=== PATIENT | female | born 1940 | race Caucasian/White ===

== ENCOUNTER 2020-03-03 08:25 | Outpatient (CLI) | payer MEDICARE, MEDICAID, SELFPAY ==
--- NOTE | ~2020-03-03 | XR_ITS ---
XR lumbar spine 2-3V DATE: 03/03/2020 08:59 INDICATION: Low back pain for 20 years TECHNIQUE: AP, lateral, coned lateral lumbosacral views COMPARISON: None FINDINGS: Mild dextro scoliosis of the lumbar spine. Moderate osteopenia. No fracture or bone destruction of the lumbar spine is evident. The included lower thoracic and lumba r pedicles are intact. 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 There is moderate degenerative disc disease at L1-2 and L3-4, relatively sparing L2-3. There is approximately 8.5 mm grade 1 anterolisthesis at L4-5, apparently due to degenerative change at the apophyseal joints. There is moderately severe degenerative disc disease at L4-5 and L5-S1. The sacroiliac joints are intact. IMPRESSION: Grade 1 anterolisthesis at L4-5 Multilevel degenerative disc disease, most prominent at L4-5 and L5-S1 Moderate osteopenia Mild dextroscoliosis of the lumbar spine Reviewed, dictated and finalized at location B.
[2020-03-03 08:38] LABS: Basophils Absolute Auto 0.03 K/mm3 (0.00-0.10); Basophils Percent Auto 0.3 % (0.0-1.0); Eosinophils Absolute Auto 0.25 K/mm3 (0.02-0.50); Eosinophils Percent Auto 2.9 % (1.0-6.0); Hemoglobin 11.2 g/dL (11.7-13.8); Immature Granulocyte Absolute 0.07 K/mm3 (0.00-0.00); Immature Granulocyte Percent A 0.8 % (0.0-0.0); Lymphocytes Percent Auto 28.7 % (18.0-42.0); Mean Corpuscular HGB Conc 30.3 g/dL (32.0-36.0); Mean Corpuscular Hemoglobin 29.1 pg (27.0-31.0); Mean Corpuscular Volume 96.1 fL (78.0-102.0); Mean Platelet Volume 9.4 fl (9.2-11.8); Monocytes Absolute Auto 0.64 K/mm3 (0.10-0.90); Monocytes Percent Auto 7.3 % (2.0-11.0); Neutrophils Absolute Auto 5.2 K/mm3 (1.7-7.2); Platelet Count Result 204 K/mm3 (150-420); Red Blood Count 3.85 M/mm3 (4.20-5.40); Red Cell Distribution Width 13.9 % (11.6-14.4); White Blood Count 8.7 K/mm3 (4.8-10.8)
[2020-03-03 10:06] LABS: Alanine Aminotransferase 19 U/L (14-59); Alkaline Phosphatase 82 U/L (46-116); Anion Gap 9 mmol/L (8-16); Aspartate Amino Transferase 15 U/L (15-37); Bilirubin,Total 0.5 mg/dL (0.00-1.00); Blood Urea Nitrogen 55 mg/dL (7-18); Calcium 9.8 mg/dL (8.5-10.1); Carbon Dioxide 32 mmol/L (21-32); Chloride 102 mmol/L (98-108); Estimated Glomerular Filt Rate 13; Glucose 146 mg/dL (70-99); Osmolality Calculated 314 mOsm/kg (285-295); Potassium 4.8 mmol/L (3.5-5.1); Sodium 143 mmol/L (136-145); Thyroid Stimulating Hormone 1.64 uIU/mL (0.36-3.74); Total Protein 7.3 g/dL (6.4-8.2)
== END 2020-03-03 08:26 | disposition home or self-care (01) ==
PROVIDERS: PCP Family Medicine; Visit Provider Family Medicine
DX: N18.9 Chronic kidney disease, unspecified (principal); E03.8 Other specified hypothyroidism; E78.2 Mixed hyperlipidemia; M54.5 Low back pain
CPT/HCPCS: 36415; 72100; 80053; 84443; 85025

== ENCOUNTER 2020-03-17 07:21 | Outpatient (CLI) | payer MEDICARE, MEDICAID, SELFPAY | END 2020-03-17 07:22 | disposition home or self-care (01) | LOC: CHSIMG 07:24 | PROVIDERS: PCP Family Medicine; Visit Provider Family Medicine | DX: Z53.8 Procedure and treatment not carried out for other reasons (principal) | CPT/HCPCS: 99199 ==

== ENCOUNTER 2020-05-17 08:19 | Emergency (ER) | payer MEDICARE, MEDICAID, SELFPAY ==
[2020-05-17 08:27] VITALS: BP 117/74; PULSE 85; RESP 18; TEMP 38.3; O2SAT 94
--- NOTE | 2020-05-17 08:42 | ED.EAR ---
HPI - Ear Problem General Chief complaint: Ear Stated complaint: AMBULANCE Time Seen by Provider: 05/17/20 08:42 Source: patient, EMS and RN notes reviewed Mode of arrival: ambulatory Limitations: no limitations History of Present Illness Complaint: ear pain Location: left ear Duration: constant Severity: severe Relieving factors: nothing Exacerbating factors: palpation Context: Reports recent illness Discharge from ear: Reports no Associated symptoms ear: fever Treatment prior to arrival: none Related Data Home Medications Medication Instructions Recorded Confirmed Allergy Relief (fluticasone) 50 mcg NOT APPLICABLE DAILY 05/17/20 05/17/20 Restasis 0.05 % RIGHTEYE Q12-24H 05/17/20 05/17/20 allopurinol 100 mg PO BID 05/17/20 05/17/20 calcitriol 0.5 mcg PO 5XW 05/17/20 05/17/20 duloxetine 60 mg PO DAILY 05/17/20 05/17/20 fluticasone propion-salmeterol 1 inh INHALATION ONCE 05/17/20 05/17/20 [Advair Diskus] furosemide 40 mg PO DAILY 05/17/20 05/17/20 levothyroxine 75 mcg ONCE 05/17/20 05/17/20 magnesium oxide 400 mg PO DAILY 05/17/20 05/17/20 metoprolol tartrate 25 mg PO BID 05/17/20 05/17/20 mirtazapine 15 mg PO ONCE 05/17/20 05/17/20 omeprazole 20 mg PO DAILY 05/17/20 05/17/20 simvastatin 40 mg PO ONCE 05/17/20 05/17/20 tolterodine 4 mg PO DAILY 05/17/20 05/17/20 ziprasidone HCl 20 mg PO BID 05/17/20 05/17/20 Allergies Allergy/AdvReac Type Severity Reaction Status Date / Time aspirin Allergy Other Verified 05/17/20 08:54 codeine Allergy Other Verified 05/17/20 08:54 tetracycline Allergy Other Verified 05/17/20 08:54 Review of Systems Review of Systems: All systems reviewed & are unremarkable except as noted in HPI and below PMFSH Past Medical History Medical History (Updated 05/17/20 @ 08:58 by Wali Owusu MD) Bipolar 1 disorder, mixed Chronic renal failure Social History Social History (Updated 05/17/20 @ 08:58 by Wali Owusu MD) Smoking status: Never smoker Alcohol intake: never Substance use: never Exam Const: General: healthy appearing, no acute distress and alert Nutritional Appearance: well nourished and obese Orientation/consciousness: patient oriented x3 HENMT: Ears: TM's normal bilaterally and Abnormal EAC present erythema, edema and EAC tenderness; no foreign body General nose exam: Normal external nose present Mouth: Yes lip normal Eyes: Conjunctivae: conjunctivae normal Pupils: Equal, round and reactive pupils present EOM: EOMs intact bilaterally Neck: Neck: normal visual inspection Resp: Effort & Inspection: normal respiratory effort Auscultation: clear to auscultation bilaterally Cardio: Rate: regular rate Rhythm: regular rhythm GI: GI Palp: Yes Soft to palpation and No Tenderness to palpation present (GI) Auscultation: normal bowel sounds Back/Spine/Pelvis: Cervical Spine: cervical ROM normal Thoracic/Lumbar Spine: thoraco-lumbar ROM normal Skin: General skin exam: normal color Rashes: no rashes Neuro: General: patient oriented x3, moves all extremities and no focal motor deficits Course Vital Signs Vital signs: Vital Signs Temperature 38.3 C H 05/17/20 08:27 Pulse Rate 85 05/17/20 08:27 Respiratory Rate 18 05/17/20 08:27 Blood Pressure 117/74 05/17/20 08:27 Pulse Oximetry 94 05/17/20 08:27 Temperature 38.3 C H 05/17/20 08:27 Pulse Rate 87 05/17/20 10:22 Respiratory Rate 18 05/17/20 10:22 Blood Pressure 116/55 L 05/17/20 10:22 Pulse Oximetry 94 05/17/20 10:22 Medical Decision Making Vital Signs Vital Signs: Vital Signs Temperature 38.3 C H 05/17/20 08:27 Pulse Rate 85 05/17/20 08:27 Respiratory Rate 18 05/17/20 08:27 Blood Pressure 117/74 05/17/20 08:27 Pulse Oximetry 94 05/17/20 08:27 Temperature 38.3 C H 05/17/20 08:27 Pulse Rate 87 05/17/20 10:22 Respiratory Rate 18 05/17/20 10:22 Blood Pressure 116/55 L 05/17/20 10:22 Pulse Oximetry 94 05/17/20 10:22
--- NOTE | 2020-05-17 09:10 | PC.NURSE ---
Attempting to arrange to transportation, [facility]on[facility] refuses transport, pt does not qualify for [facility], pt has no family in the area available for transportation, attempting to contact [facility] ambulance at this time.
[2020-05-17 09:30] VITALS: BP 117/54; PULSE 88; RESP 18; O2SAT 93
[2020-05-17 10:22] VITALS: BP 116/55; PULSE 87; RESP 18; O2SAT 94
== END 2020-05-17 10:22 | disposition home or self-care (01) ==
PROVIDERS: Emergency Provider Emergency Medicine; PCP Family Medicine
DX: H60.312 Diffuse otitis externa, left ear (principal)
CPT/HCPCS: 99283

== ENCOUNTER 2020-05-20 13:24 | Inpatient (IN) | payer MEDICARE, MEDICAID, SELFPAY ==
--- NOTE | ~2020-05-20 | XR_ITS ---
EXAMINATION: XR chest 1V portable DATE: 05/20/2020 14:08 INDICATION: Shortness of breath. TECHNIQUE: A single frontal view of the chest was obtained. COMPARISON: None. FINDINGS: There are airspace opacities in the mid and lower lung zones bilaterally with a peripheral predominance. No pleural effusion or pneumothorax. The heart size is normal. There are surgical clips in the neck. IMPRESSION: 1. Airspace opacities in the mid and lower lung zones, consistent with pneumonia. Reviewed, dictated and finalized at location A. ECTION AND TESTING SUPERVISOR IMPRESSION: 1. Airspace opacities in the mid and lower lung zones, consistent with pneumoni a.
--- NOTE | ~2020-05-20 | NM_ITS ---
EXAMINATION: NM pulmonary perfusion DATE: 05/21/2020 09:17 INDICATION: Shortness of breath. TECHNIQUE: 5.1 mCi Tc-99m MAA was administered intravenously for perfusion images. Scintigraphic dc ges of the chest were obtained. COMPARISON: chest single view 05/20/20 FINDINGS: Perfusion images show small defects in the lower lobes and left upper lobe. ] IMPRESSION: 1. Pulmonary embolism absent (very low probability). Reviewed, dictated and finalized at location A. STRATOR SET
[2020-05-20 13:43] VITALS: BP 100/45; PULSE 100; RESP 20; TEMP 39.4; O2SAT 98
[2020-05-20] MEDS: ACETAMINOPHEN 500 MG TABLET 1000 MG PO (14:15)
[2020-05-20] MEDS: SODIUM CHLORIDE 0.9% IV 1,000 ML 999 ML IV CONT (14:20)
[2020-05-20 14:33] LABS: Eosinophils Absolute Auto 0.01 K/mm3 (0.02-0.50); Eosinophils Percent Auto 0.2 % (1.0-6.0); Hematocrit 31.8 % (35.0-42.0); Hemoglobin 9.7 g/dL (11.7-13.8); Immature Granulocyte Absolute 0.02 K/mm3 (0.00-0.00); Immature Granulocyte Percent A 0.4 % (0.0-0.0); Lymphocytes Absolute Auto 1.21 K/mm3 (1.10-4.50); Lymphocytes Percent Auto 24.3 % (18.0-42.0); Mean Corpuscular HGB Conc 30.5 g/dL (32.0-36.0); Mean Corpuscular Hemoglobin 27.8 pg (27.0-31.0); Mean Corpuscular Volume 91.1 fL (78.0-102.0); Mean Platelet Volume 10.4 fl (9.2-11.8); Monocytes Absolute Auto 0.45 K/mm3 (0.10-0.90); Neutrophils Absolute Auto 3.3 K/mm3 (1.7-7.2); Neutrophils Percent Auto 66.1 % (50.0-70.0); Platelet Count Result 184 K/mm3 (150-420); Red Blood Count 3.49 M/mm3 (4.20-5.40); Red Cell Distribution Width 13.7 % (11.6-14.4)
[2020-05-20] MEDS: ALPRAZolam (*CRX) 0.5 MG TABLET PO (14:40)
[2020-05-20 14:50] LABS: Base Excess ABG -3.4 mmol/L (0-2); HCO3 ABG 16.7 mmol/L (23-29); Oxygen Content ABG 13.1 %vol (16.0-22.0); Oxygen Saturation ABG 95.5 % (95-97); Oxyhemoglobin 94.8 % (94-100); PO2 ABG 71.1 mmHg (75-85); Total Hemoglobin 9.8 g/dL; pH ABG 7.59 (7.35-7.45)
[2020-05-20 14:51] LABS: Device ROOM AIR; Site Drawn LEFT BRACHIAL
[2020-05-20 14:52] LABS: Lactic Acid Reflex 1.5 mmol/L (0.4-2.0)
[2020-05-20 14:52] LABS: PCO2 ABG 17.7 mmHg (35-45)
[2020-05-20 14:53] LABS: Alanine Aminotransferase 35 U/L (14-59); Alkaline Phosphatase 59 U/L (46-116); Anion Gap 11 mmol/L (8-16); Aspartate Amino Transferase 49 U/L (15-37); Bilirubin,Total 0.4 mg/dL (0.00-1.00); Blood Urea Nitrogen 75 mg/dL (7-18); Calcium 8.9 mg/dL (8.5-10.1); Carbon Dioxide 26 mmol/L (21-32); Chloride 100 mmol/L (98-108); Estimated Glomerular Filt Rate 9; Glucose 104 mg/dL (70-99); Osmolality Calculated 306 mOsm/kg (285-295); Potassium 4.3 mmol/L (3.5-5.1); Sodium 137 mmol/L (136-145); Total Protein 7.3 g/dL (6.4-8.2)
[2020-05-20 14:56] LABS: BNP 50 pg/mL (0-100); D Dimer 0.86 mg/L (0.19-0.50); Troponin I 22.6 ng/L (0.00-60.4)
--- NOTE | 2020-05-20 14:59 | ED.FEVER ---
HPI - Fever General Chief Complaint: Fever Stated Complaint: ambulance Source: patient and EMS Mode of arrival: EMS History of Present Illness HPI Narrative: This is a 79-year-old patient from [facility] that presents with increasing shortness of breath and feel fever up to 103, the patient was sent over by EMS patient recently diagnosed with COVID 19 on the 14 of May, currently her vital signs and O2 sats are 98% on room air, with a blood pressure 100 over 45. Patient with a mild cough mild shortness of breath O2 sats 98% with fever up to 103 with no chest pain no abdominal pain patient with a history of anxiety and depression and history of hypothyroid and hypercholesterolemia. The patient was diagnosed with some COVID-19 on May 14 while at the [facility]. Patient is poor historian but appears uncomfortable anxious. MD elicited complaint: fever Onset (ago): day(s) Relieving factors: acetaminophen Associated symptoms: shortness of breath Related Data Home Medications Medication Instructions Recorded Confirmed Allergy Relief (fluticasone) 50 mcg NOT APPLICABLE DAILY 05/17/20 05/17/20 Restasis 0.05 % RIGHTEYE Q12-24H 05/17/20 05/17/20 allopurinol 100 mg PO BID 05/17/20 05/17/20 calcitriol 0.5 mcg PO 5XW 05/17/20 05/17/20 duloxetine 60 mg PO DAILY 05/17/20 05/17/20 fluticasone propion-salmeterol 1 inh INHALATION ONCE 05/17/20 05/17/20 [Advair Diskus] furosemide 40 mg PO DAILY 05/17/20 05/17/20 levothyroxine 75 mcg ONCE 05/17/20 05/17/20 magnesium oxide 400 mg PO DAILY 05/17/20 05/17/20 metoprolol tartrate 25 mg PO BID 05/17/20 05/17/20 mirtazapine 15 mg PO ONCE 05/17/20 05/17/20 omeprazole 20 mg PO DAILY 05/17/20 05/17/20 simvastatin 40 mg PO ONCE 05/17/20 05/17/20 tolterodine 4 mg PO DAILY 05/17/20 05/17/20 ziprasidone HCl 20 mg PO BID 05/17/20 05/17/20 Allergies Allergy/AdvReac Type Severity Reaction Status Date / Time aspirin Allergy Other Verified 05/20/20 13:58 codeine Allergy Other Verified 05/20/20 13:58 tetracycline Allergy Other Verified 05/20/20 13:58 Review of Systems Review of Systems: All systems reviewed & are unremarkable except as noted in HPI and below PMFSH Past Medical History Medical History Bipolar 1 disorder, mixed Chronic renal failure Social History Social History Smoking status: Never smoker Alcohol intake: never Substance use: never Gender identity (if verbalized by the patient): Female Exam Const: General: no acute distress Orientation/consciousness: patient oriented x3 HENMT: Head: normal to inspection Eyes: Conjunctivae: conjunctivae normal Pupils: Equal, round and reactive pupils present EOM: EOMs intact bilaterally Chest: Chest palpation & inspection: normal inspection of the chest Resp: Effort & Inspection: normal respiratory effort Auscultation: diminished lung sounds Cardio: Rate: regular rate Rhythm: regular rhythm GI: GI Palp: Yes Soft to palpation Auscultation: normal bowel sounds : General: Yes no CVA tenderness Back/Spine/Pelvis: Back: no CVA tenderness Skin: General skin exam: normal color Rashes: no rashes Neuro: General: patient oriented x3, moves all extremities, no meningeal signs and no focal motor deficits Extrem: General: normal to inspection and no pedal edema Psych: Affect: Anxious affect present Course BEAMER OPERATOR/PA Physician Supervision Reassessment of patient after becoming severely anxious and hyperventilating with some blood drawn received dose of Xanax and currently I the fluids and appears more calm. Patient will be admitted as an inpatient. Vital Signs Vital signs: Vital Signs Temperature 39.4 C H 05/20/20 13:43 Pulse Rate 100 05/20/20 13:43 Respiratory Rate 20 05/20/20 13:43 Blood Pressure 100/45 L 05/20/20 13:43 Pulse Oximetry 98 05/20/20 13:43 [place]
[2020-05-20 16:00] VITALS: BP 106/56; PULSE 88; RESP 20; TEMP 38; O2SAT 92
[2020-05-20 16:15] VITALS: PULSE 80; RESP 88; O2SAT 94
[2020-05-20 16:57] VITALS: BMI 32.7
[2020-05-20] MEDS: ziprasidone HCL 20 MG CAPSULE PO (17:08)
[2020-05-20] MEDS: ENOXAPARIN 40 MG/0.4 ML SYRINGE 70 MG SUB-Q (17:08)
[2020-05-20] MEDS: SODIUM CHLORIDE 0.9% IV 1,000 ML 100 ML IV CONT (17:09)
[2020-05-20 20:40] VITALS: O2SAT 90
[2020-05-20 20:45] VITALS: BP 118/52; PULSE 93; RESP 18; TEMP 36.2; O2SAT 90
[2020-05-20] MEDS: SIMVASTATIN 10 MG TABLET 40 MG PO (21:07)
[2020-05-20] MEDS: MIRTAZAPINE 15 MG TABLET PO (21:07)
[2020-05-21] VITALS: BP 118/60; PULSE 78; RESP 18; TEMP 36.5; O2SAT 93
--- NOTE | 2020-05-21 02:47 | PC.NURSE ---
pt sleeping, no evidence of distress noted, iv fluids infusing per order
[2020-05-21] MEDS: SODIUM CHLORIDE 0.9% IV 1,000 ML 100 ML IV CONT ×3 (03:18→21:52)
[2020-05-21 04:00] VITALS: PULSE 87; RESP 20; TEMP 36.4
[2020-05-21] MEDS: LEVOTHYROXINE SODIUM 75 MCG TABLET PO (05:43)
[2020-05-21 05:57] LABS: Eosinophils Absolute Auto 0.02 K/mm3 (0.02-0.50); Eosinophils Percent Auto 0.4 % (1.0-6.0); Hematocrit 28.4 % (35.0-42.0); Hemoglobin 8.7 g/dL (11.7-13.8); Immature Granulocyte Absolute 0.03 K/mm3 (0.00-0.00); Immature Granulocyte Percent A 0.7 % (0.0-0.0); Lymphocytes Absolute Auto 1.02 K/mm3 (1.10-4.50); Lymphocytes Percent Auto 22.9 % (18.0-42.0); Mean Corpuscular HGB Conc 30.6 g/dL (32.0-36.0); Mean Corpuscular Volume 91.3 fL (78.0-102.0); Mean Platelet Volume 10.2 fl (9.2-11.8); Monocytes Absolute Auto 0.34 K/mm3 (0.10-0.90); Monocytes Percent Auto 7.6 % (2.0-11.0); Neutrophils Absolute Auto 3.1 K/mm3 (1.7-7.2); Neutrophils Percent Auto 68.4 % (50.0-70.0); Platelet Count Result 148 K/mm3 (150-420); Red Blood Count 3.11 M/mm3 (4.20-5.40); Red Cell Distribution Width 14.1 % (11.6-14.4); White Blood Count 4.5 K/mm3 (4.8-10.8)
[2020-05-21 06:23] LABS: Alanine Aminotransferase 28 U/L (14-59); Albumin Level 2.6 g/dL (3.4-5.0); Alkaline Phosphatase 50 U/L (46-116); Anion Gap 8 mmol/L (8-16); Aspartate Amino Transferase 44 U/L (15-37); Bilirubin,Total 0.3 mg/dL (0.00-1.00); Blood Urea Nitrogen 68 mg/dL (7-18); Carbon Dioxide 26 mmol/L (21-32); Chloride 104 mmol/L (98-108); Estimated CRCL calculation 10 ml/min; Estimated Glomerular Filt Rate 10; Glucose 111 mg/dL (70-99); Osmolality Calculated 306 mOsm/kg (285-295); Potassium 4.2 mmol/L (3.5-5.1); Sodium 138 mmol/L (136-145); Total Protein 5.7 g/dL (6.4-8.2)
--- NOTE | 2020-05-21 06:30 | PC.NURSE ---
creatinine of 4.[address] Campbell, fluids infusing, no new orders received
[2020-05-21 07:41] VITALS: BP 136/78; PULSE 78; RESP 18; TEMP 39.1; O2SAT 93
[2020-05-21 07:46] VITALS: TEMP 39.1
[2020-05-21] MEDS: ACETAMINOPHEN 325 MG TABLET 650 MG PO ×2 (07:46→14:11)
[2020-05-21] MEDS: DULoxetine HCL 30 MG CAPSULE.DR 60 MG PO (10:07)
[2020-05-21] MEDS: DEXAMETHASONE SOD PHOS INJ 4 MG/ML VIAL 6 MG IV PUSH (10:07)
[2020-05-21] MEDS: PANTOPRAZOLE 40 MG TABLET PO (10:07)
[2020-05-21] MEDS: ziprasidone HCL 20 MG CAPSULE PO ×2 (10:08→17:11)
--- NOTE | 2020-05-21 11:22 | PM.IMHP ---
H&P: HPI History of Present Illness Date/Time: 05/21/20 11:22 Chief Complaint: sob, fever Narrative: norbert leiva is a 79 year old female that presented to our ED today with complaints of shortness of breath and a temperature of 103. Patient has a past medical history of bipolar and chronic renal failure. She was diagnosed with Covid on May 14. At this time patient notes that her condition has much improved since admission she continues to have a slight cough she is no longer short of breath and she is on room air satting in the 90s. The patient denies SOB, CP, palpitation, extremity numbness, lightheadedness, dizziness, constipation, diarrhea, chills, or fever. Although she denies a fever she does have a temperature of 102.4. Patient D-dimer was slightly elevated on admission due to her renal function she is unable to have a CTA but did have a VQ scan which was negative. Review of Systems Review of Systems: All systems reviewed & are unremarkable except as noted in HPI and below (10 point system review) [facility] Past Medical History Medical History Bipolar 1 disorder, mixed Chronic renal failure Social History Social History Smoking status: Smoker, status unknown Alcohol intake: unknown Substance use: never Gender identity (if verbalized by the patient): Female Sexual Orientation (if Verbalized by the Patient): Straight or Heterosexual Spiritual care concerns: No Meds Home Medications and Allergies Home Medications Medication Instructions Recorded Confirmed Type mfvnycyd-fipvka-DQ-thonzonium 4 drp LEFTEAR TID #10 ml 05/17/20 05/21/20 Rx [Cortisporin-TC] allopurinol 100 mg PO BID 05/20/20 05/20/20 History calcitriol 0.5 mcg PO 5XW 05/20/20 05/20/20 History cyclosporine [Restasis] 1 drp OPHTHALMIC (EYE) Q12H 05/20/20 05/20/20 History duloxetine 60 mg PO DAILY 05/20/20 05/20/20 History fluticasone propion-salmeterol 1 inh INHALATION Q12H 05/20/20 05/20/20 History [Advair Diskus] fluticasone propionate 1 spray INTRANASAL DAILY 05/20/20 05/20/20 History furosemide 40 mg PO DAILY 05/20/20 05/20/20 History levothyroxine 75 mcg PO DAILY 05/20/20 05/20/20 History magnesium oxide 400 mg PO DAILY 05/20/20 05/20/20 History metoprolol tartrate 25 mg PO BID 05/20/20 05/20/20 History mirtazapine 15 mg PO HS 05/20/20 05/20/20 History omeprazole 20 mg PO DAILY 05/20/20 05/20/20 History simvastatin 40 mg PO HS 05/20/20 05/20/20 History tolterodine 4 mg PO DAILY 05/20/20 05/20/20 History ziprasidone HCl 20 mg PO BID 05/20/20 05/20/20 History Allergies Allergy/AdvReac Type Severity Reaction Status Date / Time aspirin Allergy Other Verified 05/20/20 13:58 codeine Allergy Other Verified 05/20/20 13:58 tetracycline Allergy Other Verified 05/20/20 13:58 Vital Signs Vital Signs - 24 hr 05/20/20 13:43 05/20/20 16:00 05/20/20 16:15 Temperature 103.0 F H 100.4 F H Pulse Rate 100 88 80 Respiratory Rate 20 20 88 H Blood Pressure 100/45 L 106/56 L Pulse Oximetry 98 92 94 05/20/20 20:40 05/20/20 20:45 05/21/20 00:00 Temperature 97.2 F L 97.7 F Pulse Rate 93 78 Respiratory Rate 18 18 Blood Pressure 118/52 L 118/60 Pulse Oximetry 90 90 93 05/21/20 04:00 05/21/20 07:41 05/21/20 07:46 Temperature 97.6 F 102.4 F H 102.4 F H Pulse Rate 87 78 Respiratory Rate 20 18 Blood Pressure 136/78 Pulse Oximetry 93 Exam Narrative: Exam Narrative: GENERAL: This is a well-nourished, well-developed patient, in no apparent distress. HEAD: normocephalic, atraumatic. EYES: PERRL. Sclera clear/white. Vision is grossly intact. EARS: External ears normal, auditory canals clear and without drainage, TMs normal without perforation. Hearing grossly intact. NOSE: External nose normal with no obvious nasal discharge, nares without redness, no rhinorrhea. THROAT: Mucous membranes moist, posterior p
[2020-05-21 13:18] LABS: Hematocrit 27.5 % (35.0-42.0); Hemoglobin 8.5 g/dL (11.7-13.8)
[2020-05-21 14:11] VITALS: TEMP 37.6
[2020-05-21 16:00] VITALS: BP 116/73; PULSE 92; RESP 18; TEMP 36.3; O2SAT 95
[2020-05-21 16:15] LABS: Occult Blood Negative (Negative)
[2020-05-21] MEDS: SIMVASTATIN 10 MG TABLET 40 MG PO (21:37)
[2020-05-21] MEDS: DOCUSATE SODIUM 100 MG CAPSULE PO (21:37)
[2020-05-21] MEDS: MIRTAZAPINE 15 MG TABLET PO (21:38)
[2020-05-22] VITALS: BP 139/70; PULSE 80; RESP 18; TEMP 36.2; O2SAT 93
--- NOTE | 2020-05-22 01:00 | PC.NURSE ---
Pt. up to BR c assist x1, pt. gait slow and slightly unsteady. Pt. assisted c nurse and noted small incontinent loose stool. Pt. changed depend and assisted back to bed.
[2020-05-22] MEDS: SODIUM CHLORIDE 0.9% IV 1,000 ML 100 ML IV CONT (01:52)
[2020-05-22] MEDS: LEVOTHYROXINE SODIUM 75 MCG TABLET PO (06:16)
[2020-05-22 08:00] VITALS: BP 149/83; PULSE 118; RESP 22; TEMP 36.3; O2SAT 93
[2020-05-22 08:42] LABS: Hematocrit 29.7 % (35.0-42.0); Hemoglobin 9.1 g/dL (11.7-13.8); Mean Corpuscular HGB Conc 30.6 g/dL (32.0-36.0); Mean Corpuscular Hemoglobin 28.2 pg (27.0-31.0); Mean Platelet Volume 10.5 fl (9.2-11.8); Platelet Count Result 160 K/mm3 (150-420); Red Blood Count 3.23 M/mm3 (4.20-5.40); Red Cell Distribution Width 13.6 % (11.6-14.4); White Blood Count 5.3 K/mm3 (4.8-10.8)
[2020-05-22 09:03] LABS: Alanine Aminotransferase 31 U/L (14-59); Albumin Level 2.5 g/dL (3.4-5.0); Alkaline Phosphatase 50 U/L (46-116); Anion Gap 8 mmol/L (8-16); Aspartate Amino Transferase 40 U/L (15-37); Bilirubin,Total 0.2 mg/dL (0.00-1.00); Blood Urea Nitrogen 51 mg/dL (7-18); Calcium 8.6 mg/dL (8.5-10.1); Carbon Dioxide 24 mmol/L (21-32); Chloride 106 mmol/L (98-108); Estimated CRCL calculation 12 ml/min; Estimated Glomerular Filt Rate 14; Glucose 138 mg/dL (70-99); Osmolality Calculated 301 mOsm/kg (285-295); Sodium 138 mmol/L (136-145); Total Protein 6.5 g/dL (6.4-8.2)
[2020-05-22] MEDS: DULoxetine HCL 30 MG CAPSULE.DR 60 MG PO (09:25)
[2020-05-22] MEDS: ziprasidone HCL 20 MG CAPSULE PO (09:25)
[2020-05-22] MEDS: DEXAMETHASONE SOD PHOS INJ 4 MG/ML VIAL 6 MG IV PUSH (09:25)
[2020-05-22] MEDS: DOCUSATE SODIUM 100 MG CAPSULE PO (09:25)
[2020-05-22] MEDS: PANTOPRAZOLE 40 MG TABLET PO (09:26)
--- NOTE | 2020-05-22 09:42 | P.DS_ITS ---
DS: Admitting Diagnosis Admitting Diagnosis Admitting Diagnosis: covid <Dena GrecoCHU - Last Filed: 05/22/20 10:35> DS: Discharge Diagnosis Discharge Diagnosis (1) COVID-19: Code(s): U07.1 - COVID-19 <Dena GrecoCHU - Last Filed: 05/22/20 10:35> Status: Acute <Dena GrecoCHU - Last Filed: 05/22/20 10:35> Assessment and Plan: * Patient diagnosed 05/14/2020 of quarantine 05/25/2020 * Continue dexamethasone not a candidate for remdesivir due to renal function * Blood cultures preliminary no growth * Chest x-ray indicates pneumonia which is residual from the COVID-19 <Dena Spangler CHU Greco - Last Filed: 05/22/20 10:35> (2) Acute renal disease: Code(s): N28.9 - Disorder of kidney and ureter, unspecified <CHU Jerome - Last Filed: 05/22/20 10:35> Status: Acute <Dena DentonEVA SteeleC - Last Filed: 05/22/20 10:35> Assessment and Plan: * Possibly worsening due to Covid * Creatinine currently 3.34 improved * Baseline appears to be 3.00 back in 03/03/2020 <CHU Jerome - Last Filed: 05/22/20 10:35> (3) Bipolar 1 disorder, mixed: Code(s): F31.60 - Bipolar disorder, current episode mixed, unspecified <Dena CorrieCHU Steele - Last Filed: 05/22/20 10:35> Status: Acute <EVA JeromeC - Last Filed: 05/22/20 10:35> Assessment and Plan: * Continue home medication <CHU Jerome - Last Filed: 05/22/20 10:35> (4) Chronic renal failure: Code(s): N18.9 - Chronic kidney disease, unspecified <CHU Jerome - Last Filed: 05/22/20 10:35> Status: Acute <CHU Jerome - Last Filed: 05/22/20 10:35> Assessment and Plan: * Referred to acute renal failure <CHU Jerome - Last Filed: 05/22/20 10:35> (5) Elevated d-dimer: Code(s): R79.89 - Other specified abnormal findings of blood chemistry <CHU Jerome - Last Filed: 05/22/20 10:35> Status: Acute <CHU Jerome - Last Filed: 05/22/20 10:35> Assessment and Plan: * Unable to complete CTA VQ scan completed * VQ scan negative <CHU Jerome - Last Filed: 05/22/20 10:35> DS: Summary Hospital Course Hospital Course: This is a 79-year-old woman that presented to our ED on 1218 with complaints of shortness of breath and tested positive for Covid. Patient was treated with dexamethasone she is not a candidate for remdesivir due to her renal function her D-dimer was elevated VQ scan scan completed negative for PE. Patient did not require any oxygen supplement while here she was discharged today home with dexamethasone and she is in stable condition. The patient denies SOB, CP, palpitation, extremity numbness, lightheadedness, dizziness, constipation, diarrhea, chills, or fever. This document was completed by using [employer] speech recognition software, therefore imaging technologist variances may occur. Despite proofreading, typographical errors may also occur. <CHU Jerome - Last Filed: 05/22/20 10:35> Time Spent with Patient Time attestation: Total time spent providing and/or coordinating discharge services:60 <CHU Jerome - Last Filed: 05/22/20 10:35> Exam Narrative: Exam Narrative: GENERAL: This is a well-nourished, well-developed patient, in no apparent distress. HEAD: normocephalic, atraumatic. EYES: PERRL. Sclera clear/white. Vision is grossly intact. EARS: External ears normal, auditory canals clear and without drainag
--- NOTE | 2020-05-22 09:42 | PM.DS ---
DS: Admitting Diagnosis Admitting Diagnosis Admitting Diagnosis: covid <Dena Spangler EVA GrecoC - Last Filed: 05/22/20 10:35> DS: Discharge Diagnosis Discharge Diagnosis (1) COVID-19: Code(s): U07.1 - COVID-19 <Dena GrecoEVAC - Last Filed: 05/22/20 10:35> Status: Acute <Dena Spangler EVA GrecoC - Last Filed: 05/22/20 10:35> Assessment and Plan: Patient diagnosed 05/14/2020 of quarantine 05/25/2020 Continue dexamethasone not a candidate for remdesivir due to renal function Blood cultures preliminary no growth Chest x-ray indicates pneumonia which is residual from the COVID-19 <Nickolassaniya Crys EVA GrecoC - Last Filed: 05/22/20 10:35> (2) Acute renal disease: Code(s): N28.9 - Disorder of kidney and ureter, unspecified <BRANDEE Jerome-C - Last Filed: 05/22/20 10:35> Status: Acute <Dena DentonBRANDEE Steele-C - Last Filed: 05/22/20 10:35> Assessment and Plan: Possibly worsening due to Covid Creatinine currently 3.34 improved Baseline appears to be 3.00 back in 03/03/2020 <BRANDEE Jerome-C - Last Filed: 05/22/20 10:35> (3) Bipolar 1 disorder, mixed: Code(s): F31.60 - Bipolar disorder, current episode mixed, unspecified <EVA JeromeC - Last Filed: 05/22/20 10:35> Status: Acute <BRANDEE Jerome-C - Last Filed: 05/22/20 10:35> Assessment and Plan: Continue home medication <EVA JreomeC - Last Filed: 05/22/20 10:35> (4) Chronic renal failure: Code(s): N18.9 - Chronic kidney disease, unspecified <BRANDEE Jerome-C - Last Filed: 05/22/20 10:35> Status: Acute <BRANDEE Jerome-C - Last Filed: 05/22/20 10:35> Assessment and Plan: Referred to acute renal failure <DANIELA JeromePBeckyAlexys - Last Filed: 05/22/20 10:35> (5) Elevated d-dimer: Code(s): R79.89 - Other specified abnormal findings of blood chemistry <CHU Jerome - Last Filed: 05/22/20 10:35> Status: Acute <CHU Jerome - Last Filed: 05/22/20 10:35> Assessment and Plan: Unable to complete CTA VQ scan completed VQ scan negative <CHU Jerome - Last Filed: 05/22/20 10:35> DS: Summary Hospital Course Hospital Course: This is a 79-year-old woman that presented to our ED on 1217 with complaints of shortness of breath and tested positive for Covid. Patient was treated with dexamethasone she is not a candidate for remdesivir due to her renal function her D-dimer was elevated VQ scan scan completed negative for PE. Patient did not require any oxygen supplement while here she was discharged today home with dexamethasone and she is in stable condition. The patient denies SOB, CP, palpitation, extremity numbness, lightheadedness, dizziness, constipation, diarrhea, chills, or fever. This document was completed by using [employer] Direct speech recognition software, therefore computer sciences professor variances may occur. Despite proofreading, typographical errors may also occur. <Dena GrecoBRANDEEBeckyAlexys - Last Filed: 05/22/20 10:35> Time Spent with Patient Time attestation: Total time spent providing and/or coordinating discharge services:60 <CHU Jerome - Last Filed: 05/22/20 10:35> Exam Narrative: Exam Narrative: GENERAL: This is a well-nourished, well-developed patient, in no apparent distress. HEAD: normocephalic, atraumatic. EYES: PERRL. Sclera clear/white. Vision is grossly intact. EARS: External ears normal, auditory canals clear and without drainage, TMs normal without perforation. Hearing grossly intact. NOSE: External nose normal with no obvious nasal discharge, nares without redness, no rhinorrhea. THROAT: Mucous membranes moist, posterior pharynx clear. NECK: Neck supple, non-tender without lymphadenopathy, masses or thyromegaly. CARDIOVASCULAR: Regular rate and rhythm without
--- NOTE | 2020-05-22 12:25 | PC.NURSE ---
ROSSY paged to transfer patient back to [facility] care. Spoke to detention care worker, states that all detention care patients much be transferred by [facility]. Prescriptions faxed to [facility].
--- NOTE | 2020-06-08 14:57 | PC.NURSE ---
Unable to contact for discharge call back.
== END 2020-05-22 12:45 | disposition home or self-care (01) | DRG 177 ==
LOC: CHSED 15:06 → CHS2ND 16:11
PROVIDERS: Nurse Practitioner; Admitting Provider Emergency Medicine; Emergency Provider Emergency Medicine; PCP Family Medicine; Visit Provider Emergency Medicine
DX: U07.1 COVID-19 (principal); J12.89 Other viral pneumonia; N18.9 Chronic kidney disease, unspecified; E03.9 Hypothyroidism, unspecified; E78.00 Pure hypercholesterolemia, unspecified; F31.9 Bipolar disorder, unspecified; F41.9 Anxiety disorder, unspecified
CPT/HCPCS: 36415; 36600; 71045; 78580; 80053; 82272; 82805; 83605; 83880; 84484; 85014; 85018; 85025; 85027; 85380; 86850; 86900; 86901; 87040; 96360; 99285; A9270; A9540; J1100; J1650; J7030

== ENCOUNTER 2020-11-29 08:15 | Outpatient (CLI) | payer MEDICARE, SELFPAY ==
[2020-11-29 09:14] LABS: Anion Gap 11 mmol/L (8-16); Blood Urea Nitrogen 72 mg/dL (7-18); Calcium 9.5 mg/dL (8.5-10.1); Carbon Dioxide 29 mmol/L (21-32); Chloride 103 mmol/L (98-108); Estimated Glomerular Filt Rate 12; Glucose 162 mg/dL (70-99); Osmolality Calculated 321 mOsm/kg (285-295); Potassium 4.7 mmol/L (3.5-5.1); Sodium 143 mmol/L (136-145)
[2020-12-01 13:54] LABS: Parathyroid Intact 62 pg/mL (14-64)
[2020-12-01 15:33] LABS: Vitamin D 25 Hydroxy 29 ng/mL (30-100)
== END 2020-11-29 08:16 | disposition home or self-care (01) ==
LOC: CHSLAB 08:17
PROVIDERS: PCP Family Medicine; Visit Provider Family Medicine
DX: E55.9 Vitamin D deficiency, unspecified (principal)
CPT/HCPCS: 36415; 80048; 82306; 83970

== ENCOUNTER 2021-01-05 07:54 | Outpatient (CLI) | payer MEDICARE, SELFPAY ==
[2021-01-05 08:16] LABS: Basophils Absolute Auto 0.05 K/mm3 (0.00-0.10); Basophils Percent Auto 0.5 % (0.0-1.0); Eosinophils Absolute Auto 0.41 K/mm3 (0.02-0.50); Eosinophils Percent Auto 4.4 % (1.0-6.0); Hematocrit 36.1 % (35.0-42.0); Hemoglobin 10.7 g/dL (11.7-13.8); Immature Granulocyte Absolute 0.06 K/mm3 (0.00-0.00); Immature Granulocyte Percent A 0.7 % (0.0-0.0); Lymphocytes Absolute Auto 3.29 K/mm3 (1.10-4.50); Lymphocytes Percent Auto 35.6 % (18.0-42.0); Mean Corpuscular HGB Conc 29.6 g/dL (32.0-36.0); Mean Corpuscular Hemoglobin 27.4 pg (27.0-31.0); Mean Corpuscular Volume 92.3 fL (78.0-102.0); Mean Platelet Volume 9.6 fl (9.2-11.8); Monocytes Absolute Auto 0.52 K/mm3 (0.10-0.90); Monocytes Percent Auto 5.6 % (2.0-11.0); Neutrophils Absolute Auto 4.9 K/mm3 (1.7-7.2); Neutrophils Percent Auto 53.2 % (50.0-70.0); Platelet Count Result 224 K/mm3 (150-420); Red Blood Count 3.91 M/mm3 (4.20-5.40); Red Cell Distribution Width 14.6 % (11.6-14.4); White Blood Count 9.2 K/mm3 (4.8-10.8)
[2021-01-05 08:50] LABS: Creatinine Urine 49.29 mg/dL (40-278); Total Protein Urine Random 16.2 mg/dL (0.0-11.9); Ur Ttl Prot Creatinine Ratio 0.33 mg/mg (0-0.20)
[2021-01-05 08:54] LABS: Hemoglobin A1C 6.2 % (<5.7)
[2021-01-05 09:29] LABS: Alanine Aminotransferase 25 U/L (14-59); Albumin Level 3.8 g/dL (3.4-5.0); Alkaline Phosphatase 113 U/L (46-116); Anion Gap 10 mmol/L (8-16); Aspartate Amino Transferase 20 U/L (15-37); Bilirubin,Total 0.4 mg/dL (0.00-1.00); Blood Urea Nitrogen 63 mg/dL (7-18); Calcium 9.4 mg/dL (8.5-10.1); Carbon Dioxide 30 mmol/L (21-32); Chloride 106 mmol/L (98-108); Estimated Glomerular Filt Rate 12; Ferritin 48 ng/mL (8-252); Glucose 110 mg/dL (70-99); Iron 43 ug/dL (50-170); Magnesium 2.4 mg/dL (1.8-2.4); Osmolality Calculated 321 mOsm/kg (285-295); Percent Iron Saturation 12 % (12-57); Phosphorus 4.6 mg/dL (2.6-4.7); Potassium 4.2 mmol/L (3.5-5.1); Sodium 146 mmol/L (136-145); Thyroid Stimulating Hormone 1.81 uIU/mL (0.36-3.74); Uric Acid 3.6 mg/dL (2.6-6.0)
[2021-01-08 11:54] LABS: Vitamin D 25 Hydroxy 29 ng/mL (30-100)
== END 2021-01-05 07:55 | disposition home or self-care (01) ==
PROVIDERS: PCP Family Medicine
DX: E55.9 Vitamin D deficiency, unspecified (principal); E78.2 Mixed hyperlipidemia; R73.01 Impaired fasting glucose; I12.0 Hypertensive chronic kidney disease with stage 5 chronic kidney disease or end stage renal disease; N18.5 Chronic kidney disease, stage 5; D63.1 Anemia in chronic kidney disease; N25.81 Secondary hyperparathyroidism of renal origin; M10.00 Idiopathic gout, unspecified site
CPT/HCPCS: 36415; 80053; 82306; 82570; 82728; 83036; 83540; 83550; 83735; 84100; 84156; 84443; 84550; 85025

== ENCOUNTER 2021-02-13 08:08 | Observation (INO) | payer MEDICARE, MEDICAID, SELFPAY ==
[2021-02-13] VITALS (14 sets, daily range): BP systolic 79–106; BP diastolic 40–88; PULSE 70–111; RESP 16–20; TEMP 36.2–37; O2SAT 92–97; BMI 33.0
--- NOTE | ~2021-02-13 | XR_ITS ---
EXAMINATION: XR chest 1V portable EXAM DATE: 02/13/2021 09:08 INDICATION: Dizziness. TECHNIQUE: Portable AP frontal chest x-ray was obtained. Comparison is made to prior examination from 05/20/2020. FINDINGS: The lungs are clear. There are no pleural effusions. Cardiac silhouette is prominent but magnified on this AP technique. There is no pneumothorax suspected. There are bony degenerative ch anges. IMPRESSION: No acute cardiopulmonary findings. Reviewed, dictated and finalized at location A.
--- NOTE | ~2021-02-13 | CT_ITS ---
EXAMINATION: CT brain wo con EXAM DATE: 02/13/2021 08:44 INDICATION: dizziness, symptoms 3 hours. TECHNIQUE: Spiral CT of the head was performed without contrast. Axial, coronal and sagittal images were reviewed. The dose-length product (DLP) for this examination was 605.33 mGy-cm. The exposure w as tailored according to patient size, and iterative reconstruction (ASIR) was used as additional dos e reduction technique. There is no prior study for comparison. FINDINGS: There is no acute intraparenchymal hemorrhage. No evidence of intraparenchymal brain mass lesion. No evidence of acute infarction. Please note that initial head CT has limited sensitivity f or small or acute infarctions. There is mild to moderate periventricular and subcortical hypodensity, nonspecific but probably related to small vessel ischemic disease. There is mild to moderate promi nence of the sulci and ventricles related to cerebral atrophy. There is intracranial carotid arteri osclerosis. There are no extra-axial collections. There is no mass effect or midline shift. The or bits are unremarkable. Soft tissue is unremarkable. The visualized sinuses and mastoid air cells ar e well aerated. IMPRESSION: 1. No acute intracranial findings. 2. Chronic age related findings. Reviewed, dictated and finalized at location A.
--- NOTE | 2021-02-13 08:18 | ECG_ITS ---
Measurements Intervals [place] Rate: 70 P: -21 WA: 178 QRS: 4 QRSD: 89 T: 30 QT: 433 QTc: 469 Interpretive Statements SINUS RHYTHM BORDERLINE ST ABNORMALITY- ANTERIOR LEADS BASELINE ARTIFACT- I, II, III, AVL, AVF BORDERLINE ECG Electronically Signed On 02-14-2021 7:55:22 CDT by Roverto Sher D.O.
[2021-02-13] MEDS: ONDANSETRON INJ 4 MG/2 ML VIAL IV PUSH (08:45)
--- NOTE | 2021-02-13 08:46 | ED.NAVMDI ---
HPI - Nausea/Vomiting/Diarrhea General Chief complaint: Nausea/Vomiting/Diarrhea Stated complaint: Ambulance Time Seen by Provider: 02/13/21 08:16 Source: patient, EMS, RN notes reviewed and other (Assisted living staff.) Mode of arrival: EMS Limitations: no limitations History of Present Illness MD elicited complaint: nausea and other (resolved dizziness. pt was not vertiginous in the ED.) Onset (ago): hour(s) (1) Description of vomiting: resolved (no acute vomiting) Associated nausea: Yes Associated abdominal pain: No Location of pain: none Pain scale (0-10): 0 Exacerbating factors: none Relieving factors: none Associated symptoms: nausea/vomiting and weakness Related Data Home Medications Medication Instructions Recorded Confirmed Restasis 1 drp OPHTHALMIC (EYE) Q12H 05/20/20 02/13/21 allopurinol 100 mg PO BID 05/20/20 02/13/21 calcitriol 0.5 mcg PO 5XW 05/20/20 02/13/21 duloxetine 60 mg PO DAILY 05/20/20 02/13/21 furosemide 40 mg PO DAILY 05/20/20 02/13/21 levothyroxine 75 mcg PO DAILY 05/20/20 02/13/21 magnesium oxide 400 mg PO DAILY 05/20/20 02/13/21 metoprolol tartrate 25 mg PO BID 05/20/20 02/13/21 mirtazapine 15 mg PO HS 05/20/20 02/13/21 omeprazole 20 mg PO DAILY 05/20/20 02/13/21 simvastatin 40 mg PO HS 05/20/20 02/13/21 tolterodine 4 mg PO DAILY 05/20/20 02/13/21 ziprasidone HCl 20 mg PO HS 05/20/20 02/13/21 acetaminophen 650 mg PO BID 02/13/21 02/13/21 acetaminophen 650 mg PO Q4H PRN 02/13/21 02/13/21 bismuth subsalicylate 524 mg PO Q1H PRN 02/13/21 02/13/21 [Pepto-Bismol] dicyclomine 20 mg PO TID PRN 02/13/21 02/13/21 ergocalciferol (vitamin D2) 50,000 unit PO WEEKLY 02/13/21 02/13/21 [Vitamin D2] guaifenesin [Robafen] 100 mg PO Q4H PRN 02/13/21 02/13/21 melatonin 3 mg PO HS PRN 02/13/21 02/13/21 polyethylene glycol 3350 [Miralax] 1 g PO DAILY PRN 02/13/21 02/13/21 Allergies Allergy/AdvReac Type Severity Reaction Status Date / Time aspirin Allergy Other Verified 05/20/20 13:58 codeine Allergy Other Verified 05/20/20 13:58 tetracycline Allergy Other Verified 05/20/20 13:58 Review of Systems Review of Systems: All systems reviewed & are unremarkable except as noted in HPI and below Gastrointestinal: Gastrointestinal: Reports as per HPI and Reports nausea Neurologic: Reports as per HPI, Reports dizziness and Reports weakness PMFSH Past Medical History Medical History Bipolar 1 disorder, mixed Chronic renal failure Social History Social History Smoking status: Smoker, status unknown Alcohol intake: unknown Substance use: never Gender identity (if verbalized by the patient): Female Sexual Orientation (if Verbalized by the Patient): Straight or Heterosexual Spiritual care concerns: No Exam Const: General: healthy appearing, no acute distress and alert Nutritional Appearance: well nourished Orientation/consciousness: patient oriented x3 HENMT: Head: normal to inspection Ears: external ears normal and TM's normal bilaterally General nose exam: Normal external nose present and Normal nares present Face and sinus: normal facial exam Mouth: Yes dry mucous membranes Eyes: Cornea: corneas normal Pupils: Equal, round and reactive pupils present EOM: EOMs intact bilaterally Neck: Neck: normal visual inspection, no lymphadenopathy and no meningeal signs Chest: Chest palpation & inspection: normal inspection of the chest Resp: Effort & Inspection: normal respiratory effort Auscultation: clear to auscultation bilaterally Cardio: Rate: regular rate Rhythm: regular rhythm GI: GI Palp: Yes Soft to palpation Percussion: Yes normal to percussion Auscultation: normal bowel sounds : General: Yes bladder normal to palpation and Yes no CVA tenderness Back/Spine/Pelvis: Back: no CVA tenderness Skin: General skin exam: normal color Rashes: no rashes Neuro: Gener
[2021-02-13] MEDS: SODIUM CHLORIDE 0.9% IV 1,000 ML 999 ML IV CONT (08:52)
[2021-02-13 08:59] LABS: Basophils Absolute Auto 0.04 K/mm3 (0.00-0.10); Basophils Percent Auto 0.4 % (0.0-1.0); Eosinophils Absolute Auto 0.23 K/mm3 (0.02-0.50); Eosinophils Percent Auto 2.5 % (1.0-6.0); Hematocrit 32.9 % (35.0-42.0); Hemoglobin 10.1 g/dL (11.7-13.8); Immature Granulocyte Absolute 0.08 K/mm3 (0.00-0.00); Immature Granulocyte Percent A 0.9 % (0.0-0.0); Lymphocytes Absolute Auto 1.91 K/mm3 (1.10-4.50); Lymphocytes Percent Auto 20.7 % (18.0-42.0); Mean Corpuscular HGB Conc 30.7 g/dL (32.0-36.0); Mean Corpuscular Hemoglobin 27.6 pg (27.0-31.0); Mean Corpuscular Volume 89.9 fL (78.0-102.0); Mean Platelet Volume 9.6 fl (9.2-11.8); Monocytes Absolute Auto 0.51 K/mm3 (0.10-0.90); Monocytes Percent Auto 5.5 % (2.0-11.0); Neutrophils Absolute Auto 6.5 K/mm3 (1.7-7.2); Platelet Count Result 191 K/mm3 (150-420); Red Blood Count 3.66 M/mm3 (4.20-5.40); Red Cell Distribution Width 13.9 % (11.6-14.4); White Blood Count 9.2 K/mm3 (4.8-10.8)
[2021-02-13 09:18] LABS: Alanine Aminotransferase 22 U/L (14-59); Albumin Level 3.4 g/dL (3.4-5.0); Alkaline Phosphatase 80 U/L (46-116); Anion Gap 7 mmol/L (8-16); Aspartate Amino Transferase 15 U/L (15-37); Bilirubin,Total 0.3 mg/dL (0.00-1.00); Blood Urea Nitrogen 77 mg/dL (7-18); Calcium 9.6 mg/dL (8.5-10.1); Carbon Dioxide 31 mmol/L (21-32); Chloride 102 mmol/L (98-108); Estimated CRCL calculation 10 ml/min; Estimated Glomerular Filt Rate 11; Glucose 158 mg/dL (70-99); Osmolality Calculated 316 mOsm/kg (285-295); Potassium 4.3 mmol/L (3.5-5.1); Sodium 140 mmol/L (136-145); Total Protein 6.8 g/dL (6.4-8.2); Troponin I 7.9 ng/L (0.00-60.4)
[2021-02-13 09:20] LABS: Lactic Acid Reflex 1.1 mmol/L (0.4-2.0)
--- NOTE | 2021-02-13 09:56 | PC.NURSE ---
PT UP TO BEDSIDE COMMODE TO OBTAIN URINE SAMPLE, PT UNABLE TO PROVIDE
[2021-02-13] MEDS: SODIUM CHLORIDE 0.9% IV 1,000 ML 125 ML (10:58)
--- NOTE | 2021-02-13 12:28 | PM.IMHP ---
H&P: HPI History of Present Illness Date/Time: 02/13/21 12:28 this is a 80-year-old female that presented to the emergency department with complaints of patient has a past medical history of bipolar and chronic renal failure. Patient's blood pressure reading at the living facility 74/56. According to patient while she was attempting to walk from her table that she was taking 9 to the restroom she became dizzy and mated to that she had before she actually fell she also notes that she felt nausea during that time. vital signs 93/61, 72, 18, 93% on room air, WBCs 9.2, hemoglobin 10.1, hematocrit 32.9, platelets 191, sodium 140, potassium 4.3, BUN 77, creatinine 3.80, glucose 158,, lactic acid 1.1, liver function tests normal limits troponin 7.9 EKG sinus rhythm heart rate 70. Patient being admitted for dehydration. The patient denies SOB, CP, palpitation, extremity numbness, lightheadedness, dizziness, constipation, diarrhea, chills, or fever. Patient has had Covid she was also vaccinated against Covid and had some exposure Observation Time spent 60 minutes Disposition discharge tomorrow back to living facility after IV hydration <CHU Jerome - Last Filed: 02/13/21 13:13> Chief Complaint: Dizziness and nausea <CHU Jerome - Last Filed: 02/13/21 13:13> Review of Systems Review of Systems: A 14 organ system Review of Systems was performed and pertinent positives included in the HPI, otherwise remaining ROS is negative. <CHU Jerome - Last Filed: 02/13/21 13:13> [facility] Past Medical History Medical History: Medical History Bipolar 1 disorder, mixed Chronic renal failure <CHU Jerome - Last Filed: 02/13/21 13:13> Social History Social History: Social History Smoking status: Never smoker Alcohol intake: never Substance use: never Gender identity (if verbalized by the patient): Female Sexual Orientation (if Verbalized by the Patient): Straight or Heterosexual Spiritual care concerns: No <Dena Greco, SENIOR RADIATION PROTECTION TECHNICIAN-C - Last Filed: 02/13/21 13:13> Meds Home Medications and Allergies Home medications: Home Medications Medication Instructions Recorded Confirmed Type Restasis 1 drp OPHTHALMIC (EYE) Q12H 05/20/20 02/13/21 History allopurinol 100 mg PO BID 05/20/20 02/13/21 History calcitriol 0.5 mcg PO 5XW 05/20/20 02/13/21 History duloxetine 60 mg PO DAILY 05/20/20 02/13/21 History furosemide 40 mg PO DAILY 05/20/20 02/13/21 History levothyroxine 75 mcg PO DAILY 05/20/20 02/13/21 History magnesium oxide 400 mg PO DAILY 05/20/20 02/13/21 History metoprolol tartrate 25 mg PO BID 05/20/20 02/13/21 History mirtazapine 15 mg PO HS 05/20/20 02/13/21 History omeprazole 20 mg PO DAILY 05/20/20 02/13/21 History simvastatin 40 mg PO HS 05/20/20 02/13/21 History tolterodine 4 mg PO DAILY 05/20/20 02/13/21 History ziprasidone HCl 20 mg PO HS 05/20/20 02/13/21 History fluticasone propionate 1 spray INTRANASAL DAILY 30 Days 05/22/20 02/13/21 Rx #1 ml acetaminophen 650 mg PO BID 02/13/21 02/13/21 History acetaminophen 650 mg PO Q4H PRN 02/13/21 02/13/21 History bismuth subsalicylate 524 mg PO Q1H PRN 02/13/21 02/13/21 History [Pepto-Bismol] dicyclomine 20 mg PO TID PRN 02/13/21 02/13/21 History ergocalciferol (vitamin D2) 50,000 unit PO WEEKLY 02/13/21 02/13/21 History [Vitamin D2] guaifenesin [Robafen] 100 mg PO Q4H PRN 02/13/21 02/13/21 History melatonin 3 mg PO HS PRN 02/13/21 02/13/21 History polyethylene glycol 3350 [Miralax] 1 g PO DAILY PRN 02/13/21 02/13/21 History <CHU Jerome - Last Filed: 02/13/21 13:13> Allergies/Adverse reactions: Allergies Allergy/AdvReac Type Severity Reaction Status Date / Time aspirin Allergy Other Verified 05/20/20 13:58 codeine Allergy Other Verified 05/20/20 13:58 tetracycline Aller
--- NOTE | 2021-02-13 12:45 | PC.NURSE ---
Patient admitted to room 207, transferred to bed from [facility]. Oriented to room and call light. Patient declines ANGEL meiere.
[2021-02-13] MEDS: ACETAMINOPHEN 325 MG TABLET 650 MG PO ×2 (17:07→20:53)
[2021-02-13] MEDS: allopurinoL 100 MG TABLET PO (17:07)
[2021-02-13] MEDS: MECLIZINE HCL 25 MG TABLET PO ×2 (17:07→20:54)
[2021-02-13] MEDS: SIMVASTATIN 10 MG TABLET 40 MG PO (20:52)
[2021-02-13] MEDS: MIRTAZAPINE 15 MG TABLET PO (20:55)
[2021-02-13] MEDS: LACTATED RINGERS 1,000 ML 100 ML IV CONT (21:04)
[2021-02-14] VITALS: BP 79/57; PULSE 111; PULSE 74; RESP 20; TEMP 36.7; O2SAT 92
[2021-02-14 02:55] LABS: Add Urine Microscopic? YES; Appearance Urine Clear (Clear); Bilirubin Urine Negative (Negative); Blood Urine Negative (Negative); Color Urine Light Yellow (Yellow); Glucose Urine UA Negative (Negative); Ketones Urine Negative (Negative); Leukocyte Esterase Ur Negative (Negative); Nitrate Urine Positive (Negative); Protein Urine Negative (Negative); Urobilinogen Urine 0.2 mg/dL (0.2-1.0); pH Urine 5.5 (5.0-8.0)
[2021-02-14 02:56] LABS: RBC Urine None seen /hpf (0-2); Squamous Epithelial Cell Urine None seen /hpf (Few); WBC Urine None seen /hpf (0-3)
[2021-02-14 02:57] LABS: Bacteria Urine 4+ /hpf
[2021-02-14 03:09] VITALS: PULSE 76
[2021-02-14 04:00] VITALS: BP 100/40; PULSE 77; RESP 20; TEMP 36.6; O2SAT 94
[2021-02-14] MEDS: MECLIZINE HCL 25 MG TABLET PO (04:58)
[2021-02-14] MEDS: LEVOTHYROXINE SODIUM 75 MCG TABLET PO (04:59)
[2021-02-14] MEDS: LACTATED RINGERS 1,000 ML 100 ML IV CONT (04:59)
[2021-02-14 05:41] LABS: Hematocrit 27.8 % (35.0-42.0); Hemoglobin 8.3 g/dL (11.7-13.8); Mean Corpuscular HGB Conc 29.9 g/dL (32.0-36.0); Mean Corpuscular Hemoglobin 27.3 pg (27.0-31.0); Mean Corpuscular Volume 91.4 fL (78.0-102.0); Platelet Count Result 156 K/mm3 (150-420); Red Blood Count 3.04 M/mm3 (4.20-5.40); Red Cell Distribution Width 14.1 % (11.6-14.4); White Blood Count 5.2 K/mm3 (4.8-10.8)
[2021-02-14 06:00] LABS: Alanine Aminotransferase 21 U/L (14-59); Albumin Level 2.7 g/dL (3.4-5.0); Alkaline Phosphatase 66 U/L (46-116); Anion Gap 7 mmol/L (8-16); Aspartate Amino Transferase 12 U/L (15-37); Bilirubin,Total 0.2 mg/dL (0.00-1.00); Blood Urea Nitrogen 65 mg/dL (7-18); Calcium 8.8 mg/dL (8.5-10.1); Carbon Dioxide 29 mmol/L (21-32); Chloride 109 mmol/L (98-108); Estimated CRCL calculation 12 ml/min; Estimated Glomerular Filt Rate 13; Glucose 118 mg/dL (70-99); Magnesium 1.8 mg/dL (1.8-2.4); Osmolality Calculated 319 mOsm/kg (285-295); Potassium 4.7 mmol/L (3.5-5.1); Sodium 145 mmol/L (136-145); Total Protein 5.5 g/dL (6.4-8.2)
[2021-02-14 08:00] VITALS: BP 110/49; PULSE 74; RESP 20; TEMP 36.8; O2SAT 94
--- NOTE | 2021-02-14 09:10 | PM.DS ---
DS: Admitting Diagnosis Discharge Date 02/14/2021 Admitting Diagnosis Dehydration and dizziness DS: Discharge Diagnosis Discharge Diagnosis (1) Dehydration: Code(s): E86.0 - Dehydration Status: Acute Assessment and Plan: Resolved Secondary to nausea vomiting Continued lactic ringer 100 mL/h Blood pressure reading at the nursing facility 74/56 (2) Dizziness: Code(s): R42 - Dizziness and giddiness Status: Acute Assessment and Plan: Resolved Secondary to dehydration Refer to dehydration (3) Chronic renal failure: Code(s): N18.9 - Chronic kidney disease, unspecified Status: Acute Assessment and Plan: Acute on chronic Patient with fistula to the right arm Creatinine 3.80>3.36 baseline appears to be between3.20-3.60 Continue IV hydration renal dose medication Avoid nephrotoxic agent Repeat CMP in a.m. (4) Anemia: Code(s): D64.9 - Anemia, unspecified Status: Acute Assessment and Plan: Chronic Hemoglobin 10.1>8.3 baseline appears to be at 8-9 today greater than baseline. No active bleeding noted We will continue to monitor DS: Summary Hospital Course Reason for hospitalization: Dehydration Hospital Course: this is a 80-year-old female that presented to the emergency department with complaints of patient has a past medical history of bipolar and chronic renal failure. Patient's blood pressure reading at the living facility 74/56. According to patient while she was attempting to walk from her table that she was taking 9 to the restroom she became dizzy and mated to that she had before she actually fell she also notes that she felt nausea during that time. Patient received IV fluids her condition has improved. She agrees that she is ready for discharge. PT OT consulted it is safe for patient to discharge home. The patient denies SOB, CP, palpitation, extremity numbness, lightheadedness, dizziness, constipation, diarrhea, chills, or fever. Observation Time spent 60 minutes Will discharge back to nursing facility Time Spent with Patient Time attestation: Total time spent providing and/or coordinating discharge services: 60 minutes Exam Narrative: GENERAL: This is a well-nourished, well-developed patient, in no apparent distress. HEAD: normocephalic, atraumatic. EYES: PERRL. Sclera clear/white. Vision is grossly intact. EARS: External ears normal, auditory canals clear and without drainage, TMs normal without perforation. Hearing grossly intact. NOSE: External nose normal with no obvious nasal discharge, nares without redness, no rhinorrhea. THROAT: Mucous membranes moist, posterior pharynx clear. NECK: Neck supple, non-tender without lymphadenopathy, masses or thyromegaly. CARDIOVASCULAR: Regular rate and rhythm without murmurs, gallops, or rubs. RESPIRATORY: Clear to auscultation. Breath sounds equal bilaterally. No wheezes, rales, or rhonchi. GASTROINTESTINAL: Abdomen soft, non-tender, nondistended. Bowel sounds are active. No hepato-splenomegaly, or palpable masses. No guarding. SKIN: warm, intact with no suspicious lesions or rash, good texture and turgor. Right upper arm fistula NEURO: awake, alert, and oriented to person, place and time. There were no obvious focal neurologic abnormalities. Steady gait EXTREMITIES: Normal range of motion. No edema. No calf tenderness. Negative Homans sign bilaterally. BACK: Nontender without deformity or crepitance. No flank tenderness. DS: Data Data Completed and Pending Labs on day of discharge: Labs from last 24 hours 02/14/21 02/14/21 02/13/21 05:13 05:13 11:46 WBC 5.2 RBC 3.04 L Hgb 8.3 L Hct 27.8 L MCV 91.4 MCH 27.3 MCHC 29.9 L RDW 14.1 Plt Count 156 MPV 10.0 Sodium 145 Potassium 4.7 Chloride 109 H Carbon Dioxide 29 Anion Gap 7 L BUN 65 H Creatinine 3.36 H Estim Creat Clear Calc 12 Estimated GFR 13 L Glucose
[2021-02-14 09:11] LABS: Glucose Point of Care 238 mg/dl (65-105)
[2021-02-14] MEDS: PANTOPRAZOLE SODIUM IV 40 MG VIAL IV PUSH (09:25)
[2021-02-14] MEDS: ERGOCALCIFEROL 50,000 UNIT CAPSULE 50000 UNITS PO (09:26)
[2021-02-14] MEDS: DULoxetine HCL 30 MG CAPSULE.DR 60 MG PO (09:26)
[2021-02-14 09:27] VITALS: PULSE 74
[2021-02-14] MEDS: MAGNESIUM OXIDE 400 MG TABLET PO (09:27)
[2021-02-14] MEDS: METOPROLOL TARTRATE 25 MG TABLET PO (09:27)
[2021-02-14] MEDS: allopurinoL 100 MG TABLET PO (09:27)
[2021-02-14] MEDS: calcitrioL 0.25 MCG CAPSULE 0.5 MCG PO (09:33)
[2021-02-14 12:00] VITALS: PULSE 87
--- NOTE | 2021-02-14 13:16 | PCPTNOTE ---
No Care Plan initiated due to patient being discharged today.
--- NOTE | 2021-02-14 13:36 | PC.NURSE ---
Patient discharged home to assisted living facility and transported by facility. IV site has been discontinued and removed prior to discharge. All personal belonging bag up and taken with patient. Staff transported patient to main entrance via WC and assisted patient into personal vehicle.
--- NOTE | 2021-02-15 11:29 | PC.NURSE ---
Fred muir states they received and understood the discharge instructions. She has no other comments.
== END 2021-02-14 13:05 ==
LOC: CHSED 08:11 → CHS2ND 12:10
PROVIDERS: Nurse Practitioner; Admitting Provider Emergency Medicine; Emergency Provider Emergency Medicine; PCP Family Medicine; Visit Provider Emergency Medicine
DX: E86.0 Dehydration (principal); N17.9 Acute kidney failure, unspecified; N18.9 Chronic kidney disease, unspecified; R42 Dizziness and giddiness; D64.9 Anemia, unspecified; F31.89 Other bipolar disorder; Z79.899 Other long term (current) drug therapy
CPT/HCPCS: 36415; 70450; 71045; 80053; 81001; 82948; 83605; 83735; 84484; 85025; 85027; 87077; 87086; 87088; 87186; 93005; 96361; 96374; 96375; 97161; 97165; 99285; A9270; C9113; G0378; J0696; J2405; J7030; J7120

== ENCOUNTER 2021-03-20 13:16 | Emergency (ER) | payer BC, SELFPAY ==
--- NOTE | ~2021-03-20 | XR_ITS ---
EXAMINATION: XR thoracic spine 3V DATE: 03/20/2021 14:58 INDICATION: Mid back pain. TECHNIQUE: 3 views of thoracic spine were obtained. COMPARISON: None. FINDINGS: There is 14 degrees levoscoliosis of thoracic spine. There is kyphosis of thoracic spine. V ertebral body heights are normal. There is moderately decreased disc height at T3-T4 and mildly decre ased disc height from T4-T5 through T7-T8. There are bridging endplate osteophytes at multiple levels in the spine, consistent with diffuse idiopathic skeletal hyperostosis (DISH). There is severe cervi keon spondylosis. There are surgical clips in the neck. IMPRESSION: 1. Moderate thoracic spondylosis. 2. DISH. 3. Thoracic levoscoliosis. 4. Severe cervical spondylosis. Reviewed, dictated and finalized at location A.
--- NOTE | ~2021-03-20 | XR_ITS ---
EXAMINATION: XR lumbar spine 2-3V DATE: 03/20/2021 14:58 INDICATION: Low back pain. TECHNIQUE: 3 views of lumbar spine were obtained. COMPARISON: Lumbar spine radiographs 03/03/2020 FINDINGS: There is 8 degrees dextrocurvature of lumbar spine. There is 6 mm anterolisthesis of L4 on L5. Vertebral body heights are normal. There is severely decreased disc height at L4-L5 and L5-S1 wit h endplate remodeling. There is severe facet joint osteoarthritis in lower lumbar spine. IMPRESSION: 1. Severe lumbar spondylosis. Reviewed, dictated and finalized at location A.
[2021-03-20 13:34] VITALS: BP 134/61; PULSE 85; RESP 16; TEMP 36.8; O2SAT 97
--- NOTE | 2021-03-20 13:48 | ED.BACK ---
HPI - Back Pain/Injury General Chief Complaint: Back Pain/Injury Stated Complaint: trouble urinating, back pain, confusion Time Seen by Provider: 03/20/21 13:48 Source: patient Mode of arrival: ambulatory Limitations: no limitations History of Present Illness HPI Narrative: 80-year-old woman with a history of chronic renal failure, hypothyroidism and hypertension comes in today complaining of bilateral back pain and low back pain has been present for the last 3 days. She states the pain is better when she lays down and it is worse when she is standing. She denies numbness, tingling, urinary symptoms (she has a history of incontinence), abdominal pain, fever, chills, nausea, vomiting, cough or cold symptoms. She denies back injury and has no history of back surgery. MD elicited complaint: back pain Onset (ago): day(s) (3) Timing: constant Severity: moderate Quality: aching Location: lumbar spine, thoracic spine, right lower back and left lower back Radiation: none Exacerbating factors: other (Standing) Relieving factors: supine and other (Rest) Context: unknown Associated symptoms: denies other symptoms Related Data Home Medications Medication Instructions Recorded Confirmed Restasis 1 drp OPHTHALMIC (EYE) Q12H 05/20/20 03/20/21 allopurinol 100 mg PO BID 05/20/20 03/20/21 calcitriol 0.5 mcg PO 5XW 05/20/20 03/20/21 duloxetine 60 mg PO DAILY 05/20/20 03/20/21 furosemide 40 mg PO DAILY 05/20/20 03/20/21 levothyroxine 75 mcg PO DAILY 05/20/20 03/20/21 magnesium oxide 400 mg PO DAILY 05/20/20 03/20/21 metoprolol tartrate 25 mg PO BID 05/20/20 03/20/21 mirtazapine 15 mg PO HS 05/20/20 03/20/21 omeprazole 20 mg PO DAILY 05/20/20 03/20/21 simvastatin 40 mg PO HS 05/20/20 03/20/21 tolterodine 4 mg PO DAILY 05/20/20 03/20/21 ziprasidone HCl 20 mg PO HS 05/20/20 03/20/21 acetaminophen 650 mg PO BID 02/13/21 03/20/21 acetaminophen 650 mg PO Q4H PRN 02/13/21 03/20/21 bismuth subsalicylate 524 mg PO Q1H PRN 02/13/21 03/20/21 [Pepto-Bismol] dicyclomine 20 mg PO TID PRN 02/13/21 03/20/21 ergocalciferol (vitamin D2) 50,000 unit PO WEEKLY 02/13/21 03/20/21 guaifenesin [Robafen] 100 mg PO Q4H PRN 02/13/21 03/20/21 melatonin 3 mg PO HS PRN 02/13/21 03/20/21 polyethylene glycol 3350 [Miralax] 1 g PO DAILY PRN 02/13/21 03/20/21 Allergies Allergy/AdvReac Type Severity Reaction Status Date / Time aspirin Allergy Other Verified 05/20/20 13:58 codeine Allergy Other Verified 05/20/20 13:58 tetracycline Allergy Other Verified 05/20/20 13:58 Review of Systems Review of Systems: All systems reviewed & are unremarkable except as noted in HPI and below Constitutional: Constitutional: Denies chills and Denies fever(s) Eyes: Eyes: Denies change in vision and Denies photophobia ENT: Denies nasal congestion and Denies sore throat Cardiovascular: Cardiovascular: Denies chest pain and Denies radiating jaw, neck or arm pain Respiratory: Respiratory: Denies cough and Denies dyspnea Gastrointestinal: Gastrointestinal: Denies abdominal pain, Denies diarrhea, Denies nausea and Denies vomiting Genitourinary: Genitourinary: Denies hematuria, Denies nocturia, Denies dysuria and Reports urinary incontinence Musculoskeletal: Musculoskeletal: Reports back pain, Denies arthralgias and Denies joint swelling Integumentary/Breasts: Skin/Breast: Denies pruritus, Denies erythema and Denies rash Neurologic: Denies dizziness, Denies headache(s), Denies numbness and Denies weakness Hematologic/Lymphatic: Hematologic/Lymphatic: Denies easy bleeding and Denies easy bruising PMFSH Past Medical History Medical History (Updated 03/20/21 @ 17:01 by Rivas Martinez MD) Bipolar 1 disorder, mixed Chronic renal failure Dyslipidemia Hypertension Surgical History Surgical History (Updated 03/20/21 @ 14:05 by Rivas Martinez MD) History of appendectomy History of cholecystectomy History of hysterectomy Social History Social History (Reviewed 03/04
[2021-03-20 14:29] LABS: Basophils Absolute Auto 0.02 K/mm3 (0.00-0.10); Basophils Percent Auto 0.2 % (0.0-1.0); Eosinophils Absolute Auto 0.22 K/mm3 (0.02-0.50); Eosinophils Percent Auto 2.7 % (1.0-6.0); Hematocrit 32.7 % (35.0-42.0); Hemoglobin 10.1 g/dL (11.7-13.8); Immature Granulocyte Absolute 0.04 K/mm3 (0.00-0.00); Immature Granulocyte Percent A 0.5 % (0.0-0.0); Lymphocytes Absolute Auto 1.71 K/mm3 (1.10-4.50); Mean Corpuscular HGB Conc 30.9 g/dL (32.0-36.0); Mean Corpuscular Hemoglobin 27.6 pg (27.0-31.0); Mean Corpuscular Volume 89.3 fL (78.0-102.0); Mean Platelet Volume 9.9 fl (9.2-11.8); Monocytes Absolute Auto 0.58 K/mm3 (0.10-0.90); Monocytes Percent Auto 7.1 % (2.0-11.0); Neutrophils Absolute Auto 5.6 K/mm3 (1.7-7.2); Neutrophils Percent Auto 68.5 % (50.0-70.0); Platelet Count Result 203 K/mm3 (150-420); Red Blood Count 3.66 M/mm3 (4.20-5.40); Red Cell Distribution Width 13.9 % (11.6-14.4); White Blood Count 8.2 K/mm3 (4.8-10.8)
[2021-03-20 14:59] LABS: Lactic Acid Reflex 1.4 mmol/L (0.4-2.0)
[2021-03-20 15:06] LABS: Alanine Aminotransferase 19 U/L (14-59); Albumin Level 3.4 g/dL (3.4-5.0); Alkaline Phosphatase 66 U/L (46-116); Anion Gap 10 mmol/L (8-16); Aspartate Amino Transferase 14 U/L (15-37); Bilirubin,Total 0.3 mg/dL (0.00-1.00); Blood Urea Nitrogen 66 mg/dL (7-18); Calcium 9.7 mg/dL (8.5-10.1); Carbon Dioxide 28 mmol/L (21-32); Chloride 104 mmol/L (98-108); Estimated CRCL calculation 10 ml/min; Estimated Glomerular Filt Rate 12; Glucose 141 mg/dL (70-99); Osmolality Calculated 315 mOsm/kg (285-295); Potassium 4.3 mmol/L (3.5-5.1); Sodium 142 mmol/L (136-145); Total Protein 7.1 g/dL (6.4-8.2)
[2021-03-20 16:48] LABS: Add Urine Microscopic? NO; Appearance Urine Clear (Clear); Bilirubin Urine Negative (Negative); Blood Urine Negative (Negative); Color Urine Light Yellow (Yellow); Glucose Urine UA Negative (Negative); Ketones Urine Negative (Negative); Leukocyte Esterase Ur Negative (Negative); Nitrate Urine Negative (Negative); Protein Urine Negative (Negative); Urobilinogen Urine 0.2 mg/dL (0.2-1.0); pH Urine 5.5 (5.0-8.0)
[2021-03-20 17:09] VITALS: BP 105/57; PULSE 85; RESP 15; O2SAT 96
== END 2021-03-20 17:11 | disposition home or self-care (01) ==
PROVIDERS: Emergency Provider Emergency Medicine; PCP Family Medicine
DX: M54.50 Low back pain, unspecified (principal); E78.5 Hyperlipidemia, unspecified; N18.9 Chronic kidney disease, unspecified; I12.9 Hypertensive chronic kidney disease with stage 1 through stage 4 chronic kidney disease, or unspecified chronic kidney disease
CPT/HCPCS: 36415; 72072; 72100; 80053; 81003; 83605; 85025; 87040; 99282; 99283

== ENCOUNTER 2021-04-13 07:44 | Outpatient (CLI) | payer MEDICARE, SELFPAY ==
[2021-04-13 08:03] LABS: Basophils Absolute Auto 0.02 K/mm3 (0.00-0.10); Basophils Percent Auto 0.2 % (0.0-1.0); Eosinophils Percent Auto 4.4 % (1.0-6.0); Hematocrit 33.6 % (35.0-42.0); Hemoglobin 9.8 g/dL (11.7-13.8); Immature Granulocyte Absolute 0.03 K/mm3 (0.00-0.00); Immature Granulocyte Percent A 0.3 % (0.0-0.0); Lymphocytes Absolute Auto 3.34 K/mm3 (1.10-4.50); Lymphocytes Percent Auto 36.9 % (18.0-42.0); Mean Corpuscular HGB Conc 29.2 g/dL (32.0-36.0); Mean Corpuscular Hemoglobin 26.9 pg (27.0-31.0); Mean Corpuscular Volume 92.3 fL (78.0-102.0); Mean Platelet Volume 9.5 fl (9.2-11.8); Monocytes Absolute Auto 0.67 K/mm3 (0.10-0.90); Monocytes Percent Auto 7.4 % (2.0-11.0); Neutrophils Absolute Auto 4.6 K/mm3 (1.7-7.2); Neutrophils Percent Auto 50.8 % (50.0-70.0); Platelet Count Result 198 K/mm3 (150-420); Red Blood Count 3.64 M/mm3 (4.20-5.40); Red Cell Distribution Width 14.2 % (11.6-14.4)
== END 2021-04-13 07:45 | disposition home or self-care (01) ==
LOC: CHSLAB 07:49
DX: N18.5 Chronic kidney disease, stage 5 (principal); D63.1 Anemia in chronic kidney disease; M10.00 Idiopathic gout, unspecified site; E03.9 Hypothyroidism, unspecified; R80.9 Proteinuria, unspecified
CPT/HCPCS: 36415; 85025

== ENCOUNTER 2021-04-18 10:06 | Outpatient (CLI) | payer MEDICARE, SELFPAY ==
[2021-04-18 11:24] LABS: Albumin Level 3.6 g/dL (3.4-5.0); Anion Gap 9 mmol/L (8-16); Blood Urea Nitrogen 64 mg/dL (7-18); Calcium 9.1 mg/dL (8.5-10.1); Carbon Dioxide 30 mmol/L (21-32); Chloride 101 mmol/L (98-108); Estimated Glomerular Filt Rate 13; Ferritin 35 ng/mL (8-252); Glucose 100 mg/dL (70-99); Iron 42 ug/dL (50-170); Osmolality Calculated 308 mOsm/kg (285-295); Percent Iron Saturation 11 % (12-57); Phosphorus 5.5 mg/dL (2.6-4.7); Potassium 4.8 mmol/L (3.5-5.1); Sodium 140 mmol/L (136-145); Uric Acid 3.1 mg/dL (2.6-6.0)
[2021-04-21 01:03] LABS: Vitamin D 25 Hydroxy 37 ng/mL (30-100)
[2021-04-21 12:54] LABS: Parathyroid Intact 99 pg/mL (14-64)
== END 2021-04-18 10:07 | disposition home or self-care (01) ==
LOC: CHSLAB 10:11
PROVIDERS: PCP Internal Medicine
DX: M10.00 Idiopathic gout, unspecified site (principal); I12.0 Hypertensive chronic kidney disease with stage 5 chronic kidney disease or end stage renal disease; N18.5 Chronic kidney disease, stage 5; E03.9 Hypothyroidism, unspecified; R80.9 Proteinuria, unspecified; N17.9 Acute kidney failure, unspecified; D63.1 Anemia in chronic kidney disease
CPT/HCPCS: 36415; 80069; 82306; 82728; 83540; 83550; 83970; 84550

== ENCOUNTER 2021-06-16 10:58 | Outpatient (CLI) | payer OTHER, SELFPAY ==
--- NOTE | ~2021-06-16 | XR_ITS ---
EXAMINATION: XR lumbar spine 2-3V DATE: 06/16/2021 11:23 INDICATION: Low back pain. TECHNIQUE: 3 views of lumbar spine were obtained. COMPARISON: Lumbar spine radiograph 03/20/2021 FINDINGS: There is 11 degrees dextroscoliosis of lumbar spine. There is 9 mm anterolisthesis of L4 on L5. Vertebral body heights are normal. There is severely decreased disc height at L4-L5 and L5-S1. T here is severe facet joint osteoarthritis in the lower lumbar spine. IMPRESSION: 1. Severe lumbar spondylosis. 2. Lumbar dextroscoliosis. Reviewed, dictated and finalized at location B. [employer] SPECIALIST
== END 2021-06-16 10:59 | disposition home or self-care (01) ==
LOC: CHSIMG 11:02
PROVIDERS: PCP Family Medicine; Visit Provider Family Medicine
DX: M54.50 Low back pain, unspecified (principal)
CPT/HCPCS: 72100

== ENCOUNTER 2021-06-27 10:28 | Emergency (ER) | payer OTHER, SELFPAY ==
--- NOTE | ~2021-06-27 | US_ITS ---
EXAMINATION: US venous doppler LE EXAM DATE: 06/27/2021 12:24 INDICATION: leg pain for two weeks . TECHNIQUE: Multiple grayscale, color flow and Doppler images of the lower extremity deep venous syste ms bilaterally were obtained and reviewed. There is no prior study for comparison. FINDINGS: Right side: The right common femoral, femoral and profunda veins demonstrate normal color flow, respi ratory variation, augmentation and compressibility. Compressibility, color flow confirmed within the right popliteal, posterior tibial, peroneal, and greater saphenous veins. There is complex avascula r cystic region likely containing proteinaceous fluid in the popliteal fossa, probably a small Flores' s cyst measuring 3.6 x 0.9 x 1.8 cm. Left side: The left common femoral, femoral and profunda veins demonstrate normal color flow, respira tory variation, augmentation and compressibility. Compressibility, color flow confirmed within the l eft popliteal, posterior tibial, peroneal, and greater saphenous veins. IMPRESSION: 1. No lower extremity deep venous thrombosis bilaterally. 2. Probable small right Flores's cyst. Reviewed, dictated and finalized at location A. [employer]
[2021-06-27 11:00] VITALS: BP 110/64; PULSE 91; RESP 16; TEMP 36.3; O2SAT 96
--- NOTE | 2021-06-27 11:36 | ED.EXTPRO ---
HPI - Extremity Problem General Chief complaint: Extremity Injury, Lower Stated complaint: R Leg Pain Time Seen by Provider: 06/27/21 11:36 Source: patient Mode of arrival: ambulatory Limitations: no limitations History of Present Illness HPI Narrative: 9-year-old woman brought to the emergency department from [place] complaining of pain to her right leg for last 2 weeks. She states the pain is from her right hip to her ankle. Pain is worse with movement and ambulation. She has had no falls or injuries. Patient states that about 4 months ago she was being worked up for some problem in her pelvis (including an MRI) because she was having incontinence, back pain and left leg pain. The incontinence continues but her left leg pain has improved. Patient states that she has no personal or family history of blood clots in legs or lungs. MD Complaint: extremity pain Onset (ago): week(s) (2) Pain Consistency: constant Location: right and lower extremity Quality: aching and sharp Radiation: none Relieving factors: rest Exacerbating factors: walking Associated symptoms: denies other symptoms Related Data Home Medications Medication Instructions Recorded Confirmed Restasis 1 drp OPHTHALMIC (EYE) Q12H 05/20/20 06/27/21 allopurinol 100 mg PO BID 05/20/20 06/27/21 calcitriol 0.5 mcg PO 5XW 05/20/20 06/27/21 duloxetine 60 mg PO DAILY 05/20/20 06/27/21 furosemide 40 mg PO DAILY 05/20/20 06/27/21 levothyroxine 75 mcg PO DAILY 05/20/20 06/27/21 magnesium oxide 400 mg PO DAILY 05/20/20 06/27/21 metoprolol tartrate 25 mg PO BID 05/20/20 06/27/21 mirtazapine 15 mg PO HS 05/20/20 06/27/21 omeprazole 20 mg PO DAILY 05/20/20 06/27/21 simvastatin 40 mg PO HS 05/20/20 06/27/21 tolterodine 4 mg PO DAILY 05/20/20 06/27/21 ziprasidone HCl 20 mg PO HS 05/20/20 06/27/21 acetaminophen 650 mg PO Q4H PRN 02/13/21 06/27/21 bismuth subsalicylate 524 mg PO Q1H PRN 02/13/21 06/27/21 [Pepto-Bismol] dicyclomine 20 mg PO TID PRN 02/13/21 06/27/21 ergocalciferol (vitamin D2) 50,000 unit PO WEEKLY 02/13/21 06/27/21 polyethylene glycol 3350 [Miralax] 1 g PO DAILY PRN 02/13/21 06/27/21 Allergies Allergy/AdvReac Type Severity Reaction Status Date / Time aspirin Allergy Other Verified 06/27/21 11:12 codeine Allergy Other Verified 06/27/21 11:12 tetracycline Allergy Other Verified 06/27/21 11:12 Review of Systems Review of Systems: All systems reviewed & are unremarkable except as noted in HPI and below Constitutional: Constitutional: Denies chills, Denies fever(s) and Denies weakness Eyes: Eyes: Denies change in vision and Denies photophobia ENT: Denies nasal congestion and Denies sore throat Cardiovascular: Cardiovascular: Denies chest pain and Denies radiating jaw, neck or arm pain Respiratory: Respiratory: Denies cough, Denies dyspnea and Denies wheezing Gastrointestinal: Gastrointestinal: Denies abdominal pain, Denies diarrhea, Denies nausea and Denies vomiting Genitourinary: Genitourinary: Denies hematuria, Denies nocturia and Denies dysuria Musculoskeletal: Musculoskeletal: Reports back pain, Denies arthralgias and Denies joint swelling Integumentary/Breasts: Skin/Breast: Denies pruritus, Denies erythema and Denies rash Neurologic: Denies vertigo, Denies dizziness and Denies syncope Hematologic/Lymphatic: Hematologic/Lymphatic: Denies easy bleeding and Denies easy bruising Allergic/Immunologic: Allergic/Immunologic: Denies lip swelling and Denies throat swelling PMFSH Past Medical History Medical History Bipolar 1 disorder, mixed Chronic renal failure Dyslipidemia Hypertension Surgical History Surgical History History of appendectomy History of cholecystectomy History of hysterectomy Social History Social History Smoking status: Never smoker Alcohol intake: n
[2021-06-27 12:10] LABS: Basophils Absolute Auto 0.02 K/mm3 (0.00-0.10); Basophils Percent Auto 0.2 % (0.0-1.0); Eosinophils Absolute Auto 0.32 K/mm3 (0.02-0.50); Eosinophils Percent Auto 3.4 % (1.0-6.0); Hematocrit 32.1 % (35.0-42.0); Hemoglobin 9.5 g/dL (11.7-13.8); Immature Granulocyte Absolute 0.07 K/mm3 (0.00-0.00); Immature Granulocyte Percent A 0.8 % (0.0-0.0); Lymphocytes Absolute Auto 2.43 K/mm3 (1.10-4.50); Lymphocytes Percent Auto 26.2 % (18.0-42.0); Mean Corpuscular HGB Conc 29.6 g/dL (32.0-36.0); Mean Corpuscular Volume 87.9 fL (78.0-102.0); Mean Platelet Volume 9.8 fl (9.2-11.8); Monocytes Absolute Auto 0.78 K/mm3 (0.10-0.90); Monocytes Percent Auto 8.4 % (2.0-11.0); Neutrophils Absolute Auto 5.7 K/mm3 (1.7-7.2); Platelet Count Result 216 K/mm3 (150-420); Red Blood Count 3.65 M/mm3 (4.20-5.40); Red Cell Distribution Width 14.2 % (11.6-14.4); White Blood Count 9.3 K/mm3 (4.8-10.8)
[2021-06-27 12:11] LABS: Add Urine Microscopic? YES; Appearance Urine Sl Cloudy (Clear); Bilirubin Urine Negative (Negative); Blood Urine Negative (Negative); Color Urine Light Yellow (Yellow); Glucose Urine UA Negative (Negative); Ketones Urine Negative (Negative); Leukocyte Esterase Ur Negative (Negative); Nitrate Urine Positive (Negative); Protein Urine Negative (Negative); Urobilinogen Urine 0.2 mg/dL (0.2-1.0); pH Urine 5.5 (5.0-8.0)
[2021-06-27 12:21] LABS: Bacteria Urine 2+ /hpf; RBC Urine 0-2 /hpf (0-2); Squamous Epithelial Cell Urine Few /hpf (Few)
[2021-06-27 12:28] VITALS: BP 115/62; PULSE 71; RESP 16; TEMP 36.6; O2SAT 97
[2021-06-27 12:29] LABS: INR 0.9
[2021-06-27 12:38] LABS: Alanine Aminotransferase 21 U/L (14-59); Albumin Level 3.1 g/dL (3.4-5.0); Alkaline Phosphatase 72 U/L (46-116); Anion Gap 7 mmol/L (8-16); Aspartate Amino Transferase 13 U/L (15-37); Bilirubin,Total 0.2 mg/dL (0.00-1.00); Blood Urea Nitrogen 69 mg/dL (7-18); Calcium 8.7 mg/dL (8.5-10.1); Carbon Dioxide 30 mmol/L (21-32); Chloride 102 mmol/L (98-108); Estimated CRCL calculation 11 ml/min; Estimated Glomerular Filt Rate 13; Ferritin 29 ng/mL (8-252); Glucose 126 mg/dL (70-99); Iron 20 ug/dL (50-170); Magnesium 2.3 mg/dL (1.8-2.4); Osmolality Calculated 310 mOsm/kg (285-295); Potassium 3.9 mmol/L (3.5-5.1); Sodium 139 mmol/L (136-145); Total Protein 6.6 g/dL (6.4-8.2); Uric Acid 3.2 mg/dL (2.6-6.0)
[2021-06-27 13:55] VITALS: BP 123/94; PULSE 88; RESP 20; TEMP 36.7; O2SAT 97
--- NOTE | 2021-06-27 14:07 | PC.NURSE ---
1400 DISCHARGE INSTRUCTIONS GIVEN TO ELIESER BELL ABOUT NEW MEDS
[2021-06-29 15:42] LABS: Vitamin D 25 Hydroxy 39 ng/mL (30-100)
[2021-06-29 21:31] LABS: Transferrin 283 mg/dL (188-341)
[2021-06-30 13:31] LABS: Parathyroid Intact 101 pg/mL (14-64)
== END 2021-06-27 13:58 | disposition home or self-care (01) ==
PROVIDERS: Emergency Provider Emergency Medicine; PCP Family Medicine
DX: N39.0 Urinary tract infection, site not specified (principal); M54.16 Radiculopathy, lumbar region; N18.4 Chronic kidney disease, stage 4 (severe)
CPT/HCPCS: 36415; 80053; 81001; 82306; 82728; 83540; 83735; 83970; 84466; 84550; 85025; 85610; 85730; 93970; 99283; 99284

== ENCOUNTER 2021-07-30 07:06 | Outpatient (CLI) | payer OTHER, SELFPAY ==
[2021-07-30 08:45] LABS: Hemoglobin A1C 7.1 % (<5.7)
[2021-07-30 08:58] LABS: Anion Gap 10 mmol/L (8-16); Blood Urea Nitrogen 60 mg/dL (7-18); Calcium 9.8 mg/dL (8.5-10.1); Carbon Dioxide 30 mmol/L (21-32); Chloride 104 mmol/L (98-108); Cholesterol 157 mg/dL (0-200); Estimated Glomerular Filt Rate 12; Glucose 125 mg/dL (70-99); HDL Direct 44 mg/dL (40-60); LDL Cholesterol Calculated 85 mg/dL (<130); Osmolality Calculated 315 mOsm/kg (285-295); Potassium 4.7 mmol/L (3.5-5.1); Sodium 144 mmol/L (136-145); Thyroid Stimulating Hormone 4.85 uIU/mL (0.36-3.74); Triglycerides 140 mg/dL (0-150)
[2021-08-03 06:15] LABS: Insulin Level Total 17.2 uIU/mL (<=19.6)
[2021-08-03 16:34] LABS: Glutamic acid decarboxylase AA <5 IU/mL (<5)
[2021-08-15 23:38] LABS: Islet Cell Antibody Screen NEGATIVE (NEGATIVE)
== END 2021-07-30 07:07 | disposition home or self-care (01) ==
PROVIDERS: PCP Family Medicine; Visit Provider Family Medicine
DX: E78.2 Mixed hyperlipidemia (principal); R73.01 Impaired fasting glucose; E03.9 Hypothyroidism, unspecified
CPT/HCPCS: 36415; 80048; 80061; 83036; 83525; 84443; 86341

== ENCOUNTER 2021-08-16 07:57 | Outpatient (CLI) | payer OTHER, SELFPAY ==
--- NOTE | ~2021-08-16 | MR_ITS ---
EXAMINATION: MRA brain wo con DATE: 08/16/2021 09:44 INDICATION: Aneurysm of carotid artery TECHNIQUE: Magnetic resonance angiography (MRA) of the brain was performed without intravenous contrast by the 3 D [id number] technique. Additional axial T1-weighted FSE and diffusion weighted images of the bra in were obtained. COMPARISON: None. FINDINGS: There are no areas of restricted diffusion to suggest acute infarction. No intracranial hemorrhage or abnormal intracranial mass lesion. The ventricles are symmetric and normal in size. There are no ab normal extra-axial fluid collections. Changes of bilateral intraocular lens replacement. Visualized orbits and soft tissues are unremarkable. There is normal flow related signal seen within the verteb ral, basilar and internal carotid arteries. There is no proximal stenosis. There are no aneurysms i dentified. Both A1 and P1 segments are patent. Flow in the cerebral arteries is symmetric. IMPRESSION: 1. Normal MR angiogram of the brain with no aneurysm or significant stenosis. 2. No acute infarct. Reviewed, dictated and finalized at location A.
== END 2021-08-16 07:58 | disposition home or self-care (01) ==
LOC: CHSIMG 08:00
PROVIDERS: PCP Family Medicine; Visit Provider Family Medicine
DX: I72.0 Aneurysm of carotid artery (principal)
CPT/HCPCS: 70544

== ENCOUNTER 2021-09-01 07:10 | Outpatient (CLI) | payer OTHER, SELFPAY ==
[2021-09-01 07:55] LABS: Albumin Level 3.8 g/dL (3.4-5.0); Anion Gap 10 mmol/L (8-16); Blood Urea Nitrogen 65 mg/dL (7-18); Calcium 9.6 mg/dL (8.5-10.1); Carbon Dioxide 29 mmol/L (21-32); Chloride 104 mmol/L (98-108); Estimated Glomerular Filt Rate 11; Glucose 136 mg/dL (70-99); Osmolality Calculated 316 mOsm/kg (285-295); Phosphorus 5.2 mg/dL (2.6-4.7); Potassium 4.7 mmol/L (3.5-5.1); Sodium 143 mmol/L (136-145)
== END 2021-09-01 07:11 | disposition home or self-care (01) ==
LOC: CHSLAB 07:12
PROVIDERS: PCP Family Medicine; Visit Provider Internal Medicine Nephrology
DX: N18.5 Chronic kidney disease, stage 5 (principal)
CPT/HCPCS: 36415; 80069

== ENCOUNTER 2021-10-04 12:51 | Emergency (ER) | payer OTHER, SELFPAY ==
--- NOTE | ~2021-10-04 | XR_ITS ---
EXAMINATION: XR chest 1V portable DATE: 10/04/2021 13:31 INDICATION: Chest pain. Chest tightness. TECHNIQUE: A single frontal view of the chest was obtained. COMPARISON: Chest single view 02/13/2021 FINDINGS: The lung volumes are small with mild relative elevation of left hemidiaphragm. No pneumonia , pleural effusion, or pneumothorax. The heart size is normal. There are surgical clips in the neck. There is an old healed right rib fracture. IMPRESSION: 1. Small lung volumes. Reviewed, dictated and finalized at location B. IMPRESSION: 1. Small lung volumes.
[2021-10-04 12:55] VITALS: BP 125/55; PULSE 83; RESP 20; TEMP 36.3; O2SAT 96
--- NOTE | 2021-10-04 13:14 | ECG_ITS ---
Measurements Intervals [place] Rate: 82 P: -13 NM: 165 QRS: 17 QRSD: 88 T: 47 QT: 383 QTc: 447 Interpretive Statements SINUS RHYTHM BORDERLINE ST-T WAVE ABNORMALITY- ANTERIOR LEADS BASELINE ARTIFACT- I, II, III, AVR, AVL, AVF BORDERLINE ECG Electronically Signed On 10-04-2021 13:27:49 CDT by Roverto Sher D.O.
[2021-10-04 13:27] LABS: Basophils Absolute Auto 0.02 K/mm3 (0.00-0.10); Basophils Percent Auto 0.3 % (0.0-1.0); Eosinophils Absolute Auto 0.29 K/mm3 (0.02-0.50); Eosinophils Percent Auto 3.9 % (1.0-6.0); Hematocrit 30.1 % (35.0-42.0); Hemoglobin 8.7 g/dL (11.7-13.8); Immature Granulocyte Absolute 0.03 K/mm3 (0.00-0.00); Immature Granulocyte Percent A 0.4 % (0.0-0.0); Lymphocytes Percent Auto 39.2 % (18.0-42.0); Mean Corpuscular HGB Conc 28.9 g/dL (32.0-36.0); Mean Corpuscular Hemoglobin 25.1 pg (27.0-31.0); Mean Corpuscular Volume 86.7 fL (78.0-102.0); Mean Platelet Volume 9.4 fl (9.2-11.8); Monocytes Absolute Auto 0.59 K/mm3 (0.10-0.90); Neutrophils Absolute Auto 3.6 K/mm3 (1.7-7.2); Neutrophils Percent Auto 48.2 % (50.0-70.0); Platelet Count Result 206 K/mm3 (150-420); Red Blood Count 3.47 M/mm3 (4.20-5.40); Red Cell Distribution Width 14.5 % (11.6-14.4); White Blood Count 7.4 K/mm3 (4.8-10.8)
--- NOTE | 2021-10-04 13:46 | ED.CHESTPAIN ---
HPI - Chest Pain General Chief Complaint: Chest Pain Stated Complaint: Ambulance Time Seen by Provider: 10/04/21 12:53 Source: patient, EMS, RN notes reviewed and old records reviewed Mode of arrival: EMS Limitations: no limitations History of Present Illness MD complaint: chest pain, chest heaviness and chest discomfort Pertinent past history: other (GERD) Onset (ago): hour(s) (2.5) Timing of current episode: now resolved Prior episodes: Yes Onset: after eating Pain location: substernal, left chest, right chest and epigastric Severity: mild Pain scale (0-10): 4 Quality: heaviness and burning Relieving factors: nothing Exacerbating factors: eating Treatment prior to arrival: aspirin Related Data Home Medications Medication Instructions Recorded Confirmed Restasis 1 drp OPHTHALMIC (EYE) Q12H 05/20/20 06/27/21 allopurinol 100 mg PO BID 05/20/20 06/27/21 calcitriol 0.5 mcg PO 5XW 05/20/20 06/27/21 duloxetine 60 mg PO DAILY 05/20/20 06/27/21 furosemide 40 mg PO DAILY 05/20/20 06/27/21 levothyroxine 75 mcg PO DAILY 05/20/20 06/27/21 magnesium oxide 400 mg PO DAILY 05/20/20 06/27/21 metoprolol tartrate 25 mg PO BID 05/20/20 06/27/21 mirtazapine 15 mg PO HS 05/20/20 06/27/21 omeprazole 20 mg PO DAILY 05/20/20 06/27/21 simvastatin 40 mg PO HS 05/20/20 06/27/21 tolterodine 4 mg PO DAILY 05/20/20 06/27/21 ziprasidone HCl 20 mg PO HS 05/20/20 06/27/21 acetaminophen 650 mg PO Q4H PRN 02/13/21 06/27/21 bismuth subsalicylate 524 mg PO Q1H PRN 02/13/21 06/27/21 [Pepto-Bismol] dicyclomine 20 mg PO TID PRN 02/13/21 06/27/21 ergocalciferol (vitamin D2) 50,000 unit PO WEEKLY 02/13/21 06/27/21 polyethylene glycol 3350 [Miralax] 1 g PO DAILY PRN 02/13/21 06/27/21 Allergies Allergy/AdvReac Type Severity Reaction Status Date / Time aspirin Allergy Other Verified 06/27/21 11:12 codeine Allergy Other Verified 06/27/21 11:12 tetracycline Allergy Other Verified 06/27/21 11:12 Review of Systems Review of Systems: All systems reviewed & are unremarkable except as noted in HPI and below PMFSH Past Medical History Medical History Bipolar 1 disorder, mixed Chronic renal failure Dyslipidemia Hypertension Surgical History Surgical History History of appendectomy History of cholecystectomy History of hysterectomy Social History Social History Smoking status: Never smoker Alcohol intake: never Substance use: never Gender identity (if verbalized by the patient): Female Sexual Orientation (if Verbalized by the Patient): Straight or Heterosexual Spiritual care concerns: No Exam Const: General: no acute distress and alert Nutritional Appearance: well nourished Orientation/consciousness: patient oriented x3 Limitations: no limitations HENMT: Head: normal to inspection Ears: external ears normal, TM's normal bilaterally and EAC's normal General nose exam: Normal external nose present and Normal nares present Face and sinus: normal facial exam and sinuses nontender Mouth: Yes moist mucous membranes Throat: posterior oropharynx normal Eyes: Conjunctivae: conjunctivae normal Pupils: Equal, round and reactive pupils present EOM: EOMs intact bilaterally Neck: Neck: normal visual inspection and no lymphadenopathy Chest: Chest palpation & inspection: normal inspection of the chest Resp: Effort & Inspection: normal respiratory effort Auscultation: clear to auscultation bilaterally Cardio: Rate: regular rate Rhythm: regular rhythm GI: GI Palp: Yes Soft to palpation and No Tenderness to palpation present (GI) Auscultation: normal bowel sounds : General: Yes bladder normal to palpation and Yes no CVA tenderness Back/Spine/Pelvis: Back: no CVA tenderness Skin: General skin exam: normal color Rashes: no rashes Neuro: General: patient oriented x
[2021-10-04 13:51] LABS: Alanine Aminotransferase 16 U/L (14-59); Albumin Level 3.3 g/dL (3.4-5.0); Alkaline Phosphatase 86 U/L (46-116); Anion Gap 8 mmol/L (8-16); Aspartate Amino Transferase 13 U/L (15-37); Bilirubin,Total 0.2 mg/dL (0.00-1.00); Blood Urea Nitrogen 60 mg/dL (7-18); Carbon Dioxide 29 mmol/L (21-32); Chloride 102 mmol/L (98-108); Estimated CRCL calculation 11 ml/min; Estimated Glomerular Filt Rate 12; Glucose 145 mg/dL (70-99); Osmolality Calculated 307 mOsm/kg (285-295); Potassium 4.2 mmol/L (3.5-5.1); Sodium 139 mmol/L (136-145); Total Protein 6.8 g/dL (6.4-8.2)
[2021-10-04] MEDS: ACETAMINOPHEN 325 MG TABLET 650 MG PO (13:51)
[2021-10-04] MEDS: MAG HYDROX/ALUMINUM HYD/SIMETH 30 ML, PHENobarb/HYOSCY/ATROPINE/SCOP 32.4 MG, LIDOCAINE... PO (13:52)
[2021-10-04 13:53] LABS: NT Pro B Type Natriuretic Pept 867 pg/mL (0-450)
[2021-10-04 13:53] LABS: Troponin I 10.4 ng/L (0.00-60.4)
[2021-10-04 14:45] VITALS: BP 108/60; PULSE 80; RESP 14; TEMP 36.5; O2SAT 98
== END 2021-10-04 14:47 | disposition home or self-care (01) ==
PROVIDERS: Emergency Provider Emergency Medicine; PCP Family Medicine
DX: R07.89 Other chest pain (principal); K21.9 Gastro-esophageal reflux disease without esophagitis; E78.5 Hyperlipidemia, unspecified; I10 Essential (primary) hypertension
CPT/HCPCS: 36415; 71045; 80053; 83880; 84484; 85025; 93005; 99284; A9270

== ENCOUNTER 2021-10-06 07:19 | Outpatient (CLI) | payer OTHER, SELFPAY ==
[2021-10-06 07:35] LABS: Basophils Absolute Auto 0.04 K/mm3 (0.00-0.10); Basophils Percent Auto 0.4 % (0.0-1.0); Eosinophils Absolute Auto 0.33 K/mm3 (0.02-0.50); Eosinophils Percent Auto 3.1 % (1.0-6.0); Hematocrit 33.3 % (35.0-42.0); Hemoglobin 9.7 g/dL (11.7-13.8); Immature Granulocyte Absolute 0.06 K/mm3 (0.00-0.00); Immature Granulocyte Percent A 0.6 % (0.0-0.0); Lymphocytes Absolute Auto 4.37 K/mm3 (1.10-4.50); Lymphocytes Percent Auto 40.4 % (18.0-42.0); Mean Corpuscular HGB Conc 29.1 g/dL (32.0-36.0); Mean Corpuscular Hemoglobin 25.3 pg (27.0-31.0); Mean Corpuscular Volume 86.7 fL (78.0-102.0); Mean Platelet Volume 9.5 fl (9.2-11.8); Monocytes Absolute Auto 0.79 K/mm3 (0.10-0.90); Monocytes Percent Auto 7.3 % (2.0-11.0); Neutrophils Absolute Auto 5.2 K/mm3 (1.7-7.2); Neutrophils Percent Auto 48.2 % (50.0-70.0); Platelet Count Result 238 K/mm3 (150-420); Red Blood Count 3.84 M/mm3 (4.20-5.40); Red Cell Distribution Width 14.6 % (11.6-14.4); White Blood Count 10.8 K/mm3 (4.8-10.8)
[2021-10-06 07:48] LABS: Albumin Level 3.8 g/dL (3.4-5.0); Anion Gap 10 mmol/L (8-16); Blood Urea Nitrogen 62 mg/dL (7-18); Calcium 9.8 mg/dL (8.5-10.1); Carbon Dioxide 29 mmol/L (21-32); Chloride 104 mmol/L (98-108); Estimated Glomerular Filt Rate 11; Glucose 100 mg/dL (70-99); Osmolality Calculated 313 mOsm/kg (285-295); Phosphorus 5.1 mg/dL (2.6-4.7); Potassium 4.5 mmol/L (3.5-5.1); Sodium 143 mmol/L (136-145); Uric Acid 3.5 mg/dL (2.6-6.0)
[2021-10-12 07:47] LABS: Vitamin D 1,25 (OH)2 Total 65 pg/mL (18-72); Vitamin D2 1,25 (OH)2 <8 pg/mL; Vitamin D3 1,25 (OH)2 65 pg/mL
== END 2021-10-06 07:20 | disposition home or self-care (01) ==
PROVIDERS: PCP Family Medicine
DX: I12.0 Hypertensive chronic kidney disease with stage 5 chronic kidney disease or end stage renal disease (principal); N18.5 Chronic kidney disease, stage 5; D63.1 Anemia in chronic kidney disease; M10.9 Gout, unspecified; N25.81 Secondary hyperparathyroidism of renal origin; R80.9 Proteinuria, unspecified; E03.9 Hypothyroidism, unspecified; E55.9 Vitamin D deficiency, unspecified
CPT/HCPCS: 36415; 80069; 82652; 84550; 85025

== ENCOUNTER 2021-11-24 10:01 | Outpatient (CLI) | payer OTHER, SELFPAY ==
[2021-11-24 10:29] LABS: Basophils Absolute Auto 0.04 K/mm3 (0.00-0.10); Basophils Percent Auto 0.4 % (0.0-1.0); Eosinophils Absolute Auto 0.41 K/mm3 (0.02-0.50); Eosinophils Percent Auto 4.3 % (1.0-6.0); Hematocrit 31.6 % (35.0-42.0); Hemoglobin 9.3 g/dL (11.7-13.8); Immature Granulocyte Absolute 0.04 K/mm3 (0.00-0.00); Immature Granulocyte Percent A 0.4 % (0.0-0.0); Lymphocytes Absolute Auto 2.99 K/mm3 (1.10-4.50); Lymphocytes Percent Auto 31.4 % (18.0-42.0); Mean Corpuscular HGB Conc 29.4 g/dL (32.0-36.0); Mean Corpuscular Hemoglobin 24.9 pg (27.0-31.0); Mean Corpuscular Volume 84.5 fL (78.0-102.0); Mean Platelet Volume 9.6 fl (9.2-11.8); Monocytes Absolute Auto 0.96 K/mm3 (0.10-0.90); Monocytes Percent Auto 10.1 % (2.0-11.0); Neutrophils Absolute Auto 5.1 K/mm3 (1.7-7.2); Neutrophils Percent Auto 53.4 % (50.0-70.0); Platelet Count Result 203 K/mm3 (150-420); Red Blood Count 3.74 M/mm3 (4.20-5.40); Red Cell Distribution Width 14.8 % (11.6-14.4); White Blood Count 9.5 K/mm3 (4.8-10.8)
[2021-11-24 11:27] LABS: Albumin Level 3.6 g/dL (3.4-5.0); Anion Gap 8 mmol/L (8-16); Blood Urea Nitrogen 64 mg/dL (7-18); Calcium 9.2 mg/dL (8.5-10.1); Carbon Dioxide 32 mmol/L (21-32); Chloride 102 mmol/L (98-108); Estimated Glomerular Filt Rate 12; Ferritin 12 ng/mL (8-252); Glucose 121 mg/dL (70-99); Iron 28 ug/dL (50-170); Osmolality Calculated 313 mOsm/kg (285-295); Percent Iron Saturation 7 % (12-57); Phosphorus 6.2 mg/dL (2.6-4.7); Potassium 4.5 mmol/L (3.5-5.1); Sodium 142 mmol/L (136-145)
[2021-11-27 12:11] LABS: Hepatitis B Surface Antibody Nonreactive (Nonreactive); Parathyroid Intact 50 pg/mL (14-64)
[2021-11-28 11:50] LABS: Hepatitis A Antibody IgM Nonreactive; Hepatitis B Core Antibody Nonreactive (Nonreactive); Hepatitis B Surface Antigen Nonreactive (Nonreactive); Hepatitis C Signal to Cutoff 0.04 ratio (<1.00); Hepatitis C Virus Antibody Nonreactive (Nonreactive)
== END 2021-11-24 10:02 | disposition home or self-care (01) ==
LOC: CHSLAB 10:16
DX: N18.5 Chronic kidney disease, stage 5 (principal); D63.1 Anemia in chronic kidney disease; N18.9 Chronic kidney disease, unspecified; Z49.01 Encounter for fitting and adjustment of extracorporeal dialysis catheter; N25.0 Renal osteodystrophy; I12.0 Hypertensive chronic kidney disease with stage 5 chronic kidney disease or end stage renal disease; R80.9 Proteinuria, unspecified; M10.00 Idiopathic gout, unspecified site; Z01.89 Encounter for other specified special examinations
CPT/HCPCS: 36415; 80069; 80074; 82728; 83540; 83550; 83970; 85025; 86706

== ENCOUNTER 2021-11-25 09:34 | Outpatient (CLI) | payer OTHER, SELFPAY ==
--- NOTE | ~2021-11-25 | XR_ITS ---
EXAMINATION: XR chest 2V DATE: 11/25/2021 10:01 INDICATION: Chronic kidney disease, hypertension TECHNIQUE: PA and lateral views of the chest are obtained. COMPARISON: 10/04/2021 FINDINGS: The lungs are free of acute opacities. There is mild scarring at the left costophrenic angl e. There is no pleural effusion or pneumothorax. The cardiomediastinal silhouette is normal. There ar e bridging osteophytes at multiple levels in the spine, consistent with diffuse idiopathic skeletal h yperostosis (DISH). Surgical clips in the neck near the trachea likely reflects thyroidectomy. IMPRESSION: 1. No acute cardiopulmonary abnormality. Reviewed, dictated and finalized at location F.
== END 2021-11-25 09:35 | disposition home or self-care (01) ==
LOC: CHSIMG 09:38
PROVIDERS: PCP Family Medicine
DX: N18.5 Chronic kidney disease, stage 5 (principal); D63.1 Anemia in chronic kidney disease; N25.81 Secondary hyperparathyroidism of renal origin; Z49.01 Encounter for fitting and adjustment of extracorporeal dialysis catheter; N17.9 Acute kidney failure, unspecified; N25.0 Renal osteodystrophy
CPT/HCPCS: 71046

== ENCOUNTER 2021-12-26 07:04 | Outpatient (CLI) | payer OTHER, SELFPAY ==
[2021-12-26 07:30] LABS: Basophils Absolute Auto 0.05 K/mm3 (0.00-0.10); Basophils Percent Auto 0.6 % (0.0-1.0); Eosinophils Absolute Auto 0.22 K/mm3 (0.02-0.50); Eosinophils Percent Auto 2.5 % (1.0-6.0); Hematocrit 35.4 % (35.0-42.0); Hemoglobin 10.2 g/dL (11.7-13.8); Immature Granulocyte Absolute 0.06 K/mm3 (0.00-0.00); Immature Granulocyte Percent A 0.7 % (0.0-0.0); Lymphocytes Absolute Auto 2.88 K/mm3 (1.10-4.50); Lymphocytes Percent Auto 33.2 % (18.0-42.0); Mean Corpuscular HGB Conc 28.8 g/dL (32.0-36.0); Mean Corpuscular Hemoglobin 26.3 pg (27.0-31.0); Mean Corpuscular Volume 91.2 fL (78.0-102.0); Monocytes Percent Auto 6.9 % (2.0-11.0); Neutrophils Absolute Auto 4.9 K/mm3 (1.7-7.2); Neutrophils Percent Auto 56.1 % (50.0-70.0); Platelet Count Result 181 K/mm3 (150-420); Red Blood Count 3.88 M/mm3 (4.20-5.40); Red Cell Distribution Width 20.5 % (11.6-14.4); White Blood Count 8.7 K/mm3 (4.8-10.8)
[2021-12-26 08:10] LABS: Albumin Level 3.8 g/dL (3.4-5.0); Anion Gap 7 mmol/L (8-16); Blood Urea Nitrogen 35 mg/dL (7-18); Calcium 9.2 mg/dL (8.5-10.1); Carbon Dioxide 30 mmol/L (21-32); Chloride 106 mmol/L (98-108); Estimated Glomerular Filt Rate 13; Ferritin 295 ng/mL (8-252); Glucose 129 mg/dL (70-99); Iron 47 ug/dL (50-170); Osmolality Calculated 306 mOsm/kg (285-295); Percent Iron Saturation 15 % (12-57); Phosphorus 4.2 mg/dL (2.6-4.7); Potassium 4.9 mmol/L (3.5-5.1); Sodium 143 mmol/L (136-145)
[2021-12-29 10:29] LABS: Parathyroid Intact 95 pg/mL (14-64)
[2021-12-29 18:51] LABS: Hepatitis A Antibody IgM Nonreactive; Hepatitis B Core Antibody Nonreactive (Nonreactive); Hepatitis B Surface Antibody Nonreactive (Nonreactive); Hepatitis B Surface Antigen Nonreactive (Nonreactive); Hepatitis C Signal to Cutoff 0.03 ratio (<1.00); Hepatitis C Virus Antibody Nonreactive (Nonreactive)
== END 2021-12-26 07:05 | disposition home or self-care (01) ==
LOC: CHSLAB 07:13
DX: M10.9 Gout, unspecified (principal); I12.0 Hypertensive chronic kidney disease with stage 5 chronic kidney disease or end stage renal disease; N18.5 Chronic kidney disease, stage 5; Z49.01 Encounter for fitting and adjustment of extracorporeal dialysis catheter; N17.9 Acute kidney failure, unspecified; N25.0 Renal osteodystrophy; R80.9 Proteinuria, unspecified; E03.9 Hypothyroidism, unspecified; D63.1 Anemia in chronic kidney disease; N25.81 Secondary hyperparathyroidism of renal origin; N18.9 Chronic kidney disease, unspecified; M10.00 Idiopathic gout, unspecified site; Z01.89 Encounter for other specified special examinations
CPT/HCPCS: 36415; 80069; 80074; 82728; 83540; 83550; 83970; 85025; 86706

== ENCOUNTER 2022-01-13 18:59 | Emergency (ER) | payer OTHER, SELFPAY ==
[2022-01-13] VITALS (17 sets, daily range): BP systolic 84–124; BP diastolic 53–81; PULSE 79–83; RESP 18; TEMP 36.1–36.6; O2SAT 91–98
--- NOTE | ~2022-01-13 | XR_ITS ---
EXAMINATION: XR chest 2V 01/13/2022 20:20 INDICATION: Cough and weakness PROCEDURE: 2 view chest COMPARISON: Comparison to multiple prior studies sequentially, with oldest reviewed study dated 05/04. FINDINGS: The lungs are clear. The cardiomediastinal silhouette is within normal limits. There are no pleural effusions. There is no pneumothorax suspected. IMPRESSION: 1: NO ACUTE CARDIOPULMONARY DISEASE. Reviewed, dictated and finalized at location A.
--- NOTE | 2022-01-13 19:07 | ED.URI ---
HPI - URI/Sore Throat General Chief Complaint: Upper Respiratory Infection Stated Complaint: amb Time Seen by Provider: 01/13/22 19:07 Source: patient, EMS and RN notes reviewed Mode of arrival: EMS Limitations: no limitations History of Present Illness HPI Narrative: Patient states she just feels weak and has a cough that she has had for the last 11 days. She tested negative with [id number] test at her facility. She denies any mucus production from the cough. He does say that she has had headache some sore throat mild nausea. She denies any chest pain. At the facility said that her O2 sats were in the 80s, when the patient was put into the ambulance she was in the low 90s without any additional oxygen. On arrival she is 94% on room air. MD elicited complaint: cough Onset (ago): day(s) (11) Consistency: intermittent Severity: moderate Description of mucous: clear Able to tolerate fluids by mouth: Yes Exacerbating factors: nothing Relieving factors: nothing Associated symptoms: headache, sore throat, shortness of breath and nausea Related Data Home Medications Medication Instructions Recorded Confirmed allopurinol 100 mg tablet 100 mg PO BID 05/20/20 01/13/22 calcitriol 0.5 mcg capsule 0.5 mcg PO 5XW 05/20/20 01/13/22 cyclosporine 0.05 % eye drops in a 1 drp ophthalmic (eye) Q12H 05/20/20 01/13/22 dropperette (Restasis) duloxetine 60 mg capsule,delayed 60 mg PO DAILY 05/20/20 01/13/22 release sprinkle levothyroxine 75 mcg tablet 88 mcg PO DAILY 05/20/20 01/13/22 magnesium oxide 400 mg PO DAILY 05/20/20 01/13/22 metoprolol tartrate 25 mg tablet 25 mg PO BID 05/20/20 01/13/22 mirtazapine 15 mg tablet 15 mg PO HS 05/20/20 01/13/22 omeprazole 20 mg capsule,delayed 20 mg PO DAILY 05/20/20 01/13/22 release simvastatin 40 mg tablet 40 mg PO HS 05/20/20 01/13/22 tolterodine 4 mg capsule,extended 4 mg PO DAILY 05/20/20 01/13/22 release 24 hr ziprasidone HCl 20 mg capsule 20 mg PO HS 05/20/20 01/13/22 bismuth subsalicylate 262 mg/15 mL 524 mg PO Q1H PRN Diarrhea 02/13/21 01/13/22 oral suspension (Pepto-Bismol) dicyclomine 20 mg tablet 20 mg PO TID PRN Abdominal 02/13/21 01/13/22 Discomfort ergocalciferol (vitamin D2) 25,000 50,000 unit PO WEEKLY 02/13/21 01/13/22 unit capsule polyethylene glycol 3350 17 1 g PO DAILY PRN Constipation 02/13/21 01/13/22 gram/dose oral powder (Miralax) guaifenesin 100 mg/5 mL oral 100 mg PO Q3-4H PRN Cough 01/13/22 01/13/22 liquid (Robafen) Allergies Allergy/AdvReac Type Severity Reaction Status Date / Time aspirin Allergy Other Verified 01/13/22 19:09 codeine Allergy Other Verified 01/13/22 19:09 tetracycline Allergy Other Verified 01/13/22 19:09 Review of Systems Review of Systems: All systems reviewed & are unremarkable except as noted in HPI and below Constitutional: Constitutional: Denies chills and Denies fever(s) Cardiovascular: Cardiovascular: Denies chest pain Respiratory: Respiratory: Reports as per HPI Gastrointestinal: Gastrointestinal: Denies diarrhea and Denies vomiting Musculoskeletal: Musculoskeletal: Denies myalgias Neurologic: Reports weakness PMFSH Past Medical History Medical History Bipolar 1 disorder, mixed Chronic renal failure Dyslipidemia GERD (gastroesophageal reflux disease) Hypertension Hypothyroidism Surgical History Surgical History History of appendectomy History of cholecystectomy History of hysterectomy Social History Social History Smoking status: Never smoker Alcohol intake: never Substance use: never Gender identity (if verbalized by the patient): Female Sexual Orientation (if Verbalized by the Patient): Straight or Heterosexual Spiritual care concerns: No Exam Const: General: healthy appearing, no acute distress and alert Nutrit
[2022-01-13 19:27] LABS: Basophils Absolute Auto 0.06 K/mm3 (0.00-0.10); Basophils Percent Auto 0.8 % (0.0-1.0); Eosinophils Absolute Auto 0.37 K/mm3 (0.02-0.50); Eosinophils Percent Auto 4.8 % (1.0-6.0); Hematocrit 35.4 % (35.0-42.0); Hemoglobin 10.6 g/dL (11.7-13.8); Immature Granulocyte Absolute 0.09 K/mm3 (0.00-0.00); Immature Granulocyte Percent A 1.2 % (0.0-0.0); Lymphocytes Absolute Auto 2.81 K/mm3 (1.10-4.50); Lymphocytes Percent Auto 36.6 % (18.0-42.0); Mean Corpuscular HGB Conc 29.9 g/dL (32.0-36.0); Mean Corpuscular Hemoglobin 27.2 pg (27.0-31.0); Monocytes Absolute Auto 0.62 K/mm3 (0.10-0.90); Monocytes Percent Auto 8.1 % (2.0-11.0); Neutrophils Absolute Auto 3.7 K/mm3 (1.7-7.2); Neutrophils Percent Auto 48.5 % (50.0-70.0); Platelet Count Result 226 K/mm3 (150-420); Red Blood Count 3.89 M/mm3 (4.20-5.40); Red Cell Distribution Width 18.3 % (11.6-14.4); White Blood Count 7.7 K/mm3 (4.8-10.8)
[2022-01-13 19:40] LABS: Alanine Aminotransferase 28 U/L (14-59); Albumin Level 3.1 g/dL (3.4-5.0); Alkaline Phosphatase 116 U/L (46-116); Anion Gap 7 mmol/L (8-16); Aspartate Amino Transferase 22 U/L (15-37); Bilirubin,Total 0.4 mg/dL (0.00-1.00); Blood Urea Nitrogen 32 mg/dL (7-18); CRP 9.1 mg/dL (0.0-0.9); Calcium 9.1 mg/dL (8.5-10.1); Carbon Dioxide 31 mmol/L (21-32); Chloride 97 mmol/L (98-108); Estimated CRCL calculation 14 ml/min; Estimated Glomerular Filt Rate 14; Glucose 158 mg/dL (70-99); Magnesium 2.2 mg/dL (1.8-2.4); Osmolality Calculated 289 mOsm/kg (285-295); Potassium 4.2 mmol/L (3.5-5.1); Sodium 135 mmol/L (136-145); Total Protein 7.1 g/dL (6.4-8.2)
[2022-01-13 20:01] LABS: SARS-CoV-2 RNA PCR Negative (Negative)
--- NOTE | 2022-01-13 20:08 | PC.NURSE ---
PT IS LYING ON STRETCHER WATCHING TV WITHOUT DISTRESS NOTED. PT DENIES ANY NEEDS OR COMPLAINTS. PT IS AWAITING RESULTS AT THIS TIME. WILL CONTINUE TO MONITOR.
--- NOTE | 2022-01-13 20:16 | PC.NURSE ---
PT TO XRAY AT THIS TIME.
--- NOTE | 2022-01-13 20:52 | PC.NURSE ---
ERP AT BEDSIDE. NAD NOTED. PT IS WATCHING TV.
--- NOTE | 2022-01-13 20:54 | PC.NURSE ---
[facility]. TRANSPORT EN ROUTE TO [facility] PT. TRANSFER CHART PROVIDED.
== END 2022-01-13 21:05 | disposition home or self-care (01) ==
PROVIDERS: Emergency Provider Emergency Medicine
DX: J40 Bronchitis, not specified as acute or chronic (principal); Z20.822 Contact with and (suspected) exposure to COVID-19
CPT/HCPCS: 36415; 71046; 80053; 83735; 85025; 86140; 99283; C9803; U0003; U0005

== ENCOUNTER 2022-07-13 07:06 | Outpatient (CLI) | payer OTHER, SELFPAY ==
[2022-07-13 07:24] LABS: Basophils Absolute Auto 0.05 K/mm3 (0.00-0.10); Basophils Percent Auto 0.6 % (0.0-1.0); Eosinophils Absolute Auto 0.36 K/mm3 (0.02-0.50); Eosinophils Percent Auto 4.1 % (1.0-6.0); Hematocrit 36.8 % (35.0-42.0); Immature Granulocyte Absolute 0.04 K/mm3 (0.00-0.00); Immature Granulocyte Percent A 0.5 % (0.0-0.0); Lymphocytes Absolute Auto 2.64 K/mm3 (1.10-4.50); Mean Corpuscular HGB Conc 29.9 g/dL (32.0-36.0); Mean Corpuscular Hemoglobin 28.2 pg (27.0-31.0); Mean Corpuscular Volume 94.4 fL (78.0-102.0); Monocytes Absolute Auto 0.62 K/mm3 (0.10-0.90); Monocytes Percent Auto 7.1 % (2.0-11.0); Neutrophils Absolute Auto 5.1 K/mm3 (1.7-7.2); Neutrophils Percent Auto 57.7 % (50.0-70.0); Platelet Count Result 172 K/mm3 (150-420); Red Cell Distribution Width 13.7 % (11.6-14.4); White Blood Count 8.8 K/mm3 (4.8-10.8)
[2022-07-13 08:38] LABS: Alanine Aminotransferase 19 U/L (14-59); Albumin Level 3.7 g/dL (3.4-5.0); Alkaline Phosphatase 155 U/L (46-116); Anion Gap 5 mmol/L (8-16); Aspartate Amino Transferase 16 U/L (15-37); Bilirubin,Total 0.4 mg/dL (0.00-1.00); Blood Urea Nitrogen 28 mg/dL (7-18); Calcium 8.9 mg/dL (8.5-10.1); Carbon Dioxide 34 mmol/L (21-32); Chloride 105 mmol/L (98-108); Cholesterol 126 mg/dL (0-200); Estimated Glomerular Filt Rate 16; Glucose 120 mg/dL (70-99); HDL Direct 45 mg/dL (40-60); LDL Cholesterol Calculated 54 mg/dL (<130); Magnesium 2.2 mg/dL (1.8-2.4); Osmolality Calculated 304 mOsm/kg (285-295); Potassium 5.2 mmol/L (3.5-5.1); Sodium 144 mmol/L (136-145); Thyroid Stimulating Hormone 5.67 uIU/mL (0.36-3.74); Total Protein 6.8 g/dL (6.4-8.2); Triglycerides 134 mg/dL (0-150)
== END 2022-07-13 07:07 | disposition home or self-care (01) ==
LOC: CHSLAB 07:08
PROVIDERS: PCP Family Medicine; Visit Provider Family Medicine
DX: E03.8 Other specified hypothyroidism (principal); E78.2 Mixed hyperlipidemia; J44.9 Chronic obstructive pulmonary disease, unspecified
CPT/HCPCS: 36415; 80053; 80061; 82043; 83735; 84443; 84550; 85025

== ENCOUNTER 2022-07-17 08:13 | Outpatient (NON) | payer OTHER, SELFPAY ==
[2022-07-17 09:02] LABS: Add Urine Microscopic? YES; Appearance Urine Slightly Cloudy (Clear); Bilirubin Urine Negative (Negative); Blood Urine Trace-Intact (Negative); Color Urine Light Yellow (Yellow); Creatinine Urine 55.55 mg/dL (40-278); Glucose Urine UA Negative (Negative); Ketones Urine Negative (Negative); Leukocyte Esterase Ur 2+ (Negative); MALB Creatinine Ratio 79.2 mg/g (0-30); Nitrate Urine Positive (Negative); Protein Urine Trace (Negative); Urobilinogen Urine 0.2 mg/dL (0.2-1.0); pH Urine 7.5 (5.0-8.0)
[2022-07-17 09:13] LABS: RBC Urine None seen /hpf (0-2); Squamous Epithelial Cell Urine Few /hpf (Few); WBC Urine 16-20 /hpf (0-3)
[2022-07-17 09:14] LABS: Bacteria Urine 3+ /hpf
== END 2022-07-17 08:14 | disposition home or self-care (01) ==
LOC: CHSLAB 08:15
PROVIDERS: Visit Provider Family Medicine
DX: E03.8 Other specified hypothyroidism (principal); E78.2 Mixed hyperlipidemia; J44.9 Chronic obstructive pulmonary disease, unspecified
CPT/HCPCS: 81001; 82043

== ENCOUNTER 2022-10-12 06:20 | Emergency (ER) | payer OTHER, SELFPAY ==
--- NOTE | ~2022-10-12 | CT_ITS ---
Noncontrast CT scan of the cervical spine Technique: Multiple contiguous axial [address] images of the cervical spine were obtained and rec onstructed in 2D sagittal and coronal planes on the acquisition scanner. Dose reduction technique was used on this scan by utilizing automated exposure control, adjustment of the mA and/or kV according to patient size. Clinical History: Pain Findings: No acute fracture identified. 4-5 mm anterolisthesis of C3 over C4 noted. There is fusion o f the C2-C3 disc space. There is severe degenerative disc narrowing at C3-C4, C4-C5, C5-C6, and C6-C7 with associated uncovertebral degenerative change at the levels. There is fusion of the bilateral fa cet joints at C4-C5. There is bilateral neural foraminal narrowing at C3-C4. There is left neural for aminal narrowing at C4-C5. There is right neural foraminal narrowing at C5-C6. There is bilateral marciano ral foraminal narrowing at C6-C7. There is disc osteophyte complex and probable moderate canal stenos is at C6-C7. There is probable mild canal stenosis at C5-C6. There is probable moderate canal stenosi s at C3-C4. No prevertebral soft tissue swelling. Impression: No acute fracture. 4-5 mm anterolisthesis of C3 over C4. Advanced degenerative spondylosis, as detailed above. Reviewed, dictated and finalized at [facility]. Impression: No acute fracture. 4-5 mm anterolisthesis of C3 over C4. Advanced degenerative spondylosis, as detailed above.
--- NOTE | ~2022-10-12 | CT_ITS ---
CT head without contrast Indication: Head injury COMPARISON: 02/13/2021 Technique: Serial scans were obtained through the brain without the administration of contrast. Dose reduction technique was used on this scan by utilizing automated exposure control and iterative recon struction technique. The dose-length product (DLP) was 605.33 mGy-cm. Findings: There is no evidence of intracranial hemorrhage, mass lesion, or acute infarct. The ventri cles and subarachnoid spaces are dilated, consistent with mild atrophy. Low attenuation regions are seen within the periventricular white matter bilaterally, likely representing changes from chronic mi crovascular ischemic disease. There is no evidence of edema, mass effect or midline shift. The visu alized paranasal sinuses and mastoid air cells are clear. Impression: No intracranial hemorrhage, mass, or acute infarct. Atrophy and chronic white matter changes, as above. Reviewed, dictated and finalized at [facility]. Impression: No intracranial hemorrhage, mass, or acute infarct. Atrophy and chronic white matter changes, as above.
--- NOTE | ~2022-10-12 | XR_ITS ---
Portable chest x-ray Comparison: 01/13/2022 Clinical History: Status post fall Findings: Lungs are clear, without focal consolidation or pleural effusion. Cardiomediastinal silho uette is stable. Bones and soft tissues are unremarkable. Impression: Clear lungs. Reviewed, dictated and finalized at location . Impression: Clear lungs.
--- NOTE | ~2022-10-12 | XR_ITS ---
AP view of the pelvis Clinical history: Pain Findings: No acute fracture or dislocation is seen. Osseous alignment is anatomic. There is mild dege nerative change of both hip joints. Soft tissues are unremarkable. Impression: No fracture or dislocation seen. Mild degenerative change of both hip joints. Reviewed, dictated and finalized at location . Impression: No fracture or dislocation seen. Mild degenerative change of both hip joints.
[2022-10-12 06:26] VITALS: BP 136/88; PULSE 88; RESP 20; TEMP 37.2; O2SAT 95
--- NOTE | 2022-10-12 06:33 | ED.FALL ---
HPI - Fall General Chief Complaint: Wound/Laceration <Yovanny Stark MD - Last Filed: 10/12/22 06:58> Stated Complaint: laceration on top of head <Yovanny Stark MD - Last Filed: 10/12/22 06:58> Source: patient <Yovanny Stark MD - Last Filed: 10/12/22 06:58> Mode of arrival: ambulatory <Yovanny Stark MD - Last Filed: 10/12/22 06:58> Limitations: no limitations <Yovanny Stark MD - Last Filed: 10/12/22 06:58> History of Present Illness HPI Narrative: 82-year-old female with bipolar disorder, PTSD, personality disorder, end-stage renal disease on hemodialysis, gout , hypothyroidism, dyslipidemia fell backwards at 5:00 a.m and sustained -- left temporal occipital laceration measuring 2 cm with surrounding scalp hematoma measuring 6 cm -- right forearm skin tear measuring 7 cm no loss of consciousness no other injuries noted. <Yovanny Stark MD - Last Filed: 10/12/22 06:58> MD complaint: fall <Yovanny Stark MD - Last Filed: 10/12/22 06:58> Onset (ago): hour(s) ( 1-1/2 hours ago.) <Yovanny Stark MD - Last Filed: 10/12/22 06:58> Fall from: standing <Yovanny Stark MD - Last Filed: 10/12/22 06:58> Fall witnessed: no <Yovanny Stark MD - Last Filed: 10/12/22 06:58> Place fall occurred: [facility] <Yovanny Stark MD - Last Filed: 10/12/22 06:58> Loss of consciousness: none <Yovanny Stark MD - Last Filed: 10/12/22 06:58> Prolonged down time: no <Yovanny Stark MD - Last Filed: 10/12/22 06:58> Symptoms prior to fall: none <Yovanny Stark MD - Last Filed: 10/12/22 06:58> Context: tripped/slipped <Yovanny Stark MD - Last Filed: 10/12/22 06:58> Location of injury: head <Yovanny Stark MD - Last Filed: 10/12/22 06:58> Location of injury - extremities: Right: forearm <Yovanny Stark MD - Last Filed: 10/12/22 06:58> Related Data Home Medications: Home Medications Medication Instructions Recorded Confirmed allopurinol 100 mg tablet 100 mg PO BID 05/20/20 10/12/22 calcitriol 0.5 mcg capsule 0.5 mcg PO 5XW 05/20/20 10/12/22 cyclosporine 0.05 % eye drops in a 1 drp ophthalmic (eye) Q12H 05/20/20 10/12/22 dropperette (Restasis) duloxetine 60 mg capsule,delayed 60 mg PO DAILY 05/20/20 10/12/22 release sprinkle levothyroxine 75 mcg tablet 88 mcg PO DAILY 05/20/20 10/12/22 magnesium oxide 400 mg PO DAILY 05/20/20 10/12/22 metoprolol tartrate 25 mg tablet 25 mg PO BID 05/20/20 10/12/22 mirtazapine 15 mg tablet 15 mg PO HS 05/20/20 10/12/22 omeprazole 20 mg capsule,delayed 20 mg PO DAILY 05/20/20 10/12/22 release simvastatin 40 mg tablet 40 mg PO HS 05/20/20 10/12/22 tolterodine 4 mg capsule,extended 4 mg PO DAILY 05/20/20 10/12/22 release 24 hr ziprasidone HCl 20 mg capsule 20 mg PO HS 05/20/20 10/12/22 bismuth subsalicylate 262 mg/15 mL 524 mg PO Q1H PRN Diarrhea 02/13/21 10/12/22 oral suspension (Pepto-Bismol) dicyclomine 20 mg tablet 20 mg PO TID PRN Abdominal 02/13/21 10/12/22 Discomfort ergocalciferol (vitamin D2) 25,000 50,000 unit PO WEEKLY 02/13/21 10/12/22 unit capsule polyethylene glycol 3350 17 1 g PO DAILY PRN Constipation 02/13/21 10/12/22 gram/dose oral powder (Miralax) guaifenesin 100 mg/5 mL oral 100 mg PO Q3-4H PRN Cough 01/13/22 10/12/22 liquid (Robafen) <Yovanny Stark MD - Last Filed: 10/12/22 06:58> Allergies/Adverse Reactions: Allergies Allergy/AdvReac Type Severity Reaction Status Date / Time aspirin Allergy Other Verified 01/13/22 19:09 codeine Allergy Other Verified 01/13/22 19:09 tetracycline Allergy Other Verified 01/13/22 19:09 <Yovanny Stark MD - Last Filed: 10/12/22 06:58> Review of Systems Review of Systems: All systems reviewed & are unremarkable except as noted in HPI and below <Yovanny Stark MD - Last Filed: 10/12/22 06:58> Constitutional: Constitutional:
[2022-10-12] MEDS: ACETAMINOPHEN 325 MG TABLET 650 MG PO (07:51)
[2022-10-12 08:02] VITALS: BP 141/73; PULSE 65; RESP 14; TEMP 36.6; O2SAT 97
== END 2022-10-12 08:05 | disposition home or self-care (01) ==
PROVIDERS: Emergency Provider Internal Medicine Critical Care Medicine; PCP Family Medicine
DX: S01.01XA Laceration without foreign body of scalp, initial encounter (principal); I12.0 Hypertensive chronic kidney disease with stage 5 chronic kidney disease or end stage renal disease; N18.6 End stage renal disease; E03.9 Hypothyroidism, unspecified; E78.5 Hyperlipidemia, unspecified; W19.XXXA Unspecified fall, initial encounter; Y92.129 Unspecified place in nursing home as the place of occurrence of the external cause
CPT/HCPCS: 12001; 70450; 71045; 72125; 72170; 99284; A9270

== ENCOUNTER 2022-10-27 08:07 | Emergency (ER) | payer OTHER, SELFPAY ==
--- NOTE | ~2022-10-27 | XR_ITS ---
AP and oblique views of the right ribs, and PA chest radiograph Clinical History: Pain Findings: There are minimally displaced fractures at the lateral right fifth and sixth ribs. Lungs ar e clear, without focal consolidation or pleural effusion. Cardiomediastinal somewhat less prominent. Soft tissues are unremarkable. Impression: Minimally displaced fractures at the lateral right fifth and sixth ribs. Clear lungs. Reviewed, dictated and finalized at [facility]. Impression: Minimally displaced fractures at the lateral right fifth and sixth ribs. Clear lungs.
[2022-10-27 08:08] VITALS: BP 154/56; PULSE 77; RESP 18; TEMP 36.9; O2SAT 97
--- NOTE | 2022-10-27 08:30 | ED.GENADULT ---
HPI - General Adult General Chief complaint: Fall Stated complaint: fall injury; right side and right breast pain Time Seen by Provider: 10/27/22 08:29 History of Present Illness HPI narrative: The patient is an 82-year-old woman from [facility] with comorbidities of bipolar affective disorder, dizziness, GERD, hyperlipidemia, hypertension, end-stage renal disease, on dialysis, who had dialysis session yesterday, 10/26/2022. Prior appendectomy cholecystectomy hysterectomy as well as bilateral total knee arthroplasty. No hip surgery in the past. She has fallen a few weeks ago and sustained a bruise with given eschar on the right forearm which has healed. Yesterday morning, she fell, contacting a table with her right breast and right lateral chest and rib cage, with resultant pain in that area. She has taken Tylenol, most recent dose was today at 7:30 am. No pain medications today. No nausea vomiting. No headache. Did not strike her head. No neck pain or back pain that is new. Does have chronic lower back pain. No pain in the upper lower extremities. Does have a mild bruise at the right upper extremity fistula site that she uses for dialysis. No active bleeding from any site. No abrasions, only bruising. No lacerations. No abdominal pain or chest pain otherwise. No dyspnea. No other complaints. No loss of consciousness. No antiplatelet agents. No anticoagulant agents. Related Data Home Medications Medication Instructions Recorded Confirmed allopurinol 100 mg tablet 100 mg PO BID 05/20/20 10/27/22 cyclosporine 0.05 % eye drops in a 1 drp ophthalmic (eye) Q12H 05/20/20 10/27/22 dropperette (Restasis) duloxetine 60 mg capsule,delayed 60 mg PO DAILY 05/20/20 10/27/22 release sprinkle magnesium oxide 400 mg PO DAILY 05/20/20 10/27/22 metoprolol tartrate 25 mg tablet 25 mg PO BID 05/20/20 10/27/22 mirtazapine 15 mg tablet 15 mg PO HS 05/20/20 10/27/22 simvastatin 40 mg tablet 40 mg PO HS 05/20/20 10/27/22 tolterodine 4 mg capsule,extended 4 mg PO DAILY 05/20/20 10/27/22 release 24 hr ziprasidone HCl 20 mg capsule 20 mg PO HS 05/20/20 10/27/22 dicyclomine 20 mg tablet 20 mg PO TID PRN Abdominal 02/13/21 10/27/22 Discomfort ergocalciferol (vitamin D2) 25,000 50,000 unit PO WEEKLY 02/13/21 10/12/22 unit capsule polyethylene glycol 3350 17 1 g PO DAILY PRN Constipation 02/13/21 10/27/22 gram/dose oral powder (Miralax) guaifenesin 100 mg/5 mL oral 100 mg PO Q3-4H PRN Cough 01/13/22 10/27/22 liquid (Robafen) docusate sodium 100 mg capsule 100 mg PO BID 10/27/22 10/27/22 levothyroxine 100 mcg tablet 100 mcg PO DAILY 10/27/22 10/27/22 melatonin 3 mg tablet 3 mg PO HS 10/27/22 10/27/22 sevelamer carbonate 800 mg tablet 800 mg PO TID 10/27/22 10/27/22 Allergies Allergy/AdvReac Type Severity Reaction Status Date / Time aspirin Allergy Other Verified 01/13/22 19:09 codeine Allergy Other Verified 01/13/22 19:09 tetracycline Allergy Other Verified 01/13/22 19:09 Review of Systems Review of Systems: All systems reviewed & are unremarkable except as noted in HPI and below Constitutional: Constitutional: Denies chills, Denies excessive sweating, Denies fatigue, Denies fever(s), Denies headache(s) and Denies weakness Eyes: Eyes: Denies change in vision and Denies photophobia ENT: Denies dysphagia, Denies dizziness, Denies headache(s), Denies lip swelling, Denies nasal congestion, Denies sore throat and Denies tongue swelling Cardiovascular: Cardiovascular: Reports chest pain (at the right lateral breast area with bruising. No substernal chest pain), Denies syncope, Denies rapid heart rate and Denies dyspnea Respiratory: Respiratory: Denies cough, Denies dyspnea and Denies wheezing Gastrointestinal: Gastrointestinal: Denies abdominal pain, Denies constipation, Denies dysphagia, Denies diarrhea, Denies nausea and Denies vomiting Genitourinary: Genitourinary: Denies hematuria, Denies urinary frequency, Denies d
[2022-10-27] MEDS: traMADol HCL (*CRX) 50 MG TABLET PO (09:17)
[2022-10-27 09:20] VITALS: BP 119/58; PULSE 74; RESP 20; TEMP 36.8; O2SAT 18
== END 2022-10-27 09:25 | disposition home or self-care (01) ==
PROVIDERS: Emergency Provider Emergency Medicine; PCP Family Medicine
DX: S22.41XA Multiple fractures of ribs, right side, initial encounter for closed fracture (principal); S20.219A Contusion of unspecified front wall of thorax, initial encounter; W01.190A Fall on same level from slipping, tripping and stumbling with subsequent striking against furniture, initial encounter; Z91.81 History of falling; I12.0 Hypertensive chronic kidney disease with stage 5 chronic kidney disease or end stage renal disease; N18.6 End stage renal disease; Z99.2 Dependence on renal dialysis; E78.5 Hyperlipidemia, unspecified; K21.9 Gastro-esophageal reflux disease without esophagitis; F31.60 Bipolar disorder, current episode mixed, unspecified
CPT/HCPCS: 71101; 99283; A9270

== ENCOUNTER 2022-11-15 16:39 | Outpatient (CLI) | payer OTHER, SELFPAY ==
[2022-11-16 13:26] LABS: Anion Gap 5 mmol/L (8-16); Blood Urea Nitrogen 16 mg/dL (7-18); Carbon Dioxide 35 mmol/L (21-32); Chloride 97 mmol/L (98-108); Estimated Glomerular Filt Rate 19; Hemoglobin A1C 5.9 % (<5.7); Potassium 4.1 mmol/L (3.5-5.1); Sodium 137 mmol/L (136-145)
[2022-11-16 13:27] LABS: Alanine Aminotransferase 17 U/L (14-59); Albumin Level 3.8 g/dL (3.4-5.0); Alkaline Phosphatase 193 U/L (46-116); Aspartate Amino Transferase 13 U/L (15-37); Bilirubin,Total 0.5 mg/dL (0.00-1.00); Calcium 9.1 mg/dL (8.5-10.1); Glucose 117 mg/dL (70-99); Magnesium 2.1 mg/dL (1.8-2.4); Osmolality Calculated 286 mOsm/kg (285-295); Thyroid Stimulating Hormone 4.17 uIU/mL (0.36-3.74); Total Protein 6.8 g/dL (6.4-8.2)
[2022-11-16 14:05] LABS: Basophils Absolute Auto 0.03 K/mm3 (0.00-0.10); Basophils Percent Auto 0.4 % (0.0-1.0); Eosinophils Absolute Auto 0.23 K/mm3 (0.02-0.50); Eosinophils Percent Auto 2.9 % (1.0-6.0); Hematocrit 35.1 % (35.0-42.0); Hemoglobin 10.8 g/dL (11.7-13.8); Immature Granulocyte Absolute 0.05 K/mm3 (0.00-0.00); Immature Granulocyte Percent A 0.6 % (0.0-0.0); Lymphocytes Absolute Auto 2.62 K/mm3 (1.10-4.50); Lymphocytes Percent Auto 32.7 % (18.0-42.0); Mean Corpuscular HGB Conc 30.8 g/dL (32.0-36.0); Mean Corpuscular Hemoglobin 29.9 pg (27.0-31.0); Mean Corpuscular Volume 97.2 fL (78.0-102.0); Mean Platelet Volume 8.9 fl (9.2-11.8); Monocytes Absolute Auto 0.54 K/mm3 (0.10-0.90); Monocytes Percent Auto 6.7 % (2.0-11.0); Neutrophils Absolute Auto 4.5 K/mm3 (1.7-7.2); Neutrophils Percent Auto 56.7 % (50.0-70.0); Platelet Count Result 173 K/mm3 (150-420); Red Blood Count 3.61 M/mm3 (4.20-5.40); Red Cell Distribution Width 13.2 % (11.6-14.4)
== END 2022-11-15 16:40 | disposition home or self-care (01) ==
LOC: CHSLAB 16:41
PROVIDERS: PCP Family Medicine; Visit Provider Family Medicine
DX: E03.8 Other specified hypothyroidism (principal); R73.01 Impaired fasting glucose; E83.42 Hypomagnesemia
CPT/HCPCS: 36415; 80053; 83036; 83735; 84443; 85025

== ENCOUNTER 2023-01-15 07:38 | Outpatient (CLI) | payer OTHER, SELFPAY ==
[2023-01-15 09:00] LABS: Thyroid Stimulating Hormone 7.56 uIU/mL (0.36-3.74)
== END 2023-01-15 07:39 | disposition home or self-care (01) ==
LOC: CHSLAB 07:39
PROVIDERS: PCP Family Medicine; Visit Provider Family Medicine
DX: E03.8 Other specified hypothyroidism (principal)
CPT/HCPCS: 36415; 84443

== ENCOUNTER 2023-01-30 13:04 | Emergency (ER) | payer OTHER, SELFPAY ==
--- NOTE | ~2023-01-30 | CT_ITS ---
EXAMINATION: CT lumbar spine wo con DATE: 01/30/2023 13:37 INDICATION: Low back pain post fall TECHNIQUE: Computed tomography (CT) of the lumbar spine was performed without intravenous contrast. A utomated exposure control and iterative reconstruction technique were employed. The dose-length produ ct was 1192.13 mGy-cm. COMPARISON: Lumbar spine radiographs dated 06/16/2021 FINDINGS: 7 degree lumbar dextrocurvature. 1-2 mm retrolisthesis T12 on L1 and L1 on L2. 5 mm anterolisthesis L 4 on L5. Vertebral body heights are normal. No fracture. Severe disc height loss with vacuum phenomen a at T12-L1 and L5-S1. Moderate to severe disc height loss with additional vacuum phenomena at L4-L5. Moderate disc height loss at T10-T11 and T11-T12. Mild disc height loss at L1-L2 through L3-L4. Mode rate bilateral sacroiliac osteoarthritis. Moderate bilateral renal atrophy. Small amount of periphera l calcification at a otherwise simple appearing 4.0 cm left renal cyst. Additional subcentimeter left renal cyst. Paravertebral soft tissues are otherwise unremarkable. The following disc levels are spe cifically discussed: T11-T12: Disc is mildly bulging. There is severe right and moderate left facet joint osteoarthritis. There is mild right neural foraminal stenosis. There is mild central canal stenosis. T12-L1: Disc is bulging. There is mild bilateral facet joint osteoarthritis. There is moderate bilate ral neural foraminal stenosis. There is mild central canal stenosis. L1-L2: Disc is bulging. There is moderate bilateral facet joint osteoarthritis. There is moderate bandar ateral neural foraminal stenosis. There is mild central canal stenosis. L2-L3: Disc is bulging. There is moderate left and mild to moderate right facet joint osteoarthritis. There is mild bilateral neural foraminal stenosis. There is mild central canal stenosis. L3-L4: Disc is bulging. There is hypertrophy of the ligamentum flavum. There is severe bilateral face t joint osteoarthritis. There is mild to moderate bilateral neural foraminal stenosis. There is moder ate to severe central canal stenosis. L4-L5: Disc is bulging. There is hypertrophy of the ligamentum flavum. There is severe bilateral face t joint osteoarthritis. There is moderate bilateral neural foraminal stenosis. There is severe centra l canal stenosis. L5-S1: Disc is bulging. There is moderate left and severe right facet joint osteoarthritis. There is moderate bilateral neural foraminal stenosis. There is severe central canal stenosis. IMPRESSION: 1. Severe lumbar spondylosis. No acute osseous abnormality. Reviewed, dictated and finalized at location A.
[2023-01-30 13:04] VITALS: BP 151/78; PULSE 88; RESP 16; TEMP 36.6; O2SAT 98
--- NOTE | 2023-01-30 13:09 | ED.FALL ---
HPI - Fall General Chief Complaint: Back Pain/Injury Stated Complaint: fall Time Seen by Provider: 01/30/23 13:07 Source: patient and RN notes reviewed Mode of arrival: ambulatory Limitations: no limitations History of Present Illness MD complaint: fall Onset (ago): day(s) (1) Fall from: standing Fall witnessed: no Place fall occurred: home Loss of consciousness: none Prolonged down time: no Symptoms prior to fall: none Context: tripped/slipped Location of injury: back Severity: moderate Quality: dull and aching Associated symptoms (after fall): denies Related Data Home Medications Medication Instructions Recorded Confirmed allopurinol 100 mg tablet 100 mg PO BID 05/20/20 01/30/23 cyclosporine 0.05 % eye drops in a 1 drp ophthalmic (eye) Q12H 05/20/20 01/30/23 dropperette (Restasis) magnesium oxide 400 mg PO DAILY 05/20/20 01/30/23 metoprolol tartrate 25 mg tablet 25 mg PO BID 05/20/20 01/30/23 mirtazapine 15 mg tablet 15 mg PO HS 05/20/20 01/30/23 simvastatin 40 mg tablet 40 mg PO HS 05/20/20 01/30/23 tolterodine 4 mg capsule,extended 4 mg PO DAILY 05/20/20 01/30/23 release 24 hr ziprasidone HCl 20 mg capsule 20 mg PO HS 05/20/20 01/30/23 dicyclomine 20 mg tablet 20 mg PO TID PRN Abdominal 02/13/21 01/30/23 Discomfort ergocalciferol (vitamin D2) 25,000 50,000 unit PO WEEKLY 02/13/21 01/30/23 unit capsule polyethylene glycol 3350 17 1 g PO DAILY PRN Constipation 02/13/21 01/30/23 gram/dose oral powder (Miralax) guaifenesin 100 mg/5 mL oral 100 mg PO Q3-4H PRN Cough 01/13/22 01/30/23 liquid (Robafen) docusate sodium 100 mg capsule 100 mg PO BID 10/27/22 01/30/23 levothyroxine 100 mcg tablet 125 mcg PO DAILY 10/27/22 01/30/23 melatonin 3 mg tablet 3 mg PO HS 10/27/22 01/30/23 sevelamer carbonate 800 mg tablet 800 mg PO TID 10/27/22 01/30/23 Allergies Allergy/AdvReac Type Severity Reaction Status Date / Time aspirin Allergy Other Verified 01/30/23 13:15 codeine Allergy Other Verified 01/30/23 13:15 tetracycline Allergy Other Verified 01/30/23 13:15 Review of Systems Review of Systems: All systems reviewed & are unremarkable except as noted in HPI and below Gastrointestinal: Gastrointestinal: Reports hematochezia ( History of hemorrhoid) PMFSH Past Medical History Medical History Bipolar 1 disorder, mixed Chronic renal failure Dyslipidemia GERD (gastroesophageal reflux disease) Hypertension Hypothyroidism Surgical History Surgical History History of appendectomy History of cholecystectomy History of hysterectomy Social History Social History Smoking status: Never smoker Alcohol intake: never Substance use: never Gender identity (if verbalized by the patient): Female Sexual Orientation (if Verbalized by the Patient): Straight or Heterosexual Spiritual care concerns: No Exam Const: General: healthy appearing, no acute distress and alert Nutritional Appearance: well nourished and obese Orientation/consciousness: patient oriented x3 Limitations: no limitations HENMT: Head: normal to inspection Ears: external ears normal Face/Nose/Sinus: Normal external nose present Face and sinus: normal facial exam Mouth: Yes moist mucous membranes Eyes: Conjunctivae: conjunctivae normal Pupils: Equal, round and reactive pupils present EOM: EOMs intact bilaterally Neck: Neck: normal visual inspection Resp: Effort & Inspection: normal respiratory effort Auscultation: clear to auscultation bilaterally Cardio: Rate: regular rate Rhythm: regular rhythm GI: GI Palp: Yes Soft to palpation and No Tenderness to palpation present (GI) Auscultation: normal bowel sounds Other: patient declined rectal exam Back/Spine/Pelvis: Cervical Spine: cervical ROM normal Thoracic/Lumbar Spine: pain with thoraco-lumbar ROM, parasp
--- NOTE | 2023-01-30 13:36 | PC.NURSE ---
PT DECLINES RECTAL EXAM FOR BLOOD IN STOOL, REPORTS SHE FEELS IF IT IS HER HEMORRHOIDS AND WOULD JUST LIKE A RX FOR THEM. ERP IS AWARE.
[2023-01-30 14:25] VITALS: BP 148/78; PULSE 80; RESP 18; O2SAT 98
== END 2023-01-30 14:25 | disposition home or self-care (01) ==
PROVIDERS: Emergency Provider Emergency Medicine; PCP Family Medicine
DX: S30.0XXA Contusion of lower back and pelvis, initial encounter (principal); K64.9 Unspecified hemorrhoids; E78.5 Hyperlipidemia, unspecified; I12.9 Hypertensive chronic kidney disease with stage 1 through stage 4 chronic kidney disease, or unspecified chronic kidney disease; N18.9 Chronic kidney disease, unspecified; Z79.899 Other long term (current) drug therapy; W01.0XXA Fall on same level from slipping, tripping and stumbling without subsequent striking against object, initial encounter
CPT/HCPCS: 72131; 99284

== ENCOUNTER 2024-01-29 09:15 | Emergency (ER) | payer OTHER, SELFPAY ==
[2024-01-29] VITALS (7 sets, daily range): BP systolic 113–137; BP diastolic 53–65; PULSE 61–72; RESP 16–17; TEMP 36.7; O2SAT 93–94
--- NOTE | ~2024-01-29 | XR_ITS ---
XR hip LT 2V w AP pelvis 01/29/2024 10:11 Indication: Hip pain. No known injury. Procedure: 2 views of the left hip including AP pelvis Comparison: 10/12/2022 Findings: There is bilateral osteoarthritis of the hips, right greater than left. There is partially visualized lower lumbar spondylosis. Pelvic rings are intact. No fracture or traumatic malalignment. No significant soft tissue abnormality. Impression: 1: Bilateral osteoarthritis of the hips, right greater than left. Reviewed, dictated and finalized at location B. Impression: 1: Bilateral osteoarthritis of the hips, right greater than left.
--- NOTE | 2024-01-29 09:39 | ED.EXTPRO ---
HPI - Extremity Problem General Chief complaint: Extremity Problem,Nontraumatic Stated complaint: hip pain Time Seen by Provider: 01/29/24 09:31 Source: patient Mode of arrival: ambulatory Limitations: no limitations History of Present Illness HPI Narrative: patient is an 83-year-old female with left hip pain for the past 3-4 days. She is a dialysis patient. She has dialysis today. Her speech is baseline at this time. No new neurological changes otherwise. no recent fall or injury. MD Complaint: extremity pain ( Left hip) Onset (ago): day(s) (3-4) Pain Consistency: constant Location: left Severity scale (1-10): 5 Quality: sharp Radiation: none Relieving factors: immobilization Exacerbating factors: range of motion, weight bearing, walking and palpation Associated symptoms: denies other symptoms Related Data Home Medications Medication Instructions Recorded Confirmed allopurinol 100 mg tablet 100 mg PO BID 05/20/20 01/29/24 cyclosporine 0.05 % eye drops in a 1 drp ophthalmic (eye) Q12H 05/20/20 01/29/24 dropperette (Restasis) magnesium oxide 400 mg PO DAILY 05/20/20 01/29/24 metoprolol tartrate 25 mg tablet 25 mg PO BID 05/20/20 01/29/24 mirtazapine 15 mg tablet 15 mg PO HS 05/20/20 01/29/24 simvastatin 40 mg tablet 40 mg PO HS 05/20/20 01/29/24 tolterodine 4 mg capsule,extended 4 mg PO DAILY 05/20/20 01/29/24 release 24 hr ziprasidone HCl 20 mg capsule 20 mg PO HS 05/20/20 01/29/24 dicyclomine 20 mg tablet 20 mg PO TID PRN Abdominal 02/13/21 01/29/24 Discomfort ergocalciferol (vitamin D2) 25,000 50,000 unit PO WEEKLY 02/13/21 01/29/24 unit capsule polyethylene glycol 3350 17 1 g PO DAILY PRN Constipation 02/13/21 01/29/24 gram/dose oral powder (Miralax) guaifenesin 100 mg/5 mL oral 100 mg PO Q3-4H PRN Cough 01/13/22 01/29/24 liquid (Robafen) docusate sodium 100 mg capsule 100 mg PO BID 10/27/22 01/29/24 levothyroxine 100 mcg tablet 125 mcg PO DAILY 10/27/22 01/29/24 melatonin 3 mg tablet 3 mg PO HS 10/27/22 01/29/24 sevelamer carbonate 800 mg tablet 800 mg PO TID 10/27/22 01/29/24 Allergies Allergy/AdvReac Type Severity Reaction Status Date / Time aspirin Allergy Other Verified 01/29/24 09:34 codeine Allergy Other Verified 01/29/24 09:34 tetracycline Allergy Other Verified 01/29/24 09:34 Review of Systems Review of Systems: All systems reviewed & are unremarkable except as noted in HPI and below Constitutional: Constitutional: Reports no additional constitutional complaints Eyes: Eyes: Reports no additional eye complaints ENT: Reports system reviewed and no additional complaints, except as documented Cardiovascular: Cardiovascular: Reports no additional cardiovascular complaints Respiratory: Respiratory: Reports no additional respiratory complaints Gastrointestinal: Gastrointestinal: Reports no additional gastrointestinal complaints Genitourinary: Genitourinary: Reports no additional female genitourinary complaints Musculoskeletal: Musculoskeletal: Reports no additional musculoskeletal complaints Integumentary/Breasts: Skin/Breast: Reports system reviewed and no additional complaints, except as docu Neurologic: Reports system reviewed and no additional complaints, except as documented Psychiatric: Psychiatric: Reports no additional psychiatric complaints Endocrine: Endocrine: Reports no additional endocrine complaints Hematologic/Lymphatic: Hematologic/Lymphatic: Reports no additional hematologic/lymphatic complaints Allergic/Immunologic: Allergic/Immunologic: Reports no additional allergic/immunologic complaints PMFSH Past Medical History Medical History Bipolar 1 disorder, mixed Chronic renal failure Dyslipidemia GERD (gastroesophageal reflux disease) Hypertension Hypothyroidism Surgical History Surgical History History of appendectomy History of cholecystecto
== END 2024-01-29 11:41 | disposition home or self-care (01) ==
PROVIDERS: Emergency Provider Emergency Medicine; PCP Family Medicine
DX: M70.72 Other bursitis of hip, left hip (principal); I12.9 Hypertensive chronic kidney disease with stage 1 through stage 4 chronic kidney disease, or unspecified chronic kidney disease; N18.9 Chronic kidney disease, unspecified; E03.9 Hypothyroidism, unspecified; Z79.899 Other long term (current) drug therapy
CPT/HCPCS: 73502; 99283

== ENCOUNTER 2024-06-16 09:06 | Outpatient (CLI) | payer OTHER, SELFPAY ==
--- NOTE | ~2024-06-16 | US_ITS ---
EXAMINATION: US soft tissue head and neck DATE: 06/16/2024 10:03 INDICATION: Right parotid mass. TECHNIQUE: Multiple grayscale and Doppler ultrasound images of the abdomen were obtained. COMPARISON: Cervical spine CT 05/15/2024, 10/12/22 FINDINGS: There is an 8 mm predominantly cystic mass in right parotid gland. IMPRESSION: 1. 8 mm predominantly cystic mass in right parotid gland, stable from 10/12/22, likely benign. Reviewed, dictated and finalized at location A. LOGUE CLERK
--- NOTE | ~2024-06-16 | US_ITS ---
Renal-Bladder ultrasound Clinical History: Renal cyst Technique: Real-time sonographic imaging of the kidneys and urinary bladder was performed. Findings: The right kidney measures 7.6 cm in length and the left kidney measures 7.6 cm. There is no hydronephrosis or renal calculus identified. Both kidneys are hyperechoic with cortical thinning. 8 mm right renal cyst probably present. 4.3 cm left renal cyst present. The urinary bladder is moderately distended at the time of this exam. No intraluminal echoes are iden tified. No abnormal wall thickening is seen. Impression: Small echogenic kidneys are compatible chronic medical renal disease. Renal cysts, as above. Reviewed, dictated and finalized at location M. OPEDICS NURSE Impression: Small echogenic kidneys are compatible chronic medical renal disease. Renal cysts, as above.
== END 2024-06-16 09:07 | disposition home or self-care (01) ==
LOC: CHSIMG 09:11
PROVIDERS: PCP Family Medicine; Visit Provider Family Medicine
DX: K11.8 Other diseases of salivary glands (principal); N28.1 Cyst of kidney, acquired
CPT/HCPCS: 76536; 76775

== ENCOUNTER 2024-07-11 10:55 | Outpatient (CLI) | payer OTHER, SELFPAY ==
--- NOTE | ~2024-07-11 | XR_ITS ---
HISTORY: PAIN IN RIGHT SHOULDER pt states multi falls COMPARISON: None TECHNIQUE: 4 views of the right shoulder were performed FINDINGS: No acute fracture. The glenohumeral joint space is markedly narrowed. Significant widening of the acromioclavicular joint space for which acromioclavicular joint disruptio n is suspected. The visualized portion of the adjacent right lung is clear. The humeral head is well seated within the glenoid fossa. IMPRESSION: Significant degenerative disease, without acute fracture or anterior dislocation. Reviewed, dictated and finalized at location A. PHONE ADVICE NURSE IMPRESSION: Significant degenerative disease, without acute fracture or anterior dislocatio n.
--- NOTE | ~2024-07-11 | XR_ITS ---
HISTORY: PAIN IN LEFT SHOULDER pt states multi falls COMPARISON: None TECHNIQUE: 3 views of the left shoulder were performed FINDINGS: No acute fracture. The glenohumeral joint space is significantly narrowed. The humeral head demonstrates irregular contour with osteophyte formation. The acromioclavicular joint is significantly widened measuring 11 mm with upsloping of the distal cla vicle. The visualized portion of the adjacent left lung is clear. The humeral head is well seated within the glenoid fossa. IMPRESSION: Severe degenerative disease, without acute fracture or anterior dislocation. Reviewed, dictated and finalized at location A. R MECHANICAL ENGINEER
--- NOTE | ~2024-07-11 | XR_ITS ---
EXAMINATION: XR elbow LT min 3V DATE: 07/11/2024 11:27 INDICATION: Left elbow pain. TECHNIQUE: 4 views of left elbow were obtained. COMPARISON: None. FINDINGS: There is an old fracture of neck of proximal radius with nonunion. There is plate and screw fixation of proximal ulna. No acute fracture. There is mild elbow joint osteophytes. No elbow joint effusion. IMPRESSION: 1. 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 Reviewed, dictated and finalized at location A. CONTENT EDITOR
[2024-07-11 11:10] LABS: Basophils Absolute Auto 0.04 K/mm3 (0.00-0.10); Basophils Percent Auto 0.5 % (0.0-1.0); Eosinophils Percent Auto 3.4 % (1.0-6.0); Hematocrit 35.6 % (35.0-42.0); Hemoglobin 11.1 g/dL (11.7-13.8); Immature Granulocyte Absolute 0.03 K/mm3 (0.00-0.00); Immature Granulocyte Percent A 0.3 % (0.0-0.0); Lymphocytes Absolute Auto 3.44 K/mm3 (1.10-4.50); Lymphocytes Percent Auto 38.9 % (18.0-42.0); Mean Corpuscular HGB Conc 31.2 g/dL (32-36); Mean Corpuscular Hemoglobin 30.7 pg (27.0-31.0); Mean Corpuscular Volume 98.3 fL (78.0-102.0); Mean Platelet Volume 9.2 fl (9.2-11.8); Monocytes Absolute Auto 0.63 K/mm3 (0.10-0.90); Monocytes Percent Auto 7.1 % (2.0-11.0); Neutrophils Percent Auto 49.8 % (50.0-70.0); Platelet Count Result 160 K/mm3 (150-420); Red Blood Count 3.62 M/mm3 (4.20-5.40); Red Cell Distribution Width 12.5 % (11.6-14.4); White Blood Count 8.8 K/mm3 (4.8-10.8)
--- OUTSIDE RECORDS SUMMARY | 2024-07-11 11:36 | XMS_ITS | Clinical Summary ---
Author Organization [facility] Address [address] [place] [address] Care Team Providers Care Cash Poster Name Role Phone No, Physician Primary Care Provider [phone] Allergies No known active allergies Immunizations Name Administration Dates Next Due Tdap 12/04/2023 Surgical History Surgery Date Site/Laterality Comments CHOLECYSTECTOMY Medical History Medical History Date Comments CKD (chronic kidney disease) requiring chronic d ialysis (HCC) Social History Tobacco Use Types Packs/Day Years Used Date Smoking Tobacco: Never Tobacco Cessation:Counseling Given: Not Answered Alcohol Use Standard Drinks/Week Comments Not Currently 0 (1 standard drink = 0.6 oz pur e alcohol) Personal Safety Answer Date Recorded Have you ever been in or are you currently in a harmful physical or emotional relationship or is someone making you feel afraid or unsafe? 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 Gender Identity Not on file Sexual Orientation Not on file Obstetrics History Last Filed Vital Signs Vital Sign Reading Time Taken Comments Blood Pressure 155/66 12/04/2023 4:45 PM CDT Pulse 82 12/04/2023 4:45 PM CDT Temperature 37.1 C (98.7 F) 12/04/2023 12:45 PM CDT Respiratory Rate 18 12/04/2023 12:45 PM CDT Oxygen Saturation 98% 12/04/2023 4:45 PM CDT Inhaled Oxygen Concentration - - Weight 81.6 kg (180 lb) 12/04/2023 12:45 PM CDT Height 154.9 cm (5' 1 ) 12/04/2023 12:45 PM CDT Body Mass Index 34.01 12/04/2023 12:45 PM CDT Plan of Treatment Health Maintenance Due Date Last Done Comments Depression Screening 1941 Fall Risk Assessment 1940 Osteoporosis Screening-Bone Density Scan 1940 Well Visit 65+ 2006 Covid-19 Vaccine (4 - 2023-2 5 season) 2024 06/02/2021, 08/12/2020, 07/23/2020 Influenza Vaccine (#1) 2024 , 02/10/2019, 02/27/2018, Additional history exists DTaP/Tdap/Td Vaccine (2 - Td or Tdap) 12/03/2033 12/04/2023 Pneumococcal vaccine 65+ Completed 020, 06/04/2015, 05/11/2015 Zoster Vaccine Completed 06/08/2021, 12/17/[address] [place] [address] [place] [address] [facility] Care Teams Cash Poster Relationship Specialty Start Date End Date No, Physician PCP - General 12/04/23
--- OUTSIDE RECORDS SUMMARY | 2024-07-11 11:36 | XMS_ITS | Referral Summary ---
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
--- OUTSIDE RECORDS SUMMARY | 2024-07-11 11:36 | XMS_ITS | Encounter Summary ---
Author Organization [facility] [employer] [facility] Address [facility] [place] [address] [address] Phone Care Team Providers Care Deicer Repairer Name Role Phone Viet Zayas MD Primary Care Provider [phone] Encounter Details Date Type Department Care Team (Late st Contact Info) Description 03/18/2024 Treatment [place] [email or web address] [place] [address] [place] [address] [address] [address] Ahsan Maria MD [address] [place] [id number] Social History Tobacco Use Types Packs/Day Years Used Date Smoking Tobacco: Never Smokeless Tobacco: Never Alcohol Use Standard Drinks/Week Comments Yes 0 (1 standard drink = 0.6 oz pur e alcohol) Comments Unknown Sex and Gender Information Value Date Recorded Sex Assigned at Not on file Legal Sex Female 9:40 PM EDT Gender Identity Not on file Sexual Orientation Not on file documented as of this encounter Miscellaneous Notes * Dialysis Note - Ahsan Maria MD - 03/18/2024 12:00 AM CDT Patient: Elsie Osorio : 1940 Note Type: Dialysis Rounds-Comp Service Date: 03/18/2024 Appropriate patient consent obtained. This patient was personally seen for a complete visit as part of routine monthly dialysis care for end stage renal disease. Attending Supervisor Electronics Processing: AHSAN MARIA Dialysis Location: [facility] Schedule: Shift: 2 OVERVIEW Patient is stable. 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 Current [facility] Outpatient Medications acetaminophen 325 mg tablet Take 2 tablet by mouth twice a day as needed. Advair Diskus 250-50 mcg/dose blister with device Inhale 1 puff once a day. allopurinol 100 mg tablet Take 1 tablet by mouth twice a day. cyclosporine 0.05% drops Instill 1 drop into affected eye every twelve hours. Cymbalta 60 mg capsule,delayed release(DR/EC) Take 1 capsule by mouth at bedtime. Detrol LA 4 mg capsule,extended release 24hr Take 1 capsule by mouth once a day. dicyclomine 20 mg tablet Take 1 tablet by mouth three times a day as needed. [as needed for abdominal cramping] Geodon 20 mg capsule Take 1 capsule by mouth every evening. levothyroxine 88 mcg tablet Take 1 tablet by mouth every morning. [30-60 min before breakfast on empty stomach] magnesium oxide 400 mg magnesium tablet 1 tablet by mouth once a day. melatonin 3 mg tablet Take 1 tablet by mouth every evening as directed. [As needed for sleep] metoprolol tartrate 25 mg tablet Take 1 tablet by mouth twice a day as directed. polyethylene glycol 3350 17 gram/dose powder Take 17 gram by mouth once a day as needed. [for constipation] Remeron 15 mg tablet Take 1 tablet by mouth at bedtime. Robafen DM Cough-Chest Congest 10-100 mg/5 mL syrup Take 5 ml by mouth every four hours as needed. sevelamer carbonate 800 mg tablet Take 2 tablet by mouth three times a day with meals. simvastatin 40 mg tablet Take 1 tablet by mouth every evening. Current [facility] Allergies Allergen: ASPIRIN Reaction: Unknown Allergen: CODEINE Reaction: Unknown Allergen: PENICILLINS Reaction: Breathing Problems Allergen: tetracycline Reaction: Breathing Problems Allergen: Tetracyclines Reaction: Breathing Problems Allergen: TRAMADOL Reaction: Breathing Problems DIALYSIS PRESCRIPTION Treatment Data Treatment Date: 03/18/2024 started at: 12:35 PM Dialysate / Machine Temp (prescribed): 37.0*C Dialysate / Machine Temp (actual): 37.0*C BFR (prescribed): 400 BFR (average delivered): 400 DFR (prescribed): Manual 500 DFR (average delivered): 500 Prescribed Time: 03:00 Actual Time: 02:41 EDW (kg): 81.0 Dialyzer: 180NRe Optiflux Dialysate: 2.0 K, 2.5 Ca, 1.0 Mg, 100 Dextrose (G2251) Sodium: 138 Bicarb: 38 Pre Dialysis Vitals Pre BP Sit: 139/70 Pre Wt (kg): 81.9 EDW Deviation (kg): 0.9 Temp: 97.9*F Post Dialysis Vitals Post BP Sit: 157/38 Post Wt (kg): 80.8 TREATMENT MEDICATIONS ORDERS Heparin Sodium (Porcine) 1,000 Units/mL Systemic 500 units IVP Every Treatment 12/22/2023 - 12/20/2024 Heparin Sodium (Porcine) 1,000 Units/mL Systemic 1000 units IVP Every Treatment 12/22/2023 - 12/20/2024 Iron Sucrose (Venofer) 100 mg IVP Every Treatment 03/08/2024 - 03/29/2024 Vitamin D (Calcitriol) Oral 0.75 mcg ORAL 3X Week 07/26/2023 - 07/24/2024 BP AND FLUID ASSESSMENT Acceptable blood pressure. Fluid status acceptable. Post BP Sit 157/38 - 03/18/2024 126/45 - 03/15/2024 144/62 - 03/13/2024 Post Wt (kg) 80.8 - 03/18/2024 81.1 - 03/15/2024 81.2 - 03/13/2024 EDW (kg) 81.0 - 03/18/2024 81.0 - 03/15/2024 81.0 - 03/13/2024 Deviation (kg) -0.2 - 03/18/2024 0.1 - 03/15/2024 0.2 - 03/13/2024 ADEQUACY ASSESSMENT Target met. Prescription compliance acceptable. Continue with greater than 3x more frequent dialysis prescription. Missed Treatments 0 - Last 30 days 1 - Last 60 days Most recently missed on 01/29/2024 spKt/V (Daugirdas II) 1.67 (02/12/24) 1.87 (01/15/24) 1.79 (12/11/23) eKdrt/V 1.35 (02/12/24) 1.53 (01/15/24) 1.47 (12/11/23) % Urea Reduction 75 (03/18/24) 78 (02/12/24) 81 (01/15/24) BUN 48 (03/18/24) 41 (02/12/24) 43 (01/15/24) BUN Post Dialysis 12 (03/18/24) 9 (02/12/24) 8 (01/15/24) Creatinine 3.27 (03/18/24) 3.31 (02/12/24) 3.30 (01/15/24) Bicarbonate (CO2) 26 (03/18/24) 26 (02/12/24) 25 (01/15/24) Sodium 138 (03/18/24) 141 (02/12/24) 135 (01/15/24) ACCESS ASSESSMENT Vascular access examined. AVF/AVG positive thrill/bruit. Current access is permanent and functioning well. AVFistula Standard Right Upper Arm Active (In Use) - 12/01/2021 Placed - Unknown Access Flow > 2000 (02/21/24) > 2000 (01/26/24) > 2000 (12/20/23) ANEMIA ASSESSMENT Anemia targets met. Hemoglobin at target. PARRISH adjusted per protocol. Iron adjusted per protocol. Hemoglobin 10.7 (03/18/24) 10.6 (03/11/24) 10.3 (03/04/24) Iron Saturation (TSat) 27 (03/18/24) 28 (02/12/24) 25 (01/15/24) Ferritin 719 (01/15/24) 517 (10/16/23) 289 (07/17/23) Iron 87 (03/18/24) 90 (02/12/24) 86 (01/15/24) TIBC 326 (03/18/24) 324 (02/12/24) 346 (01/15/24) MCV 96 (03/18/24) 99 (02/12/24) 98 (01/15/24) Folate 12.6 (01/15/24) 10.7 (04/17/23) Platelets 184 (03/18/24) 171 (02/12/24) 216 (01/15/24) BMM ASSESSMENT PTH within target. Phosphorus controlled. Counseled regarding dietary compliance. Calcium controlled. Bone and mineral metabolism parameters reviewed. Calcium 9.1 03/18/24 9.4 02/12/24 9.4 01/15/24 Corrected Calcium 9.1 03/18/24 9.4 02/12/24 9.2 01/15/24 Phosphorus 5.2 03/18/24 4.7 02/12/24 4.9 01/15/24 Calcium Phosphorus Product 47 03/18/24 44 02/12/24 46 01/15/24 PTH 220 01/15/24 232 10/16/23 449 07/17/23 Vitamin D, 25-OH, Total 21.7 01/15/24 27.4 04/17/23 Magnesium 2.2 01/15/24 2.2 10/16/23 2.0 07/17/23 Alkaline Phosphatase 84 01/15/24 83 10/16/23 126 07/17/23 Aluminum 6 01/15/24 <5 10/16/23 <5 04/17/23 NUTRITION ASSESSMENT Albumin at goal. Potassium uncontrolled. Albumin 4.0 03/18/24 4.0 02/12/24 4.3 01/15/24 Potassium 4.8 03/18/24 4.8 02/12/24 5.1 01/15/24 eNPCR 0.61 02/12/24 0.65 01/15/24 0.72 12/11/23 TRANSPLANT STATUS COMMENT COMMENTS: Not a candidate PHYSICAL EXAM Exam performed. Vital Signs Reviewed. Lungs - Clear. CV - Blood pressure noted. CV - RRR. No edema. EXT - No ulcers. ADDITIONAL LABS WBC 6.13 (03/18/24) 7.04 (02/12/24) 6.65 (01/15/24) Cholesterol 137 (01/15/24) 115 (10/16/23) 113 (04/17/23) HDL 43 (01/15/24) 42 (10/16/23) 35 (04/17/23) LDL Calculated 56 (01/15/24) 49 (10/16/23) 37 (04/17/23) Triglycerides 189 (01/15/24) 122 (10/16/23) 207 (04/17/23) Hepatitis B Surface Ab 18 (04/17/23) Signed by: Ahsan Maria on 03/19/2024 at 07:08:32 PM Transcribed by: Ahsan Maria on 03/19/2024 at 07:08:32 PM documented in this encounter Plan of Treatment Not on file documented as of this encounter Visit Diagnoses Not on filedocumented in this encounter Care Teams Deicer Repairer Relationship Specialty Start Date End Date Viet Zayas MD [address] [place] [address] PCP - General Family Medicine 12/27/20 documented as of this encounter
--- OUTSIDE RECORDS SUMMARY | 2024-07-11 11:36 | XMS_ITS | Encounter Summary ---
Author Organization [facility] [employer] [facility] [employer] [facility] Address [facility] [place] [address] [address] Phone Care Team Providers Care Integration Software Developer Name Role Phone Viet Zayas MD Primary Care Provider [phone] Encounter Details Date Type Department Care Team (Late st Contact Info) Description 02/19/2024 Treatment [place] [employer] [place] [address] [place] [address] [address] [address] Ahsan Maria MD [address] [place] [id number] Social History Tobacco Use Types Packs/Day Years [...] Dialysis Note - Ahsan Maria MD - 02/19/2024 12:00 AM CDT Patient: Elsie Osorio : 1940 Note Type: Dialysis Rounds-Comp Service Date: 02/19/2024 Appropriate patient consent obtained. This patient was personally seen for a complete visit as part of routine monthly dialysis care for end stage renal disease. Attending Feather Curling Machine Operator: AHSAN MARIA Dialysis Location: [facility] Schedule: Shift: 2 OVERVIEW Patient is stable. 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 Current [facility] Outpatient Medications acetaminophen 325 mg tablet Take [...] 1 tablet by mouth every evening. Current [facility] Allergies Allergen: ASPIRIN Reaction: Unknown Allergen: CODEINE Reaction: Unknown Allergen: PENICILLINS Reaction: Breathing Problems Allergen: tetracycline Reaction: Breathing Problems Allergen: Tetracyclines Reaction: Breathing Problems Allergen: TRAMADOL Reaction: Breathing Problems DIALYSIS PRESCRIPTION Treatment Data Treatment Date: 02/19/2024 started at: 12:00 PM Dialysate / Machine Temp (prescribed): 37.0*C Dialysate / Machine Temp (actual): 37.1*C BFR (prescribed): 400 BFR (average delivered): 390 DFR (prescribed): Manual 500 DFR (average delivered): 800 Prescribed Time: 03:00 Actual Time: 03:11 EDW (kg): 80.3 Dialyzer: 180NRe Optiflux Dialysate: 2.0 K, 2.5 Ca, 1.0 Mg, 100 Dextrose (G2251) Sodium: 138 Bicarb: 38 Pre Dialysis Vitals Pre BP Sit: 158/75 Pre Wt (kg): 83.1 EDW Deviation (kg): 2.8 Temp: 98.1*F Post Dialysis Vitals Post BP Sit: 107/63 Post Wt (kg): 81.5 TREATMENT MEDICATIONS ORDERS Heparin Sodium (Porcine) 1,000 Units/mL Systemic 500 units IVP Every Treatment 12/22/2023 - 12/20/2024 Heparin Sodium (Porcine) 1,000 Units/mL Systemic 1000 units IVP Every Treatment 12/22/2023 - 12/20/2024 Vitamin D (Calcitriol) Oral 0.75 mcg ORAL 3X Week 07/26/2023 - 07/24/2024 BP AND FLUID ASSESSMENT Acceptable blood pressure. Fluid status acceptable. Post BP Sit 107/63 - 02/19/2024 137/60 - 02/16/2024 134/60 - 02/14/2024 Post Wt (kg) 81.5 - 02/19/2024 81.3 - 02/16/2024 80.6 - 02/14/2024 EDW (kg) 80.3 - 02/19/2024 80.3 - 02/16/2024 80.3 - 02/14/2024 Deviation (kg) 1.2 - 02/19/2024 1.0 - 02/16/2024 0.3 - 02/14/2024 ADEQUACY ASSESSMENT Target met. Prescription compliance acceptable. Continue with greater than 3x more frequent dialysis prescription. Missed Treatments 1 - Last 30 days 1 - Last 60 days Most recently missed on 01/29/2024 spKt/V (Daugirdas II) 1.67 (02/12/24) 1.87 (01/15/24) 1.79 (12/11/23) eKdrt/V 1.35 (02/12/24) 1.53 (01/15/24) 1.47 (12/11/23) % Urea Reduction 78 (02/12/24) 81 (01/15/24) 80 (12/11/23) BUN 41 (02/12/24) 43 (01/15/24) 50 (12/11/23) BUN Post Dialysis 9 (02/12/24) 8 (01/15/24) 10 (12/11/23) Creatinine 3.31 (02/12/24) 3.30 (01/15/24) 3.17 (12/11/23) Bicarbonate (CO2) 26 (02/12/24) 25 (01/15/24) 25 (12/11/23) Sodium 141 (02/12/24) 135 (01/15/24) 143 (12/11/23) ACCESS ASSESSMENT Vascular access examined. AVF/AVG positive thrill/bruit. Current access is permanent and functioning well. AVFistula Standard Right Upper Arm Active (In Use) - 12/01/2021 Placed - Unknown Access Flow > 2000 (01/26/24) > 2000 (12/20/23) > 2000 (11/29/23) ANEMIA ASSESSMENT Anemia targets met. Hemoglobin at target. Continue current PARRISH dose. Iron adjusted per protocol. Hemoglobin 11.6 (02/12/24) 11.6 (02/05/24) 10.6 (01/29/24) Iron Saturation (TSat) 28 (02/12/24) 25 (01/15/24) 25 (12/11/23) Ferritin 719 (01/15/24) 517 (10/16/23) 289 (07/17/23) Iron 90 (02/12/24) 86 (01/15/24) 82 (12/11/23) TIBC 324 (02/12/24) 346 (01/15/24) 323 (12/11/23) MCV 99 (02/12/24) 98 (01/15/24) 96 (12/11/23) Folate 12.6 (01/15/24) 10.7 (04/17/23) Platelets 171 (02/12/24) 216 (01/15/24) 187 (12/11/23) BMM ASSESSMENT PTH within target. Phosphorus controlled. Calcium controlled. Calcium 9.4 02/12/24 9.4 01/15/24 9.2 12/11/23 Corrected Calcium 9.4 02/12/24 9.2 01/15/24 9.4 12/11/23 Phosphorus 4.7 02/12/24 4.9 01/15/24 4.9 12/11/23 Calcium Phosphorus Product 44 02/12/24 46 01/15/24 45 12/11/23 PTH 220 01/15/24 232 10/16/23 449 07/17/23 Vitamin D, 25-OH, Total 21.7 01/15/24 27.4 04/17/23 Magnesium 2.2 01/15/24 2.2 10/16/23 2.0 07/17/23 Alkaline Phosphatase 84 01/15/24 83 10/16/23 126 07/17/23 Aluminum 6 01/15/24 <5 10/16/23 <5 04/17/23 NUTRITION ASSESSMENT Albumin at goal. Albumin 4.0 02/12/24 4.3 01/15/24 4.2 12/27/23 Potassium 4.8 02/12/24 5.1 01/15/24 5.0 12/11/23 eNPCR 0.61 02/12/24 0.65 01/15/24 0.72 12/11/23 PHYSICAL EXAM Exam performed. Vital Signs Reviewed. Lungs - Clear. CV - Blood pressure noted. CV - RRR. No edema. EXT - No ulcers. ADDITIONAL LABS WBC 7.04 (02/12/24) 6.65 (01/15/24) 5.94 (12/11/23) Cholesterol 137 (01/15/24) 115 (10/16/23) 113 (04/17/23) HDL 43 (01/15/24) 42 (10/16/23) 35 (04/17/23) LDL Calculated 56 (01/15/24) 49 (10/16/23) 37 (04/17/23) Triglycerides 189 (01/15/24) 122 (10/16/23) 207 (04/17/23) Hepatitis B Surface Ab 18 (04/17/23) Signed by: Ahsan Maria on 02/19/2024 at 04:26:28 PM Transcribed by: Ahsan Maria on 02/19/2024 at 04:26:28 PM documented in this encounter Plan of Treatment Not on file documented as of this encounter Visit Diagnoses Not on filedocumented in this encounter Care Teams Integration Software Developer Relationship Specialty Start Date End Date Viet Zayas MD [address] [place] [address] PCP - General Family Medicine 12/27/20 documented as of this encounter
--- OUTSIDE RECORDS SUMMARY | 2024-07-11 11:37 | XMS_ITS | Data Portability ---
Author Organization [facility], [address] [place] [address] Neurology ([place]) Address [address] [place] [address] Assessment Encounter Date Assessment Date Assessment LastModified by Organization Details LastModified Time 09/28/2023 09/28/2023 HISTORY OF PRESENT ILLNESS: The patient presents for evaluation of right middle trigger finger that has been going on for two weeks and has become painful for her. She says it triggers constantly where she has to manually straighten her finger. She does have arthritis of her hands as well and recognizes the triggering is a separate issue. She has never had this before. She denies numbness and tingling currently of her right upper extremity. She denies any injury. She is a dialysis patient but it not diabetic. PHYSICAL EXAMINATION: CONST: No acute distress. HENT: Oral mucosa pink and moist. RESP: Breathing appears normal. No use of accessory muscles. PSYCH: Stable mood and affect. NEURO: No speech difficulty. RIGHT UPPER EXTREMITY: 2+ palpable radial pulse. Sensation intact to upper extremity dermatomes. Motor intact to radial, medial, ulnar distributions. The patient is able to elicit a trigger in the right middle finger. 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 Less than 2 second capillary refill. ASSESSMENT: Right middle trigger finger. PLAN: The patient has no restrictions with the right middle finger. I would like her to followup in six weeks for clinical recheck. I explained to the patient that this has about a 50% cure rate. If it is still bothering her and is not relieved, we could consider surgical intervention if this does not work. The patient verbalized an understanding. All questions were answered. to regi Not available 09/28/2023 13:54:45 11/09/2023 11/09/2023 HISTORY OF PRESENT ILLNESS: The patient presents for followup of right middle trigger finger injection 09/28/2023. Patient says her right middle trigger finger has resolved. She is present in office today with a friend. She is residing at a long-term care facility. She has had no triggering and is very pleased with the results of her injection. PHYSICAL EXAMINATION: CONST: No acute distress. HENT: Oral mucosa pink and moist. RESP: Breathing appears normal. No use of accessory muscles. PSYCH: Stable mood and affect. NEURO: No speech difficulty. MSK/RIGHT UPPER EXTREMITY: 2+ palpable radial pulse. Sensation intact to upper extremity dermatomes. Motor intact to radial, medial, ulnar distributions. No triggering of the right middle finger with making a fist. ASSESSMENT: Right middle trigger finger. PLAN: The patient has no restrictions and can follow up in clinic on an as-needed basis. If the trigger finger returns, we can do 2 injections but then would probably recommend a trigger finger release. She will call if she needs to followup. An order sheet was sent back to the facility with her. The patient verbalized an understanding. All questions were answered. cbg [email or web address] Not available 11/09/2023 15:25:19 Plan of Treatment Reminders Order Date Submit Date Provider Last Modified By Organization Details Last Modified Time Details Appointments None record ed. Lab None record ed. Referral None record ed. Procedures None record ed. Surgeries None record ed. Imaging None record ed. Medication Orders None record ed. Patient TargetsNo targets recorded. Patient InstructionsNo instructions recorded. Reason for Referral None Reported. Problems Name Problem SNOMED Code Status Onset Date Resolution Date Notes Provider Name and Address Organization Details Recorded Time Hyperlipide asael 61354298 Active 2023 [facility] 4 12:42:08 Chronic renal failure 08546145 Active 2023 [facility] 4 12:42:53 Osteoarthri tis 427568757 Active 2023 naheed [facility] 4 12:43:09 Hypothyroid ism 87046785 Active 2023 naheed [facility] 4 12:43:37 Depressive disorder 10835073 Active 2023 [facility] 4 12:48:01 Chronic obstructive pulmonary disease 18444706 Active 2023 [facility] 4 12:48:33 Head scan abnormal 695872550 Active 2023 [facility] 4 12:48:59 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 Procedures Surgical History Date Name Laterality Status Provider Name and Address Organization Details Recorded Time 09/28/19 24 SC Blank Procedure Template completed Brooke Rao [facility] 09/28/2023 13:53:47 cholecystectomy completed [facility] 09/14/2023 12:44:06 total replacement of left knee joint completed [facility] 09/14/2023 12:44:41 total replacement of right knee joint completed [facility] 09/14/2023 12:44:56 open reduction of fracture with internal fixation completed [facility] 09/14/2023 12:45:43 Imaging Results None recorded. Procedure Notes None recorded. Medical Equipment None Reported. Allergies Allergen ID Allergen Name Allergen Category Reaction Reaction Severity Criticality Documentation Date Start Date Code Code System Note Provider Name and Address Organization Details Recorded Time 6140168 aspirin medicatio n Not available Not available Not available 07/04/20232021 1191 RxNorm Not Available Not Available Not Available 7833135 codeine medicatio n Not available Not available Not available 07/04/20232021 2670 RxNorm Not Available Not Available Not Available 2221943 Biaxin medicatio n Not available Not available Not available 07/04/20232021 76941 9 RxNorm Comme nt: Other Anno tatio ns: ROWEL L, ALTON ER 2021 2:58P M CORN; ; Not Available Not Available Not Available 9252924 Product containin g tetracycl ine and antibioti c (product) medicatio n Not available Not available Not available 07/04/20232021 94252 1004 SNOMED Not Available Not Available Not Available 0890480 POLLEN EXTRACTS medicatio n Not available Not available Not available 03/12/20242021 22391 6 RxNorm Comme nt: Polle n ; Not Available Not Available Not Available Medications Name Sig Start Date Stop Date Status Note LastModified by Organization Details LastModified Time Miralax 17 gram oral powder packet Take by oral route as needed. active Not Available Not Available N ot Available acetaminophe n 325 mg tablet Take 2 tablets every 6 hours by oral route as needed. active Not Available Not Available N ot Available tolterodine ER 4 mg capsule,exte nded release 24 hr Take 1 capsule every day by oral route. active Not Available Not Available No t Available melatonin 3 mg tablet active Not Available Not Available No t Available ciprofloxaci n 250 mg tablet active Not Available Not Available Not Available allopurinol 100 mg tablet Take 1 tablet twice a day by oral route. active Not Available Not Available No t Available tramadol 50 mg tablet Take 1 tablet every 6 hours by oral route as needed. active Not Available Not Available N ot Available simvastatin 40 mg tablet Take 1 tablet every day by oral route. active Not Available Not Available No t Available hydrocortiso ne acetate 25 mg rectal suppository Insert 1 suppository twice a day by rectal route for 14 days. active Not Available Not Available No t Available levothyroxin e 100 mcg tablet active Not Available Not Available Not Available ziprasidone 20 mg capsule Take 1 capsule twice a day by oral route. active Not Available Not Available No t Available magnesium oxide 400 mg (241.3 mg magnesium) tablet active Not Available Not Available Not Available Triple Antibiotic 3.5 mg-400 unit-5,000 unit/gram topical ointment active Not Available Not Available Not Available levothyroxin e 125 mcg tablet Take 1 tablet every day by oral route. active Not Available Not Available No t Available Advair Diskus 250 mcg-50 mcg/dose powder for inhalation Inhale 1 puff twice a day by inhalation route. active Not Available Not Available No t Available docusate sodium 100 mg capsule active Not Available Not Available N ot Available mirtazapine 15 mg tablet Take 1 tablet every day by oral route at bedtime. active Not Available Not Available No t Available polyethylene glycol 3350 17 gram/dose oral powder active Not Available Not Available Not Available levothyroxin e 112 mcg tablet active Not Available Not Available Not Available Pepto-Bismol 262 mg/15 mL oral suspension Take 30 mL every day by oral route as needed. active Not Available Not Available No t Available Restasis 0.05 % eye drops in a dropperette INSTILL 1 DROP INTO AFFECTED EYE(S) BY OPHTHALMIC ROUTE EVERY 12 HOURS active Not Available Not Available No t Available metoprolol tartrate 25 mg tablet Take 1 tablet twice a day by oral route. active Not Available Not Available No t Available duloxetine 60 mg capsule,arianne yed release Take 1 capsule every day by oral route. active Not Available Not Available No t Available Chest Congestion Relief 100 mg/5 mL oral liquid active Not Available Not Available Not Available sevelamer carbonate 800 mg tablet Take 1 tablet 3 times a day by oral route. active Not Available Not Available No t Available melatonin 5 mg tablet active Not Available Not Available No t Available magnesium 400 mg (as magnesium oxide) tablet Take 1 tablet every day by oral route. active Not Available Not Available No t Available melatonin 3 mg capsule Take 1 capsule by oral route. active Not Available Not Available Not Available Vitals Date Recorded Body height Body mass index (BMI) Body weight Heart rate Oxygen saturation Oxygen saturation in Arterial blood by Pulse oximetry Systolic blood pressure Diastolic blood pressure Provider Name and Address Organization Details Last Updated DateTime 4 157.48 cm 32.9 kg/m2 48545.6 3 g 89 /min 94 % 94 % 139 mm[Hg] 91 mm[Hg] Chely Mcfarlane [facility] 4 11:07:39 Date Recorded Body height Body mass index (BMI) Body weight Heart rate Respiratory rate Oxygen saturation Oxygen saturation in Arterial blood by Pulse oximetry Systolic blood pressure Diastolic blood pressure Provider Name and Address Organization Details Last Updated DateTime 4 157.48 cm 32.9 kg/m2 75321.6 3 g 70 /min 20 /min 95 % 95 % 113 mm[Hg] 70 mm[Hg] Mily Barone [facility] 4 10:55:30 Social History Question Answer Notes LastModified by Organization D etails LastModified Time Are You Currently Employed? No [email or web address] Information not available 09/14/2023 Sex: Unknown Functional Status None recorded. Mental Status None recorded. Family History Nothing Reported. Medical History No medical history recorded. Gynecological HistoryNo gynecological history recorded. Obstetrics History GPAL:G 0 P 0 0 0 0 Past Encounters Encounter ID Performer Location Encounter Start Date Encounter Closed Date Diagnosis/Indication Diagnosis SNOMED-CT Code Diagnosis ICD10 Code Diagnosis Note [id number] LIVAN Melvin [facility] ([place]) [address] [place] [address] 09/28/2023 11:01:01 10/02/2023 12:56:31 Acquired trigger finger of right middle finger 3415606120 49490 M65.875 [id number] [facility] [address] [place] [address] 11/09/2023 10:48:09 11/12/2023 12:05:25 Acquired trigger finger of right middle finger 1893007443 27211 M65.331 Health Concerns Section Related Observation LastModified by Organization Detai ls LastModified Time None Recorded Concern Status LastModified by Organization Details LastModified Time None Recorded Advance Directives Directive None Recorded Payers Encounter Date Sequence Insurance Name Policy Number Policy Cardenas Covered Member ID Cardenas Member ID Guarantor Name 09/28/2023 1 [facility] ON OR AFTER 06/04/2020 - DUAL ELIGIBLE (MEDICARE REPLACEMENT/ ADVANTAGE - HMO) [id number] Elsie Wages [id number] Elsie Wages 11/09/2023 1 [facility] ON OR AFTER 06/04/2020 - DUAL ELIGIBLE (MEDICARE REPLACEMENT/ ADVANTAGE - HMO) [id number] Elsie Wages [id number] Elsie Wages OBGyn Episode No OBEpisode recorded.
--- OUTSIDE RECORDS SUMMARY | 2024-07-11 11:37 | XMS_ITS | Encounter Summary ---
Author Organization [facility] Address [address] [place] [address] Phone Care Team Providers Care Paint Prep Technician Name Role Phone Viet Zayas MD Primary Care Provider [phone] Encounter Details Date Type Department Care Team (Late st Contact Info) Description 11/18/2018 Orders Only [facility] 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), initial encounter (HCC) Social History Tobacco Use Types Packs/Day Years Used Date Smoking Tobacco: Never Smokeless Tobacco: Never Comments Unknown Sex and Gender Information Value Date Recorded Sex Assigned at Not on file Legal Sex Female 9:40 PM EDT Gender Identity Not on file Sexual Orientation Not on file documented as of this encounter Plan of Treatment Not on file documented as of this encounter Visit Diagnoses Diagnosis Stage 5 chronic kidney disease (HCC) 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
--- OUTSIDE RECORDS SUMMARY | 2024-07-11 11:37 | XMS_ITS | Encounter Summary ---
Author Organization [facility] Address [address] [place] [address] Phone Care Team Providers Care Medical Billing Instructor Name Role Phone Viet Zayas MD Primary Care Provider Encounter Details Date Type Department Care Team (Late st Contact Info) Description 12/24/2018 Orders Only [facility] [place] [address] [place] [address] Jeannette Graham, RN [address] [place] [address] Pre op labs; Chronic kidney disease stage 4 (HCC) Social History Tobacco Use Types Packs/Day [...] as of this encounter Visit Diagnoses Diagnosis Pre op labs Chronic kidney disease stage 4 (HCC) documented in this encounter Care Teams Medical Billing Instructor Relationship Specialty Start Date End Date Viet Zayas MD [address] [place] [address] PCP - General Family Medicine 12/27/20 documented as of this encounter
--- OUTSIDE RECORDS SUMMARY | 2024-07-11 11:37 | XMS_ITS | Encounter Summary ---
Author Organization [facility] Address [address] [place] [address] Phone Care Team Providers Care Fur Pointer Name Role Phone Viet Zayas MD Primary Care Provider [phone] Encounter Details Date Type Department Care Team (Late st Contact Info) Description 11/04/2018 Orders Only [facility] [place] [address] [place] [address] Kiana Masterson, RN [address] [place] [address] Stage 5 chronic kidney disease (HCC) Social History Tobacco Use Types Packs/Day [...] Diagnosis Stage 5 chronic kidney disease (HCC) documented in this encounter Care Teams Fur Pointer Relationship Specialty Start Date End Date Viet Zayas MD [address] [place] [address] PCP - General Family Medicine 12/27/20 documented as of this encounter
--- OUTSIDE RECORDS SUMMARY | 2024-07-11 11:37 | XMS_ITS | Clinical Summary ---
Author Organization [facility] Address [address] [address] Phone Care Team Providers Care Millwright Supervisor Name Role Phone Viet Zayas MD Primary Care Provider [phone] Allergies Active Allergy Reactions Criticality Noted Date Comments Aspirin Other (see comments) 11/17/2013 Upsets her chest and gives her heartburn Codeine Other (see comments) 11/17/2013 Gives her heartburn [place] Pollen 07/29/2009 Penicillin V 07/29/2009 Penicillins Other (see comments) 11/17/2013 Pt states she doesn't remember but thinks it has something to do with her chest. Tetracycline Other (see comments) 07/29/2009 Chest tightness Tramadol Other (see comments) 11/17/2013 Chest tightness Chest tightness Medications fluticasone-anupam meterol (ADVAIR DISKUS) 250-50 MCG/DOSE diskus inhaler Inhale 1 puff 1 (one) time each day 0 Active allopurinol (ZYLOPRIM) 100 MG tablet 1 tablet by mouth twice a day 5 Active tolterodine LA (DETROL LA) 4 MG 24 hr capsule Take 1 capsule by mouth once a day 0 Active DULoxetine (CYMBALTA) [address] capsule 60 mg 1 (one) time each day 7 Active levothyroxine (SYNTHROID, LEVOTHROID) 75 MCG tablet Take 1 tablet by mouth once a day 0 Active metoprolol tartrate (LOPRESSOR) 25 MG tablet Take 1 tablet by mouth twice a day 7 Active CycloSPORINE (RESTASIS OP) 1 drop into both eyes twice daily as needed 7 Active simvastatin (ZOCOR) 40 MG tablet Take 1 tablet by mouth once a day 0 Active mirtazapine (REMERON) 15 MG tablet Take 1 tablet by mouth 1 (one) time each day. 8 Active furosemide (LASIX) 40 MG tablet Take 1 tablet (40 mg total) by mouth 1 (one) time each day. 30 tablet 11 8 Active ziprasidone (GEODON) 20 MG capsule Take 20 mg by mouth 1 (one) time each day Active omeprazole (PriLOSEC) [address] capsule Take 20 mg by mouth if needed Do not crush or chew. Active calcitriol (ROCALTROL) 0.5 MCG capsule TAKE 1 CAPSULE (0.5 MCG TOTAL) BY MOUTH 5 (FIVE) TIMES A WEEK 22 capsule 11 0 Active ergocalciferol 1.25 MG (71845 UT) capsule Take 50,000 Units by mouth 1 (one) time per week ON SATURDAYS Active melatonin 3 MG tablet Take by mouth every night Active MAGNESIUM OXIDE 400 PO Take 400 mg by mouth 1 (one) time each day Active acetaminophen (TYLENOL) 325 MG tablet Take by mouth every 4 (four) hours if needed for mild pain Active dicyclomine (BENTYL) 20 MG tablet Take 20 mg by mouth every 6 (six) hours if needed Active polyethylene glycol (GLYCOLAX) 17 g packet Take 17 g by mouth if needed Active Robafen Mucus/Chest Congestion 200 MG/10ML liquid 1 Active traMADol (ULTRAM) 50 MG tablet 2 Active Active Problems Problem Noted Date Diagnosed Date End stage renal disease 03/21/2022 Dependence on renal dialysis 03/21/2022 Dialysis access maintenance 06/02/2019 Cardiac murmur 04/14/2019 Acute nontraumatic kidney injury 07/02/2017 Anemia of chronic renal failure 06/28/2017 Benign essential hypertension 06/28/2017 Gout 06/28/2017 Hematuria 06/28/2017 Hyperparathyroidism due to renal insufficiency 0 06/28/2017 Hypothyroidism 06/28/2017 Renal osteodystrophy 06/28/2017 Proteinuria 06/28/2017 Resolved Problems Problem Noted Date Diagnosed Date Resolved Date Stage 5 chronic kidney disease 06/02/2019 03/21/2022 Chronic kidney disease stage 4 06/28/2017 03/21/2022 Encounters Date Type Department Care Team Description 07/03/2024 Treatment [facility], [address] [place] [phone] Ahsan Maria MD 07/01/2024 Orders Only [facility] [address] [place] [phone] Ahsan Maria MD 06/24/2024 Orders Only [facility], [address] [address] Ahsan Maria MD 06/19/2024 Orders Only [facility] [address] [place] [address] Ahsan Maria MD 06/17/2024 Orders Only [facility] [address] [place] [address] Ahsan Maria MD 06/10/2024 Orders Only [facility] [address] [place] [phone] Ahsan Maria MD 06/02/2024 Orders Only [facility], [address] [address] Ahsan Maria MD 06/01/2024 Documentation Only [facility], [address] [phone] Ahsan Maria MD 05/26/2024 Orders Only [facility] [address] [place] [address] Ahsan Maria MD 05/20/2024 Orders Only [facility] [address] [place] [address] Ahsan Maria MD 05/20/2024 Treatment [facility], [place] [address] [place] [address] Ahsna Maria MD 05/13/2024 Orders Only [facility], [address] [address] Ahsan Maria MD 05/06/2024 Orders Only [facility], [address] [address] Ahsan Maria MD 04/28/2024 Orders Only [facility], [address] [address] Ahsan Maria MD 04/22/2024 Orders Only [facility], [address] [address] Ahsan Maria MD 04/22/2024 Treatment [facility], [address] [phone] Ahsan Maria MD 04/15/2024 Orders Only [facility], [address] [address] Ahsan Maria MD from Last 3 Months Immunizations Name Administration Dates Next Due Influenza TIV (IM) 02/27/2018 Influenza, Trivalent, Adjuvanted 02/10/2019 Family History Medical History Relation Comments Cancer Father Kidney disease Father Stroke Father Cancer Mother Hypertension Mother Stroke Mother Relation Status Comments Father Mother Social History Tobacco Use Types Packs/Day Years [...] Sign Reading Time Taken Comments Blood Pressure 132/76 11/08/2021 3:34 PM CDT Pulse 86 11/08/2021 3:34 PM CDT Temperature 36.1 C (97 F) 11/08/2021 3:34 PM CDT Respiratory Rate 19 11/08/2021 3:34 PM CDT Oxygen Saturation 98% 11/08/2021 3:34 PM CDT Inhaled Oxygen Concentration - - Weight 86.2 kg (190 lb) 11/08/2021 3:34 PM CDT Height 154.9 cm (5' 1 ) 11/08/2021 3:34 PM CDT Body Mass Index 35.9 11/08/2021 3:34 PM CDT Plan of Treatment Health Maintenance Due Date Last Done Comments Pneumococcal Vaccine: 65+ Ye ars (1 of 2 - PCV) 1946 Hepatitis B Vaccine (1 of 5 - Risk Dialysis 4-dose series) 1960 Influenza Vaccine (#1) 2024 02/10/2019, 2017 Procedures Procedure Name Priority Date/Time Associated Diagnosis Comments HEMATOLOGY Routine 07/01/2024 HEMATOLOGY Routine 06/24/2024 [facility] RESULTS Routine 06/19/2024 HD KINETICS Routine 06/19/2024 POST CHEMISTRY Routine 06/19/2024 CHEMISTRY Routine 06/19/2024 HEMATOLOGY Routine 06/17/2024 CHEMISTRY Routine 06/17/2024 POST CHEMISTRY Routine 06/17/2024 IMMUNO CHEMISTRY Routine 06/17/2024 HEMATOLOGY Routine 06/10/2024 HEMATOLOGY Routine 06/02/2024 HEMATOLOGY Routine 05/26/2024 HEMATOLOGY Routine 05/20/2024 [facility] RESULTS Routine 05/13/2024 HEMATOLOGY Routine 05/13/2024 HD KINETICS Routine 05/13/2024 POST CHEMISTRY Routine 05/13/2024 CHEMISTRY Routine 05/13/2024 HEMATOLOGY Routine 05/06/2024 HEMATOLOGY Routine 04/28/2024 HEMATOLOGY Routine 04/22/2024 [facility] RESULTS Routine 04/15/2024 HD KINETICS Routine 04/15/2024 POST CHEMISTRY Routine 04/15/2024 TRACE ELEMENTS Routine 04/15/2024 IMMUNO CHEMISTRY Routine 04/15/2024 SPECIAL CHEMISTRY Routine 04/15/2024 CHEMISTRY Routine 04/15/2024 HEMATOLOGY Routine 04/15/2024 CHEMISTRY Routine 04/15/2024 from Last 3 Months Results * (ABNORMAL) HEMATOLOGY (07/01/2024) Only the most recent of12 resultswithin the time period is included. Hemoglobin 11.1(L) 12.0 - 16.0 g/dL [facility] Hemoglobin x 3 33.3(L) 36.0 - 48.0 % [facility] 07/01/2024 07/02/2024 9:4 6 AM POOL INSTALLER Narrative [facility] - 07/02/2024 Unless otherwise specified, test(s) performed at: [facility], [address] [place] [address] FIRE EXTINGUISHER CHARGER: Juan Jose Rogers M.D. For any questions, please call customer service at FREQUENCY:OTHER Resulting Agency Comment Specimen source: Blood Ahsan Maria MD LAB BLOOD ORDERABLES Ronda l Result Performing Organization Address [facility] Co de Phone Number [facility] See order comments or contact performing lab Unknown, [place] * HD KINETICS (06/19/2024) Only the most recent of3 resultswithin the time period is included. % Urea Reduction 80 65 - 80 % [facility] 06/19/2024 06/20/2024 9:1 2 AM POOL INSTALLER Narrative Resulting Agency Comment Specimen source: Plasma Ahsan Maria MD LAB BLOOD ORDERABLES Ronda l Result Performing Organization Address [facility] [[email or web address]] de Phone Number [employer] See order comments or contact performing lab Unknown, [place] * POST CHEMISTRY (06/19/2024) Only the most recent of4 resultswithin the time period is included. BUN Post Dialysis 7 6 - 19 mg/dL [facility] 06/19/2024 06/20/2024 9:1 2 AM POOL INSTALLER Narrative [facility] - 06/20/2024 Unless otherwise specified, test(s) performed at: [facility], [address] [place] [address] FIRE EXTINGUISHER CHARGER: Juan Jose Rogers M.D. For any questions, please call customer service at FREQUENCY:OTHER Resulting Agency Comment Specimen source: Plasma Ahsan Maria MD LAB BLOOD ORDERABLES Ronda l Result Performing Organization Address [facility] Co de Phone Number [facility] See order comments or contact performing lab Unknown, [place] * (ABNORMAL) [facility] (06/19/2024) Only the most recent of5 resultswithin the time period is included. Pathologist [facility] BUN 35(H) 6 - 19 mg/dL [facility] 06/19/2024 06/20/2024 9:3 8 AM POOL INSTALLER Narrative [facility] - 06/20/2024 Unless otherwise specified, test(s) performed at: [facility], [address] [place] [address] FIRE EXTINGUISHER CHARGER: Juan Jose Rogers M.D. For any questions, please call customer service at FREQUENCY:OTHER Resulting Agency Comment Specimen source: Serum Ahsna Maria MD LAB BLOOD ORDERABLES Ronda l Result [facility] [employer] See order comments or contact performing lab Unknown, [place] * [facility] Results (06/19/2024) Only the most recent of3 resultswithin the time period is included. Pathologist [facility] spKt/V Gotch 1.76 [facility] eKt/V Gotch 1.45 [facility] eKt/V ([place]) 1.47 [facility] PCR 32.74 [facility] eNPCR 0.65 [facility] WSTDKT/V 2.6 [facility] spKt/V (Daugirdas II) 1.76 [facility] nPCR_HD 0.74 [facility] eKdrt/V 1.45 [facility] 06/19/2024 06/19/2024 [facility] Ordering Provider LAB BLOOD ORDERABLES Final Result [facility] Contact Performing lab Unknown, [place] * IMMUNO CHEMISTRY (06/17/2024) Only the most recent of2 resultswithin the time period is included. Pathologist [facility] Hep B Surface Ag Negative Negative [facility] 06/17/2024 06/18/2024 9:1 3 AM POOL INSTALLER Narrative [facility] - 06/18/2024 Unless otherwise specified, test(s) performed at: [facility], [address] [place], [place] [id number] FIRE EXTINGUISHER CHARGER: Juan Jose Rogers M.D. For any questions, please call customer service at FREQUENCY:MONTHLY Resulting Agency Comment Specimen source: Serum Ahsan Maria MD LAB BLOOD ORDERABLES Ronda l Result Performing Organization Address [facility] Co de Phone Number [facility] See order comments or contact performing lab Unknown, [place] * (ABNORMAL) SPECIAL CHEMISTRY (04/15/2024) Folate 8.6 ng/mL [facility] Comment: Reference Range: Deficient: <3.4 ng/mL Indeterminate: 3.4-5.4 ng/mL Normal: >5.4 ng/mL Vitamin D, 25-OH, Total 23.3(L) 30.0 - 100.0 ng/mL [facility] Comment: Please Note: Effective April 02, 2023, the methodology for this test has changed to the [employer]. 04/15/2024 04/16/2024 10: 32 AM POOL INSTALLER Narrative Resulting Agency Comment Specimen source: Serum Ahsan Maria MD LAB BLOOD BANK TEST ORDER SARA Final Result Performing Organization Address [facility] [[email or web address]] de Phone Number [facility] [employer] [facility] See order comments or contact performing lab Unknown, [place] * TRACE ELEMENTS (04/15/2024) Pathologist [facility] Aluminum <5 0 - 10 mcg/L [facility] Comment: This test was developed and its performance characteristics determined by [facility]. It has not been cleared or approved by the FDA. The laboratory is regulated under CLIA as qualified to perform high complexity testing. This test is used for clinical purposes. It should not be regarded as investigational or for research. 04/15/2024 04/16/2024 9:4 2 AM POOL INSTALLER Narrative [facility] - 04/16/2024 Unless otherwise specified, test(s) performed at: [facility], [address] [place] [id number] FIRE EXTINGUISHER CHARGER: Juan Jose Rogers M.D. For any questions, please call customer service at FREQUENCY:MONTHLY Resulting Agency Comment Specimen source: Serum us Ahsan Maria MD LAB BLOOD ORDERABLES Ronda smith Result [facility] See order comments or contact performing lab Unknown, [place] from Last 3 Months Insurance [place] Member Subscriber Plan / Payer (Ef fective 2019-Present) Name:Elsie Osorio Relation to Subscriber:Self Name:Elsie Osorio Payer ID:Not on file Group ID:Not on file Type:Not on file Address: [place] [id number] [place] Sub[place] Plan / Payer (Ef fective 2019-Present) Name:Elsie Osorio Relation to Subscriber:Self Name:Elsie Osorio Payer ID:Not on file Group ID:Not on file Type:Not on file Address: [place] [id number] Care Teams Millwright Supervisor Relationship Specialty Start Date End Date Viet Zayas MD [address] [place] [address] PCP - General Family Medicine 12/27/20
--- OUTSIDE RECORDS SUMMARY | 2024-07-11 11:37 | XMS_ITS | Encounter Summary ---
Author Organization [facility] Address [address] [place] [address] Phone Care Team Providers Care Test Engineering Manager Name Role Phone Viet Zayas MD Primary Care Provider [phone] Encounter Details Date Type Department Care Team (Late st Contact Info) Description 05/20/2019 Orders Only [facility] [place] [address] [address] Gerber Chan MD [address] [place] [address] Chronic kidney disease stage 3 (HCC) Social History Tobacco Use Types Packs/Day [...] as of this encounter Visit Diagnoses Diagnosis Chronic kidney disease stage 3 (HCC) documented in this encounter Care Teams Test Engineering Manager Relationship Specialty Start Date End Date Viet Zayas MD [address] [place] [address] PCP - General Family Medicine 12/27/20 documented as of this encounter
--- OUTSIDE RECORDS SUMMARY | 2024-07-11 11:37 | XMS_ITS | Encounter Summary ---
Author Organization [facility] Address [address] [place] [address] Phone Care Team Providers Care Rubber Molder Name Role Phone Viet Zayas MD Primary Care Provider [phone] Encounter Details Date Type Department Care Team (Late st Contact Info) Description 10/06/2018 Orders Only [facility] [place] [address] [address] Gerber Chan MD [address] [place] [address] Chronic kidney disease stage 4 (HCC) Social [...] Visit Diagnoses Diagnosis Chronic kidney disease stage 4 (HCC) documented in this encounter Care Teams Rubber Molder Relationship Specialty Start Date End Date Viet Zayas MD [address] [place] [address] PCP - General Family Medicine 12/27/20 documented as of this encounter
--- OUTSIDE RECORDS SUMMARY | 2024-07-11 11:37 | XMS_ITS | Encounter Summary ---
Author Organization [facility] Address [address] [place] [address] Phone Care Team Providers Care Button Sewer Hand Name Role Phone Viet Zayas MD Primary Care Provider [phone] Encounter Details Date Type Department Care Team (Late st Contact Info) Description 02/18/2019 Orders Only [facility] [place] [address] [address] Gerber Chan MD [address] [place] [address] Chronic kidney disease stage 3 Social History Tobacco Use Types Packs/Day Years [...] (HCC) documented in this encounter Care Teams Button Sewer Hand Relationship Specialty Start Date End Date Viet Zayas MD [address] [place] [address] PCP - General Family Medicine 12/27/20 documented as of this encounter
--- OUTSIDE RECORDS SUMMARY | 2024-07-11 11:37 | XMS_ITS | Encounter Summary ---
Author Organization [facility] Address [address] [facility] [address] [address] [place] [address] Phone Care Team Providers Care Hospitality Workers Name Role Phone Viet Zayas MD Primary Care Provider Reason for Visit * Reason Comments Med Refill Encounter Details Date Type Department Care Team (Late st Contact Info) Description 01/24/2020 Refill [facility] [place] [address] [facility] [address] [place] [address] Gerber Chan MD [address] [facility] [address] [place] [address] Social History Tobacco Use Types Packs/Day Years [...] on filedocumented in this encounter Care Teams Hospitality Workers Relationship Specialty Start Date End Date Viet Zayas MD [address] [place] [address] PCP - General Family Medicine 12/27/20 documented as of this encounter
--- OUTSIDE RECORDS SUMMARY | 2024-07-11 11:37 | XMS_ITS | Encounter Summary ---
Author Organization [facility] Address [address] [place] [address] Phone Care Team Providers Care Computer Science Instructor Name Role Phone Viet Zayas MD Primary Care Provider [phone] Encounter Details Date Type Department Care Team (Late st Contact Info) Description 07/02/2017 Orders Only [facility] [place] [address] [address] Gerber Chan MD [address] [place] [address] Chronic kidney disease stage 3 [...] (HCC) documented in this encounter Care Teams Computer Science Instructor Relationship Specialty Start Date End Date Viet Zayas MD [address] [place] [address] PCP - General Family Medicine 12/27/20 documented as of this encounter
--- OUTSIDE RECORDS SUMMARY | 2024-07-11 11:37 | XMS_ITS | Encounter Summary ---
Author Organization [facility] [employer] [facility] [employer] [facility] Address [facility] [address] [address] Phone Care Team Providers Care Network Cabler Name Role Phone Viet Zayas MD Primary Care Provider [phone] Encounter Details Date Type Department Care Team (Late st Contact Info) Description 05/20/2024 Treatment [facility] [place] [address] [address] [address] Ahsan Maria MD [address] [place] [id number] Social History Tobacco Use Types Packs/Day Years [...] Dialysis Note - Ahsan Maria MD - 05/20/2024 12:00 AM CST Patient: Elsie Osorio : 1940 Note Type: Dialysis Rounds-Comp Service Date: 05/20/2024 Appropriate patient consent obtained. This patient was personally seen for a complete visit as part of routine monthly dialysis care for end stage renal disease. Attending Claim Benefit Specialist: AHSAN MARIA Dialysis Location: [facility] Schedule: Shift: 2 OVERVIEW Patient is stable. 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 Current [facility] Outpatient Medications acetaminophen 325 mg tablet [...] 1 tablet by mouth every evening. Current [facility] Allergies Allergen: ASPIRIN Reaction: Unknown Allergen: CODEINE Reaction: Unknown Allergen: PENICILLINS Reaction: Breathing Problems Allergen: tetracycline Reaction: Breathing Problems Allergen: Tetracyclines Reaction: Breathing Problems Allergen: TRAMADOL Reaction: Breathing Problems DIALYSIS PRESCRIPTION Treatment Data Treatment Date: 05/20/2024 started at: 11:54 AM Dialysate / Machine Temp (prescribed): 37.0*C Dialysate / Machine Temp (actual): 36.6*C BFR (prescribed): 400 BFR (actual): 400 DFR (prescribed): Manual 500 DFR (actual): 800 Prescribed Time: 03:00 EDW (kg): 81.0 Dialyzer: 180NRe Optiflux Dialysate: 2.0 K, 2.5 Ca, 1.0 Mg, 100 Dextrose (G2251) Sodium: 138 Bicarb: 38 Pre Dialysis Vitals Pre BP Sit: 157/72 Pre Wt (kg): 81.3 EDW Deviation (kg): 0.3 Temp: 97.3*F Current Dialysis Vitals BP Sit: 140/62 AP/HELPER ELECTRICAL: 222/194 Pulse: 72 TREATMENT MEDICATIONS ORDERS Heparin Sodium (Porcine) 1,000 Units/mL Systemic 500 units IVP Every Treatment 12/22/2023 - 12/20/2024 Heparin Sodium (Porcine) 1,000 Units/mL Systemic 1000 units IVP Every Treatment 12/22/2023 - 12/20/2024 Vitamin D (Calcitriol) Oral 0.75 mcg ORAL 3X Week 07/26/2023 - 07/24/2024 BP AND FLUID ASSESSMENT Acceptable blood pressure. Fluid status acceptable. Post BP Sit 161/63 - 05/17/2024 156/64 - 05/13/2024 157/71 - 05/10/2024 Post Wt (kg) 80.8 - 05/17/2024 80.6 - 05/13/2024 80.6 - 05/10/2024 EDW (kg) 81.0 - 05/17/2024 81.0 - 05/13/2024 81.0 - 05/10/2024 Deviation (kg) -0.2 - 05/17/2024 -0.4 - 05/13/2024 -0.4 - 05/10/2024 ADEQUACY ASSESSMENT Target met. Prescription compliance acceptable. Continue with greater than 3x more frequent dialysis prescription. Missed Treatments 1 - Last 30 days 1 - Last 60 days Most recently missed on 05/15/2024 spKt/V (Daugirdas II) 1.65 (05/13/24) 1.77 (04/15/24) 1.52 (03/18/24) eKdrt/V 1.36 (05/13/24) 1.44 (04/15/24) 1.22 (03/18/24) % Urea Reduction 77 (05/13/24) 80 (04/15/24) 75 (03/18/24) BUN 31 (05/13/24) 40 (04/15/24) 48 (03/18/24) BUN Post Dialysis 7 (05/13/24) 8 (04/15/24) 12 (03/18/24) Creatinine 2.81 (05/13/24) 3.20 (04/15/24) 3.27 (03/18/24) Bicarbonate (CO2) 28 (05/13/24) 26 (04/15/24) 26 (03/18/24) Sodium 140 (05/13/24) 135 (04/15/24) 138 (03/18/24) ACCESS ASSESSMENT Vascular access examined. Current access is permanent and functioning well. AVFistula Standard Right Upper Arm Active (In Use) - 12/01/2021 Placed - Unknown Access Flow > 2000 (04/24/24) > 1999 (03/29/24) > 1999 (02/21/24) ANEMIA ASSESSMENT Anemia targets met. Continue current PARRISH dose. Continue maintenance iron. Hemoglobin 11.2 (05/13/24) 10.8 (05/06/24) 10.6 (04/28/24) Iron Saturation (TSat) 23 (05/13/24) 33 (04/15/24) 27 (03/18/24) Ferritin 851 (04/15/24) 719 (01/15/24) 517 (10/16/23) Iron 73 (05/13/24) 114 (04/15/24) 87 (03/18/24) TIBC 313 (05/13/24) 348 (04/15/24) 326 (03/18/24) MCV 100 (05/13/24) 99 (04/15/24) 96 (03/18/24) Folate 8.6 (04/15/24) 12.6 (01/15/24) Platelets 183 (05/13/24) 191 (04/15/24) 184 (03/18/24) BMM ASSESSMENT PTH within target. Phosphorus controlled. Calcium controlled. Bone and mineral metabolism parameters reviewed. Calcium 9.2 05/13/24 9.4 04/15/24 9.1 03/18/24 Corrected Calcium 9.1 05/13/24 9.3 04/15/24 9.1 03/18/24 Phosphorus 4.6 05/13/24 4.9 04/15/24 5.2 03/18/24 Calcium Phosphorus Product 42 05/13/24 46 04/15/24 47 03/18/24 PTH 171 04/15/24 220 01/15/24 232 10/16/23 Vitamin D, 25-OH, Total 23.3 04/15/24 21.7 01/15/24 Magnesium 2.2 04/15/24 2.2 01/15/24 2.2 10/16/23 Alkaline Phosphatase 71 04/15/24 84 01/15/24 83 10/16/23 Aluminum <5 04/15/24 6 01/15/24 <5 10/16/23 NUTRITION ASSESSMENT Albumin at goal. Potassium controlled. Albumin 4.1 05/13/24 4.1 04/15/24 4.0 03/18/24 Potassium 4.7 05/13/24 5.0 04/15/24 4.8 03/18/24 eNPCR 0.50 05/13/24 0.60 04/15/24 0.66 03/18/24 TRANSPLANT STATUS COMMENT COMMENTS: Not a candidate PHYSICAL EXAM Exam performed. Vital Signs Reviewed. Lungs - Clear. CV - Blood pressure noted. CV - RRR. No edema. EXT - No ulcers. ADDITIONAL LABS WBC 6.28 (05/13/24) 7.98 (04/15/24) 6.13 (03/18/24) Cholesterol 120 (04/15/24) 137 (01/15/24) 115 (10/16/23) HDL 46 (04/15/24) 43 (01/15/24) 42 (10/16/23) LDL Calculated 35 (04/15/24) 56 (01/15/24) 49 (10/16/23) Triglycerides 194 (04/15/24) 189 (01/15/24) 122 (10/16/23) Hepatitis B Surface Ab <10 (04/15/24) Signed by: AHSAN MARIA MD on 05/20/2024 at 02:43:34 PM Transcribed by: AHSAN MARIA MD on 05/20/2024 at 02:43:34 PM documented in this encounter Plan of Treatment Not on file documented as of this encounter Visit Diagnoses Not on filedocumented in this encounter Care Teams Network Cabler Relationship Specialty Start Date End Date Viet Zayas MD [address] [place], [place] [id number] PCP - General Family Medicine 12/27/20 documented as of this encounter
--- OUTSIDE RECORDS SUMMARY | 2024-07-11 11:37 | XMS_ITS | Encounter Summary ---
Author Organization [facility] Address [address] [place] [address] Phone Care Team Providers Care Commissioned Security Officer Name Role Phone Viet Zayas MD Primary Care Provider [phone] Encounter Details Date Type Department Care Team (Late st Contact Info) Description 01/06/2019 Orders Only [facility] [address] Gerber Chan MD [address] [place] [address] Chronic kidney disease stage 4 [...] (HCC) documented in this encounter Care Teams Commissioned Security Officer Relationship Specialty Start Date End Date Viet Zayas MD [address] [place] [address] PCP - General Family Medicine 12/27/20 documented as of this encounter
--- OUTSIDE RECORDS SUMMARY | 2024-07-11 11:37 | XMS_ITS | Clinical Summary ---
Author Organization [facility] Address [address] [place] [address] Care Team Providers Care Urban Designer Name Role Phone Viet Zayas MD Primary Care Provider [phone] Allergies Active Allergy Reactions Criticality Noted Date Comments Aspirin Unknown 05/15/2024 Codeine Unknown 05/15/2024 Tetracycline Unknown 05/15/2024 Medications Docusate Sodium (DSS) 100 MG Cap Active metoprolol tartrate (LOPRESSOR) 25 MG tablet Take 1 tablet twice a day by oral route. Active sevelamer carbonate (RENVELA) 800 MG tablet Take 1 tablet 3 times a day by oral route. Active Melatonin 3 MG Cap Take 1 capsule by oral route. Active mirtazapine (REMERON) 15 MG tablet Take 1 tablet every day by oral route at bedtime. Active simvastatin (ZOCOR) 40 MG tablet Take 1 tablet every day by oral route. Active cycloSPORINE (RESTASIS) 0.05 % ophthalmic emulsion INSTILL 1 DROP INTO AFFECTED EYE(S) BY OPHTHALMIC ROUTE EVERY 12 HOURS Active levothyroxine (SYNTHROID) 125 MCG tablet Take 1 tablet every day by oral route. Active DULoxetine (CYMBALTA) 60 MG capsule Take 1 capsule (60 mg total) by mouth daily. Active fluticasone-anupam meterol (ADVAIR DISKUS) 250-50 MCG/ACT inhaler Inhale 1 puff into the lungs daily. Active tolterodine LA (DETROL LA) 4 MG 24 hr capsule Take 1 capsule every day by oral route. Active allopurinol (ZYLOPRIM) 100 MG tablet Take 1 tablet (100 mg total) by mouth 2 (two) times daily. Active acetaminophen (TYLENOL) 325 MG tablet Take 2 tablets every 6 hours by oral route as needed. Active dicyclomine (BENTYL) 20 MG tablet Take 1 tablet (20 mg total) by mouth every 6 (six) hours as needed. Active polyethylene glycol (GLYCOLAX) packet Take 240 mLs (17 g total) by mouth. Active traMADol (ULTRAM) 50 MG tablet Take 1 tablet every 6 hours by oral route as needed. Active Encounters Date Type Department Care Team Description 05/15/2024 4:15 AM SENIOR MEDICAL TECHNOLOGIST - 05/15/2024 7:35 AM SENIOR MEDICAL TECHNOLOGIST [facility] [address] [place] [address] Sabas Gonzáles MD Fall Discharge Disposition: Home or Self Care (Routine Discharge) 05/15/2024 Travel from Last 3 Months Social History Tobacco Use Types Packs/Day Years Used Date Smoking Tobacco: Never Smokeless Tobacco: Never Tobacco Cessation:Counseling Given: Not Answered Alcohol Use Standard Drinks/Week Comments Not Currently 0 (1 standard drink = 0.6 oz pur e alcohol) Comments No Sex and Gender Information Value Date Recorded Sex Assigned at Not on file Legal Sex Female 7:07 PM SENIOR MEDICAL TECHNOLOGIST Gender Identity Not on file Sexual Orientation Not on file Last Filed Vital Signs Vital Sign Reading Time Taken Comments Blood Pressure 127/80 05/15/2024 7:00 AM SENIOR MEDICAL TECHNOLOGIST Pulse 64 05/15/2024 4:22 AM SENIOR MEDICAL TECHNOLOGIST Temperature 36.7 C (98 F) 05/15/2024 4:22 AM SENIOR MEDICAL TECHNOLOGIST Respiratory Rate 16 05/15/2024 4:22 AM SENIOR MEDICAL TECHNOLOGIST Oxygen Saturation 93% 05/15/2024 7:00 AM SENIOR MEDICAL TECHNOLOGIST Inhaled Oxygen Concentration - - Weight 81.6 kg (180 lb) 05/15/2024 4:22 AM SENIOR MEDICAL TECHNOLOGIST Height 154.9 cm (5' 1 ) 05/15/2024 4:22 AM SENIOR MEDICAL TECHNOLOGIST Body Mass Index 34.01 05/15/2024 4:22 AM SENIOR MEDICAL TECHNOLOGIST Plan of Treatment Health Maintenance Due Date Last Done Comments Annual Medicare Wellness Visit 2006 Dexa Scan (General) 2006 RSV Immunization or 60+ Years (1 - 1-dose 75+ series) 2016 COVID-19 Vaccine ( season) 2024 06/02/2021, 08/12/2020, 07/23/2020 DTaP, Tdap and Td Vaccines (2 - Td or Tdap) 12/03/2033 12/04/2023 Pneumococcal Vaccine: 65+ Years Completed 03/02/2020, 06/04/2015, 05/11/2015 Zoster Vaccines Completed 06/08/2021, 12/17/2020 Influenza Adult Completed 04/03/2024, 03/05, 03/02/2020, Additional history exists Meningococcal B Vaccine Aged Out No l onger eligible based on patient's age to complete this topic Meningococcal Vaccine Aged Out No mc sandy eligible based on patient's age to complete this topic RSV Immunizations Under 20 Months Aged Out No longer eligible based on patient's age to complete this topic Procedures Procedure Name Priority Date/Time Associated Diagnosis Comments CT CHEST+ABD+PEL WO CON STAT 05/15/2024 5:11 [address]OLOGIST [address] LUMB SPINE WO CON STAT 05/15/2024 5:[address] THOR SPINE WO CON STAT 05/15/2024 5:[address] CERV SPINE WO CON STAT 05/15/2024 5:[address] HEAD WO CON STAT 05/15/2024 5:11 AM SENIOR MEDICAL TECHNOLOGIST from Last 3 Months Results * CT THOR SPINE WO CON (05/15/2024 5:11 AM SENIOR MEDICAL TECHNOLOGIST) Anatomical Region Laterality Modality Spine Computed Tomogra phy 05/15/2024 5:19 AM SENIOR MEDICAL TECHNOLOGIST Impressions 05/15/2024 5:23 AM SENIOR MEDICAL TECHNOLOGIST IMPRESSION: 1. No acute process. 2. Multilevel moderate to severe degenerative change of the thoracic spine. 3. Findings consistent with diffuse radiographic skeletal hyperostosis. Referred By: Interpreted By: Rajesh Chiang MD, 05/15/2024 5:19 AM Narrative 05/15/2024 5:23 AM SENIOR MEDICAL TECHNOLOGIST [facility] [place] [address] INDICATION: Fall. Abdominal tenderness. COMPARISON: None. TECHNIQUE: Axial images were obtained through the thoracic spine without intravenous contrast administration. Additional images were reconstructed in coronal and sagittal planes. DOSE OPTIMIZATION: This facility uses dose optimization techniques as appropriate to perform exams, including at least one of the following techniques: 1. Automated exposure control. 2. Adjustment of the mA and/or kV according to patient size (this includes techniques or standardized protocols for targeted exams where dose is matched to the indication/reason for exam, i.e. extremities or head). 3. Use of iterative reconstructive technique. FINDINGS: Vertebral Bodies: The thoracic vertebral bodies are normal in height and alignment. There is no acute fracture or subluxation. There is no bony destructive process. Intervertebral Disc Spaces: There are multilevel degenerative changes of the thoracic spine, most pronounced in the mid and lower thoracic spine. There is moderate to severe disc height loss at multiple levels. There are prominent anterior bridging osteophytes extending from the mid thoracic spine to the lower thoracic spine. This can be seen with diffuse idiopathic skeletal hyperostosis. Soft Tissues: The visualized soft tissues adjacent to the thoracic spine are unremarkable. There is no mass or drainable fluid collection. Procedure Note Rajesh Chiang MD - 05/15/[address] [place] [address] INDICATION: Fall. Abdominal tenderness. COMPARISON: None. TECHNIQUE: Axial images were obtained through the thoracic spine withoutintravenous contrast administration. Additional images were reconstructedin coronal and sagittal planes. DOSE OPTIMIZATION: This facility uses dose optimization techniques asappropriate to perform exams, including at least one of the followingtechniques: 1. Automated exposure control. 2. Adjustment of the mA and/or kV according to patient size (this includestechniques or standardized protocols for targeted exams where dose ismatched to the indication/reason for exam, i.e. extremities or head). 3. Use of iterative reconstructive technique. FINDINGS: Vertebral Bodies: The thoracic vertebral bodies are normal in height and alignment. There isno acute fracture or subluxation. There is no bony destructive process. Intervertebral Disc Spaces: There are multilevel degenerative changes of the thoracic spine, mostpronounced in the mid and lower thoracic spine. There is moderate tosevere disc height loss at multiple levels. There are prominent anteriorbridging osteophytes extending from the mid thoracic spine to the lowerthoracic spine. This can be seen with diffuse idiopathic skeletalhyperostosis. Soft Tissues: The visualized soft tissues adjacent to the thoracic spine areunremarkable. There is no mass or drainable fluid collection. IMPRESSION: 1. No acute process. 2. Multilevel moderate to severe degenerative change of the thoracicspine. 3. Findings consistent with diffuse radiographic skeletal hyperostosis. Referred By: Interpreted By: Rajesh Chiang MD, 05/15/2024 5:19 AM us Sabas Gonzáles MD CT Final Res ult * CT LUMB SPINE WO CON (05/15/2024 5:11 AM SENIOR MEDICAL TECHNOLOGIST) Anatomical Region Laterality Modality Spine Computed Tomogra phy 05/15/2024 5:12 AM SENIOR MEDICAL TECHNOLOGIST Impressions 05/15/2024 5:16 AM SENIOR MEDICAL TECHNOLOGIST IMPRESSION: 1. No lumbar spine fracture. 2. Moderate to severe lower lumbar spondylosis, as described above. Referred By: Interpreted By: Ernesto Platt MD, 05/15/2024 5:12 AM Narrative 05/15/2024 5:16 AM SENIOR MEDICAL TECHNOLOGIST [address] [place] [address] EXAMINATION: CT LUMB SPINE WO CON, 05/15/2024 5:12 AM TECHNIQUE: Computed tomographic images of the lumbar spine were obtained without intravenous contrast. Additional coronal and sagittal reformatted images were generated. A dose lowering technique was used for this procedure, which may include, but is not limited to, dose reduction technique, automated exposure control, the use of iterative reconstruction, and ALARA (As Low As Reasonably Achievable) / Image Gently techniques. HISTORY: Fall, back pain COMPARISON: Lumbar spine radiographs 01/05/2012 FINDINGS: There are 5 nonrib-bearing lumbar-type vertebral bodies. The lumbar vertebral bodies and facets are well aligned. The lumbar vertebral body heights are preserved. There is a 0.5 cm of anterolisthesis of L4 on L5. There is a 0.6 images of retrolisthesis of L4 on L5. There is intervertebral disc height loss at T12-L1, L1-2, L4-5 and L5-S1 with endplate degenerative changes at these levels. No acute fracture nor destructive process of the visualized osseous structures. Peripherally calcified left renal cyst. Mild to moderate arteriosclerotic calcification of the abdominal aorta L1-2: Disc bulge impressing the ventral thecal sac. Moderate spinal canal stenosis. Moderate facet hypertrophy. Mild to moderate right neural foraminal stenosis. Moderate left neural foraminal stenosis. L2-3: Disc bulge impressing the ventral thecal sac. Moderate spinal canal stenosis. Moderate facet hypertrophy. Mild bilateral neural foraminal stenosis. L3-4: Disc bulge impressing the ventral thecal sac. Moderate to severe spinal canal stenosis. Moderate to marked facet hypertrophy. Mild to moderate bilateral neural foraminal stenosis. L4-5: Disc bulge impressing the ventral thecal sac. Severe spinal canal stenosis. Facet joint hypertrophy. Moderate left neural foraminal stenosis. [id number] right neural foraminal stenosis. L5-S1: Disc bulge impressing the ventral thecal sac. Moderate to severe spinal canal stenosis. Moderate to marked facet hypertrophy. Moderate left greater than right neural foraminal stenosis. Procedure Note Ernesto Platt MD - 05/15/[address] [place] [address] EXAMINATION: CT LUMB SPINE WO [facility], 05/15/2024 5:12 AM TECHNIQUE: Computed tomographic images of the lumbar spine were obtainedwithout intravenous contrast. Additional coronal and sagittal reformattedimages were generated. A dose lowering technique was used for thisprocedure, which may include, but is not limited to, dose reductiontechnique, automated exposure control, the use of iterativereconstruction, and ALARA (As Low As Reasonably Achievable) / Image Gentlytechniques. HISTORY: Fall, back pain COMPARISON: Lumbar spine radiographs 01/05/2012 FINDINGS: There are 5 nonrib-bearing lumbar-type vertebral bodies. Thelumbar vertebral bodies and facets are well aligned. The lumbar vertebralbody heights are preserved. There is a 0.5 cm of anterolisthesis of L4 onL5. There is a 0.6 images of retrolisthesis of L4 on L5. There isintervertebral disc height loss at T12-L1, L1-2, L4-5 and L5-S1 withendplate degenerative changes at these levels. No acute fracture nordestructive process of the visualized osseous structures. Peripherallycalcified left renal cyst. Mild to moderate arterioscleroticcalcification of the abdominal aorta L1-2: Disc bulge impressing the ventral thecal sac. Moderate spinal canalstenosis. Moderate facet hypertrophy. Mild to moderate right neuralforaminal stenosis. Moderate left neural foraminal stenosis. L2-3: Disc bulge impressing the ventral thecal sac. Moderate spinal canalstenosis. Moderate facet hypertrophy. Mild bilateral neural foraminalstenosis. L3-4: Disc bulge impressing the ventral thecal sac. Moderate to severespinal canal stenosis. Moderate to marked facet hypertrophy. Mild tomoderate bilateral neural foraminal stenosis. L4-5: Disc bulge impressing the ventral thecal sac. Severe spinal canalstenosis. Facet joint hypertrophy. Moderate left neural foraminalstenosis. [id number] right neural foraminal stenosis. L5-S1: Disc bulge impressing the ventral thecal sac. Moderate to severespinal canal stenosis. Moderate to marked facet hypertrophy. Moderateleft greater than right neural foraminal stenosis. IMPRESSION: 1. No lumbar spine fracture. 2. Moderate to severe lower lumbar spondylosis, as described above. Referred By: Interpreted By: Ernesto Platt MD, 05/15/2024 5:12 AM Sabas Gonzáles MD CT Final Res ult * CT HEAD WO CON (05/15/2024 5:11 AM SENIOR MEDICAL TECHNOLOGIST) Anatomical Region Laterality Modality Head Computed Tomogra phy 05/15/2024 5:09 AM SENIOR MEDICAL TECHNOLOGIST Impressions 05/15/2024 5:17 AM SENIOR MEDICAL TECHNOLOGIST IMPRESSION: 1. No CT evidence of an acute intracranial abnormality. 2. Mild global cerebral volume loss and mild to moderate chronic small vessel ischemic change. Referred By: Interpreted By: Ernesto Platt MD, 05/15/2024 5:09 AM Narrative 05/15/2024 5:17 AM SENIOR MEDICAL TECHNOLOGIST [address] [place] [address] EXAMINATION: CT HEAD WO CON, 05/15/2024 5:09 AM TECHNIQUE: Computed tomographic images of the head were obtained without intravenous contrast. Additional coronal and sagittal reformatted images were generated. A dose lowering technique was used for this procedure, which may include, but is not limited to, dose reduction technique, automated exposure control, the use of iterative reconstruction, and ALARA (As Low As Reasonably Achievable) / Image Gently techniques. HISTORY: Fall face first COMPARISON: CT head 01/05/2012 FINDINGS: There is no acute intracranial hemorrhage. There is no extra-axial fluid collection. Mild global cerebral volume loss with ex vacuo dilatation of ventricles and cerebral sulci. Scattered subcortical and periventricular white matter foci demonstrating hypodensities are nonspecific but most commonly seen in setting of chronic small vessel ischemic change. Ocular lens extractions with prosthetic lens implantation. Paranasal sinuses and mastoid air cells are well-aerated. Moderate hyperostosis frontalis internus. No acute fracture nor destructive process of the visualized osseous structures. Procedure Note Ernesto Platt MD - 05/15/[address] [place] [address] EXAMINATION: CT HEAD WO CON, 05/15/2024 5:09 AM TECHNIQUE: Computed tomographic images of the head were obtained withoutintravenous contrast. Additional coronal and sagittal reformatted imageswere generated. A dose lowering technique was used for this procedure,which may include, but is not limited to, dose reduction technique,automated exposure control, the use of iterative reconstruction, and ALARA(As Low As Reasonably Achievable) / Image Gently techniques. HISTORY: Fall face first COMPARISON: CT head 01/05/2012 FINDINGS: There is no acute intracranial hemorrhage. There is noextra-axial fluid collection. Mild global cerebral volume loss with exvacuo dilatation of ventricles and cerebral sulci. Scattered subcorticaland periventricular white matter foci demonstrating hypodensities arenonspecific but most commonly seen in setting of chronic small vesselischemic change. Ocular lens extractions with prosthetic lensimplantation. Paranasal sinuses and mastoid air cells are well- aerated.Moderate hyperostosis frontalis internus. No acute fracture nordestructive process of the visualized osseous structures. IMPRESSION: 1. No CT evidence of an acute intracranial abnormality. 2. Mild global cerebral volume loss and mild to moderate chronic smallvessel ischemic change. Referred By: Interpreted By: Ernesto Platt MD, 05/15/2024 5:09 AM Sabas Gonzáles MD CT Final Res ult * CT CHEST+ABD+PEL WO CON (05/15/2024 5:11 AM SENIOR MEDICAL TECHNOLOGIST) Anatomical Region Laterality Modality Chest, Abdomen, Pelvis Computed Tomography 05/15/2024 5:12 AM SENIOR MEDICAL TECHNOLOGIST Impressions 05/15/2024 5:18 AM SENIOR MEDICAL TECHNOLOGIST IMPRESSION: CT Thorax: 1. No acute process. 2. Mild coronary arterial calcification. CT Abdomen/Pelvis: 1. No acute process. 2. Exophytic left renal cyst demonstrates thin peripheral wall calcification. The cyst appears simple but is difficult to completely evaluate on this study. Further evaluation by ultrasound on a nonemergent basis is recommended to further evaluate this slightly complex cyst. 3. Moderate to severe atrophy of both kidneys. Referred By: Interpreted By: Rajesh Chiang MD, 05/15/2024 5:12 AM Narrative 05/15/2024 5:18 AM SENIOR MEDICAL TECHNOLOGIST [place] [id number] [place] [address] INDICATION: Fall. Abdominal tenderness. COMPARISON: None. TECHNIQUE: Axial images were obtained through the chest, abdomen, and pelvis without intravenous and oral contrast. Additional images were reconstructed in the coronal plane. DOSE OPTIMIZATION: This facility uses dose optimization techniques as appropriate to perform exams, including at least one of the following techniques: 1. Automated exposure control. 2. Adjustment of the mA and/or kV according to patient size (this includes techniques or standardized protocols for targeted exams where dose is matched to the indication/reason for exam, i.e. extremities or head). 3. Use of iterative reconstructive technique. FINDINGS: CT Thorax: Pulmonary artery and thoracic aorta: Evaluation of the vasculature is markedly limited in the absence of intravenous contrast. There are atherosclerotic calcifications of the aorta but no obvious aneurysm. Heart: Normal in size and no pericardial effusion. There are mild coronary arterial calcifications. Mediastinum: No enlarged hilar or mediastinal lymph nodes. No masses. Lungs: No pulmonary nodules or masses. No airspace disease. No pleural effusion. No pneumothorax. Axilla: No enlarged lymph nodes. Chest wall: Unremarkable. Osseous Structures: There is no acute bony process. There are a few old healed right rib fracture deformities. The visualized spine is intact. Please refer to the dedicated CT thoracic spine report for a more detailed evaluation of the thoracic spine. CT Abdomen/Pelvis: Liver: Normal. Gallbladder: Absent. Pancreas: Normal. Spleen: Normal. Adrenal glands: Normal. Kidneys: There is an exophytic cyst projecting from the left kidney with some peripheral cyst wall calcification. There is moderate to severe atrophy of both kidneys. Abdominal wall: Normal. Stomach: Normal. Large and small bowel: The large and small bowel appears unremarkable given the absence of oral contrast. Appendix: Not visualized. Mesentery: Normal. Free fluid: None. Lymph nodes: No enlarged nodes. Vasculature: There are atherosclerotic calcifications of the aorta and iliac arteries. There is no aneurysm. Urinary bladder: Normal. Uterus: Absent. Adnexa: Not visualized. Visualized osseous structures: There is no acute bony process. The visualized spine is intact. Please for to the dedicated CT lumbar spine report for a more detailed evaluation of the lumbar spine. Procedure Note Rajesh Chiang MD - 05/15/2024 [place] [id number] [place] [address] INDICATION: Fall. Abdominal tenderness. COMPARISON: None. TECHNIQUE: Axial images were obtained through the chest, abdomen, andpelvis without intravenous and oral contrast. Additional images werereconstructed in the coronal plane. DOSE OPTIMIZATION: This facility uses dose optimization techniques asappropriate to perform exams, including at least one of the followingtechniques: 1. Automated exposure control. 2. Adjustment of the mA and/or kV according to patient size (this includestechniques or standardized protocols for targeted exams where dose ismatched to the indication/reason for exam, i.e. extremities or head). 3. Use of iterative reconstructive technique. FINDINGS: CT Thorax: Pulmonary artery and thoracic aorta: Evaluation of the vasculature ismarkedly limited in the absence of intravenous contrast. There areatherosclerotic calcifications of the aorta but no obvious aneurysm. Heart: Normal in size and no pericardial effusion. There are mild coronaryarterial calcifications. Mediastinum: No enlarged hilar or mediastinal lymph nodes. No masses. Lungs: No pulmonary nodules or masses. No airspace disease. No pleuraleffusion. No pneumothorax. Axilla: No enlarged lymph nodes. Chest wall: Unremarkable. Osseous Structures: There is no acute bony process. There are a few oldhealed right rib fracture deformities. The visualized spine is intact.Please refer to the dedicated CT thoracic spine report for a more detailedevaluation of the thoracic spine. CT Abdomen/Pelvis: Liver: Normal. Gallbladder: Absent. Pancreas: Normal. Spleen: Normal. Adrenal glands: Normal. Kidneys: There is an exophytic cyst projecting from the left kidney withsome peripheral cyst wall calcification. There is moderate to severeatrophy of both kidneys. Abdominal wall: Normal. Stomach: Normal. Large and small bowel: The large and small bowel appears unremarkablegiven the absence of oral contrast. Appendix: Not visualized. Mesentery: Normal. Free fluid: None. Lymph nodes: No enlarged nodes. Vasculature: There are atherosclerotic calcifications of the aorta andiliac arteries. There is no aneurysm. Urinary bladder: Normal. Uterus: Absent. Adnexa: Not visualized. Visualized osseous structures: There is no acute bony process. Thevisualized spine is intact. Please for to the dedicated CT lumbar spinereport for a more detailed evaluation of the lumbar spine. IMPRESSION: CT Thorax: 1. No acute process. 2. Mild coronary arterial calcification. CT Abdomen/Pelvis: 1. No acute process. 2. Exophytic left renal cyst demonstrates thin peripheral wallcalcification. The cyst appears simple but is difficult to completelyevaluate on this study. Further evaluation by ultrasound on a nonemergentbasis is recommended to further evaluate this slightly complex cyst. 3. Moderate to severe atrophy of both kidneys. Referred By: Interpreted By: Rajesh Chiang MD, 05/15/2024 5:12 AM us Sabas Gonzáles MD CT Final Res ult * CT CERV SPINE WO CON (05/15/2024 5:11 AM SENIOR MEDICAL TECHNOLOGIST) Anatomical Region Laterality Modality Spine Computed Tomogra phy 05/15/2024 5:12 AM SENIOR MEDICAL TECHNOLOGIST Impressions 05/15/2024 5:22 AM SENIOR MEDICAL TECHNOLOGIST IMPRESSION: 1. No cervical spine fracture. 2. Mild to moderate cervical spondylosis. 3. Right parotid nodule. Nonemergent parotid ultrasound could be beneficial for further characterization. Referred By: Interpreted By: Ernesto Platt MD, 05/15/2024 5:12 AM Narrative 05/15/2024 5:22 AM SENIOR MEDICAL TECHNOLOGIST [address] [place] [address] EXAMINATION: CT CERV SPINE WO CON, 05/15/2024 5:12 AM TECHNIQUE: Computed tomographic images of the cervical spine were obtained without intravenous contrast. Additional coronal and sagittal reformatted images were generated. A dose lowering technique was used for this procedure, which may include, but is not limited to, dose reduction technique, automated exposure control, the use of iterative reconstruction, and ALARA (As Low As Reasonably Achievable) / Image Gently techniques. HISTORY: Fall this morning COMPARISON: CT cervical spine 01/05/2012 FINDINGS: There is straightening of the normal cervical lordosis is likely positional. There is are 0.5 cm of anterolisthesis of C3 on C4. Incomplete segmentation of the C2 and C3 vertebral bodies. Intervertebral disc height loss at C3-4, C5-6 and C6-7 levels with endplate degenerative change at these levels. No acute fracture nor destructive process of the visualized osseous structures. No abnormal prevertebral or paraspinal soft tissue swelling. Findings suggestive of prior thyroidectomy. Probable residual thyroid tissue along the right paramedian insular region. Lung apices are well-aerated. There is a 0.8 cm right parotid nodule with a hyperdense level dependently (best seen on series 2 image 33). Procedure Note Ernesto Platt MD - 05/15/2024 [facility] [address] [place] [address] EXAMINATION: CT CERV SPINE WO CON, 05/15/2024 5:12 AM TECHNIQUE: Computed tomographic images of the cervical spine were obtainedwithout intravenous contrast. Additional coronal and sagittal reformattedimages were generated. A dose lowering technique was used for thisprocedure, which may include, but is not limited to, dose reductiontechnique, automated exposure control, the use of iterativereconstruction, and ALARA (As Low As Reasonably Achievable) / Image Gentlytechniques. HISTORY: Fall this morning COMPARISON: CT cervical spine 01/05/2012 FINDINGS: There is straightening of the normal cervical lordosis is likelypositional. There is are 0.5 cm of anterolisthesis of C3 on C4.Incomplete segmentation of the C2 and C3 vertebral bodies. Intervertebraldisc height loss at C3-4, C5-6 and C6-7 levels with endplate degenerativechange at these levels. No acute fracture nor destructive process of thevisualized osseous structures. No abnormal prevertebral or paraspinalsoft tissue swelling. Findings suggestive of prior thyroidectomy.Probable residual thyroid tissue along the right paramedian insularregion. Lung apices are well-aerated. There is a 0.8 cm right parotidnodule with a hyperdense level dependently (best seen on series 2 image33). IMPRESSION: 1. No cervical spine fracture. 2. Mild to moderate cervical spondylosis. 3. Right parotid nodule. Nonemergent parotid ultrasound could bebeneficial for further characterization. Referred By: Interpreted By: Ernesto Platt MD, 05/15/2024 5:12 AM Sabas Gonzáles MD CT Final Res ult from Last 3 Months Insurance [facility]ICAID [facility] Advance Directives Documents on File Type Date Recorded Patient Peoplesoft Programmer Expl anation Advance Directives and Livin g Will 05/15/2024 8:57 AM DNR Order Care Teams Urban Designer Relationship Specialty Start Date End Date Viet Zayas MD [address] [place] [address] PCP - General FAMILY PRACTICE 08/17/21
--- OUTSIDE RECORDS SUMMARY | 2024-07-11 11:37 | XMS_ITS | Encounter Summary ---
Author Organization [facility] Online Prasad [facility] [employer] [facility] Address [facility] [place] [address] [address] Phone Care Team Providers Care Photo Journalist Name Role Phone Viet Zayas MD Primary Care Provider [phone] Encounter Details Date Type Department Care Team (Late st Contact Info) Description 07/03/2024 Treatment [place] [address] [place] [address] [address] Ahsan Maria MD [address] [place] [id number] Social History Tobacco Use Types Packs/Day Years [...] Dialysis Note - Ahsan Maria MD - 07/03/2024 12:00 AM CST Patient: Elsie Osorio : 1940 Note Type: Dialysis Rounds-Comp Service Date: 07/03/2024 Appropriate patient consent obtained. This patient was personally seen for a complete visit as part of routine monthly dialysis care for end stage renal disease. Attending Drop Hammer Set Up Operator: AHSAN MARIA Dialysis Location: [facility] Schedule: Shift: 2 OVERVIEW Patient is stable. 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 Current [facility] Outpatient Medications acetaminophen 325 mg [...] mouth three times a day with meals. Sevelamer Carbonate Tablet 800 mg tablet Take 2 Tablet By Mouth Three times a day With Meals. simvastatin 40 mg tablet Take 1 tablet by mouth every evening. Current [facility] Allergies Allergen: ASPIRIN Reaction: Unknown Allergen: CODEINE Reaction: Unknown Allergen: PENICILLINS Reaction: Breathing Problems Allergen: tetracycline Reaction: Breathing Problems Allergen: Tetracyclines Reaction: Breathing Problems Allergen: TRAMADOL Reaction: Breathing Problems DIALYSIS PRESCRIPTION Treatment Data Treatment Date: 07/03/2024 started at: 11:35 AM Dialysate / Machine Temp (prescribed): 37.0*C Dialysate / Machine Temp (actual): 37.0*C BFR (prescribed): 400 BFR (average delivered): 400 DFR (prescribed): Manual 500 DFR (average delivered): 800 Prescribed Time: 03:00 Actual Time: 03:01 EDW (kg): 80.5 Dialyzer: 180NRe Optiflux Dialysate: 2.0 K, 2.5 Ca, 1.0 Mg, 100 Dextrose (G2251) Sodium: 138 Bicarb: 38 Pre Dialysis Vitals Pre BP Sit: 149/63 Pre Wt (kg): 81.9 EDW Deviation (kg): 1.4 Temp: 96.2*F Post Dialysis Vitals Post BP Sit: 124/58 Post Wt (kg): 78.9 TREATMENT MEDICATIONS ORDERS Heparin Sodium (Porcine) 1,000 Units/mL Systemic 500 units IVP Every Treatment 12/22/2023 - 12/20/2024 Heparin Sodium (Porcine) 1,000 Units/mL Systemic 1000 units IVP Every Treatment 12/22/2023 - 12/20/2024 Vitamin D (Calcitriol) Oral 0.75 mcg ORAL 3X Week 07/26/2023 - 07/24/2024 BP AND FLUID ASSESSMENT Acceptable blood pressure. Fluid status acceptable. Post BP Sit 124/58 - 07/03/2024 174/60 - 07/01/2024 142/59 - 06/28/2024 Post Wt (kg) 78.9 - 07/03/2024 79.8 - 07/01/2024 79.9 - 06/28/2024 EDW (kg) 80.5 - 07/03/2024 80.5 - 07/01/2024 80.5 - 06/28/2024 Deviation (kg) -1.6 - 07/03/2024 -0.7 - 07/01/2024 -0.6 - 06/28/2024 ADEQUACY ASSESSMENT Target met. Prescription compliance acceptable. Continue with greater than 3x more frequent dialysis prescription. Missed Treatments 0 - Last 30 days 1 - Last 60 days Most recently missed on 05/15/2024 spKt/V (Daugirdas II) 1.76 (06/19/24) 1.65 (05/13/24) 1.77 (04/15/24) eKdrt/V 1.45 (06/19/24) 1.36 (05/13/24) 1.44 (04/15/24) % Urea Reduction 80 (06/19/24) 77 (05/13/24) 80 (04/15/24) BUN 35 (06/19/24) 39 (06/17/24) 31 (05/13/24) BUN Post Dialysis 7 (06/19/24) <2 (06/17/24) 7 (05/13/24) Creatinine 3.02 (06/17/24) 2.81 (05/13/24) 3.20 (04/15/24) Bicarbonate (CO2) 28 (06/17/24) 28 (05/13/24) 26 (04/15/24) Sodium 141 (06/17/24) 140 (05/13/24) 135 (04/15/24) ACCESS ASSESSMENT Vascular access examined. Current access is permanent and functioning well. AVFistula Standard Right Upper Arm Active (In Use) - 12/01/2021 Placed - Unknown Access Flow > 2000 (06/26/24) > 2000 (05/22/24) > 2000 (04/24/24) ANEMIA ASSESSMENT Anemia targets met. Continue current PARRISH dose. Continue maintenance iron. Hemoglobin 11.1 (07/01/24) 11.3 (06/24/24) 11.8 (06/17/24) Iron Saturation (TSat) 24 (06/17/24) 23 (05/13/24) 33 (04/15/24) Ferritin 851 (04/15/24) 719 (01/15/24) 517 (10/16/23) Iron 80 (06/17/24) 73 (05/13/24) 114 (04/15/24) TIBC 327 (06/17/24) 313 (05/13/24) 348 (04/15/24) MCV 98 (06/17/24) 100 (05/13/24) 99 (04/15/24) Folate 8.6 (04/15/24) 12.6 (01/15/24) Platelets 183 (06/17/24) 183 (05/13/24) 191 (04/15/24) BMM ASSESSMENT PTH within target. Phosphorus controlled. Calcium controlled. Bone and mineral metabolism parameters reviewed. Calcium 9.3 06/17/24 9.2 05/13/24 9.4 04/15/24 Corrected Calcium 9.1 06/17/24 9.1 05/13/24 9.3 04/15/24 Phosphorus 5.2 06/17/24 4.6 05/13/24 4.9 04/15/24 Calcium Phosphorus Product 48 06/17/24 42 05/13/24 46 04/15/24 PTH 171 04/15/24 220 01/15/24 232 10/16/23 Vitamin D, 25-OH, Total 23.3 04/15/24 21.7 01/15/24 Magnesium 2.2 04/15/24 2.2 01/15/24 2.2 10/16/23 Alkaline Phosphatase 71 04/15/24 84 01/15/24 83 10/16/23 Aluminum <5 04/15/24 6 01/15/24 <5 10/16/23 NUTRITION ASSESSMENT Albumin at goal. Albumin 4.2 06/17/24 4.1 05/13/24 4.1 04/15/24 Potassium 4.6 06/17/24 4.7 05/13/24 5.0 04/15/24 eNPCR 0.65 06/19/24 0.50 05/13/24 0.60 04/15/24 TRANSPLANT STATUS COMMENT COMMENTS: Not a candidate PHYSICAL EXAM Exam performed. Vital Signs Reviewed. Lungs - Clear. CV - Blood pressure noted. CV - RRR. No edema. EXT - No ulcers. ADDITIONAL LABS WBC 7.16 (06/17/24) 6.28 (05/13/24) 7.98 (04/15/24) Cholesterol 120 (04/15/24) 137 (01/15/24) 115 (10/16/23) HDL 46 (04/15/24) 43 (01/15/24) 42 (10/16/23) LDL Calculated 35 (04/15/24) 56 (01/15/24) 49 (10/16/23) Triglycerides 194 (04/15/24) 189 (01/15/24) 122 (10/16/23) Hepatitis B Surface Ab <10 (04/15/24) Signed by: AHSAN MARIA MD on 07/03/2024 at 04:21:43 PM Transcribed by: AHSAN MARIA MD on 07/03/2024 at 04:21:43 PM documented in this encounter Plan of Treatment Not on file documented as of this encounter Visit Diagnoses Not on filedocumented in this encounter Care Teams Photo Journalist Relationship Specialty Start Date End Date Viet Zayas MD [address] [place] [address] PCP - General Family Medicine 12/27/20 documented as of this encounter
--- OUTSIDE RECORDS SUMMARY | 2024-07-11 11:37 | XMS_ITS | Encounter Summary ---
Author Organization [facility] Address [address] [place] [address] Phone Care Team Providers Care Procedure Writer Name Role Phone Viet Zayas MD Primary Care Provider Encounter Details Date Type Department Care Team (Late st Contact Info) Description 03/27/2018 Orders Only [facility] [place] [address] [address] Gerber Chan MD [address] [place] [address] Chronic kidney disease stage 3; Hypertensive chronic kidney disease stage 1 Social History Tobacco Use Types Packs/Day Years [...] Diagnosis Chronic kidney disease stage 3 (HCC) Hypertensive chronic kidney disease stage 1 documented in this encounter Care Teams Procedure Writer Relationship Specialty Start Date End Date Viet Zayas MD [address] [place] [address] PCP - General Family Medicine 12/27/20 documented as of this encounter
--- OUTSIDE RECORDS SUMMARY | 2024-07-11 11:37 | XMS_ITS | Encounter Summary ---
Author Organization [facility] [employer] [facility] [employer] [facility] Address [facility] LUNA O[address]EDA [address] [address] Phone Care Team Providers Care Pharmacovigilance Scientist Name Role Phone Viet Zayas MD Primary Care Provider Encounter Details Date Type Department Care Team (Late st Contact Info) Description 04/22/2024 Treatment [place] [employer] [place] [address] [address] [address] Ahsan Maria MD [address] [place] [address] Social History Tobacco Use Types Packs/Day Years [...] Dialysis Note - Ahsan Maria MD - 04/22/2024 12:00 AM CST Patient: Elsie Osorio : 1940 Note Type: Dialysis Rounds-Comp Service Date: 04/22/2024 Appropriate patient consent obtained. This patient was personally seen for a complete visit as part of routine monthly dialysis care for end stage renal disease. Attending Prizer Hand: AHSAN MARIA Dialysis Location: [facility] Schedule: Shift: 2 OVERVIEW Patient is stable. 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 Current [facility] Outpatient Medications acetaminophen 325 mg tablet [...] 1 tablet by mouth every evening. Current [facility] Allergies Allergen: ASPIRIN Reaction: Unknown Allergen: CODEINE Reaction: Unknown Allergen: PENICILLINS Reaction: Breathing Problems Allergen: tetracycline Reaction: Breathing Problems Allergen: Tetracyclines Reaction: Breathing Problems Allergen: TRAMADOL Reaction: Breathing Problems DIALYSIS PRESCRIPTION Treatment Data Treatment Date: 04/22/2024 started at: 11:36 AM Dialysate / Machine Temp (prescribed): 37.0*C Dialysate / Machine Temp (actual): 36.9*C BFR (prescribed): 400 BFR (average delivered): 400 DFR (prescribed): Manual 500 DFR (average delivered): 800 Prescribed Time: 03:00 Actual Time: 02:57 EDW (kg): 81.0 Dialyzer: 180NRe Optiflux Dialysate: 2.0 K, 2.5 Ca, 1.0 Mg, 100 Dextrose (G2251) Sodium: 138 Bicarb: 38 Pre Dialysis Vitals Pre BP Sit: 158/71 Pre Wt (kg): 82.6 EDW Deviation (kg): 1.6 Temp: 97.8*F Post Dialysis Vitals Post BP Sit: 144/67 Post Wt (kg): 81.1 TREATMENT MEDICATIONS ORDERS Heparin Sodium (Porcine) 1,000 Units/mL Systemic 500 units IVP Every Treatment 12/22/2023 - 12/20/2024 Heparin Sodium (Porcine) 1,000 Units/mL Systemic 1000 units IVP Every Treatment 12/22/2023 - 12/20/2024 Vitamin D (Calcitriol) Oral 0.75 mcg ORAL 3X Week 07/26/2023 - 07/24/2024 BP AND FLUID ASSESSMENT Acceptable blood pressure. Fluid status acceptable. EDW appropriate. Fluid status and diet discussed with patient. Post BP Sit 144/67 - 04/22/2024 149/61 - 04/19/2024 134/57 - 04/17/2024 Post Wt (kg) 81.1 - 04/22/2024 81.6 - 04/19/2024 80.7 - 04/17/2024 EDW (kg) 81.0 - 04/22/2024 81.0 - 04/19/2024 81.0 - 04/17/2024 Deviation (kg) 0.1 - 04/22/2024 0.6 - 04/19/2024 -0.3 - 04/17/2024 ADEQUACY ASSESSMENT Target met. Prescription compliance acceptable. Continue with greater than 3x more frequent dialysis prescription. Missed Treatments 0 - Last 30 days 0 - Last 60 days spKt/V (Daugirdas II) 1.77 (04/15/24) 1.52 (03/18/24) 1.67 (02/12/24) eKdrt/V 1.44 (04/15/24) 1.22 (03/18/24) 1.35 (02/12/24) % Urea Reduction 80 (04/15/24) 75 (03/18/24) 78 (02/12/24) BUN 40 (04/15/24) 48 (03/18/24) 41 (02/12/24) BUN Post Dialysis 8 (04/15/24) 12 (03/18/24) 9 (02/12/24) Creatinine 3.20 (04/15/24) 3.27 (03/18/24) 3.31 (02/12/24) Bicarbonate (CO2) 26 (04/15/24) 26 (03/18/24) 26 (02/12/24) Sodium 135 (04/15/24) 138 (03/18/24) 141 (02/12/24) ACCESS ASSESSMENT Vascular access examined. Current access is permanent and functioning well. AVFistula Standard Right Upper Arm Active (In Use) - 12/01/2021 Placed - Unknown Access Flow > 1999 (03/29/24) > 1999 (02/21/24) > 1999 (01/26/24) ANEMIA ASSESSMENT Anemia targets met. Hemoglobin at target. Continue current PARRISH dose. Continue maintenance iron. Hemoglobin 11.2 (04/15/24) 11.1 (04/08/24) 10.8 (04/01/24) Iron Saturation (TSat) 33 (04/15/24) 27 (03/18/24) 28 (02/12/24) Ferritin 851 (04/15/24) 719 (01/15/24) 517 (10/16/23) Iron 114 (04/15/24) 87 (03/18/24) 90 (02/12/24) TIBC 348 (04/15/24) 326 (03/18/24) 324 (02/12/24) MCV 99 (04/15/24) 96 (03/18/24) 99 (02/12/24) Folate 8.6 (04/15/24) 12.6 (01/15/24) Platelets 191 (04/15/24) 184 (03/18/24) 171 (02/12/24) BMM ASSESSMENT PTH within target. Phosphorus controlled. Calcium controlled. Bone and mineral metabolism parameters reviewed. Calcium 9.4 04/15/24 9.1 03/18/24 9.4 02/12/24 Corrected Calcium 9.3 04/15/24 9.1 03/18/24 9.4 02/12/24 Phosphorus 4.9 04/15/24 5.2 03/18/24 4.7 02/12/24 Calcium Phosphorus Product 46 04/15/24 47 03/18/24 44 02/12/24 PTH 171 04/15/24 220 01/15/24 232 10/16/23 Vitamin D, 25-OH, Total 23.3 04/15/24 21.7 01/15/24 Magnesium 2.2 04/15/24 2.2 01/15/24 2.2 10/16/23 Alkaline Phosphatase 71 04/15/24 84 01/15/24 83 10/16/23 Aluminum <5 04/15/24 6 01/15/24 <5 10/16/23 NUTRITION ASSESSMENT Albumin at goal. Potassium controlled. Caloric intake addressed. Albumin 4.1 04/15/24 4.0 03/18/24 4.0 02/12/24 Potassium 5.0 04/15/24 4.8 03/18/24 4.8 02/12/24 eNPCR 0.60 04/15/24 0.66 03/18/24 0.61 02/12/24 TRANSPLANT STATUS COMMENT COMMENTS: Not a candidate PHYSICAL EXAM Exam performed. Vital Signs Reviewed. Lungs - Clear. CV - Blood pressure noted. CV - RRR. No edema. EXT - No ulcers. ADDITIONAL LABS WBC 7.98 (04/15/24) 6.13 (03/18/24) 7.04 (02/12/24) Cholesterol 120 (04/15/24) 137 (01/15/24) 115 (10/16/23) HDL 46 (04/15/24) 43 (01/15/24) 42 (10/16/23) LDL Calculated 35 (04/15/24) 56 (01/15/24) 49 (10/16/23) Triglycerides 194 (04/15/24) 189 (01/15/24) 122 (10/16/23) Hepatitis B Surface Ab <10 (04/15/24) Signed by: AHSAN MARIA MD on 04/22/2024 at 03:17:33 PM Transcribed by: AHSAN MARIA MD on 04/22/2024 at 03:17:33 PM documented in this encounter Plan of Treatment Not on file documented as of this encounter Visit Diagnoses Not on filedocumented in this encounter Care Teams Pharmacovigilance Scientist Relationship Specialty Start Date End Date Viet Zayas MD [address] [place] [id number] PCP - General Family Medicine 12/27/20 documented as of this encounter
--- OUTSIDE RECORDS SUMMARY | 2024-07-11 11:37 | XMS_ITS | Encounter Summary ---
Author Organization [facility] Address [address] [place] [address] Phone Care Team Providers Care Deliverer Merchandise Name Role Phone Viet Zayas MD Primary Care Provider [phone] Encounter Details Date Type Department Care Team (Late st Contact Info) Description 12/25/2017 Orders Only [facility] [place] [address] [address] Gerber Chan MD [address] [place] [address] Anemia in chronic kidney disease Social History Tobacco Use Types Packs/Day Years [...] as of this encounter Visit Diagnoses Diagnosis Anemia in chronic kidney disease documented in this encounter Care Teams Deliverer Merchandise Relationship Specialty Start Date End Date Viet Zayas MD [address] [place] [address] PCP - General Family Medicine 12/27/20 documented as of this encounter
--- OUTSIDE RECORDS SUMMARY | 2024-07-11 11:37 | XMS_ITS | Encounter Summary ---
Author Organization [facility] Address [address] [place] [address] Phone Care Team Providers Care Long Chain Quiller Tender Name Role Phone Viet Zayas MD Primary Care Provider Encounter Details Date Type Department Care Team (Late st Contact Info) Description 06/27/2018 Orders Only [facility] [place] [address] [address] Gerber Chan MD [address] [place] [address] Chronic kidney disease stage 3; [...] 1 documented in this encounter Care Teams Long Chain Quiller Tender Relationship Specialty Start Date End Date Viet Zayas MD [address] [place] [address] PCP - General Family Medicine 12/27/20 documented as of this encounter
[2024-07-11 12:16] LABS: Alanine Aminotransferase 17 U/L (14-59); Alkaline Phosphatase 92 U/L (46-116); Anion Gap 7 mmol/L (4-12); Aspartate Amino Transferase 21 U/L (15-37); Bilirubin,Total 0.4 mg/dL (0.00-1.00); Blood Urea Nitrogen 25 mg/dL (7-18); Carbon Dioxide 36 mmol/L (21-32); Chloride 100 mmol/L (98-108); Estimated Glomerular Filt Rate 18; Glucose 84 mg/dL (70-99); Osmolality Calculated 299 mOsm/kg (285-295); Potassium 3.9 mmol/L (3.5-5.1); Sodium 143 mmol/L (136-145); Total Protein 7.1 g/dL (6.4-8.2)
== END 2024-07-11 10:56 | disposition home or self-care (01) ==
LOC: CHSLAB 10:57
PROVIDERS: PCP Family Medicine; Visit Provider Family Medicine
DX: N18.9 Chronic kidney disease, unspecified (principal); R73.9 Hyperglycemia, unspecified; E03.8 Other specified hypothyroidism; M25.522 Pain in left elbow; M25.519 Pain in unspecified shoulder; S52.182 Other fracture of upper end of left radius; M19.022 Primary osteoarthritis, left elbow
CPT/HCPCS: 36415; 73030; 73080; 80053; 83036; 84443; 85025

== ENCOUNTER 2024-10-27 16:49 | Emergency (ER) | payer OTHER, SELFPAY ==
[2024-10-27 16:52] VITALS: BP 154/84; PULSE 84; RESP 18; TEMP 36.6; O2SAT 97
--- OUTSIDE RECORDS SUMMARY | 2024-10-27 16:53 | XMS_ITS | Encounter Summary ---
Author Organization [facility] Address [address] [place] [address] Phone Care Team Providers Care Industrial Cleaning Technician Name Role Phone Viet Zayas MD Primary Care Provider [phone] Encounter Details Date Type Department Care Team (Late st Contact Info) Description 02/18/2019 Orders Only [facility] [place] [address] [address] Gerber Chan MD [address] [place] [address] Chronic kidney disease stage 3 [...] (HCC) documented in this encounter Care Teams Industrial Cleaning Technician Relationship Specialty Start Date End Date Viet Zayas MD [address] [place] [address] PCP - General Family Medicine 12/27/20 documented as of this encounter
--- OUTSIDE RECORDS SUMMARY | 2024-10-27 16:53 | XMS_ITS | Encounter Summary ---
Author Organization [facility] Address [address] [facility] [address] [place] [address] Phone Care Team Providers Care Trial Judge Name Role Phone Viet Zayas MD Primary Care Provider Reason for Visit * Reason Comments Med Refill Encounter Details Date Type Department Care Team (Late st Contact Info) Description 01/24/2020 Refill [facility] [place] [address] [facility] [address] [place] [address] Gerber Chan MD [address] [facility] [address] [place] [address] Social History Tobacco Use Types [...] on filedocumented in this encounter Care Teams Trial Judge Relationship Specialty Start Date End Date Viet Zayas MD [address] [place] [address] PCP - General Family Medicine 12/27/20 documented as of this encounter
--- OUTSIDE RECORDS SUMMARY | 2024-10-27 16:53 | XMS_ITS | Encounter Summary ---
Author Organization [facility] Address [address] [place] [address] Phone Care Team Providers Care Peanut Vendor Name Role Phone Viet Zayas MD Primary Care Provider [phone] Encounter Details Date Type Department Care Team (Late st Contact Info) Description 05/20/2019 Orders Only [facility] [place] [address] [address] Gerber Chan MD [address] [place] [address] Chronic kidney disease stage 3 [...] (HCC) documented in this encounter Care Teams Peanut Vendor Relationship Specialty Start Date End Date Viet Zayas MD [address] [place] [address] PCP - General Family Medicine 12/27/20 documented as of this encounter
--- OUTSIDE RECORDS SUMMARY | 2024-10-27 16:53 | XMS_ITS | Encounter Summary ---
Author Organization [facility] Address [address] [place] [address] Phone Care Team Providers Care Surgery Nurse Name Role Phone Viet Zayas MD Primary Care Provider [phone] Encounter Details Date Type Department Care Team (Late st Contact Info) Description 07/02/2017 Orders Only [facility] [place] [address] [address] Gerber Chan MD [address] [place] [address] Chronic kidney disease stage 3 [...] (HCC) documented in this encounter Care Teams Surgery Nurse Relationship Specialty Start Date End Date Viet Zayas MD [address] [place] [address] PCP - General Family Medicine 12/27/20 documented as of this encounter
--- OUTSIDE RECORDS SUMMARY | 2024-10-27 16:53 | XMS_ITS | Clinical Summary ---
Author Organization [facility] Address [address] [place] [address] Care Team Providers Care Post Doctoral Researcher Name Role Phone No, Physician Primary Care Provider [phone] Allergies No known active allergies Immunizations Immunization Administration Dates Next Due Tdap 12/04/2023 Surgical [...] on file Legal Sex Female 10:16 AM QUALITY SYSTEMS TECHNICIAN Gender Identity Not on file Sexual Orientation [...] 12:45 PM CDT Height 154.9 cm (5' 1) 12/04/2023 12:45 PM CDT Body Mass Index 34.01 12/04/2023 12:45 PM CDT Plan of Treatment Health Maintenance Due Date Last Done Comments Depression Screening 1940 Fall Risk Assessment 1940 Osteoporosis Screening-Bone Density Scan 1940 Well Visit 65+ 2006 Covid-19 Vaccine (4 - 2023-2 5 season) 2024 06/02/2021, 08/12/2020, 07/23/2020 Influenza Vaccine (Season Ended) 2025 03/02/2020, 02/10/2019, 02/27/2018, Additional history exists DTaP/Tdap/Td Vaccine (2 - Td or Tdap) 12/03/2033 12/04/2023 Pneumococcal vaccine 65+ Completed 020, 06/04/2015, 05/11/2015 Zoster Vaccine Completed 06/08/2021, 12/17/2020 Hepatitis B Screening Completed 08/15/2022 , 04/18/2022, 03/14/2022, Additional history exists Insurance ([place]) [address] [facility] Care Teams Post Doctoral Researcher Relationship Specialty Start Date End Date No, Physician PCP - General 12/04/23
--- OUTSIDE RECORDS SUMMARY | 2024-10-27 16:53 | XMS_ITS | Encounter Summary ---
Author Organization [facility] [employer] [facility] [employer] [facility] Address [facility] [place] [address] [address] Phone Care Team Providers Care Performance Improvement Director Name Role Phone Viet Zayas MD Primary Care Provider [phone] Encounter Details Date Type Department Care Team (Late st Contact Info) Description 07/22/2024 Treatment [place] [employer] [place] [address] [place] [address] [address] [address] Ahsan Maria MD [address] [place] [id number] Social History Tobacco Use Types Packs/Day Years [...] Dialysis Note - Ahsan Maria MD - 07/22/2024 12:00 AM CST Patient: Elsie Osorio : 1940 Note Type: Dialysis Rounds-Comp Service Date: 07/22/2024 Appropriate patient consent obtained. This patient was personally seen for a complete visit as part of routine monthly dialysis care for end stage renal disease. Attending Industrial Equipment Mechanic: AHSAN MARIA Dialysis Location: [facility] Schedule: Shift: 2 OVERVIEW Patient is stable. 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 Current [facility] Outpatient Medications acetaminophen 325 mg [...] 1 tablet by mouth every evening. [facility] Allergies Allergen: ASPIRIN Reaction: Unknown Allergen: CODEINE Reaction: Unknown Allergen: PENICILLINS Reaction: Breathing Problems Allergen: tetracycline Reaction: Breathing Problems Allergen: Tetracyclines Reaction: Breathing Problems Allergen: TRAMADOL Reaction: Breathing Problems DIALYSIS PRESCRIPTION Treatment Data Treatment Date: 07/31/2024 started at: 11:36 AM Dialysate / Machine Temp (prescribed): 37.0*C Dialysate / Machine Temp (actual): 36.8*C BFR (prescribed): 400 BFR (actual): 400 DFR (prescribed): Manual 500 DFR (actual): 800 Prescribed Time: 03:00 EDW (kg): 80.0 Dialyzer: 180NRe Optiflux Dialysate: 2.0 K, 2.5 Ca, 1.0 Mg, 100 Dextrose (G2251) Sodium: 138 Bicarb: 38 Pre Dialysis Vitals Pre BP Sit: 139/66 Pre Wt (kg): 80.7 EDW Deviation (kg): 0.7 Temp: 96.5*F Current Dialysis Vitals BP Sit: 143/64 AP/SUPERVISOR AIRPLANE FLIGHT ATTENDANT: 226/190 Pulse: 73 TREATMENT MEDICATIONS ORDERS Heparin Sodium (Porcine) 1,000 Units/mL Systemic 500 units IVP Every Treatment 12/22/2023 - 12/20/2024 Heparin Sodium (Porcine) 1,000 Units/mL Systemic 1000 units IVP Every Treatment 12/22/2023 - 12/20/2024 Iron Sucrose (Venofer) 50 mg IVP 1X Week 07/17/2024 - 07/16/2025 BP AND FLUID ASSESSMENT Acceptable blood pressure. Fluid status acceptable. Post BP Sit 138/57 - 07/29/2024 164/75 - 07/26/2024 114/78 - 07/24/2024 Post Wt (kg) 79.9 - 07/29/2024 79.7 - 07/26/2024 79.4 - 07/24/2024 EDW (kg) 80.0 - 07/29/2024 80.0 - 07/26/2024 80.0 - 07/24/2024 Deviation (kg) -0.1 - 07/29/2024 -0.3 - 07/26/2024 -0.6 - 07/24/2024 ADEQUACY ASSESSMENT Target met. Prescription compliance acceptable. Continue with greater than 3x more frequent dialysis prescription. Missed Treatments 0 - Last 30 days 0 - Last 60 days spKt/V (Daugirdas II) 1.67 (07/15/24) 1.76 (06/19/24) 1.65 (05/13/24) eKdrt/V 1.36 (07/15/24) 1.45 (06/19/24) 1.36 (05/13/24) % Urea Reduction 78 (07/15/24) 80 (06/19/24) 77 (05/13/24) BUN 32 (07/15/24) 35 (06/19/24) 39 (06/17/24) BUN Post Dialysis 7 (07/15/24) 7 (06/19/24) <2 (06/17/24) Creatinine 2.76 (07/15/24) 3.02 (06/17/24) 2.81 (05/13/24) Bicarbonate (CO2) 29 (07/15/24) 28 (06/17/24) 28 (05/13/24) Sodium 138 (07/15/24) 141 (06/17/24) 140 (05/13/24) ACCESS ASSESSMENT Vascular access examined. Current access is permanent and functioning well. AVFistula Standard Right Upper Arm Active (In Use) - 12/01/2021 Placed - Unknown Access Flow > 2000 (07/24/24) > 2000 (06/26/24) > 2000 (05/22/24) ANEMIA ASSESSMENT Anemia targets met. PARRISH adjusted per protocol. Iron adjusted per protocol. Hemoglobin 10.8 (07/29/24) 10.7 (07/22/24) 10.5 (07/15/24) Iron Saturation (TSat) 22 (07/15/24) 24 (06/17/24) 23 (05/13/24) Ferritin 589 (07/15/24) 851 (04/15/24) 719 (01/15/24) Iron 70 (07/15/24) 80 (06/17/24) 73 (05/13/24) TIBC 321 (07/15/24) 327 (06/17/24) 313 (05/13/24) MCV 95 (07/15/24) 98 (06/17/24) 100 (05/13/24) Folate 8.6 (04/15/24) 12.6 (01/15/24) Platelets 142 (07/15/24) 183 (06/17/24) 183 (05/13/24) BMM ASSESSMENT PTH within target. Phosphorus controlled. Calcium controlled. Bone and mineral metabolism parameters reviewed. Calcium 9.4 07/15/24 9.3 06/17/24 9.2 05/13/24 Corrected Calcium 9.5 07/15/24 9.1 06/17/24 9.1 05/13/24 Phosphorus 4.6 07/15/24 5.2 06/17/24 4.6 05/13/24 Calcium Phosphorus Product 43 07/15/24 48 06/17/24 42 05/13/24 PTH 205 07/15/24 171 04/15/24 220 01/15/24 Vitamin D, 25-OH, Total 23.3 04/15/24 21.7 01/15/24 Magnesium 2.2 07/15/24 2.2 04/15/24 2.2 01/15/24 Alkaline Phosphatase 71 07/15/24 71 04/15/24 84 01/15/24 Aluminum <5 04/15/24 6 01/15/24 <5 10/16/23 NUTRITION ASSESSMENT Albumin at goal. Potassium controlled. Albumin 3.9 07/15/24 4.2 06/17/24 4.1 05/13/24 Potassium 4.4 07/15/24 4.6 06/17/24 4.7 05/13/24 eNPCR 0.51 07/15/24 0.65 06/19/24 0.50 05/13/24 TRANSPLANT STATUS COMMENT COMMENTS: Not a candidate PHYSICAL EXAM Exam performed. Vital Signs Reviewed. Lungs - Clear. CV - Blood pressure noted. CV - RRR. No edema. EXT - No ulcers. ADDITIONAL LABS WBC 6.20 (07/15/24) 7.16 (06/17/24) 6.28 (05/13/24) Cholesterol 120 (04/15/24) 137 (01/15/24) 115 (10/16/23) HDL 46 (04/15/24) 43 (01/15/24) 42 (10/16/23) LDL Calculated 35 (04/15/24) 56 (01/15/24) 49 (10/16/23) Triglycerides 194 (04/15/24) 189 (01/15/24) 122 (10/16/23) Hepatitis B Surface Ab <10 (04/15/24) Signed by: AHSAN MARIA MD on 07/31/2024 at 02:51:36 PM Transcribed by: AHSAN MARIA MD on 07/31/2024 at 02:51:36 PM documented in this encounter Plan of Treatment Not on file documented as of this encounter Visit Diagnoses Not on filedocumented in this encounter Care Teams Performance Improvement Director Relationship Specialty Start Date End Date Viet Zayas MD [address] [place] [address] PCP - General Family Medicine 12/27/20 documented as of this encounter
--- OUTSIDE RECORDS SUMMARY | 2024-10-27 16:53 | XMS_ITS | Encounter Summary ---
Author Organization [facility] [employer] [facility] [employer] [facility] Address [employer] [place] [address] [address] Phone Care Team Providers Care Power Equipment Technology Instructor Name Role Phone Viet Zayas MD Primary Care Provider [phone] Encounter Details Date Type Department Care Team (Late st Contact Info) Description 05/20/2024 Treatment [place] [employer] [place] [address] [address] [address] [address] Ahsan Maria MD [address] [place] [address] Social History Tobacco Use Types Packs/Day Years [...] - 05/20/2024 12:00 AM CST Patient: Elsie Osoiro : 1940 Note Type: Dialysis Rounds-Comp Service Date: 05/20/2024 Appropriate patient consent obtained. This patient was personally seen for a complete visit as part of routine monthly dialysis care for end stage renal disease. Attending Button Tacker: AHSAN MARIA Dialysis Location: [facility] Schedule: Shift: 2 OVERVIEW Patient is stable. 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 Current [facility] Outpatient Medications acetaminophen 325 mg [...] 1 tablet by mouth every evening. Current [facility] Allergies Allergen: ASPIRIN Reaction: Unknown [...] 97.3*F Current Dialysis Vitals BP Sit: 140/62 AP/COMMERCIAL MORTGAGE BROKER: 222/194 Pulse: 72 TREATMENT MEDICATIONS ORDERS Heparin [...] on filedocumented in this encounter Care Teams Power Equipment Technology Instructor Relationship Specialty Start Date End Date Viet Zayas MD [address] [place], [place] [id number] PCP - General Family Medicine 12/27/20 documented as of this encounter
--- OUTSIDE RECORDS SUMMARY | 2024-10-27 16:53 | XMS_ITS | Encounter Summary ---
Author Organization [facility] Address [address] [place] [address] Phone Care Team Providers Care Machine Wedger Name Role Phone Viet Zayas MD Primary Care Provider [phone] Encounter Details Date Type Department Care Team (Late st Contact Info) Description 12/25/2017 Orders Only [facility] [place] [address] [address] Gerber Chan MD [address] [place] [address] Anemia in chronic kidney disease [...] disease documented in this encounter Care Teams Machine Wedger Relationship Specialty Start Date End Date Viet Zayas MD [address] [place] [address] PCP - General Family Medicine 12/27/20 documented as of this encounter
--- OUTSIDE RECORDS SUMMARY | 2024-10-27 16:53 | XMS_ITS | Referral Summary ---
Author Organization [facility] Address [address] [place] [address] Care Team Providers Care Shop Worker Name Role Phone No, Physician Primary Care Provider [phone] Allergies No known active allergies Immunizations Immunization Administration Dates Next Due Tdap 12/04/2023 Social [...] on file Legal Sex Female 10:16 AM SKEIN BANDER Gender Identity Not on file Sexual Orientation [...] of Treatment Not on file Insurance [address] [address] [facility] [place] [facility] Care Teams Shop Worker Relationship Specialty Start Date End Date No, Physician PCP - General 12/04/23
--- OUTSIDE RECORDS SUMMARY | 2024-10-27 16:53 | XMS_ITS | Encounter Summary ---
Author Organization [facility] [employer] [facility] [employer] [facility] Address [facility] [place] [address] [address] Phone Care Team Providers Care Call Or Contact Centre Team Leader Name Role Phone Viet Zayas MD Primary Care Provider [phone] Encounter Details Date Type Department Care Team (Late st Contact Info) Description 07/03/2024 Treatment [place] [employer] [place] [address] [address] [address] [address] [address] Ahsan Maria MD [address] [place] [address] Social History Tobacco Use Types Packs/Day Years [...] care for end stage renal disease. Attending Senior Dynamics Crm Developer: AHSAN MARIA Dialysis Location: [facility] Schedule: Shift: 2 OVERVIEW Patient is stable. 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 Current [facility] Outpatient Medications acetaminophen 325 mg tablet Take [...] 1 tablet by mouth every evening. Current [facility] Allergies Allergen: ASPIRIN Reaction: Unknown Allergen: CODEINE [...] on filedocumented in this encounter Care Teams Call Or Contact Centre Team Leader Relationship Specialty Start Date End Date Viet Zayas MD [address] [place] [address] PCP - General Family Medicine 12/27/20 documented as of this encounter
--- OUTSIDE RECORDS SUMMARY | 2024-10-27 16:53 | XMS_ITS | Encounter Summary ---
Author Organization [facility] [employer] [facility] [employer] [facility] Address [facility] [place] [address] [address] Phone Care Team Providers Care Liquor Bridge Operator Helper Name Role Phone Viet Zayas MD Primary Care Provider [phone] Encounter Details Date Type Department Care Team (Late st Contact Info) Description 03/18/2024 Treatment [place] [employer] [place] [address] [address] [address] [address] Ahsan Maria MD [address] [place] [address] Social History Tobacco Use Types Packs/Day Years [...] care for end stage renal disease. Attending Microbiology Lab Analyst: AHSAN MARIA Dialysis Location: [facility] Schedule: Shift: 2 OVERVIEW Patient is stable. 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 Current [facility] Outpatient Medications acetaminophen 325 mg tablet Take [...] 1 tablet by mouth every evening. Current [facility] Allergies Allergen: ASPIRIN Reaction: Unknown Allergen: CODEINE [...] on filedocumented in this encounter Care Teams Liquor Bridge Operator Helper Relationship Specialty Start Date End Date Viet Zayas MD [address] [place] [address] PCP - General Family Medicine 12/27/20 documented as of this encounter
--- OUTSIDE RECORDS SUMMARY | 2024-10-27 16:53 | XMS_ITS | Encounter Summary ---
Author Organization [facility] [employer] [facility] [employer] [facility] Address [facility] [place] [address] [address] Phone Care Team Providers Care Gutter Mouth Cutter Name Role Phone Viet Zayas MD Primary Care Provider Encounter Details Date Type Department Care Team (Late st Contact Info) Description 09/25/2024 Treatment [place] [employer] [place] [address] [address] [address] [address] Ahsan Maria MD [address] [place] [address] End stage renal disease; Dependence on renal dialysis Social History Tobacco Use Types Packs/Day Years [...] Dialysis Note - Ahsan Maria MD - 09/25/2024 12:00 AM CDT Patient: Elsie Osorio : 1940 Note Type: Dialysis Rounds-Comp Service Date: 09/25/2024 Appropriate patient consent obtained. This patient was personally seen for a complete visit as part of routine monthly dialysis care for end stage renal disease. Attending Family Lawyer: AHSAN MARIA Dialysis Location: [facility] Schedule: Shift: 2 OVERVIEW Patient is stable. 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 Current [facility] Outpatient Medications acetaminophen 325 mg tablet [...] 1 tablet by mouth every evening. Current [facility] Allergies Allergen: ASPIRIN Reaction: Unknown Allergen: CODEINE Reaction: Unknown Allergen: PENICILLINS Reaction: Breathing Problems Allergen: tetracycline Reaction: Breathing Problems Allergen: Tetracyclines Reaction: Breathing Problems Allergen: TRAMADOL Reaction: Breathing Problems DIALYSIS PRESCRIPTION Treatment Data Treatment Date: 09/27/2024 started at: 11:54 AM Dialysate / Machine Temp (prescribed): 37.0*C Dialysate / Machine Temp (actual): 37.0*C BFR (prescribed): 400 BFR (average delivered): 400 DFR (prescribed): Manual 500 DFR (average delivered): 800 Prescribed Time: 03:00 Actual Time: 03:00 EDW (kg): 80.5 Dialyzer: 180NRe Optiflux Dialysate: 2.0 K, 2.5 Ca, 1.0 Mg, 100 Dextrose (G2251) Sodium: 138 Bicarb: 38 Pre Dialysis Vitals Pre BP Sit: 148/78 Pre Wt (kg): 81.3 EDW Deviation (kg): 0.8 Temp: 96.9*F Post Dialysis Vitals Post BP Sit: 155/68 Post Wt (kg): 80.2 TREATMENT MEDICATIONS ORDERS Heparin Sodium (Porcine) 1,000 Units/mL Systemic 500 units IVP Every Treatment 12/22/2023 - 12/20/2024 Heparin Sodium (Porcine) 1,000 Units/mL Systemic 1000 units IVP Every Treatment 12/22/2023 - 12/20/2024 Iron Sucrose (Venofer) 50 mg IVP Every Treatment 09/02/2024 - 09/01/2025 Mircera 30 mcg IVP Every 2 weeks 09/04/2024 - 09/03/2025 BP AND FLUID ASSESSMENT Acceptable blood pressure. Fluid status acceptable. EDW appropriate. Post BP Sit 155/68 - 09/27/2024 163/64 - 09/25/2024 158/64 - 09/23/2024 Post Wt (kg) 80.2 - 09/27/2024 80.2 - 09/25/2024 80.2 - 09/23/2024 EDW (kg) 80.5 - 09/27/2024 80.5 - 09/25/2024 80.5 - 09/23/2024 Deviation (kg) -0.3 - 09/27/2024 -0.3 - 09/25/2024 -0.3 - 09/23/2024 ADEQUACY ASSESSMENT spKt/V (Daugirdas II) 1.44 (09/16/24) 1.70 (08/12/24) 1.67 (07/15/24) eKdrt/V 1.15 (09/16/24) 1.38 (08/12/24) 1.36 (07/15/24) % Urea Reduction 73 (09/16/24) 79 (08/12/24) 78 (07/15/24) BUN 45 (09/16/24) 33 (08/12/24) 32 (07/15/24) BUN Post Dialysis 12 (09/16/24) 7 (08/12/24) 7 (07/15/24) Creatinine 2.96 (09/16/24) 2.93 (08/12/24) 2.76 (07/15/24) Bicarbonate (CO2) 23 (09/16/24) 29 (08/12/24) 29 (07/15/24) Sodium 138 (09/16/24) 142 (08/12/24) 138 (07/15/24) Target met. Prescription compliance acceptable. Continue with greater than 3x more frequent dialysis prescription. Missed Treatments 0 - Last 30 days 1 - Last 60 days Most recently missed on 08/26/2024 ACCESS ASSESSMENT Current access is permanent and functioning well. AVFistula Standard Right Upper Arm Active (In Use) - 12/01/2021 Placed - Unknown Access Flow > 2000 (09/25/24) > 2000 (08/21/24) > 2000 (07/24/24) ANEMIA ASSESSMENT Hemoglobin 10.8 (09/23/24) 10.8 (09/16/24) 10.5 (09/09/24) Iron Saturation (TSat) 18 (09/16/24) 22 (08/12/24) 22 (07/15/24) Ferritin 589 (07/15/24) 851 (04/15/24) 719 (01/15/24) Iron 58 (09/16/24) 69 (08/12/24) 70 (07/15/24) TIBC 329 (09/16/24) 309 (08/12/24) 321 (07/15/24) MCV 98 (09/16/24) 99 (08/12/24) 95 (07/15/24) Folate 8.6 (04/15/24) 12.6 (01/15/24) Platelets 151 (09/16/24) 177 (08/12/24) 142 (07/15/24) Anemia targets met. PARRISH adjusted per protocol. Iron adjusted per protocol. BMM ASSESSMENT Calcium 8.9 09/16/24 8.9 08/12/24 9.4 07/15/24 Corrected Calcium 8.9 09/16/24 8.8 08/12/24 9.5 07/15/24 Phosphorus 4.5 09/16/24 4.1 08/12/24 4.6 07/15/24 Calcium Phosphorus Product 40 09/16/24 36 08/12/24 43 07/15/24 PTH 205 07/15/24 171 04/15/24 220 01/15/24 Vitamin D, 25-OH, Total 23.3 04/15/24 21.7 01/15/24 Magnesium 2.2 07/15/24 2.2 04/15/24 2.2 01/15/24 Alkaline Phosphatase 71 07/15/24 71 04/15/24 84 01/15/24 Aluminum <5 04/15/24 6 01/15/24 <5 10/16/23 PTH within target. Phosphorus controlled. Calcium controlled. Bone and mineral metabolism parameters reviewed. NUTRITION ASSESSMENT Albumin 4.0 09/16/24 4.1 08/12/24 3.9 07/15/24 Potassium 4.6 09/16/24 4.4 08/12/24 4.4 07/15/24 eNPCR 0.62 09/16/24 0.52 08/12/24 0.51 07/15/24 Albumin at goal. Potassium controlled. TRANSPLANT STATUS COMMENT COMMENTS: Not a candidate PHYSICAL EXAM Exam performed. Vital Signs Reviewed. Lungs - Clear. CV - Blood pressure noted. CV - RRR. No edema. EXT - No ulcers. ADDITIONAL LABS WBC 6.36 (09/16/24) 6.04 (08/12/24) 6.20 (07/15/24) Cholesterol 120 (04/15/24) 137 (01/15/24) 115 (10/16/23) HDL 46 (04/15/24) 43 (01/15/24) 42 (10/16/23) LDL Calculated 35 (04/15/24) 56 (01/15/24) 49 (10/16/23) Triglycerides 194 (04/15/24) 189 (01/15/24) 122 (10/16/23) Hepatitis B Surface Ab <10 (04/15/24) Signed by: AHSAN MARIA MD on 09/28/2024 at 06:52:40 PM Transcribed by: AHSAN MARIA MD on 09/28/2024 at 06:52:40 PM documented in this encounter Plan of Treatment Not on file documented as of this encounter Visit Diagnoses Diagnosis End stage renal disease Dependence on renal dialysis documented in this encounter Care Teams Gutter Mouth Cutter Relationship Specialty Start Date End Date Viet Zayas MD [address] [place] [address] PCP - General Family Medicine 12/27/20 documented as of this encounter
--- OUTSIDE RECORDS SUMMARY | 2024-10-27 16:53 | XMS_ITS | Clinical Summary ---
Author Organization [facility] Address [address] [address] Phone Care Team Providers Care Boat Engines Installer Name Role Phone Viet Zayas MD Primary Care Provider [phone] Allergies Active Allergy Reactions Criticality Noted Date Comments Aspirin Other (see comments) 11/17/2013 Upsets her chest and gives her heartburn Codeine Other (see comments) 11/17/2013 Gives her heartburn [place] Pollen 07/29/2009 Penicillin V 07/29/2009 Penicillins Other [...] capsule 11 0 Active ergocalciferol 1.25 MG (49459 UT) capsule Take 50,000 Units by mouth [...] Encounters Date Type Department Care Team Description 10/21/2024 Orders Only [facility], [place] [phone] Ahsan Maria MD 10/14/2024 Orders Only [facility], [address] [address] Ahsan Maria MD 10/07/2024 Orders Only [facility], [address] [address] Ahsan Maria MD 09/30/2024 Orders Only [facility], [address] [address] Ahsan Maria MD 09/25/2024 Treatment [facility], [address] [address] Ahsan Maria MD End stage renal disease; Dependence on renal dialysis 09/23/2024 Orders Only [facility], [address] [address] Ahsan Maria MD 09/16/2024 Orders Only [facility], [address] [address] Ahsan Maria MD 09/09/2024 Orders Only [facility], [address] [address] Ahsan Maria MD 09/02/2024 Orders Only [facility], [address] [address] Ahsan Maria MD 08/28/2024 Orders Only [facility], [address] [place] [address] Ahsan Maria MD 08/19/2024 Treatment [place] [address] [place] [address] Ahsan Maria MD End stage renal disease; Dependence on renal dialysis 08/19/2024 Orders Only [facility], [address] [place] [address] Ahsan Maria MD 08/12/2024 Orders Only [facility], [address] [address] Ahsan Maria MD 08/05/2024 Orders Only [facility], [address] [address] Ahsan Maria MD from Last 3 Months Immunizations Immunization Administration Dates Next Due Influenza TIV (IM) [...] 3:34 PM CDT Height 154.9 cm (5' 1) 11/08/2021 3:34 PM CDT Body Mass Index 35.9 11/08/2021 3:34 PM CDT Plan of Treatment Health Maintenance Due Date Last Done Comments Pneumococcal Vaccine: 50+ Ye ars (1 of 2 - PCV) 1959 Hepatitis B Vaccine (1 of 5 - Risk Dialysis 4-dose series) 1960 Influenza Vaccine (Season Ended) 2025 02/11/20 19, 02/27/2018 Procedures Procedure Name Priority Date/Time Associated Diagnosis Comments HEMATOLOGY Routine 10/21/2024 [facility] LAB RESULTS Routine 10/14/2024 HD KINETICS Routine 10/14/2024 POST CHEMISTRY Routine 10/14/2024 TRACE ELEMENTS Routine 10/14/2024 CHEMISTRY Routine 10/14/2024 HEMATOLOGY Routine 10/14/2024 IMMUNO CHEMISTRY Routine 10/14/2024 CHEMISTRY Routine 10/14/2024 HEMATOLOGY Routine 10/07/2024 HEMATOLOGY Routine 09/30/2024 HEMATOLOGY Routine 09/23/2024 [facility] RHONDA LAB RESULTS Routine 09/16/2024 HD KINETICS Routine 09/16/2024 POST CHEMISTRY Routine 09/16/2024 CHEMISTRY Routine 09/16/2024 IMMUNO CHEMISTRY Routine 09/16/2024 HEMATOLOGY Routine 09/16/2024 HEMATOLOGY Routine 09/09/2024 HEMATOLOGY Routine 09/02/2024 HEMATOLOGY Routine 08/28/2024 HEMATOLOGY Routine 08/19/2024 [facility] RHONDA LAB RESULTS Routine 08/12/2024 HD KINETICS Routine 08/12/2024 POST CHEMISTRY Routine 08/12/2024 IMMUNO CHEMISTRY Routine 08/12/2024 CHEMISTRY Routine 08/12/2024 HEMATOLOGY Routine 08/12/2024 HEMATOLOGY Routine 08/05/2024 from Last 3 Months Results * (ABNORMAL) HEMATOLOGY (10/21/2024) Only the most recent of12 resultswithin the time period is included. Pathologist [facility] Hemoglobin 11.8(L) 12.0 - 16.0 g/dL [facility] Hemoglobin x 3 35.4(L) 36.0 - 48.0 % [facility] 10/21/2024 10/22/2024 8:4 3 AM CDT Narrative [facility] - 10/22/2024 Unless otherwise specified, test(s) performed at: [facility], [address] [place] [address] WARE TESTER: Juan Jose Rogers M.D. For any questions, please call customer service at FREQUENCY:OTHER Resulting Agency Comment Specimen source: Blood us Ahsan Maria MD LAB BLOOD ORDERABLES Ronda smith Result [facility] See order comments or contact performing lab Unknown, [place] * HD KINETICS (10/14/2024) Only the most recent of3 resultswithin the time period is included. % Urea Reduction 77 65 - 80 % [facility] 10/14/2024 10/15/2024 11: 36 AM CDT Narrative Resulting Agency Comment Specimen source: Plasma Ahsan Maria MD LAB BLOOD ORDERABLES Ronda l Result Performing Organization Address City/[facility] Co de Phone Number [facility] See order comments or contact performing lab Unknown, [place] * POST CHEMISTRY (10/14/2024) Only the most recent of3 resultswithin the time period is included. Pathologist [facility] BUN Post Dialysis 8 6 - 19 mg/dL [facility] 10/14/2024 10/15/2024 11: 36 AM CDT Narrative [facility] - 10/15/2024 Unless otherwise specified, test(s) performed at: [facility], [address] [place] [address] WARE TESTER: Juan Jose Rogers M.D. For any questions, please call customer service at FREQUENCY:MONTHLY Resulting Agency Comment Specimen source: Plasma Ahsan Maria MD LAB BLOOD ORDERABLES Ronda l Result Performing Organization Address [facility] Co de Phone Number [facility] See order comments or contact performing lab Unknown, [place] * IMMUNO CHEMISTRY (10/14/2024) Only the most recent of3 resultswithin the time period is included. Pathologist [facility] Hep B Surface Ag Negative Negative [facility] Hepatitis B Surface Ab >1,000 mIU/mL [facility] Comment: The anti-HBs (Hepatitis B surface antibody) is greater than or equal to 10 mIU/mL and implies immunity. The patient has either had an antibody response to HBV vaccination, received a transfusion, or has recovered from HBV infection. For post-vaccination antibody testing guidelines for the general public, refer to MMWR May 26, 2005/Vol.54 (No. 16); 1-23, and for healthcare workers, refer to MMWR May 23, 2013/Vol.62 (No. 10); 1-18. Reference Range: <10 mIU/mL Non-Immune >=10 mIU/mL Immune The magnitude of the measured result above 10 mIU/mL is not indicative of the total amount of antibody present. 10/14/2024 10/15/2024 9:1 8 AM CDT Narrative Resulting Agency Comment Specimen source: Serum Ahsan Maria MD LAB BLOOD ORDERABLES Ronda l Result Performing Organization Address [facility] de Phone Number [facility] See order comments or contact performing lab Unknown, [place] * TRACE ELEMENTS (10/14/2024) Aluminum <5 0 - 10 mcg/L [facility] Comment: This test was developed and its performance characteristics determined by [facility] It has not been cleared or approved by the FDA. The laboratory is regulated under CLIA as qualified to perform high complexity testing. This test is used for clinical purposes. It should not be regarded as investigational or for research. 10/14/2024 10/15/2024 9:2 0 AM CDT Narrative [facility] - 10/15/2024 Unless otherwise specified, test(s) performed at: [facility], [address] [place], [place] [id number] WARE TESTER: Juan Jose Rogers M.D. For any questions, please call customer service at FREQUENCY:MONTHLY Resulting Agency Comment Specimen source: Serum Ahsan Maria MD LAB BLOOD ORDERABLES Ronda l Result Performing Organization Address [facility] de Phone Number [facility] See order comments or contact performing lab Unknown, [place] * (ABNORMAL) [employer] [facility]™ Chemistry (10/14/2024) Only the most recent of4 resultswithin the time period is included. PTH 325(H) 16 - 80 pg/mL [facility] 10/14/2024 10/15/2024 10: 56 AM CDT Narrative [facility] - 10/15/2024 Unless otherwise specified, test(s) performed at: [facility], [address] [place] [address] WARE TESTER: Juan Jose Rogers M.D. For any questions, please call customer service at FREQUENCY:MONTHLY Resulting Agency Comment Specimen source: Plasma us Ahsan Maria MD LAB BLOOD ORDERABLES Ronda l Result [facility] See order comments or contact performing lab Unknown, [place] * [facility] Lab Results (10/14/2024) Only the most recent of3 resultswithin the time period is included. WSTDKT/V 2.5 [facility] spKt/V (Daugirdas II) 1.63 [facility] spKt/V Gotch 1.63 [facility] eKt/V ([place]) 1.35 [facility] eKt/V Gotch 1.32 [facility] eNPCR 0.54 [facility] PCR 27.11 [facility] eKdrt/V 1.32 [facility] nPCR_HD 0.57 [facility] 10/14/2024 10/14/2024 us Rhonda Ordering Provider LAB BLOOD ORDERABLES Final Result Performing Organization Address City/[facility]/ZIP Co de Phone Number [facility] Contact Performing lab Unknown, [place] from Last 3 Months Insurance [place] Subscriber Plan / Payer (Ef fective 2019-Present) Name:Carlos AlbertoElsie blanchard A Relation to Subscriber:Self Name:Jo Elsie A Payer ID:Not on file Group ID:Not on file Type:Not on file Address: [place] [address] Medicaid [place] (MHPIL) Care Teams Boat Engines Installer Relationship Specialty Start Date End Date Viet Zayas MD [address] [place] [address] PCP - General Family Medicine 12/27/20
--- OUTSIDE RECORDS SUMMARY | 2024-10-27 16:53 | XMS_ITS | Data Portability ---
Author Organization [facility], [address] [place] [address] Neurology ([place]) Address [address] [place] [address] Assessment Encounter Date Assessment Date Assessment LastModified [...] an understanding. All questions were answered. cbg Not available 11/09/2023 15:25:19 Plan of Treatment [...] Address Organization Details Recorded Time Hyperlipide asael 17573989 Active 2023 [facility] 4 12:42:08 Chronic renal failure 31545256 Active 2023 [facility] 4 12:42:53 Osteoarthri tis 727598384 Active 2023 [facility] 4 12:43:09 Hypothyroid ism 92433122 Active 2023 [facility] 4 12:43:37 Depressive disorder 53977410 Active 2023 [facility] 4 12:48:01 Chronic obstructive pulmonary disease 51940130 Active 2023 [facility] 4 12:48:33 Head scan abnormal 749107776 Active 2023 [facility] 4 12:48:59 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 Procedures Surgical History Date Name Laterality Status Provider Name and Address Organization Details Recorded Time 09/28/19 24 SC Blank Procedure Template completed Brooke Rao [facility] 09/28/2023 13:53:47 cholecystectomy completed [facility] 09/14/2023 12:44:06 total replacement of left knee joint completed [facility] 09/14/2023 12:44:41 total replacement of right knee joint completed [facility] 09/14/2023 12:44:56 open reduction of fracture with internal fixation completed [facility] 09/14/2023 12:45:43 Imaging Results None recorded. Procedure Notes None recorded. Medical Equipment None Reported. Allergies Allergen ID Allergen Name Allergen Category Reaction Reaction Severity Criticality Documentation Date Start Date Code Code System Note Provider Name and Address Organization Details Recorded Time 3510700 aspirin medicatio n Not available Not available Not available 07/04/20232021 1191 RxNorm Not Available [facility] 4 04:22:56 3735758 codeine medicatio n Not available Not available Not available 07/04/20232021 2670 RxNorm Not Available [facility] 4 04:22:56 2881978 Biaxin medicatio n Not available Not available Not available 07/04/20232021 55588 9 RxNorm Comme nt: Other Markus ponce ns: QIANA L, ALTON ER 2021 2:58P M CORN; ; Not Available [facility] 4 04:22:56 7166161 Medicinal product containin g tetracycl ine structure and acting as antibacte rial agent (product) medicatio n Not available Not available Not available 07/04/20232021 17158 1004 SNOMED Not Available [facility] 4 04:22:57 7806191 POLLEN EXTRACTS medicatio n Not available Not available Not available 03/12/20242021 11505 6 RxNorm Comme nt: Polle n ; Not Available [facility] 4 20:48:54 Medications Name Sig Start Date Stop Date [...] in Arterial blood by Pulse oximetry Systolic And Diastolic Provider Name and Address Organization Details Last Updated DateTime 4 157.48 cm 32.9 kg/m2 52638.6 3 g 89 /min 94 % 94 % 139/91 mm[Hg] Chely Mcfarlane [facility] 4 11:07:39 Date Recorded Body height Body mass index (BMI) Body weight Heart rate Respiratory rate Oxygen saturation Oxygen saturation in Arterial blood by Pulse oximetry Systolic And Diastolic Provider Name and Address Organization Details Last Updated DateTime 4 157.48 cm 32.9 kg/m2 14628.6 3 g 70 /min 20 /min 95 % 95 % 113/70 mm[Hg] Mily Harodred [facility] 4 10:55:30 Social History None recorded. Functional Status Question Answer Note LastModified by Organization D etails LastModified Time Are you currently employed? No [email or web address] Information not available 09/14/2023 Mental Status None recorded. Family History Nothing Reported. Medical History No medical history recorded. Gynecological HistoryNo gynecological history recorded. Obstetrics History GPAL:G 0 P 0 0 0 0 Past Encounters Encounter ID Performer Location Encounter Start Date Encounter Closed Date Diagnosis/Indication Diagnosis SNOMED-CT Code Diagnosis ICD10 Code Diagnosis Note [id number] [facility] [address] [place] [address] 09/28/2023 11:01:01 10/02/2023 12:56:31 Acquired trigger finger of right middle finger 6254200128 55194 M65.460 [id number] [facility] [address] [place] [address] 11/09/2023 10:48:09 11/12/2023 12:05:25 Acquired trigger finger of right middle finger 0240871273 [address] M65.331 Health Concerns Section Related Observation LastModified by Organization Detai ls LastModified Time None Recorded Concern Status LastModified by Organization Details LastModified Time None Recorded Advance Directives Directive None Recorded Payers Insurance Date Sequence Insurance Name Policy Number Policy Cardenas Covered Member ID Cardenas Member ID Guarantor Name 09/28/2023 1 [facility] (MEDICARE REPLACEMENT/ ADVANTAGE - HMO) [id number] Elsie Wages [id number] Elsie Wages 11/12/2023 1 [facility] - DOS ON OR AFTER 2020 - DUAL ELIGIBLE (MEDICARE REPLACEMENT/ ADVANTAGE - HMO) [id number] Elsie Wages [id number] Elsie Wages OBGyn Episode No OBEpisode recorded.
--- OUTSIDE RECORDS SUMMARY | 2024-10-27 16:53 | XMS_ITS | Encounter Summary ---
Author Organization [facility] [employer] Address [facility] [place] [address] [address] Phone Care Team Providers Care Technician Terminal And Repeater Name Role Phone Viet Zayas MD Primary Care Provider [phone] Encounter Details Date Type Department Care Team (Late st Contact Info) Description 08/19/2024 Treatment [email or web address] [place] [address] [address] [address] Ahsan Maria MD [address] [place] [address] End stage renal disease; Dependence on renal [...] Dialysis Note - Ahsan Maria MD - 08/19/2024 12:00 AM CDT Patient: Elsie Osorio : 1940 Note Type: Dialysis Rounds-Comp Telehealth Service Date: 08/19/2024 Telehealth encounter using audiovisual technology, performed according to state requirements. Appropriate patient consent obtained. This patient was personally seen for a complete visit as part of routine monthly dialysis care for end stage renal disease. Attending Power Driven Brush Maker: AHSAN MARIA Dialysis Location: [facility] Schedule: Shift: 2 OVERVIEW Patient is stable. 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 Current [facility] Outpatient Medications acetaminophen 325 mg tablet [...] by mouth every evening. [facility] Allergies Allergen: ASPIRIN Reaction: Unknown Allergen: CODEINE Reaction: Unknown Allergen: PENICILLINS Reaction: Breathing Problems Allergen: tetracycline Reaction: Breathing Problems Allergen: Tetracyclines Reaction: Breathing Problems Allergen: TRAMADOL Reaction: Breathing Problems DIALYSIS PRESCRIPTION Treatment Data Treatment Date: 08/21/2024 started at: 11:40 AM Dialysate / Machine Temp (prescribed): 37.0*C Dialysate / Machine Temp (actual): 37.1*C BFR (prescribed): 400 BFR (average delivered): 380 DFR (prescribed): Manual 500 DFR (average delivered): 800 Prescribed Time: 03:00 Actual Time: 02:54 EDW (kg): 80.0 Dialyzer: 180NRe Opt[employer] Dialysate: 2.0 K, 2.5 Ca, 1.0 Mg, 100 Dextrose (G2251) Sodium: 138 Bicarb: 38 Pre Dialysis Vitals Pre BP Sit: 145/65 Pre Wt (kg): 80.4 EDW Deviation (kg): 0.4 Temp: 97.7*F Post Dialysis Vitals Post BP Sit: 149/63 Post Wt (kg): 79.7 TREATMENT MEDICATIONS ORDERS Heparin Sodium (Porcine) 1,000 Units/mL Systemic 500 units IVP Every Treatment 12/22/2023 - 12/20/2024 Heparin Sodium (Porcine) 1,000 Units/mL Systemic 1000 units IVP Every Treatment 12/22/2023 - 12/20/2024 Iron Sucrose (Venofer) 50 mg IVP 2X Week 08/16/2024 - 08/15/2025 BP AND FLUID ASSESSMENT Acceptable blood pressure. Fluid status acceptable. Post BP Sit 149/63 - 08/21/2024 136/72 - 08/19/2024 145/60 - 08/16/2024 Post Wt (kg) 79.7 - 08/21/2024 79.7 - 08/19/2024 79.2 - 08/16/2024 EDW (kg) 80.0 - 08/21/2024 80.0 - 08/19/2024 80.0 - 08/16/2024 Deviation (kg) -0.3 - 08/21/2024 -0.3 - 08/19/2024 -0.8 - 08/16/2024 ADEQUACY ASSESSMENT spKt/V (Daugirdas II) 1.70 (08/12/24) 1.67 (07/15/24) 1.76 (06/19/24) eKdrt/V 1.38 (08/12/24) 1.36 (07/15/24) 1.45 (06/19/24) % Urea Reduction 79 (08/12/24) 78 (07/15/24) 80 (06/19/24) BUN 33 (08/12/24) 32 (07/15/24) 35 (06/19/24) BUN Post Dialysis 7 (08/12/24) 7 (07/15/24) 7 (06/19/24) Creatinine 2.93 (08/12/24) 2.76 (07/15/24) 3.02 (06/17/24) Bicarbonate (CO2) 29 (08/12/24) 29 (07/15/24) 28 (06/17/24) Sodium 142 (08/12/24) 138 (07/15/24) 141 (06/17/24) Target met. Prescription compliance acceptable. Continue with greater than 3x more frequent dialysis prescription. Missed Treatments 0 - Last 30 days 0 - Last 60 days ACCESS ASSESSMENT Vascular access examined. Current access is permanent and functioning well. AVFistula Standard Right Upper Arm Active (In Use) - 12/01/2021 Placed - Unknown Access Flow > 2000 (08/21/24) > 2000 (07/24/24) > 2000 (06/26/24) ANEMIA ASSESSMENT Hemoglobin 10.2 (08/19/24) 10.4 (08/12/24) 10.7 (08/05/24) Iron Saturation (TSat) 22 (08/12/24) 22 (07/15/24) 24 (06/17/24) Ferritin 589 (07/15/24) 851 (04/15/24) 719 (01/15/24) Iron 69 (08/12/24) 70 (07/15/24) 80 (06/17/24) TIBC 309 (08/12/24) 321 (07/15/24) 327 (06/17/24) MCV 99 (08/12/24) 95 (07/15/24) 98 (06/17/24) Folate 8.6 (04/15/24) 12.6 (01/15/24) Platelets 177 (08/12/24) 142 (07/15/24) 183 (06/17/24) Anemia targets met. PARRISH adjusted per protocol. Iron adjusted per protocol. BMM ASSESSMENT Calcium 8.9 08/12/24 9.4 07/15/24 9.3 06/17/24 Corrected Calcium 8.8 08/12/24 9.5 07/15/24 9.1 06/17/24 Phosphorus 4.1 08/12/24 4.6 07/15/24 5.2 06/17/24 Calcium Phosphorus Product 36 08/12/24 43 07/15/24 48 06/17/24 PTH 205 07/15/24 171 04/15/24 220 01/15/24 Vitamin D, 25-OH, Total 23.3 04/15/24 21.7 01/15/24 Magnesium 2.2 07/15/24 2.2 04/15/24 2.2 01/15/24 Alkaline Phosphatase 71 07/15/24 71 04/15/24 84 01/15/24 Aluminum <5 04/15/24 6 01/15/24 <5 10/16/23 PTH within target. Phosphorus controlled. Counseled regarding dietary compliance. Calcium controlled. Bone and mineral metabolism parameters reviewed. NUTRITION ASSESSMENT Albumin 4.1 08/12/24 3.9 07/15/24 4.2 06/17/24 Potassium 4.4 08/12/24 4.4 07/15/24 4.6 06/17/24 eNPCR 0.52 08/12/24 0.51 07/15/24 0.65 06/19/24 Albumin at goal. Potassium controlled. TRANSPLANT STATUS COMMENT COMMENTS: Not a candidate PHYSICAL EXAM Exam performed. Vital Signs Reviewed. Lungs - Clear. CV - Blood pressure noted. CV - RRR. No edema. EXT - No ulcers. ADDITIONAL LABS WBC 6.04 (08/12/24) 6.20 (07/15/24) 7.16 (06/17/24) Cholesterol 120 (04/15/24) 137 (01/15/24) 115 (10/16/23) HDL 46 (04/15/24) 43 (01/15/24) 42 (10/16/23) LDL Calculated 35 (04/15/24) 56 (01/15/24) 49 (10/16/23) Triglycerides 194 (04/15/24) 189 (01/15/24) 122 (10/16/23) Hepatitis B Surface Ab <10 (04/15/24) Signed by: AHSAN MARIA MD on 08/22/2024 at 01:43:18 PM Transcribed by: AHSAN MARIA MD on 08/22/2024 at 01:43:18 PM documented in this encounter Plan of Treatment Not on file documented as of this encounter Visit Diagnoses Diagnosis End stage renal disease Dependence on renal dialysis documented in this encounter Care Teams Technician Terminal And Repeater Relationship Specialty Start Date End Date Viet Zayas MD [address] [place], [place] [id number] PCP - General Family Medicine 12/27/20 documented as of this encounter
--- OUTSIDE RECORDS SUMMARY | 2024-10-27 16:53 | XMS_ITS | Encounter Summary ---
Author Organization [facility] Address [address] [place] [address] Phone Care Team Providers Care Milk Handler Name Role Phone Viet Zayas MD Primary Care Provider [phone] Encounter Details Date Type Department Care Team (Late st Contact Info) Description 01/06/2019 Orders Only [facility] [place] [address] [address] Gerber Chan MD [address] [place] [address] Chronic kidney disease stage 4 [...] (HCC) documented in this encounter Care Teams Milk Handler Relationship Specialty Start Date End Date Viet Zayas MD [address] [place] [address] PCP - General Family Medicine 12/27/20 documented as of this encounter
--- OUTSIDE RECORDS SUMMARY | 2024-10-27 16:53 | XMS_ITS | Encounter Summary ---
Author Organization [facility] Address [address] [place] [address] Phone Care Team Providers Care Commercial Credit Analyst Name Role Phone Viet Zayas MD Primary Care Provider Encounter Details Date Type Department Care Team (Late st Contact Info) Description 06/27/2018 Orders Only [facility] [place] [address] [address] Gerber Chan MD [address] [place] [address] Chronic kidney disease stage 3; [...] 1 documented in this encounter Care Teams Commercial Credit Analyst Relationship Specialty Start Date End Date Viet Zayas MD [address] [place] [address] PCP - General Family Medicine 12/27/20 documented as of this encounter
--- OUTSIDE RECORDS SUMMARY | 2024-10-27 16:53 | XMS_ITS | Encounter Summary ---
Author Organization [facility] [employer] [facility] [employer] [facility] Address [facility] [place] [address] [address] [address] Phone Care Team Providers Care Digital Cartographer Name Role Phone Viet Zayas MD Primary Care Provider [phone] Encounter Details Date Type Department Care Team (Late st Contact Info) Description 04/22/2024 Treatment [place] [employer] [place] [address] [place] [address] [address] [address] Ahsan Maria MD [address] [place] [id number] Social History Tobacco Use Types Packs/Day Years [...] care for end stage renal disease. Attending Machine Farmworker: AHSAN MARIA Dialysis Location: [facility] Schedule: Shift: 2 OVERVIEW Patient is stable. 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 Current [facility] Outpatient Medications acetaminophen 325 mg tablet [...] 1 tablet by mouth every evening. Current [facility] Allergies Allergen: ASPIRIN Reaction: Unknown Allergen: [...] on filedocumented in this encounter Care Teams Digital Cartographer Relationship Specialty Start Date End Date Viet Zayas MD [address] [place] [id number] PCP - General Family Medicine 12/27/20 documented as of this encounter
--- OUTSIDE RECORDS SUMMARY | 2024-10-27 16:53 | XMS_ITS | Encounter Summary ---
Author Organization [facility] [employer] [facility] [employer] [facility] Address [facility] [place] [address] [address] [address] Phone Care Team Providers Care Filters Assembler Name Role Phone Viet Zayas MD Primary Care Provider [phone] Encounter Details Date Type Department Care Team (Late st Contact Info) Description 02/19/2024 Treatment [place] [employer] [place] [address] [place] [address] [address] Ahsan Maria MD [address] [place] [address] Social History Tobacco Use Types Packs/Day Years [...] care for end stage renal disease. Attending Door Framer: AHSAN MARIA Dialysis Location: [facility] Schedule: Shift: 2 OVERVIEW Patient is stable. 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 Current [facility] Outpatient Medications acetaminophen 325 mg [...] 1 tablet by mouth every evening. Current [facility] Allergies Allergen: ASPIRIN Reaction: Unknown [...] on filedocumented in this encounter Care Teams Filters Assembler Relationship Specialty Start Date End Date Viet Zayas MD [address] [place] [address] PCP - General Family Medicine 12/27/20 documented as of this encounter
--- OUTSIDE RECORDS SUMMARY | 2024-10-27 16:54 | XMS_ITS | Encounter Summary ---
Author Organization [facility] Address [address] [place] [address] Phone Care Team Providers Care Reception Name Role Phone Viet Zayas MD Primary Care Provider Encounter Details Date Type Department Care Team (Late st Contact Info) Description 03/27/2018 Orders Only [facility] [place] [address] [address] Gerber Chan MD [address] [place] [address] Chronic kidney disease stage 3; [...] 1 documented in this encounter Care Teams Reception Relationship Specialty Start Date End Date Viet Zayas MD [address] [place] [address] PCP - General Family Medicine 12/27/20 documented as of this encounter
--- OUTSIDE RECORDS SUMMARY | 2024-10-27 16:54 | XMS_ITS | Encounter Summary ---
Author Organization [facility] Address [address] [place] [address] Phone Care Team Providers Care Education Paraprofessional Name Role Phone Viet Zayas MD Primary Care Provider [phone] Encounter Details Date Type Department Care Team (Late st Contact Info) Description 11/18/2018 Orders Only [facility] [employer] [address] [place] [address] Kiana Masterson, RN [address] [place] [address] Stage 5 chronic kidney disease [...] (HCC) documented in this encounter Care Teams Education Paraprofessional Relationship Specialty Start Date End Date Viet Zayas MD [address] [place] [address] PCP - General Family Medicine 12/27/20 documented as of this encounter
--- OUTSIDE RECORDS SUMMARY | 2024-10-27 16:54 | XMS_ITS | Encounter Summary ---
Author Organization [facility] Address [address] [place] [address] Phone Care Team Providers Care Receiver Stocker Name Role Phone Viet Zayas MD Primary Care Provider [phone] Encounter Details Date Type Department Care Team (Late st Contact Info) Description 11/04/2018 Orders Only [facility] [employer] [address] [place] [address] Kiana Masterson, RN [address] [place] [address] Stage 5 chronic kidney disease (HCC) [...] (HCC) documented in this encounter Care Teams Receiver Stocker Relationship Specialty Start Date End Date Viet Zayas MD [address] [place] [address] PCP - General Family Medicine 12/27/20 documented as of this encounter
--- OUTSIDE RECORDS SUMMARY | 2024-10-27 16:54 | XMS_ITS | Encounter Summary ---
Author Organization [facility] Address [address] [place] [address] Phone Care Team Providers Care Bridge Maintainer Name Role Phone Viet Zayas MD Primary Care Provider Encounter Details Date Type Department Care Team (Late st Contact Info) Description 12/24/2018 Orders Only [facility] [place] [address] [place] [address] Jeannette Graham, RN [address] [place] [address] Pre op labs; Chronic kidney disease [...] (HCC) documented in this encounter Care Teams Bridge Maintainer Relationship Specialty Start Date End Date Viet Zayas MD [address] [place] [address] PCP - General Family Medicine 12/27/20 documented as of this encounter
--- OUTSIDE RECORDS SUMMARY | 2024-10-27 16:54 | XMS_ITS | Encounter Summary ---
Author Organization [facility] Address [address] [place] [address] Phone Care Team Providers Care Operating Room Technician Name Role Phone Viet Zayas MD Primary Care Provider [phone] Encounter Details Date Type Department Care Team (Late st Contact Info) Description 10/06/2018 Orders Only [facility] [place] [address] [address] Gerber Chan MD [address] [place] [address] Chronic kidney disease stage 4 [...] (HCC) documented in this encounter Care Teams Operating Room Technician Relationship Specialty Start Date End Date Viet Zayas MD [address] [place] [address] PCP - General Family Medicine 12/27/20 documented as of this encounter
[2024-10-27 17:12] LABS: Basophils Absolute Auto 0.04 K/mm3 (0.00-0.10); Basophils Percent Auto 0.7 % (0.0-1.0); Eosinophils Absolute Auto 0.26 K/mm3 (0.02-0.50); Eosinophils Percent Auto 4.5 % (1.0-6.0); Hematocrit 37.3 % (35.0-42.0); Hemoglobin 11.5 g/dL (11.7-13.8); Immature Granulocyte Absolute 0.02 K/mm3 (0.00-0.00); Immature Granulocyte Percent A 0.3 % (0.0-0.0); Lymphocytes Absolute Auto 2.15 K/mm3 (1.10-4.50); Mean Corpuscular HGB Conc 30.8 g/dL (32-36); Mean Corpuscular Hemoglobin 30.7 pg (27.0-31.0); Mean Corpuscular Volume 99.7 fL (78.0-102.0); Monocytes Absolute Auto 0.42 K/mm3 (0.10-0.90); Monocytes Percent Auto 7.2 % (2.0-11.0); Neutrophils Absolute Auto 2.92 K/mm3 (1.70-7.20); Neutrophils Percent Auto 50.3 % (50.0-70.0); Platelet Count Result 144 K/mm3 (150-420); Red Blood Count 3.74 M/mm3 (4.20-5.40); Red Cell Distribution Width 12.5 % (11.6-14.4); White Blood Count 5.8 K/mm3 (4.8-10.8)
[2024-10-27 17:21] LABS: Alanine Aminotransferase 13 U/L (6-35); Alkaline Phosphatase 91 U/L (38-126); Anion Gap 4 mmol/L (4-12); Aspartate Amino Transferase 22 U/L (14-36); Bilirubin,Total 0.4 mg/dL (0.2-1.3); Blood Urea Nitrogen 23 mg/dL (7-17); Calcium 8.2 mg/dL (8.4-10.2); Carbon Dioxide 32 mmol/L (22-30); Chloride 99 mmol/L (98-107); Estimated CRCL calculation 16 ml/min; Estimated Glomerular Filt Rate 18; Glucose 110 mg/dL (65-110); Magnesium 2.2 mg/dL (1.6-2.3); Osmolality Calculated 284 mOsm/kg (285-295); Potassium 3.9 mmol/L (3.4-5.0); Sodium 135 mmol/L (137-145); Total Protein 6.4 g/dL (6.3-8.2)
--- NOTE | 2024-10-27 17:41 | ED_ITS ---
HPI - General Adult General Chief complaint: Unspecified Stated complaint: possable overdose Time Seen by Provider: 10/27/24 16:55 Source: patient Mode of arrival: ambulatory Limitations: no limitations History of Present Illness HPI narrative: PATIENT IS 84-YEAR-OLD FEMALE WITH A SIGNIFICANT PAST MEDICAL HISTORY THAT PRESENTS TODAY FOR DELIRIUM. PATIENT IS LITTLE AREAS SHE TOLD THE STAFF AT HER FACILITY THAT SHE TOOK 100 IBUPROFEN PRESENT ACCOUNTING THE POSTERIORLY ONLY TOOK 1 IBUPROFEN. NO ONE COUNT OF THE BILLS THERE THEY WAITED TILL SHE GOT HERE SO WE COUNT THE PILLS AND SHE WAS ILL AND THE C1 PILL. SO SHE IS IN NO DANGER HER ANY HARM AND OVERALL JUST BASIC LAB WORK ON HER STRETCHER HER LAB WORK IS WITHIN LIMITS. SHE IS ASYMPTOMATIC. SHE HAS LITTLE DELIRIOUS PROBABLY IS DEMENTIA WELL. complaint: DELIRIUM Onset (ago): hour(s) Relieving factors: none Exacerbating factors: none Treatments prior to arrival: none Related Data Home Medications ?Medication ?Instructions ?Recorded ?Confirmed ?Last Taken ?Type allopurinol 100 mg tablet 100 mg PO BID 05/20/20 01/29/24 05/20/20 History cyclosporine 0.05 % eye drops in a 1 drp ophthalmic (eye) Q12H 05/20/20 01/29/24 05/20/20 History dropperette (Restasis) metoprolol tartrate 25 mg tablet 25 mg PO BID 05/20/20 01/29/24 05/20/20 History mirtazapine 15 mg tablet 15 mg PO HS 05/20/20 01/29/24 05/20/20 History simvastatin 40 mg tablet 40 mg PO HS 05/20/20 01/29/24 05/19/20 History tolterodine 4 mg capsule,extended 4 mg PO DAILY 05/20/20 01/29/24 05/20/20 History release 24 hr dicyclomine 20 mg tablet 20 mg PO TID PRN Abdominal 02/13/21 01/29/24 Unknown History Discomfort polyethylene glycol 3350 17 1 g PO DAILY PRN Constipation 02/13/21 01/29/24 Unknown History gram/dose oral powder (Miralax) docusate sodium 100 mg capsule 100 mg PO BID 10/27/22 01/29/24 Unknown History levothyroxine 100 mcg tablet 125 mcg PO DAILY 10/27/22 01/29/24 Unknown History melatonin 3 mg tablet See Rx Instructions PO HS 10/27/22 10/27/24 Unknown History sevelamer carbonate 800 mg tablet 1,600 mg PO TID 10/27/22 01/29/24 Unknown History acetaminophen 325 mg capsule 650 mg PO BID pain 10/27/24 Unknown History duloxetine 60 mg capsule,delayed 60 mg PO DAILY 10/27/24 Unknown History release fluticasone 250 mcg-salmeterol 50 1 inh inhalation DAILY 10/27/24 Unknown History mcg/dose blistr powdr for inhalation magnesium oxide 400 mg (241.3 mg 400 mg PO DAILY 10/27/24 Unknown History magnesium) tablet Allergies Allergy/AdvReac Type Severity Reaction Status Date / Time aspirin Allergy Other Verified 10/27/24 17:19 codeine Allergy Other Verified 10/27/24 17:19 tetracycline Allergy Other Verified 10/27/24 17:19 Review of Systems 2 Review of Systems: All systems reviewed & are unremarkable except as noted in HPI and below Constitutional: Constitutional: Reports as per HPI Eyes: Eyes: Reports no additional eye complaints ENT: Reports system reviewed and no additional complaints, except as documented Cardiovascular: Cardiovascular: Reports no additional cardiovascular complaints Respiratory: Respiratory: Reports no additional respiratory complaints Gastrointestinal: Gastrointestinal: Reports no additional gastrointestinal complaints Genitourinary: Genitourinary: Reports no additional female genitourinary complaints Musculoskeletal: Musculoskeletal: Reports no additional musculoskeletal complaints Integumentary/Breasts: Skin/Breast: Reports system reviewed and no additional complaints, except as docu Neurologic: Reports system reviewed and no additional complaints, except as documented Psychiatric: Psychiatric: Reports no additional psychiatric complaints Endocrine: Endocrine: Reports no additional endocrine complaints Hematologic/Lymphatic: Hematologic/Lymphatic: Reports no additional hematologic/lymphatic complaints Allergic/Immunologic: Allergic/Immunologic: Reports no additional allergic/immunologic complaints [facility] Past Medical History Medical History GERD (gastroesophageal reflux disease) Hypothyroidism Dyslipidemia Hypertension Bipolar 1 disorder, mixed Chronic renal failure Surgical History Surgical History History of cholecystectomy History of appendectomy History of hysterectomy Social History Social History Smoking status: Never smoker Alcohol intake: never Substance use: never Gender identity (if verbalized by the patient): Female Sexual Orientation (if Verbalized by the Patient): Straight or Heterosexual Spiritual care concerns: No Exam 2 Const: General: cooperative Nutritional Appearance: average body habitus Orientation/consciousness: oriented to person HENMT: Head: normal to inspection Face/Nose/Sinus: Normal external nose present Face and sinus: normal facial exam Throat: posterior oropharynx normal Eyes: General: appearance normal, both eyes and all related structures Neck: Neck: normal visual inspection Chest: Chest palpation & inspection: normal inspection of the chest Resp: Effort & Inspection: normal respiratory effort Auscultation: clear to auscultation bilaterally Cardio: Jugular venous distension: no JVD Palpation: normal PMI Rate: r egular rate GI: Inspection: normal to inspection Back/Spine/Pelvis: Back: no CVA tenderness Cervical Spine: normal cervical lordosis Skin: General skin exam: normal color and no rashes or lesions noted Neuro: General: oriented to person, oriented to place and oriented to time Coordination: [id number] test normal Extrem: General: normal to inspection Right lower extremity: normal to inspection Left lower extremity: normal to inspection Psych: Appearance: grossly normal Mental Status: other Speech and movement: Slowed speech present (Psych) Attitude: cooperative Course Vital Signs Vital signs: Vital Signs Temperature 98 F 10/27/24 16:52 Pulse Rate 84 10/27/24 16:52 Respiratory Rate 18 10/27/24 16:52 Blood Pressure 154/84 H 10/27/24 16:52 Pulse Oximetry 97 10/27/24 16:52 Oxygen Delivery Room Air 10/27/24 16:52 Temperature 98 F 10/27/24 16:52 Pulse Rate 84 10/27/24 16:52 Respiratory Rate 18 10/27/24 16:52 Blood Pressure 154/84 H 10/27/24 16:52 Pulse Oximetry 97 10/27/24 16:52 Oxygen Delivery Room Air 10/27/24 16:52 Medical Decision Making MDM Narrative Medical decision making narrative: PATIENT RESPONDS QUESTIONS APPROPRIATELY SHE IS A LITTLE SLOW LEERY IS LITTLE SLOW BUT SHE CAN RESPOND APPROPRIATELY. SHE ONLY TOOK 1 PILL THE ENTIRE WELL. THIS SHOULD HAVE BEEN CHECKED BEFORE SHE I HEAR WITH THE STAFF THERE DID NOT THINK THIS THAT BROUGHT HER HERE INSTEAD. SHE WOULD BE SAFER SIDE HOME NOW AND HAS STERNAL INSERT 1 PILL. Differential Diagnosis Differential Diagnosis: ACCIDENTAL INGESTION, DELIRIOUS, DEMENTIA Medical Records Medical records reviewed: Yes I reviewed the external patient's medical records. Vital Signs Vital Signs: Vital Signs Temperature 98 F 10/27/24 16:52 Pulse Rate 84 10/27/24 16:52 Respiratory Rate 18 10/27/24 16:52 Blood Pressure 154/84 H 10/27/24 16:52 Pulse Oximetry 97 10/27/24 16:52 Oxygen Delivery Room Air 10/27/24 16:52 Temperature 98 F 10/27/24 16:52 Pulse Rate 84 10/27/24 16:52 Respiratory Rate 18 10/27/24 16:52 Blood Pressure 154/84 H 10/27/24 16:52 Pulse Oximetry 97 10/27/24 16:52 Oxygen Delivery Room Air 10/27/24 16:52 Lab Data 10/27/24 17:06 10/27/24 17:06 Labs: Lab Results 10/27/24 Range/Units 17:06 WBC 5.8 (4.8-10.8) K/mm3 RBC 3.74 L (4.20-5.40) M/mm3 Hgb 11.5 L (11.7-13.8) g/dL Hct 37.3 (35.0-42.0) % MCV 99.7 (78.0-102.0) fL MCH 30.7 (27.0-31.0) pg MCHC 30.8 L (32-36) g/dL RDW 12.5 (11.6-14.4) % Plt Count 144 L (150-420) K/mm3 MPV 9.0 L (9.2-11.8) fl Immature Gran % (Auto) 0.3 H (0.0-0.0) % Neut % (Auto) 50.3 (50.0-70.0) % Lymph % (Auto) 37.0 (18.0-42.0) % Major % (Auto) 7.2 (2.0-11.0) % Eos % (Auto) 4.5 (1.0-6.0) % Baso % (Auto) 0.7 (0.0-1.0) % Lymph # (Auto) 2.15 (1.10-4.50) K/mm3 Major # (Auto) 0.42 (0.10-0.90) K/mm3 Eos # (Auto) 0.26 (0.02-0.50) K/mm3 Baso # (Auto) 0.04 (0.00-0.10) K/mm3 Abs Immat Gran (auto) 0.02 H (0.00-0.00) K/mm3 Absolute Neuts (auto) 2.92 (1.70-7.20) K/mm3 Absolute Nucleated RBC 0.00 (0.00-0.00) K/mm3 Nucleated RBC % 0.0 (0-0.0) % Sodium 135 L (137-145) mmol/L Potassium 3.9 (3.4-5.0) mmol/L Chloride 99 (98-107) mmol/L Carbon Dioxide 32 H (22-30) mmol/L Anion Gap 4 (4-12) mmol/L BUN 23 H (7-17) mg/dL Creatinine 2.49 H (0.7-1.0) mg/dL Estim Creat Clear Calc 16 ml/min Estimated GFR 18 L (59 - ) Glucose 110 (65-110) mg/dL Calculated Osmolality 284 L (285-295) mOsm/kg Calcium 8.2 L (8.4-10.2) mg/dL Magnesium 2.2 (1.6-2.3) mg/dL Total Bilirubin 0.4 (0.2-1.3) mg/dL AST 22 (14-36) U/L ALT 13 (6-35) U/L Alkaline Phosphatase 91 (38-126) U/L Total Protein 6.4 (6.3-8.2) g/dL Albumin 4.0 (3.5-5.1) g/dL Discharge Plan Discharge Clinical Impression: Delirious, Accidental drug ingestion, Dementia Patient Disposition: Home Condition: Stable Instructions: Acute Delirium (ED) Patient Language: German Prescriptions: No Action simvastatin 40 mg Tablet 40 mg PO HS tolterodine 4 mg Capsule,Extended Release 24hr 4 mg PO DAILY allopurinol 100 mg Tablet 100 mg PO BID mirtazapine 15 mg Tablet 15 mg PO HS cyclosporine [Restasis] 0.05 % Dropperette 1 drp OPHTHALMIC (EYE) Q12H metoprolol tartrate 25 mg Tablet 25 mg PO BID melatonin 3 mg tablet See Rx Instructions PO HS Rx Instructions: 5MG orally bedtime; levothyroxine 100 mcg tablet 125 mcg PO DAILY docusate sodium 100 mg capsule 100 mg PO BID sevelamer carbonate 800 mg tablet 1,600 mg PO TID tramadol 50 mg tablet 50 mg PO Q12H PRN (Reason: severe pain) Qty: 14 0RF duloxetine 60 mg capsule,delayed release(DR/EC) 60 mg PO DAILY fluticasone propion-salmeterol 250-50 mcg/dose blister with device 1 inh INHALATION DAILY magnesium oxide 400 mg (241.3 mg magnesium) tablet 400 mg PO DAILY acetaminophen [Tylenol] 325 mg capsule 650 mg PO BID dicyclomine 20 mg Tablet 20 mg PO TID PRN (Reason: Abdominal Discomfort) polyethylene glycol 3350 [Miralax] 17 gram/dose Powder 1 g PO DAILY PRN (Reason: Constipation) hydrocortisone acetate [Anusol-HC] 25 mg suppository 25 mg RECTAL BID Qty: 12 0RF Follow-up/Referrals: Viet Zayas MD [Primary Care Provider] - Time of Disposition: 17:49
[2024-10-27 18:11] VITALS: BP 140/78; PULSE 80; RESP 20; TEMP 36.7; O2SAT 98
== END 2024-10-27 18:13 | disposition home or self-care (01) ==
PROVIDERS: Emergency Provider Family Medicine; PCP Family Medicine
DX: F05 Delirium due to known physiological condition (principal); T39.311A Poisoning by propionic acid derivatives, accidental (unintentional), initial encounter; E03.9 Hypothyroidism, unspecified; E78.5 Hyperlipidemia, unspecified; I12.9 Hypertensive chronic kidney disease with stage 1 through stage 4 chronic kidney disease, or unspecified chronic kidney disease; N18.9 Chronic kidney disease, unspecified; F03.90 Unspecified dementia, unspecified severity, without behavioral disturbance, psychotic disturbance, mood disturbance, and anxiety; Z79.899 Other long term (current) drug therapy
CPT/HCPCS: 36415; 80053; 83735; 85025; 99283

== ENCOUNTER 2024-11-05 08:40 | Emergency (ER) | payer OTHER, SELFPAY ==
--- NOTE | ~2024-11-05 | XR_ITS ---
EXAMINATION: XR chest 1V portable 11/05/2024 10:06 INDICATION: Status post fall last night. Cough. PROCEDURE: AP portable chest COMPARISON: Comparison to multiple prior studies sequentially, with oldest reviewed study dated 08/2021. FINDINGS: The lungs are clear. Cardiomegaly. There are no pleural effusions. There is no pneumothora x suspected. IMPRESSION: 1: NO ACUTE CARDIOPULMONARY DISEASE. Reviewed, dictated and finalized at location A.
--- NOTE | ~2024-11-05 | XR_ITS ---
XR pelvis 1-2V 11/05/2024 10:06 Indication: Pelvic pain after fall Procedure: AP pelvis Comparison: 01/29/2024 Findings: Pelvic rings intact. There is lower lumbar spondylosis. There is osteoarthritis of the hips , right greater than left. No acute fracture or traumatic malalignment. Impression: 1: No acute fracture. Reviewed, dictated and finalized at location A. Impression: 1: No acute fracture.
--- NOTE | ~2024-11-05 | CT_ITS ---
EXAMINATION: CT brain wo con DATE: 11/05/2024 09:56 INDICATION: Status post fall. Trauma to the back of the head. TECHNIQUE: Computed tomography (CT) of the head was performed without intravenous contrast. The dose- length product was 605.33 mGy-cm. Automated exposure control and iterative reconstruction technique w ere employed. COMPARISON: CT dated 10/12/2022 FINDINGS: Generalized atrophy. There are scattered mild periventricular and subcortical white matter changes, most likely related to small vessel ischemic disease (microangiopathy). No ventriculomegaly or midline shift. There is intracranial atherosclerosis. No acute intracranial hemorrhage, infarction , mass or mass effect. Paranasal sinuses and mastoids are pneumatized. No depressed skull fractures. IMPRESSION: 1. No acute intracranial abnormality. Reviewed, dictated and finalized at location A.
--- NOTE | ~2024-11-05 | CT_ITS ---
EXAMINATION: CT cervical spine wo con DATE: 11/05/2024 09:56 INDICATION: Status post fall last night. TECHNIQUE: Computed tomography (CT) of the cervical spine was performed without intravenous contrast. The dose-length product was 428 mGy-cm. Automated exposure control and iterative reconstruction tech Ntractiveque were employed. COMPARISON: CT dated 10/12/2022 FINDINGS: There is disc narrowing at all cervical spine levels. Disc narrowing and endplate degenerat roxanne changes most advanced at C2-3 through C5-6. There is degenerative anterolisthesis at C2-3 and C6- 7. There is degenerative anterolisthesis at T1-2. Odontoid process is normal. Lateral masses normally aligned. There is multilevel uncinate and facet hypertrophy. No acute fracture, subluxation or dislo cation. Craniovertebral junction within normal limits. No evidence for perched facet. No paraspinal s oft tissue abnormality. There is levocurvature of the cervical spine. Lung apices are unremarkable. IMPRESSION: 1. No acute abnormality of the cervical spine. 2: Severe cervical spondylosis. Reviewed, dictated and finalized at location A.
[2024-11-05 08:40] VITALS: BP 141/88; PULSE 75; RESP 18; TEMP 36.8; O2SAT 95
--- OUTSIDE RECORDS SUMMARY | 2024-11-05 08:45 | XMS_ITS | Encounter Summary ---
Author Organization [facility] [employer] [facility] [employer] [facility] Address [facility] [address] [address] Phone Care Team Providers Care Realty Loan Specialist Name Role Phone Viet Zayas MD Primary Care Provider [phone] Encounter Details Date Type Department Care Team (Late st Contact Info) Description 04/22/2024 Treatment [place] [employer] [place] [address] [address] [address] Ahsan Maria MD [address] [place] [address] Social History Tobacco Use Types Packs/Day Years [...] care for end stage renal disease. Attending Audio Production Instructor: AHSAN MARIA Dialysis Location: [facility] Schedule: Shift: 2 OVERVIEW Patient is stable. 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 Current [facility] Outpatient Medications acetaminophen 325 mg tablet [...] 1 tablet by mouth every evening. Current [facility] Allergies Allergen: ASPIRIN Reaction: Unknown Allergen: [...] on filedocumented in this encounter Care Teams Realty Loan Specialist Relationship Specialty Start Date End Date Viet Zayas MD [address] [place] [id number] PCP - General Family Medicine 12/27/20 documented as of this encounter
--- OUTSIDE RECORDS SUMMARY | 2024-11-05 08:45 | XMS_ITS | Encounter Summary ---
Author Organization [facility] Address [address] [place] [address] Phone Care Team Providers Care Olap Developer Name Role Phone Viet Zayas MD Primary Care Provider [phone] Encounter Details Date Type Department Care Team (Late st Contact Info) Description 01/06/2019 Orders Only [facility] [place] [address] [address] Gerber Chan MD [address] [place] [address] Chronic kidney disease stage 4 [...] (HCC) documented in this encounter Care Teams Olap Developer Relationship Specialty Start Date End Date Viet Zayas MD [address] [place] [address] PCP - General Family Medicine 12/27/20 documented as of this encounter
--- OUTSIDE RECORDS SUMMARY | 2024-11-05 08:45 | XMS_ITS | Encounter Summary ---
Author Organization [facility] [employer] [facility] [employer]bel [facility] Address [facility] [place] [address] [address] [address] Phone Care Team Providers Care System Trainer Name Role Phone Viet Zayas MD Primary Care Provider [phone] Encounter Details Date Type Department Care Team (Late st Contact Info) Description 10/21/2024 Treatment [place] [employer] [place] [address] [address] [address] Ahsan Maria MD [address] [place] [address] End stage renal disease; Dependence on renal [...] Dialysis Note - Ahsan Maria MD - 10/21/2024 12:00 AM CDT Patient: Elsie Osorio : 1940 Note Type: Dialysis Rounds-Comp Service Date: 10/21/2024 Appropriate patient consent obtained. This patient was personally seen for a complete visit as part of routine monthly dialysis care for end stage renal disease. Attending Middle School Art Teacher: AHSAN MARIA Dialysis Location: [facility] DIAL[facility]IS Schedule: Shift: 2 OVERVIEW Patient is stable. 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 Current [facility] Outpatient Medications acetaminophen 325 mg tablet Take [...] by mouth every evening. Current [facility] Allergies Allergen: ASPIRIN Reaction: Unknown Allergen: CODEINE Reaction: Unknown Allergen: PENICILLINS Reaction: Breathing Problems Allergen: tetracycline Reaction: Breathing Problems Allergen: Tetracyclines Reaction: Breathing Problems Allergen: TRAMADOL Reaction: Breathing Problems DIALYSIS PRESCRIPTION Treatment Data Treatment Date: 10/30/2024 started at: 11:26 AM Dialysate / Machine Temp (prescribed): 37.0*C Dialysate / Machine Temp (actual): 37.2*C BFR (prescribed): 400 BFR (average delivered): 400 DFR (prescribed): Manual 500 DFR (average delivered): 800 Prescribed Time: 03:00 Actual Time: 03:00 EDW (kg): 80.5 Dialyzer: 180NRe Optiflux Dialysate: 2.0 K, 2.5 Ca, 1.0 Mg, 100 Dextrose (G2251) Sodium: 138 Bicarb: 38 Pre Dialysis Vitals Pre BP Sit: 140/61 Pre Wt (kg): 80.8 EDW Deviation (kg): 0.3 Temp: 97.9*F Post Dialysis Vitals Post BP Sit: 139/61 Post Wt (kg): 79.8 TREATMENT MEDICATIONS ORDERS Heparin Sodium (Porcine) 1,000 Units/mL Systemic 500 units IVP Every Treatment 12/22/2023 - 12/20/2024 Heparin Sodium (Porcine) 1,000 Units/mL Systemic 1000 units IVP Every Treatment 12/22/2023 - 12/20/2024 BP AND FLUID ASSESSMENT Acceptable blood pressure. Fluid status acceptable. EDW appropriate. Post BP Sit 139/61 - 10/30/2024 139/69 - 10/28/2024 156/66 - 10/25/2024 Post Wt (kg) 79.8 - 10/30/2024 79.9 - 10/28/2024 80.2 - 10/25/2024 EDW (kg) 80.5 - 10/30/2024 80.5 - 10/28/2024 80.5 - 10/25/2024 Deviation (kg) -0.7 - 10/30/2024 -0.6 - 10/28/2024 -0.3 - 10/25/2024 ADEQUACY ASSESSMENT spKt/V (Daugirdas II) 1.63 (10/14/24) 1.44 (09/16/24) 1.70 (08/12/24) eKdrt/V 1.32 (10/14/24) 1.15 (09/16/24) 1.38 (08/12/24) % Urea Reduction 77 (10/14/24) 73 (09/16/24) 79 (08/12/24) BUN 35 (10/14/24) 45 (09/16/24) 33 (08/12/24) BUN Post Dialysis 8 (10/14/24) 12 (09/16/24) 7 (08/12/24) Creatinine 2.80 (10/14/24) 2.96 (09/16/24) 2.93 (08/12/24) Bicarbonate (CO2) 27 (10/14/24) 23 (09/16/24) 29 (08/12/24) Sodium 137 (10/14/24) 138 (09/16/24) 142 (08/12/24) Target met. Prescription compliance acceptable. Continue with greater than 3x more frequent dialysis prescription. Missed Treatments 0 - Last 30 days 0 - Last 60 days ACCESS ASSESSMENT Current access is permanent and functioning well. AVFistula Standard Right Upper Arm Active (In Use) - 12/01/2021 Placed - Unknown Access Flow > 2000 (10/23/24) > 2000 (09/25/24) > 2000 (08/21/24) ANEMIA ASSESSMENT Hemoglobin 11.3 (10/28/24) 11.8 (10/21/24) 12.0 (10/14/24) Iron Saturation (TSat) 19 (10/14/24) 18 (09/16/24) 22 (08/12/24) Ferritin 482 (10/14/24) 589 (07/15/24) 851 (04/15/24) Iron 54 (10/14/24) 58 (09/16/24) 69 (08/12/24) TIBC 289 (10/14/24) 329 (09/16/24) 309 (08/12/24) MCV 97 (10/14/24) 98 (09/16/24) 99 (08/12/24) Folate 8.6 (04/15/24) 12.6 (01/15/24) Platelets 145 (10/14/24) 151 (09/16/24) 177 (08/12/24) Anemia targets met. PARRISH adjusted per protocol. Iron adjusted per protocol. BMM ASSESSMENT Calcium 8.5 10/14/24 8.9 09/16/24 8.9 08/12/24 Corrected Calcium 8.7 10/14/24 8.9 09/16/24 8.8 08/12/24 Phosphorus 4.1 10/14/24 4.5 09/16/24 4.1 08/12/24 Calcium Phosphorus Product 35 10/14/24 40 09/16/24 36 08/12/24 PTH 325 10/14/24 205 07/15/24 171 04/15/24 Vitamin D, 25-OH, Total 23.3 04/15/24 21.7 01/15/24 Magnesium 2.3 10/14/24 2.2 07/15/24 2.2 04/15/24 Alkaline Phosphatase 86 10/14/24 71 07/15/24 71 04/15/24 Aluminum <5 10/14/24 <5 04/15/24 6 01/15/24 PTH within target. Phosphorus controlled. Calcium controlled. Bone and mineral metabolism parameters reviewed. NUTRITION ASSESSMENT Albumin 3.8 10/14/24 4.0 09/16/24 4.1 08/12/24 Potassium 4.5 10/14/24 4.6 09/16/24 4.4 08/12/24 eNPCR 0.54 10/14/24 0.62 09/16/24 0.52 08/12/24 Albumin at goal. Potassium controlled. TRANSPLANT STATUS COMMENT COMMENTS: Not a candidate PHYSICAL EXAM Exam performed. Vital Signs Reviewed. Lungs - Clear. CV - Blood pressure noted. CV - RRR. No edema. EXT - No ulcers. ADDITIONAL LABS WBC 6.10 (10/14/24) 6.36 (09/16/24) 6.04 (08/12/24) Cholesterol 120 (04/15/24) 137 (01/15/24) HDL 46 (04/15/24) 43 (01/15/24) LDL Calculated 35 (04/15/24) 56 (01/15/24) Triglycerides 194 (04/15/24) 189 (01/15/24) Hepatitis B Surface Ab >1,000 (10/14/24) <10 (04/15/24) Signed by: AHSAN MARIA MD on 11/01/2024 at 11:07:56 AM Transcribed by: AHSAN MARIA MD on 11/01/2024 at 11:07:56 AM documented in this encounter Plan of Treatment Not on file documented as of this encounter Visit Diagnoses Diagnosis End stage renal disease Dependence on renal dialysis documented in this encounter Care Teams System Trainer Relationship Specialty Start Date End Date Viet Zayas MD [address] [place] [address] PCP - General Family Medicine 12/27/20 documented as of this encounter
--- OUTSIDE RECORDS SUMMARY | 2024-11-05 08:45 | XMS_ITS | Encounter Summary ---
Author Organization [facility] Net [employer] [facility] [employer] [facility] Address [facility] [place] [address] [address] Phone Care Team Providers Care Senior Project Architect Name Role Phone Viet Zayas MD Primary Care Provider [phone] Encounter Details Date Type Department Care Team (Late st Contact Info) Description 07/03/2024 Treatment [place] [facility] [place] [address] [address] [address] Ahsan Maria MD [address] [place] [address] Social History Tobacco Use Types Packs/Day Years [...] care for end stage renal disease. Attending Manager Configuration: AHSAN MARIA Dialysis Location: [facility] DIALYSIS Schedule: Shift: 2 OVERVIEW Patient is stable. 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 Current [facility] Outpatient Medications acetaminophen 325 mg tablet Take [...] 1 tablet by mouth every evening. Current [facility] Allergies Allergen: ASPIRIN Reaction: Unknown Allergen: CODEINE [...] on filedocumented in this encounter Care Teams Senior Project Architect Relationship Specialty Start Date End Date Viet Zayas MD [address] [place] [address] PCP - General Family Medicine 12/27/20 documented as of this encounter
--- OUTSIDE RECORDS SUMMARY | 2024-11-05 08:45 | XMS_ITS | Encounter Summary ---
Author Organization [facility] Address [address] [place] [address] Phone Care Team Providers Care Limousine Driver Name Role Phone Viet Zayas MD Primary Care Provider Encounter Details Date Type Department Care Team (Late st Contact Info) Description 11/18/2018 Orders Only [facility] [place] [address] [facility] [address] [address] [place] [address] Kiana Masterson, RN [address] [address] [place] [address] Stage 5 chronic kidney disease (HCC); [...] (HCC) documented in this encounter Care Teams Limousine Driver Relationship Specialty Start Date End Date Viet Zayas MD [address] [place] [address] PCP - General Family Medicine 12/27/20 documented as of this encounter
--- OUTSIDE RECORDS SUMMARY | 2024-11-05 08:45 | XMS_ITS | Encounter Summary ---
Author Organization [facility] Address [address] [place] [address] Phone Care Team Providers Care National Business Director Name Role Phone Viet Zayas MD Primary Care Provider [phone] Encounter Details Date Type Department Care Team (Late st Contact Info) Description 02/18/2019 Orders Only [facility] [place] [address] [address] Gerber Chan MD [address] [place] [address] Chronic kidney disease stage 3 [...] (HCC) documented in this encounter Care Teams National Business Director Relationship Specialty Start Date End Date Viet Zayas MD [address] [place] [address] PCP - General Family Medicine 12/27/20 documented as of this encounter
--- OUTSIDE RECORDS SUMMARY | 2024-11-05 08:45 | XMS_ITS | Encounter Summary ---
Author Organization [facility] xiao qu wu you [facility] [employer] [facility] Address [facility] [place] [address] [address] Phone Care Team Providers Care Siding Installer Name Role Phone Viet Zayas MD Primary Care Provider [phone] Encounter Details Date Type Department Care Team (Late st Contact Info) Description 07/22/2024 Treatment [place] [employer] [place] [address] [address] [address] Ahsan Maria MD [address] [place] [address] Social History Tobacco Use Types Packs/Day Years [...] care for end stage renal disease. Attending Rn Procedure: AHSAN MARIA Dialysis Location: [facility] DIAL[facility] Schedule: Shift: 2 OVERVIEW Patient is stable. 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 Current [facility] Outpatient Medications acetaminophen 325 mg tablet Take [...] 1 tablet by mouth every evening. [facility] Allergies Allergen: ASPIRIN Reaction: Unknown Allergen: [...] 96.5*F Current Dialysis Vitals BP Sit: 143/64 AP/ETHYLENE PLANT HELPER: 226/190 Pulse: 73 TREATMENT MEDICATIONS ORDERS Heparin [...] on filedocumented in this encounter Care Teams Siding Installer Relationship Specialty Start Date End Date Viet Zayas MD [address] [place] [address] PCP - General Family Medicine 12/27/20 documented as of this encounter
--- OUTSIDE RECORDS SUMMARY | 2024-11-05 08:45 | XMS_ITS | Encounter Summary ---
Author Organization [facility] Address [address] [place] [address] Phone Care Team Providers Care Value Stream Manager Name Role Phone Viet Zayas MD Primary Care Provider [phone] Encounter Details Date Type Department Care Team (Late st Contact Info) Description 07/02/2017 Orders Only [facility] [place] [address] [address] Gerber Chan MD [address] [place] [address] Chronic kidney disease stage 3 [...] (HCC) documented in this encounter Care Teams Value Stream Manager Relationship Specialty Start Date End Date Viet Zayas MD [address] [place] [address] PCP - General Family Medicine 12/27/20 documented as of this encounter
--- OUTSIDE RECORDS SUMMARY | 2024-11-05 08:45 | XMS_ITS | Clinical Summary ---
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
--- OUTSIDE RECORDS SUMMARY | 2024-11-05 08:45 | XMS_ITS | Encounter Summary ---
Author Organization [facility] Address [address] [place] [address] Phone Care Team Providers Care Heating Equipment Installer Name Role Phone Viet Zayas MD Primary Care Provider Encounter Details Date Type Department Care Team (Late st Contact Info) Description 12/24/2018 Orders Only [facility] [place] [address] [place] [address] Jeannette Graham, RN [address] [place] [address] Pre op labs; Chronic kidney disease [...] (HCC) documented in this encounter Care Teams Heating Equipment Installer Relationship Specialty Start Date End Date Viet Zayas MD [address] [place] [address] PCP - General Family Medicine 12/27/20 documented as of this encounter
--- OUTSIDE RECORDS SUMMARY | 2024-11-05 08:45 | XMS_ITS | Encounter Summary ---
Author Organization [facility] [employer] [facility] [employer] [facility] Address [facility] [place] [address] [address] [address] Phone Care Team Providers Care Mixed Crop And Livestock Farm Worker Name Role Phone Viet Zayas MD Primary Care Provider [phone] Encounter Details Date Type Department Care Team (Late st Contact Info) Description 05/20/2024 Treatment [place] [employer] [place] [address] [address] [address] Ahsan Maria MD [address] [place] [address] Social History Tobacco Use Types Packs/Day Years [...] care for end stage renal disease. Attending Flight Engineer Instructor: AHSAN MARIA Dialysis Location: [facility] DIALYS[facility] Schedule: Shift: 2 OVERVIEW Patient is stable. 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 Current [facility] Outpatient Medications acetaminophen 325 mg tablet [...] 1 tablet by mouth every evening. Current [facility] Allergies Allergen: ASPIRIN Reaction: Unknown Allergen: [...] 97.3*F Current Dialysis Vitals BP Sit: 140/62 AP/MANAGER DATA: 222/194 Pulse: 72 TREATMENT MEDICATIONS ORDERS Heparin [...] on filedocumented in this encounter Care Teams Mixed Crop And Livestock Farm Worker Relationship Specialty Start Date End Date Viet Zayas MD [address] [place], [place] [id number] PCP - General Family Medicine 12/27/20 documented as of this encounter
--- OUTSIDE RECORDS SUMMARY | 2024-11-05 08:45 | XMS_ITS | Encounter Summary ---
Author Organization [facility] Address [address] [place] [address] Phone Care Team Providers Care Rail Transportation Tabeler Name Role Phone Viet Zayas MD Primary Care Provider [phone] Encounter Details Date Type Department Care Team (Late st Contact Info) Description 12/25/2017 Orders Only [facility] [place] [address] [address] Gerber Chan MD [address] [place] [address] Anemia in chronic kidney disease [...] disease documented in this encounter Care Teams Rail Transportation Tabeler Relationship Specialty Start Date End Date Viet Zayas MD [address] [place] [address] PCP - General Family Medicine 12/27/20 documented as of this encounter
--- OUTSIDE RECORDS SUMMARY | 2024-11-05 08:45 | XMS_ITS | Encounter Summary ---
Author Organization [facility] Address [address] [place] [address] Phone Care Team Providers Care Photoengraving Proofer Apprentice Name Role Phone Viet Zayas MD Primary Care Provider [phone] Encounter Details Date Type Department Care Team (Late st Contact Info) Description 05/20/2019 Orders Only [facility] [place] [address] [address] Gerber Chan MD [address] [place] [address] Chronic kidney disease stage 3 [...] (HCC) documented in this encounter Care Teams Photoengraving Proofer Apprentice Relationship Specialty Start Date End Date Viet Zayas MD [address] [place] [address] PCP - General Family Medicine 12/27/20 documented as of this encounter
--- OUTSIDE RECORDS SUMMARY | 2024-11-05 08:45 | XMS_ITS | Referral Summary ---
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
--- OUTSIDE RECORDS SUMMARY | 2024-11-05 08:45 | XMS_ITS | Encounter Summary ---
Author Organization [facility] Address [address] [place] [address] Phone Care Team Providers Care Space Officer Name Role Phone Viet Zayas MD Primary Care Provider Encounter Details Date Type Department Care Team (Late st Contact Info) Description 03/27/2018 Orders Only [facility] [place] [address] [address] Gerber Chan MD [address] [place] [address] Chronic kidney disease stage 3; [...] 1 documented in this encounter Care Teams Space Officer Relationship Specialty Start Date End Date Viet Zayas MD [address] [place] [address] PCP - General Family Medicine 12/27/20 documented as of this encounter
--- OUTSIDE RECORDS SUMMARY | 2024-11-05 08:45 | XMS_ITS | Encounter Summary ---
Author Organization [facility] [employer] [facility] [employer] [facility] Address [facility] [place] [address] [address] Phone Care Team Providers Care Housekeeping Cleaner Name Role Phone Viet Zayas MD Primary Care Provider [phone] Encounter Details Date Type Department Care Team (Late st Contact Info) Description 09/25/2024 Treatment [place] [employer] [place] [address] [address] [address] Ahsan Maria MD [address] [place] [address] End stage renal disease; Dependence on renal [...] care for end stage renal disease. Attending Inspector Filters: AHSAN MARIA Dialysis Location: [facility] Schedule: Shift: 2 OVERVIEW Patient is stable. 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 Current [facility] Outpatient Medications acetaminophen 325 mg tablet [...] 1 tablet by mouth every evening. Current [facility] Allergies Allergen: ASPIRIN Reaction: Unknown Allergen: [...] dialysis documented in this encounter Care Teams Housekeeping Cleaner Relationship Specialty Start Date End Date Viet Zayas MD [address] [place] [address] PCP - General Family Medicine 12/27/20 documented as of this encounter
--- OUTSIDE RECORDS SUMMARY | 2024-11-05 08:45 | XMS_ITS | Encounter Summary ---
Author Organization [facility] Address [address] [place] [address] Phone Care Team Providers Care Legal Advisor Name Role Phone Viet Zayas MD Primary Care Provider [phone] Encounter Details Date Type Department Care Team (Late st Contact Info) Description 11/04/2018 Orders Only [facility] [place] [address] [place] [address] Kiana Masterson, RN [address] [place] [address] Stage 5 chronic kidney disease (HCC) [...] (HCC) documented in this encounter Care Teams Legal Advisor Relationship Specialty Start Date End Date Viet Zayas MD [address] [place] [address] PCP - General Family Medicine 12/27/20 documented as of this encounter
--- OUTSIDE RECORDS SUMMARY | 2024-11-05 08:45 | XMS_ITS | Encounter Summary ---
Author Organization [facility] Address [address] [place] [address] Phone Care Team Providers Care Parts Runner Name Role Phone Viet Zayas MD Primary Care Provider Encounter Details Date Type Department Care Team (Late st Contact Info) Description 06/27/2018 Orders Only [facility] [place] [address] [address] Gerber Chan MD [address] [place] [address] Chronic kidney disease stage 3; [...] 1 documented in this encounter Care Teams Parts Runner Relationship Specialty Start Date End Date Viet Zayas MD [address] [place] [address] PCP - General Family Medicine 12/27/20 documented as of this encounter
--- OUTSIDE RECORDS SUMMARY | 2024-11-05 08:45 | XMS_ITS | Clinical Summary ---
Author Organization [facility] Address [address] [address] Phone Care Team Providers Care Pipe Fitter Soft Copper Name Role Phone Viet Zayas MD Primary Care Provider [phone] Allergies Active Allergy Reactions Criticality Noted Date Comments Aspirin Other (see comments) 11/17/2013 Upsets her chest and gives her heartburn Codeine Other (see comments) 11/17/2013 Gives her heartburn [place] Pollen 07/29/2009 Penicillin V 07/29/2009 Penicillins Other [...] capsule 11 0 Active ergocalciferol 1.25 MG (51555 UT) capsule Take 50,000 Units by mouth [...] Encounters Date Type Department Care Team Description 10/28/2024 Orders Only [facility] [place], [place] [phone] Ahsan Maria MD 10/21/2024 Treatment [facility] [place], [address] [address] Ahsan Maria MD End stage renal disease; Dependence on renal dialysis 10/21/2024 Orders Only [facility], [address] [phone] Ahsan Maria MD 10/14/2024 Orders Only [facility] [place], [address] [address] Ahsan Maria MD 10/07/2024 Orders Only [facility], [address] [address] Ahsan Maria MD 09/30/2024 Orders Only [facility] [place], [address] [address] Ahsan Maria MD 09/25/2024 Treatment [facility] [place], [address] [address] Ahsan Maria MD End stage renal disease; Dependence on renal dialysis 09/23/2024 Orders Only [facility], [address] [phone] Ahsan Maria MD 09/16/2024 Orders Only [facility], [address] [address] Ahsan Maria MD 09/09/2024 Orders Only [facility], [address] [address] Ahsan Maria MD 09/02/[address] [facility], [address] [address] Ahsan Maria MD 08/28/[address] [facility], [address] [address] Ahsan Maria MD 08/19/[address] [facility], [address] [address] Ahsan Maria MD End stage renal disease; Dependence on renal dialysis 08/19/[address] [facility], [address] [address] Ahsan Maria MD 08/12/[address] [facility], [address] [address] Ahsan Maria MD 08/05/[address] [facility], [address] [address] Ahsan Maria MD from Last [...] Priority Date/Time Associated Diagnosis Comments HEMATOLOGY Routine 10/28/2024 HEMATOLOGY Routine 10/21/2024 [facility] RESULTS [...] Last 3 Months Results * (ABNORMAL) HEMATOLOGY (10/28/2024) Only the most recent of13 resultswithin the time period is included. Hemoglobin 11.3(L) 12.0 - 16.0 g/dL [facility] Hemoglobin x 3 33.9(L) 36.0 - 48.0 % [facility] 10/28/2024 10/29/2024 10: 03 AM CDT Narrative [facility] - 10/29/2024 Unless otherwise specified, test(s) performed at: [facility], [address] [place], [place] [id number] TENTERER: Juan Jose Rogers M.D. For any questions, please call customer service at FREQUENCY:OTHER Resulting Agency Comment Specimen source: Blood Ahsan Maria MD LAB BLOOD ORDERABLES Ronda l Result Performing Organization Address [facility]/ZIP Co de Phone Number [facility] See order comments or contact performing lab Unknown, [place] * HD KINETICS (10/14/2024) Only the most recent of3 resultswithin the time period is included. Pathologist [facility] % Urea Reduction 77 65 - 80 % [facility] 10/14/2024 10/15/2024 11: 36 AM CDT Narrative Resulting Agency Comment Specimen source: Plasma Ahsan Maria MD LAB BLOOD ORDERABLES Ronda l Result Performing Organization Address [facility] de Phone Number [facility] See order comments or contact performing lab Unknown, [place] * POST CHEMISTRY (10/14/2024) Only the most recent of3 resultswithin the time period is included. Pathologist [facility] BUN Post Dialysis 8 6 - 19 mg/dL [facility] 10/14/2024 10/15/2024 11: 36 AM CDT Narrative [facility] - 10/15/2024 Unless otherwise specified, test(s) performed at: [facility], [address] [place] [address] TENTERER: Juan Jose Rogers M.D. For any questions, please call customer service at FREQUENCY:MONTHLY Resulting Agency Comment Specimen source: Plasma Ahsan Maria MD LAB BLOOD ORDERABLES Ronda l Result Performing Organization Address [facility]/ZIP Co de Phone Number [facility] See order comments or contact performing lab Unknown, [place] * IMMUNO CHEMISTRY (10/14/2024) Only the most recent of3 resultswithin the time period is included. Pathologist [facility] Hep B Surface Ag Negative Negative [facility] Hepatitis B Surface Ab >1,000 mIU/mL [facility] Comment: The anti-HBs (Hepatitis B surface antibody) [...] ORDERABLES Ronda l Result Performing Organization Address [facility] de Phone Number [facility] See order comments or contact performing lab Unknown, [place] * TRACE ELEMENTS (10/14/2024) Aluminum <5 0 - 10 mcg/L [facility] Comment: This test was developed and its performance characteristics determined by [facility]. It has not been cleared or approved by the FDA. The laboratory is regulated under CLIA as qualified to perform high complexity testing. This test is used for clinical purposes. It should not be regarded as investigational or for research. 10/14/2024 10/15/2024 9:2 0 AM CDT Narrative [facility] - 10/15/2024 Unless otherwise specified, test(s) performed at: [facility], [address] [place] [address] TENTERER: Juan Jose Rogers M.D. For any questions, please call customer service at FREQUENCY:MONTHLY Resulting Agency Comment Specimen source: Serum Ahsan Maria MD LAB BLOOD ORDERABLES Ronda l Result Performing Organization Address [facility] de Phone Number [facility] See order comments or contact performing lab Unknown, [place] * (ABNORMAL) [facility] (10/14/2024) Only the most recent of4 resultswithin the time period is included. PTH 325(H) 16 - 80 pg/mL [facility] 10/14/2024 10/15/2024 10: 56 AM CDT Narrative [facility] - 10/15/2024 Unless otherwise specified, test(s) performed at: [facility], [address] [place], [place] [id number] TENTERER: Juan Jose Rogers M.D. For any questions, please call customer service at FREQUENCY:MONTHLY Resulting Agency Comment Specimen source: Plasma Ahsan Maria MD LAB BLOOD ORDERABLES Ronda l Result [facility] See order comments or contact performing lab Unknown, [place] * [facility] Results (10/14/2024) Only the most recent of3 resultswithin the time period is included. WSTDKT/V 2.5 Knowledge Center spKt/V (Daugirdas II) 1.63 Knowledge Center spKt/V Gotch 1.63 [facility] eKt/V ([place]) 1.35 Knowledge Center eKt/V Gotch 1.32 [facility] eNPCR 0.54 Knowledge Center PCR 27.11 Knowledge Center eKdrt/V 1.32 Knowledge Center nPCR_HD 0.57 [facility] 10/14/2024 10/14/2024 [facility] [place] Provider LAB BLOOD ORDERABLES Final Result [facility] Contact Performing lab Unknown [place] from Last 3 Months Insurance Medicaid [place] Member Subscriber Plan / Payer (Ef fective 2019-Present) Name:Aileen Osoriorieve Buenrostro Relation to Subscriber:Self Name:Elsie Osorio Payer ID:Not on file Group ID:Not on file Type:Not on file Address: [place] [phone] Medicaid [place] Member Subscriber Plan / Payer ( fective 2019-Present) Name:Jo Elsie A Relation to Subscriber:Self Name:Jo Elsie Eve Payer ID:Not on file Group ID:Not on file Type:Not on file Address: [place] [phone] [place]) Care Teams Pipe Fitter Soft Copper Relationship Specialty Start Date End Date Viet Zayas MD [address] [place] [address] PCP - General Family Medicine 12/27/20
--- OUTSIDE RECORDS SUMMARY | 2024-11-05 08:45 | XMS_ITS | Encounter Summary ---
Author Organization [facility] [employer] [facility] Address [facility] [place] [address] [address] Phone Care Team Providers Care Pulmonary Function Technologist Name Role Phone Viet Zayas MD Primary Care Provider [phone] Encounter Details Date Type Department Care Team (Late st Contact Info) Description 02/19/2024 Treatment [place] [employer] [place] [address] [address] [address] [address] [address] Ahsan Maria MD [address] [place] [address] Social History Tobacco Use Types Packs/Day Years [...] care for end stage renal disease. Attending Dolphin Trainer: AHSAN MARIA Dialysis Location: [facility] Schedule: Shift: 2 OVERVIEW Patient is stable. 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 Current [facility] Outpatient Medications acetaminophen 325 mg tablet [...] by mouth every evening. Current [facility] Allergies Allergen: ASPIRIN Reaction: Unknown Allergen: [...] on filedocumented in this encounter Care Teams Pulmonary Function Technologist Relationship Specialty Start Date End Date Viet Zayas MD [address] [place] [address] PCP - General Family Medicine 12/27/20 documented as of this encounter
--- OUTSIDE RECORDS SUMMARY | 2024-11-05 08:45 | XMS_ITS | Encounter Summary ---
Author Organization [facility] [employer] [facility] [employer] [facility] Address [facility] [place] [address] [address] Phone Care Team Providers Care Extra Gang Supervisor Name Role Phone Viet Zayas MD Primary Care Provider [phone] Encounter Details Date Type Department Care Team (Late st Contact Info) Description 03/18/2024 Treatment [place] [employer] [place] [address] [address] [address] Ahsan Maria MD [address] [place] [address] Social History Tobacco Use Types Packs/Day Years [...] care for end stage renal disease. Attending Cutter And Edge Trimmer: AHSAN MARIA Dialysis Location: [facility] Schedule: Shift: 2 OVERVIEW Patient is stable. 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 Current [facility] Medications acetaminophen 325 mg tablet Take [...] by mouth every evening. Current [facility] Allergies Allergen: ASPIRIN Reaction: Unknown Allergen: CODEINE [...] on filedocumented in this encounter Care Teams Extra Gang Supervisor Relationship Specialty Start Date End Date Viet Zayas MD [address] [place] [address] PCP - General Family Medicine 12/27/20 documented as of this encounter
--- OUTSIDE RECORDS SUMMARY | 2024-11-05 08:45 | XMS_ITS | Encounter Summary ---
Author Organization [facility] [employer] [facility] [employer] [facility] Address [facility] [place] [address] [address] Phone Care Team Providers Care Herbicide Sprayer Name Role Phone Viet Zayas MD Primary Care Provider [phone] Encounter Details Date Type Department Care Team (Late st Contact Info) Description 08/19/[address] [place] [employer] [place] [address] [address] [address] [address] Ahsan Maria MD [address] [place] [address] End stage renal disease; Dependence on renal [...] care for end stage renal disease. Attending Respiratory Physician: AHSAN MARIA Dialysis Location: [facility] Schedule: Shift: 2 OVERVIEW Patient is stable. 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 Current [facility] Outpatient Medications acetaminophen 325 mg tablet [...] 1 tablet by mouth every evening. [facility] Allergies Allergen: ASPIRIN Reaction: Unknown Allergen: [...] dialysis documented in this encounter Care Teams Herbicide Sprayer Relationship Specialty Start Date End Date Viet Zayas MD [address] [place], [place] [address] PCP - General Family Medicine 12/27/20 documented as of this encounter
--- OUTSIDE RECORDS SUMMARY | 2024-11-05 08:45 | XMS_ITS | Encounter Summary ---
Author Organization [facility] Address [address] [facility] [address] [place] [address] Phone Care Team Providers Care Urban Planning Professor Name Role Phone Viet Zayas MD Primary Care Provider [phone] Reason for Visit * Reason Comments Med Refill Encounter Details Date Type Department Care Team (Late st Contact Info) Description 01/24/2020 Refill [facility] [place] [address] [facility] [address] [place] [address] Gerber Chan MD [address] [email or web address] [address] [place] [address] Social History Tobacco Use Types [...] on filedocumented in this encounter Care Teams Urban Planning Professor Relationship Specialty Start Date End Date Viet Zayas MD [address] [place] [address] PCP - General Family Medicine 12/27/20 documented as of this encounter
--- OUTSIDE RECORDS SUMMARY | 2024-11-05 08:45 | XMS_ITS | Data Portability ---
Author Organization [facility], [address] [place] [address] [place]rology ([place]) Address [address] [place] [address] Assessment Encounter Date Assessment Date Assessment LastModified [...] an understanding. All questions were answered. cbg [email or web address] Not available 11/09/2023 15:25:19 Plan of Treatment [...] Address Organization Details Recorded Time Hyperlipide asael 87451318 [facility] 2023 [facility] 4 12:42:08 Chronic renal failure 84145524 Active 2023 [facility] 4 12:42:53 Osteoarthri tis 845171073 Active 2023 [facility] 4 12:43:09 Hypothyroid ism 42244530 Active 2023 [facility] 4 12:43:37 Depressive disorder 84450622 Active 2023 [facility] 4 12:48:01 Chronic obstructive pulmonary disease 27938761 Active 2023 [facility] 4 12:48:33 Head scan abnormal 027665715 Active 2023 [facility] 4 12:48:59 Carotid artery aneurysm 584293527 Active 2023 [facility] 4 12:49:43 Dependence on renal dialysis 757985526 Active 2023 [facility] 4 12:50:07 Hyperglycem ia 49877676 Active 2023 [facility] 4 13:02:23 Acquired trigger finger of right middle finger 1792679227662 05 Active 2023 Lizzie Richey PA-C [facility] [place] [address], [address] [place] [address] 4 11:39:08 Problem Notes None recorded. Procedures Surgical History Date Name Laterality Status Provider Name and Address Organization Details Recorded Time 09/28/19 24 SC Blank Procedure Template completed Brooke Rao [facility] 09/28/2023 13:53:47 cholecystectomy completed Red [...] Name and Address Organization Details Recorded Time 6641548 aspirin medicatio n Not available Not available Not available 07/04/20232021 1191 RxNorm Not Available [facility] 4 04:22:56 6450532 codeine medicatio n Not available Not available Not available 07/04/20232021 2670 RxNorm Not Available [facility] 4 04:22:56 3035180 Biaxin medicatio n Not available Not available Not available 07/04/20232021 43388 9 RxNorm Comme nt: Other Markus ponce ns: QIANA L, [facility] 2021 2:58P M CORN; ; Not Available [facility] 4 04:22:56 0190758 Medicinal product containin g tetracycl ine structure and acting as antibacte rial agent (product) medicatio n Not available Not available Not available 07/04/20232021 54809 1004 SNOMED Not Available [facility] 4 04:22:57 5707108 POLLEN EXTRACTS medicatio n Not available Not available Not available 03/12/20242021 80525 6 RxNorm Comme nt: Polle n ; Not Available [facility] 4 20:48:54 Medications Name Sig Start Date [...] Updated DateTime 4 157.48 cm 32.9 kg/m2 59591.6 3 g 89 /min 94 % 94 % 139 mm[Hg] 91 mm[Hg] Chely Mcfarlane [facility] 4 11:07:39 Date Recorded Body height Body mass index (BMI) Body weight Heart rate Respiratory rate Oxygen saturation Oxygen saturation in Arterial blood by Pulse oximetry Systolic blood pressure Diastolic blood pressure Provider Name and Address Organization Details Last Updated DateTime 4 157.48 cm 32.9 kg/m2 68522.6 3 g 70 /min 20 /min 95 % 95 % 113 mm[Hg] 70 mm[Hg] Mily Harodred [facility] 4 10:55:30 Social History None recorded. Functional Status Question Answer Note LastModified by Organization D etails LastModified Time Are you currently employed? No [facility] Information not available 09/14/2023 Mental Status None recorded. Family History Nothing Reported. Medical History No medical history recorded. Gynecological HistoryNo gynecological history recorded. Obstetrics History GPAL:G 0 P 0 0 0 0 Past Encounters Encounter ID Performer Location Encounter Start Date Encounter Closed Date Diagnosis/Indication Diagnosis SNOMED-CT Code Diagnosis ICD10 Code Diagnosis Note [id number] [facility] [place] [address] 09/28/2023 11:01:01 10/02/2023 12:56:31 Acquired trigger finger of right middle finger 3320211920 [address] M65.222 [id number] [facility] [place] [address] 11/09/2023 10:48:09 11/12/2023 12:05:25 Acquired trigger finger of right middle finger 1893476221 08736 M65.331 Health Concerns Section Related Observation LastModified by Organization Detai ls LastModified Time None Recorded Concern Status LastModified by Organization Details LastModified Time None Recorded Advance Directives Directive None Recorded Payers Insurance Date Sequence Insurance Name Policy Number Policy Cardenas Covered Member ID Cardenas Member ID Guarantor Name 09/28/2023 1 [facility] (MEDICARE REPLACEMENT/ ADVANTAGE - HMO) [id number] Elsie Wages [id number] Elsie Wages 11/12/2023 1 [facility] - DOS ON OR AFTER 2020 - DUAL ELIGIBLE (MEDICARE REPLACEMENT/ ADVANTAGE - HMO) [id number] Elsie Wages [id number] Elsie Wages OBGyn Episode No OBEpisode recorded.
--- OUTSIDE RECORDS SUMMARY | 2024-11-05 08:45 | XMS_ITS | Encounter Summary ---
Author Organization [facility] Address [address] [place] [address] Phone Care Team Providers Care R And D Lab Technician Name Role Phone Viet Zayas MD Primary Care Provider [phone] Encounter Details Date Type Department Care Team (Late st Contact Info) Description 10/06/2018 Orders Only [facility] [place] [address] [address] Gerber Chan MD [address] [place] [address] Chronic kidney disease stage 4 [...] (HCC) documented in this encounter Care Teams R And D Lab Technician Relationship Specialty Start Date End Date Viet Zayas MD [address] [place] [address] PCP - General Family Medicine 12/27/20 documented as of this encounter
--- NOTE | 2024-11-05 08:51 | ED.FALL ---
HPI - Fall General Chief Complaint: Fall Stated Complaint: fall; back pain Time Seen by Provider: 11/05/24 08:51 Source: patient Mode of arrival: ambulatory Limitations: no limitations History of Present Illness HPI Narrative: 84-year-old female with a history of bipolar 1, PTSD, personality disorder, hypothyroidism, dyslipidemia, end-stage renal disease on hemodialysis, gout had an [facility]itness[facility] last night at 10:00 p.m. The patient uses walker. the patient called the [facility] staff who examined after the fall. Patient has a history of recurrent falls. Patient is not on anticoagulation. The patient complains of -- generalized body ache -- back pain-- complains of low back pain. No bruising laceration. -- Headache. No obvious hematoma noted. -- cough Without any sputum production. No shortness of breath. she stated that she hit her head, but did not look grossly loose consciousness no bruising /lacerations noted. MD complaint: fall Onset (ago): hour(s) ( 11 hours ago) Fall from: standing Fall witnessed: no Place fall occurred: [facility] Loss of consciousness: none Prolonged down time: no Symptoms prior to fall: none Context: tripped/slipped Location of injury: head Severity: moderate Quality: aching Related Data Home Medications ?Medication ?Instructions ?Recorded ?Confirmed ?Last Taken ?Type allopurinol 100 mg tablet 100 mg PO BID 05/20/20 01/29/24 05/20/20 History cyclosporine 0.05 % eye drops in a 1 drp ophthalmic (eye) Q12H 05/20/20 01/29/24 05/20/20 History dropperette (Restasis) metoprolol tartrate 25 mg tablet 25 mg PO BID 05/20/20 01/29/24 05/20/20 History mirtazapine 15 mg tablet 15 mg PO HS 05/20/20 01/29/24 05/20/20 History simvastatin 40 mg tablet 40 mg PO HS 05/20/20 01/29/24 05/19/20 History tolterodine 4 mg capsule,extended 4 mg PO DAILY 05/20/20 01/29/24 05/20/20 History release 24 hr dicyclomine 20 mg tablet 20 mg PO TID PRN Abdominal 02/13/21 01/29/24 Unknown History Discomfort polyethylene glycol 3350 17 1 g PO DAILY PRN Constipation 02/13/21 01/29/24 Unknown History gram/dose oral powder (Miralax) docusate sodium 100 mg capsule 100 mg PO BID 10/27/22 01/29/24 Unknown History levothyroxine 100 mcg tablet 125 mcg PO DAILY 10/27/22 01/29/24 Unknown History melatonin 3 mg tablet See Rx Instructions PO HS 10/27/22 10/27/24 Unknown History sevelamer carbonate 800 mg tablet 1,600 mg PO TID 10/27/22 01/29/24 Unknown History acetaminophen 325 mg capsule 650 mg PO BID pain 10/27/24 Unknown History duloxetine 60 mg capsule,delayed 60 mg PO DAILY 10/27/24 Unknown History release fluticasone 250 mcg-salmeterol 50 1 inh inhalation DAILY 10/27/24 Unknown History mcg/dose blistr powdr for inhalation magnesium oxide 400 mg (241.3 mg 400 mg PO DAILY 10/27/24 Unknown History magnesium) tablet Allergies Allergy/AdvReac Type Severity Reaction Status Date / Time aspirin Allergy Other Verified 10/27/24 17:19 codeine Allergy Other Verified 10/27/24 17:19 tetracycline Allergy Other Verified 10/27/24 17:19 Review of Systems Review of Systems: All systems reviewed & are unremarkable except as noted in HPI and below Constitutional: Constitutional: Reports as per HPI and Reports no additional constitutional complaints Eyes: Eyes: Reports as per HPI and Reports no additional eye complaints ENT: Reports system reviewed and no additional complaints, except as documented and Reports as per HPI Cardiovascular: Cardiovascular: Reports as per HPI and Reports no additional cardiovascular complaints Respiratory: Respiratory: Reports as per HPI, Reports no additional respiratory complaints and Reports cough Gastrointestinal: Gastrointestinal: Reports as per HPI and Reports no additional gastrointestinal complaints Comments: No nausea/vomiting after the fall. Genitourinary: Genitourinary: Reports no additional female genitourinary complaints, Reports as per HPI and Reports urinary incontinence Musculoskeletal: Musculoskeletal: Reports no additional musculoskeletal complaints, Reports as per HPI, Reports back pain, Reports myalgias and Reports arthralgias Integumentary/Breasts: Skin/Breast: Reports system reviewed and no additional complaints, except as docu and Reports as per HPI Neurologic: Reports system reviewed and no additional complaints, except as documented and Reports as per HPI Psychiatric: Psychiatric: Reports no additional psychiatric complaints and Reports as per HPI Endocrine: Endocrine: Reports no additional endocrine complaints and Reports as per HPI Hematologic/Lymphatic: Hematologic/Lymphatic: Reports no additional hematologic/lymphatic complaints and Reports as per HPI Allergic/Immunologic: Allergic/Immunologic: Reports no additional allergic/immunologic complaints and Reports as per HPI [facility] Past Medical History Medical History GERD (gastroesophageal reflux disease) Hypothyroidism Dyslipidemia Hypertension Bipolar 1 disorder, mixed Chronic renal failure Surgical History Surgical History History of cholecystectomy History of appendectomy History of hysterectomy Social History Social History Smoking status: Never smoker Alcohol intake: never Substance use: never Gender identity (if verbalized by the patient): Female Sexual Orientation (if Verbalized by the Patient): Straight or Heterosexual Spiritual care concerns: No Exam Narrative: Vitals are stable Const: General: healthy appearing and no acute distress Nutritional Appearance: well nourished Limitations: no limitations HENMT: Head: normal to inspection Ears: external ears normal and TM's normal bilaterally Face/Nose/Sinus: Normal external nose present and Normal nares present Face and sinus: normal facial exam Mouth: Yes Normal oral and palatal mucosa present Throat: posterior oropharynx normal Eyes: Conjunctivae: conjunctivae normal Pupils: Equal, round and reactive pupils present EOM: EOMs intact bilaterally Direct Ophthalmoscopy: no photophobia Neck: Neck: normal visual inspection, no lymphadenopathy and no meningeal signs Other: no spinal tendernes Chest: Chest palpation & inspection: normal inspection of the chest Other: No chest wall tenderness noted. Resp: Effort & Inspection: normal respiratory effort Auscultation: clear to auscultation bilaterally Cardio: Rate: regular rate Rhythm: regular rhythm GI: Auscultation: normal bowel sounds Other: No tenderness/ rigidity / rebound. : General: Yes no CVA tenderness Back/Spine/Pelvis: Back: no CVA tenderness Skin: General skin exam: normal color Rashes: no rashes Wounds: no wounds Neuro: General: patient oriented x3, moves all extremities, no meningeal signs, no focal motor deficits and CN's II-XI intact bilaterally Cranial nerves: Yes Nystagmus not present Speech: normal speech Extrem: General: normal to inspection and no clubbing, cyanosis or edema Other: Right arm AV fistula. Patient has a bruit. Psych: Mental Status: mental status grossly normal Affect: normal affect Attitude: cooperative Course Course Emergency Course: Accidental fall generalized body ache headache- CT of the head did not show any acute findings back pain-- clinical examination was unremarkable. No spinal tenderness noted. CT of the C-spines reveals severe cervical spondylosis. cough-- Tested negative for RSV /influenza / COVID. Chest x-ray did not show any acute findings. Vital Signs Vital signs: Vital Signs Temperature 36.8 C 11/05/24 08:40 Pulse Rate 75 11/05/24 08:40 Respiratory Rate 18 11/05/24 08:40 Blood Pressure 141/88 H 11/05/24 08:40 Pulse Oximetry 95 11/05/24 08:40 Oxygen Delivery Room Air 11/05/24 08:40 Temperature 36.8 C 11/05/24 08:40 Pulse Rate 70 11/05/24 10:14 Respiratory Rate 18 11/05/24 10:14 Blood Pressure 121/54 L 11/05/24 10:14 Pulse Oximetry 97 11/05/24 10:14 Oxygen Delivery Room Air 11/05/24 10:14 MDM - Fall MDM Narrative Medical decision making narrative: Accidental fall back pain body ache cough Differential Diagnosis Differential diagnosis: Likely compression fracture Medical Records Attestation: I reviewed the patient's medical records. Lab Data Attestation: I reviewed the patient's lab results. Labs: Lab Results 11/05/24 Range/Units 09:15 Influenza A (RT-PCR) Negative (Negative) Influenza B (RT-PCR) Negative (Negative) RSV (RT-PCR) Negative (Negative) SARS-CoV-2 RNA (RT-PCR) Negative (Negative) Discharge Plan Discharge Clinical Impression: Body aches Accidental fall Qualifiers: Encounter type: initial encounter Qualified Code(s): W19.XXXA - Unspecified fall, initial encounter Cough Qualifiers: Cough type: unspecified Qualified Code(s): R05.9 - Cough, unspecified Patient Disposition: Home Condition: Stable Instructions: Antibiotic Form, Fall Prevention for Older Adults (ED), Musculoskeletal Pain (ED) Patient Language: Occitan Prescriptions: No Action simvastatin 40 mg Tablet 40 mg PO HS tolterodine 4 mg Capsule,Extended Release 24hr 4 mg PO DAILY allopurinol 100 mg Tablet 100 mg PO BID mirtazapine 15 mg Tablet 15 mg PO HS cyclosporine [Restasis] 0.05 % Dropperette 1 drp OPHTHALMIC (EYE) Q12H metoprolol tartrate 25 mg Tablet 25 mg PO BID melatonin 3 mg tablet See Rx Instructions PO HS Rx Instructions: 5MG orally bedtime; levothyroxine 100 mcg tablet 125 mcg PO DAILY docusate sodium 100 mg capsule 100 mg PO BID sevelamer carbonate 800 mg tablet 1,600 mg PO TID duloxetine 60 mg capsule,delayed release(DR/EC) 60 mg PO DAILY fluticasone propion-salmeterol 250-50 mcg/dose blister with device 1 inh INHALATION DAILY magnesium oxide 400 mg (241.3 mg magnesium) tablet 400 mg PO DAILY acetaminophen [Tylenol] 325 mg capsule 650 mg PO BID dicyclomine 20 mg Tablet 20 mg PO TID PRN (Reason: Abdominal Discomfort) polyethylene glycol 3350 [Miralax] 17 gram/dose Powder 1 g PO DAILY PRN (Reason: Constipation) hydrocortisone acetate [Anusol-HC] 25 mg suppository 25 mg RECTAL BID Qty: 12 0RF Follow-up/Referrals: Viet Zayas MD [Primary Care Provider] - Time of Disposition: 10:33
--- OUTSIDE RECORDS SUMMARY | 2024-11-05 09:33 | XMS_ITS | Encounter Summary ---
Author Organization [facility] [employer] [facility] [email or web address] [facility] Address [facility] [place] [address] [address] Phone Care Team Providers Care Project Management Manager Name Role Phone Viet Zayas MD Primary Care Provider [phone] Encounter Details Date Type Department Care Team (Late st Contact Info) Description 02/19/2024 Treatment [place] [employer] [place] [id number] [address] [address] Ahsan Maria MD [address] [place] [phone] Social History Tobacco Use Types Packs/Day Years [...] care for end stage renal disease. Attending Pipe Roller: AHSAN MARIA Dialysis [facility]: [facility] Schedule: Shift: 2 OVERVIEW Patient is stable. 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 Current [facility] Outpatient Medications acetaminophen 325 mg tablet [...] tablet by mouth every evening. Current [facility] Allergies Allergen: ASPIRIN Reaction: Unknown Allergen: [...] on filedocumented in this encounter Care Teams Project Management Manager Relationship Specialty Start Date End Date Viet Zayas MD [address] [place] [address] PCP - General Family Medicine 12/27/20 documented as of this encounter
--- OUTSIDE RECORDS SUMMARY | 2024-11-05 09:33 | XMS_ITS | Encounter Summary ---
Author Organization [facility] [employer] [facility] [employer] [facility] Address [facility] [place] [address] [address] [address] Phone Care Team Providers Care Shade Maker Name Role Phone Viet Zayas MD Primary Care Provider [phone] Encounter Details Date Type Department Care Team (Late st Contact Info) Description 03/18/2024 Treatment [place] [employer] [place] [address] [address] [address] Ahsan Maria MD [address] [place] [address] Social History Tobacco Use Types Packs/Day Years [...] for end stage renal disease. Attending Family Service Center Director: AHSAN MARIA Dialysis Location: [facility] Schedule: Shift: 2 OVERVIEW Patient is stable. 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 Current [facility] Outpatient Medications acetaminophen 325 mg tablet [...] 1 tablet by mouth every evening. Current [facility] Allergies Allergen: ASPIRIN Reaction: Unknown Allergen: [...] on filedocumented in this encounter Care Teams Shade Maker Relationship Specialty Start Date End Date Viet Zayas MD [address] [place] [address] PCP - General Family Medicine 12/27/20 documented as of this encounter
--- OUTSIDE RECORDS SUMMARY | 2024-11-05 09:33 | XMS_ITS | Encounter Summary ---
Author Organization [facility] [employer] [facility] [employer] [facility] Address [facility] [place] [address] [address] [address] Phone Care Team Providers Care Applications Engineering Manager Name Role Phone Viet Zayas MD Primary Care Provider [phone] Encounter Details Date Type Department Care Team (Late st Contact Info) Description 07/22/2024 Treatment [place] [employer] [place] [address] [address] [address] Ahsan Maria MD [address] [place] [phone] Social History Tobacco Use Types Packs/Day Years [...] care for end stage renal disease. Attending Paper Bag Making Machinist: AHSAN MARIA Dialysis Location: [facility] [...] 1 tablet by mouth every evening. [facility] Allergies Allergen: ASPIRIN Reaction: Unknown Allergen: [...] 96.5*F Current Dialysis Vitals BP Sit: 143/64 AP/POOL TECHNICIAN: 226/190 Pulse: 73 TREATMENT MEDICATIONS ORDERS Heparin [...] on filedocumented in this encounter Care Teams Applications Engineering Manager Relationship Specialty Start Date End Date Viet Zayas MD [address] [place] [address] PCP - General Family Medicine 12/27/20 documented as of this encounter
--- OUTSIDE RECORDS SUMMARY | 2024-11-05 09:33 | XMS_ITS | Encounter Summary ---
Author Organization [facility] [employer] [facility] [employer] [facility] Address [facility] [place] [address] [address] [address] Phone Care Team Providers Care Doughnut Machine Operator Name Role Phone Viet Zayas MD Primary Care Provider [phone] Encounter Details Date Type Department Care Team (Late st Contact Info) Description 10/21/2024 Treatment [place] [facility] [place] [address] [address] [address] Ahsan Maria MD [address] [place] [address] End stage renal disease; Dependence on renal [...] care for end stage renal disease. Attending [employer] Planners: AHSAN MARIA Dialysis Location: [facility] Schedule: Shift: 2 OVERVIEW Patient is stable. 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 Current [facility] Outpatient Medications acetaminophen 325 mg [...] 1 tablet by mouth every evening. Current [facility] Allergies Allergen: ASPIRIN Reaction: Unknown Allergen: [...] dialysis documented in this encounter Care Teams Doughnut Machine Operator Relationship Specialty Start Date End Date Viet Zayas MD [address] [place] [address] PCP - General Family Medicine 12/27/20 documented as of this encounter
--- OUTSIDE RECORDS SUMMARY | 2024-11-05 09:33 | XMS_ITS | Clinical Summary ---
Author Organization [facility] [employer] [place] Address [address] [address] Phone Care Team Providers Care Mechanic Insulator Name Role Phone Viet Zayas MD Primary Care Provider [phone] Allergies Active Allergy Reactions Criticality Noted Date Comments Aspirin Other (see comments) 11/17/2013 Upsets her chest and gives her heartburn Codeine Other (see comments) 11/17/2013 Gives her heartburn Orestes Pollen 07/29/2009 Penicillin V 07/29/2009 Penicillins Other [...] capsule 11 0 Active ergocalciferol 1.25 MG (39776 UT) capsule Take 50,000 Units by mouth [...] Department Care Team Description 10/28/2024 Orders Only [facility], [place] [phone] Ahsan Maria MD 10/21/2024 Treatment [facility], [address] [address] Ahsan Maria MD End stage renal disease; Dependence on renal dialysis 10/21/2024 Orders Only [facility], [address] [phone] Ahsan Maria MD 10/14/2024 Orders Only [facility], [address] [address] Ahsan Maria MD 10/07/2024 Orders Only [facility], [address] [address] Ahsan Maria MD 09/30/2024 Orders Only [facility], [address] [address] Ahsan Maria MD 09/25/2024 Treatment [facility], [address] [address] Ahsan Maria MD End stage renal disease; Dependence on renal dialysis 09/23/2024 Orders Only [facility], [address] [phone] Ahsan Maria MD 09/16/2024 Orders Only [facility], [address] [phone] Ahsan Maria MD 09/09/2024 Orders Only [facility], [address] [address] Ahsan Maria MD 09/02/2024 Orders Only [facility], [address] [address] Ahsan Maria MD 08/28/2024 Orders Only [facility], [address] [address] Ahsan Maria MD 08/19/2024 Treatment [facility], [address] [address] Ahsan Maria MD End stage renal disease; Dependence on renal dialysis 08/19/2024 Orders Only [facility], [address] [address] Ahsan Maria MD 08/12/2024 Orders Only [facility], [address] [address] Ahsan Maria MD 08/05/2024 Orders Only [facility], [address] [address] Ahsan Maria MD from Last [...] x 3 33.9(L) 36.0 - 48.0 % [facility] 10/28/2024 10/29/2024 10: 03 AM CDT Narrative [facility] - 10/29/2024 Unless otherwise specified, test(s) performed at: [facility], [address] [place], [place] [id number] [employer] SUPERVISOR: Juan Jose Rogers M.D. For any questions, please call customer service at FREQUENCY:OTHER Resulting Agency Comment Specimen source: Blood Ahsan Maria MD LAB BLOOD ORDERABLES Ronda l Result Performing Organization Address [facility]/ZIP Co de Phone Number [facility] See order comments or contact performing lab Unknown, [place] * HD KINETICS (10/14/2024) Only the most recent of3 resultswithin the time period is included. Pathologist [facility] % Urea Reduction 77 65 - 80 % [facility] 10/14/2024 10/15/2024 11: 36 AM CDT Narrative Resulting Agency Comment Specimen source: Plasma Ahsan Maria MD LAB BLOOD ORDERABLES Ronda l Result Performing Organization Address [facility] de Phone Number [facility] See order comments or contact performing lab Unknown, [place] * POST CHEMISTRY (10/14/2024) Only the most recent of3 resultswithin the time period is included. Pathologist [facility] BUN Post Dialysis 8 6 - 19 mg/dL [facility] 10/14/2024 10/15/2024 11: 36 AM CDT Narrative [facility] - 10/15/2024 Unless otherwise specified, test(s) performed at: [facility], [address] [place] [address] [employer] SUPERVISOR: Juan Jose Rogers M.D. For any questions, please call customer service at FREQUENCY:MONTHLY Resulting Agency Comment Specimen source: Plasma Ahsan Maria MD LAB BLOOD ORDERABLES Ronda l Result Performing Organization Address City/[facility]/ZIP Co de Phone Number [facility] See order comments or contact performing lab Unknown, [place] * IMMUNO CHEMISTRY (10/14/2024) Only the most recent of3 resultswithin the time period is included. Pathologist [facility] Hep B Surface Ag Negative Negative [facility] [...] ORDERABLES Ronda l Result Performing Organization Address [facility] de Phone Number [facility] See order comments or contact performing lab Unknown, [place] * TRACE ELEMENTS (10/14/2024) Aluminum <5 0 - 10 mcg/L [facility] Comment: This test was developed and its performance characteristics determined by [facility]. It has not been cleared or approved by the FDA. The laboratory is regulated under CLIA as qualified to perform high complexity testing. This test is used for clinical purposes. It should not be regarded as investigational or for research. 10/14/2024 10/15/2024 9:2 0 AM CDT Narrative [facility] - 10/15/2024 Unless otherwise specified, test(s) performed at: [facility], [address] [place] [address] [employer] SUPERVISOR: Juan Jose Rogers M.D. For any questions, please call customer service at FREQUENCY:MONTHLY Resulting Agency Comment Specimen source: Serum Ahsan Maria MD LAB BLOOD ORDERABLES Ronda l Result Performing Organization Address [facility] de Phone Number [facility] See order comments or contact performing lab Unknown, [place] * (ABNORMAL) [facility] (10/14/2024) Only the most recent of4 resultswithin the time period is included. PTH 325(H) 16 - 80 pg/mL [facility] 10/14/2024 10/15/2024 10: 56 AM CDT Narrative [facility] - 10/15/2024 Unless otherwise specified, test(s) performed at: [facility], [address] [place], [place] [id number] [employer] SUPERVISOR: Juan Jose Rogers M.D. For any questions, please call customer service at FREQUENCY:MONTHLY Resulting Agency Comment Specimen source: Plasma Ahsan Maria MD LAB BLOOD ORDERABLES Ronda l Result [facility] See order comments or contact performing lab Unknown, [place] * [facility] Results (10/14/2024) Only the most recent of3 resultswithin the time period is included. WSTDKT/V 2.5 [facility] spKt/V (Daugirdas II) 1.63 Knowledge Center spKt/V Gotch 1.63 [facility] eKt/V ([place]) 1.35 [facility] eKt/V Gotch 1.32 [facility] eNPCR 0.54 Knowledge [facility] PCR 27.11 [facility] eKdrt/V 1.32 [facility] nPCR_HD 0.57 [facility] 10/14/2024 10/14/2024 [facility] Ordering Provider LAB BLOOD ORDERABLES Final Result [facility] Contact Performing lab Unknown [place] from Last 3 Months Insurance Medicaid [place] Member Subscriber Plan / Payer (Ef fective 2019-Present) Name:Aileen Osoriorieve Buenrostro Relation to Subscriber:Self Name:Elsie Osorio Payer ID:Not on file Group ID:Not on file Type:Not on file Address: [place] [id number] Medicaid [place] Member Subscriber Plan / Payer ( fective 2019-Present) Name:Jo Elsie A Relation to Subscriber:Self Name:Jo Elsie Eve Payer ID:Not on file Group ID:Not on file Type:Not on file Address: [place] [id number] [place] ([facility]) Care Teams Mechanic Insulator Relationship Specialty Start Date End Date Viet Zayas MD [address] [place] [address] PCP - General Family Medicine 12/27/20
--- OUTSIDE RECORDS SUMMARY | 2024-11-05 09:33 | XMS_ITS | Encounter Summary ---
Author Organization [facility] [employer] [facility] [employer] [facility] Address [facility] [place] [address] [address] Phone Care Team Providers Care Ballistics Laboratory Gunsmith Name Role Phone Viet Zayas MD Primary Care Provider [phone] Encounter Details Date Type Department Care Team (Late st Contact Info) Description 07/03/2024 Treatment [place] [employer] [place] [address] [place] [address] [address] Ahsan Maria MD [address] [place] [address] Social History Tobacco Use Types Packs/Day Years [...] care for end stage renal disease. Attending Equipment Sales Specialist: AHSAN MARIA Dialysis Location: [facility] Schedule: Shift: 2 OVERVIEW Patient [...] on filedocumented in this encounter Care Teams Ballistics Laboratory Gunsmith Relationship Specialty Start Date End Date Viet Zayas MD [address] [place] [address] PCP - General Family Medicine 12/27/20 documented as of this encounter
--- OUTSIDE RECORDS SUMMARY | 2024-11-05 09:33 | XMS_ITS | Encounter Summary ---
Author Organization [facility] [employer] [facility] [employer] [facility] Address [facility] [place] [address] [address] [address] Phone Care Team Providers Care Airplane Flight Attendant Supervisor Name Role Phone Viet Zayas MD Primary Care Provider [phone] Encounter Details Date Type Department Care Team (Late st Contact Info) Description 08/19/2024 Treatment [place] [employer] [place] [address] [address] [address] Ahsan Maria MD [address] [place] [address] End stage renal disease; Dependence on renal [...] care for end stage renal disease. Attending Wood Carver: AHSAN MARIA Dialysis Location: [facility] Schedule: Shift: 2 OVERVIEW Patient is stable. 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 Current [facility] Outpatient Medications acetaminophen 325 mg tablet [...] 1 tablet by mouth every evening. [facility] Allergies Allergen: ASPIRIN Reaction: Unknown Allergen: [...] 08/22/2024 at 01:43:18 PM Transcribed by: AHSAN MRAIA MD on 08/22/2024 at 01:43:18 PM documented in this encounter Plan of Treatment Not on file documented as of this encounter Visit Diagnoses Diagnosis End stage renal disease Dependence on renal dialysis documented in this encounter Care Teams Airplane Flight Attendant Supervisor Relationship Specialty Start Date End Date Viet Zayas MD [address] [place], [place] [id number] PCP - General Family Medicine 12/27/20 documented as of this encounter
--- OUTSIDE RECORDS SUMMARY | 2024-11-05 09:34 | XMS_ITS | Encounter Summary ---
Author Organization [facility] Mad Mimi [facility] [employer] [facility] Address [facility] LUNA OJEDA [address] [address] Phone Care Team Providers Care Packaging Line Operator Name Role Phone Viet Zayas MD Primary Care Provider [phone] Encounter Details Date Type Department Care Team (Late st Contact Info) Description 04/22/2024 Treatment [place] [employer] [place] [address] [address] [address] Ahsan Maria MD [address] [place] [address] Social History Tobacco Use Types Packs/Day Years [...] care for end stage renal disease. Attending Tube Closing Machine Operator: AHSAN MARIA Dialysis Location: [facility] [place] Schedule: Shift: 2 OVERVIEW Patient is stable. 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 Current [facility] Outpatient Medications acetaminophen 325 mg [...] tablet by mouth every evening. Current [facility] Allergies Allergen: ASPIRIN Reaction: Unknown [...] on filedocumented in this encounter Care Teams Packaging Line Operator Relationship Specialty Start Date End Date Viet Zayas MD [address] [place] [id number] PCP - General Family Medicine 12/27/20 documented as of this encounter
--- OUTSIDE RECORDS SUMMARY | 2024-11-05 09:34 | XMS_ITS | Encounter Summary ---
Author Organization [facility] Address [address] [place] [address] Phone Care Team Providers Care Clay Pigeon Loader Name Role Phone Viet Zayas MD Primary Care Provider [phone] Encounter Details Date Type Department Care Team (Late st Contact Info) Description 05/20/2019 Orders Only [facility] [place] [address] [address] Gerber Chan MD [address] [place] [address] Chronic kidney disease stage 3 [...] (HCC) documented in this encounter Care Teams Clay Pigeon Loader Relationship Specialty Start Date End Date Viet Zayas MD [address] [place] [address] PCP - General Family Medicine 12/27/20 documented as of this encounter
--- OUTSIDE RECORDS SUMMARY | 2024-11-05 09:34 | XMS_ITS | Encounter Summary ---
Author Organization [facility] Address [address] [place] [address] Phone Care Team Providers Care Visitor Services Representative Name Role Phone Viet Zayas MD Primary Care Provider [phone] Encounter Details Date Type Department Care Team (Late st Contact Info) Description 10/06/2018 Orders Only [facility] [place] [address] [address] Gerber Chan MD [address] [place] [address] Chronic kidney disease stage 4 [...] (HCC) documented in this encounter Care Teams Visitor Services Representative Relationship Specialty Start Date End Date Viet Zayas MD [address] [place] [address] PCP - General Family Medicine 12/27/20 documented as of this encounter
--- OUTSIDE RECORDS SUMMARY | 2024-11-05 09:34 | XMS_ITS | Encounter Summary ---
Author Organization [facility] Address [address] [place] [address] Phone Care Team Providers Care Brim Greaser Operator Name Role Phone Viet Zayas MD Primary Care Provider [phone] Encounter Details Date Type Department Care Team (Late st Contact Info) Description 12/25/2017 Orders Only [facility] [place] [address] [address] Gerber Chan MD [address] [place] [address] Anemia in chronic kidney disease [...] disease documented in this encounter Care Teams Brim Greaser Operator Relationship Specialty Start Date End Date Viet Zayas MD [address] [place] [address] PCP - General Family Medicine 12/27/20 documented as of this encounter
--- OUTSIDE RECORDS SUMMARY | 2024-11-05 09:34 | XMS_ITS | Encounter Summary ---
Author Organization [facility] [employer] [facility] [employer] [facility] Address [facility] LUNA O[address]ED[address] [address] Phone Care Team Providers Care Auction Clerk Name Role Phone Viet Zayas MD Primary Care Provider [phone] Encounter Details Date Type Department Care Team (Late st Contact Info) Description 05/20/2024 Treatment [employer] [place] [address] [address] [address] Ahsan Maria MD [address] [place] [address] Social History Tobacco Use Types Packs/Day Years [...] care for end stage renal disease. Attending Staffing Clerk: AHSAN MARIA Dialysis Location: [facility] Schedule: Shift: 2 OVERVIEW Patient is stable. 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 Current [facility] Outpatient Medications acetaminophen 325 mg tablet [...] by mouth every evening. Current [facility] Allergies Allergen: ASPIRIN Reaction: Unknown Allergen: [...] 97.3*F Current Dialysis Vitals BP Sit: 140/62 AP/DIRECTOR OF ADULT EPILEPSY: 222/194 Pulse: 72 TREATMENT MEDICATIONS ORDERS Heparin [...] on filedocumented in this encounter Care Teams Auction Clerk Relationship Specialty Start Date End Date Viet Zayas MD [address] [place], [place] [id number] PCP - General Family Medicine 12/27/20 documented as of this encounter
--- OUTSIDE RECORDS SUMMARY | 2024-11-05 09:34 | XMS_ITS | Encounter Summary ---
Author Organization [facility] Address [address] [facility] [address] [place] [address] Phone Care Team Providers Care Conical Mixer Name Role Phone Viet Zayas MD Primary Care Provider Encounter Details Date Type Department Care Team (Late st Contact Info) Description 12/24/2018 Orders Only [facility] [place] [address] [facility] [address] [place] [address] Jeannette Graham, RN [address] [facility] [address] [place] [address] Pre op labs; Chronic kidney disease [...] (HCC) documented in this encounter Care Teams Conical Mixer Relationship Specialty Start Date End Date Viet Zayas MD [address] [place] [address] PCP - General Family Medicine 12/27/20 documented as of this encounter
--- OUTSIDE RECORDS SUMMARY | 2024-11-05 09:34 | XMS_ITS | Encounter Summary ---
Author Organization [facility] Address [address] [place] [address] Phone Care Team Providers Care Drupal Php Developer Name Role Phone Viet Zayas MD Primary Care Provider [phone] Encounter Details Date Type Department Care Team (Late st Contact Info) Description 07/02/2017 Orders Only [facility] [place] [address] [address] Gerber Chan MD [address] [place] [address] Chronic kidney disease stage 3 [...] (HCC) documented in this encounter Care Teams Drupal Php Developer Relationship Specialty Start Date End Date Viet Zayas MD [address] [place] [address] PCP - General Family Medicine 12/27/20 documented as of this encounter
--- OUTSIDE RECORDS SUMMARY | 2024-11-05 09:34 | XMS_ITS | Encounter Summary ---
Author Organization [facility] Address [address] [place] [address] Phone Care Team Providers Care Security Site Supervisor Name Role Phone Viet Zayas MD Primary Care Provider [phone] Encounter Details Date Type Department Care Team (Late st Contact Info) Description 11/18/2018 Orders Only [facility] [place] [address] [facility] [address] [place] [address] Kiana Masterson, RN [address] [facility] [address] [place] [address] Stage 5 chronic kidney disease (HCC); [...] (HCC) documented in this encounter Care Teams Security Site Supervisor Relationship Specialty Start Date End Date Viet Zayas MD [address] [place] [address] PCP - General Family Medicine 12/27/20 documented as of this encounter
--- OUTSIDE RECORDS SUMMARY | 2024-11-05 09:34 | XMS_ITS | Encounter Summary ---
Author Organization [facility] Address [address] [place] [address] Phone Care Team Providers Care Evaluator Transfer Students Name Role Phone Viet Zayas MD Primary Care Provider [phone] Encounter Details Date Type Department Care Team (Late st Contact Info) Description 03/27/2018 Orders Only [facility] [place] [address] [address] Gerber Chan MD [address] [place] [address] Chronic kidney disease stage 3; [...] 1 documented in this encounter Care Teams Evaluator Transfer Students Relationship Specialty Start Date End Date Viet Zayas MD [address] [place] [address] PCP - General Family Medicine 12/27/20 documented as of this encounter
--- OUTSIDE RECORDS SUMMARY | 2024-11-05 09:34 | XMS_ITS | Encounter Summary ---
Author Organization [facility] Address [address] [place] [address] Phone Care Team Providers Care Production Broacher Name Role Phone Viet Zayas MD Primary Care Provider [phone] Encounter Details Date Type Department Care Team (Late st Contact Info) Description 01/06/2019 Orders Only [facility] [place] [address] [address] Gerber Chan MD [address] [place] [address] Chronic kidney disease stage 4 [...] (HCC) documented in this encounter Care Teams Production Broacher Relationship Specialty Start Date End Date Viet Zayas MD [address] [place] [address] PCP - General Family Medicine 12/27/20 documented as of this encounter
--- OUTSIDE RECORDS SUMMARY | 2024-11-05 09:34 | XMS_ITS | Encounter Summary ---
Author Organization [facility] [employer] [facility] [employer] [facility] Address [facility] LUNA O[address]EDA [address] [address] Phone Care Team Providers Care Value Analysis Coordinator Name Role Phone Viet Zayas MD Primary Care Provider [phone] Encounter Details Date Type Department Care Team (Late st Contact Info) Description 09/25/2024 Treatment [place] [employer] [place] [address] [address] [address] Ahsan Maria MD [address] [place] [address] End stage renal disease; Dependence on renal [...] care for end stage renal disease. Attending Rip Machine Operator: AHSAN MARIA Dialysis Location: [facility] Schedule: Shift: 2 OVERVIEW Patient [...] tablet by mouth every evening. Current [facility] Allergies Allergen: ASPIRIN Reaction: Unknown Allergen: [...] dialysis documented in this encounter Care Teams Value Analysis Coordinator Relationship Specialty Start Date End Date Viet Zayas MD [address] [place] [address] PCP - General Family Medicine 12/27/20 documented as of this encounter
--- OUTSIDE RECORDS SUMMARY | 2024-11-05 09:34 | XMS_ITS | Encounter Summary ---
Author Organization [facility] Address [address] [facility] [address] [place] [address] Phone Care Team Providers Care Research Project Manager Name Role Phone Viet Zayas MD Primary Care Provider Reason for Visit * Reason Comments Med Refill Encounter Details Date Type Department Care Team (Late st Contact Info) Description 01/24/2020 Refill [facility] [place] [address] [facility] [address] [place] [address] Gerber Chan MD [address] [facility] [address] [place] [address] Social History Tobacco Use Types [...] on filedocumented in this encounter Care Teams Research Project Manager Relationship Specialty Start Date End Date Viet Zayas MD [address] [place] [address] PCP - General Family Medicine 12/27/20 documented as of this encounter
--- OUTSIDE RECORDS SUMMARY | 2024-11-05 09:34 | XMS_ITS | Encounter Summary ---
Author Organization [facility] Address [address] [place] [address] Phone Care Team Providers Care New Media Strategist Name Role Phone Viet Zayas MD Primary Care Provider [phone] Encounter Details Date Type Department Care Team (Late st Contact Info) Description 02/18/2019 Orders Only [facility] [place] [address] [address] Gerber Chan MD [address] [place] [address] Chronic kidney disease stage 3 [...] (HCC) documented in this encounter Care Teams New Media Strategist Relationship Specialty Start Date End Date Viet Zayas MD [address] [place] [address] PCP - General Family Medicine 12/27/20 documented as of this encounter
--- OUTSIDE RECORDS SUMMARY | 2024-11-05 09:34 | XMS_ITS | Encounter Summary ---
Author Organization [facility] Address [address] [place] [address] Phone Care Team Providers Care Tree Pruner Name Role Phone Viet Zayas MD Primary Care Provider Encounter Details Date Type Department Care Team (Late st Contact Info) Description 06/27/2018 Orders Only [facility] [place] [address] [address] Gerber Chan MD [address] [place] [address] Chronic kidney disease stage 3; [...] 1 documented in this encounter Care Teams Tree Pruner Relationship Specialty Start Date End Date Viet Zayas MD [address] [place] [address] PCP - General Family Medicine 12/27/20 documented as of this encounter
--- OUTSIDE RECORDS SUMMARY | 2024-11-05 09:34 | XMS_ITS | Encounter Summary ---
Author Organization [facility] Address [address] [facility] [address] [place] [address] Phone Care Team Providers Care Flash Designer Name Role Phone Viet Zayas MD Primary Care Provider [phone] Encounter Details Date Type Department Care Team (Late st Contact Info) Description 11/04/2018 Orders Only [facility] [place] [address] [facility] [address] [place] [address] Kiana Masterson, RN [address] [facility] [address] [place] [address] Stage 5 chronic kidney disease (HCC) [...] (HCC) documented in this encounter Care Teams Flash Designer Relationship Specialty Start Date End Date Viet Zayas MD [address] [place] [address] PCP - General Family Medicine 12/27/20 documented as of this encounter
[2024-11-05 10:14] VITALS: BP 121/54; PULSE 70; RESP 18; O2SAT 97
[2024-11-05 10:17] LABS: Influenza A QL RT-PCR Negative (Negative); Influenza B QL RT-PCR Negative (Negative); RSV RNA, RT-PCR Negative (Negative); SARS-CoV-2 RNA PCR Negative (Negative)
--- NOTE | 2024-11-05 10:22 | PC.NURSE ---
Pt resting, no c/o at this time. Call placed to [facility] for pt to return. Will await laboratory animal caretaker to take pt aback to [facility].
--- NOTE | 2024-11-05 10:29 | PC.NURSE ---
Pt assisted in dressing w/o difficulty and sitting in chair watching TV until ride returns.
[2024-11-05 10:49] VITALS: BP 122/65; PULSE 74; RESP 18; O2SAT 98
== END 2024-11-05 10:49 | disposition home or self-care (01) ==
PROVIDERS: Emergency Provider Internal Medicine Critical Care Medicine; PCP Family Medicine
DX: R05.9 Cough, unspecified (principal); E03.9 Hypothyroidism, unspecified; E78.5 Hyperlipidemia, unspecified; I12.9 Hypertensive chronic kidney disease with stage 1 through stage 4 chronic kidney disease, or unspecified chronic kidney disease; N18.9 Chronic kidney disease, unspecified; Z79.899 Other long term (current) drug therapy; Z20.822 Contact with and (suspected) exposure to COVID-19; W19.XXXA Unspecified fall, initial encounter
CPT/HCPCS: 70450; 71045; 72125; 72170; 87637; 99284

== ENCOUNTER 2025-04-10 07:54 | Emergency (ER) | payer OTHER, SELFPAY ==
--- NOTE | ~2025-04-10 | CT_ITS ---
EXAMINATION: CT brain wo con DATE: 04/10/2025 08:22 INDICATION: Fall. Anterior left-sided headache. TECHNIQUE: Computed tomography (CT) of the head was performed without intravenous contrast. Sagittal and coronal reconstructions were performed. The mA was adjusted according to patient size. Iterative reconstruction technique was employed. The dose-length product was 605.33 mGy-cm. COMPARISON: head CT dated 11/05/2024 FINDINGS: No fracture. No acute intracranial hemorrhage, acute infarction or abnormal extra axial fluid collection. There is mild scattered white matter hypoattenuation consistent with chronic small vessel ischemic disease. Symmetric prominence of the sulci consistent with mild age-appropriate diffuse cerebral volume loss. Ventricles are normal and symmetric. No mass/mass effect. Changes of bilateral intraocular lens replacement. The orbits, paranasal sinuses and mastoid air cells are normal. IMPRESSION: 1. No fracture or acute intracranial process. 2. Age-related changes including mild diffuse volume loss and mild scattered white matter hypoattenuation consistent with chronic small vessel ischemic disease. Reviewed, dictated and finalized at location A. LATION HELPER IMPRESSION: 1. No fracture or acute intracranial process. 2. Age-related changes including mild diffuse volume loss and mild scattered wh ite matter hypoattenuation consistent with chronic small vessel ischemic diseas e.
--- NOTE | ~2025-04-10 | CT_ITS ---
CT CERVICAL SPINE WITHOUT CONTRAST CLINICAL HISTORY: Fall, anterior Lt. sided headache/ cervical pain Technique: Axial images thoracic inlet to skull base Sagittal and coronal reformats. No contrast CT images acquired with automatic exposure control for dose reduction DLP: 456 mL mGy-cm Comparison: 11/05/2024 Findings: No acute fracture. Grade 1 anterolisthesis of C3 on 4 Moderate degenerative changes and disc disease. Ankylosis C2-3. Prevertebral soft tissues within normal limits. Visualized lung apices: Clear. Visualized thyroid: Unremarkable. No enlarged cervical nodes. Probable thyroidectomy. A few small soft tissue foci in surgical bed surgical bed. IMPRESSION: 1. No fracture. 2. Probable thyroidectomy, with a few surrounding soft tissue foci. Residual thyroid tissue versus malignancy. Recommend characterization. Reviewed, dictated and finalized at location R. ILE SAW OPERATOR IMPRESSION: 1. No fracture. 2. Probable thyroidectomy, with a few surrounding soft tissue foci. Residual t hyroid tissue versus malignancy. Recommend characterization.
[2025-04-10 07:55] VITALS: BP 150/58; PULSE 70; RESP 18; TEMP 36.6; O2SAT 97
--- OUTSIDE RECORDS SUMMARY | 2025-04-10 08:02 | XMS_ITS | Clinical Summary ---
Author Organization [facility] Address [address] [place] [address] Care Team Providers Care Survey Worker Name Role Phone Viet Zayas MD Primary Care Provider [phone] Allergies Active Allergy Reactions Criticality Noted Date [...] hours by oral route as needed. Active Social History Tobacco Use Types Packs/Day Years Used Date Smoking Tobacco: Never Smokeless Tobacco: Never Tobacco Cessation:Counseling Given: Not Answered Alcohol Use Standard Drinks/Week Comments Not Currently 0 (1 standard drink = 0.6 oz pur e alcohol) Comments No Sex and Gender Information Value Date Recorded Sex Assigned at Not on file Legal Sex Female 7:07 PM [employer] Gender Identity Not on file Sexual Orientation Not on file Last Filed Vital Signs Vital Sign Reading Time Taken Comments Blood Pressure 127/80 05/15/2024 7:00 AM [employer]EDIT Pulse 64 05/15/2024 4:22 AM [employer]IER [employer] Temperature 36.7 C (98 F) 05/15/2024 4:22 AM [employer] Respiratory Rate 16 05/15/2024 4:22 AM [employer] Oxygen Saturation 93% 05/15/2024 7:00 AM [employer] Inhaled Oxygen Concentration - - Weight 81.6 kg (180 lb) 05/15/2024 4:22 AM [employer] Height 154.9 cm (5' 1) 05/15/2024 4:22 AM [employer] Body Mass Index 34.01 05/15/2024 4:22 AM [employer] Plan of Treatment Health Maintenance Due Date Last Done Comments Annual Medicare Wellness Visit 2006 Dexa Scan (General) 2006 RSV Immunization or 60+ Years (1 - 1-dose 75+ series) 2016 COVID-19 Vaccine ( season) 2025 06/02/2021, 08/12/2020, 07/23/2020 Influenza Adult (#1) 2025 04/03/2024, 03/30/2023, 03/02/2020, Additional history exists DTaP, Tdap and Td Vaccines (2 - Td or Tdap) 12/03/2033 12/04/2023 Pneumococcal Vaccine: 50+ Years Completed 03/02/2020, 06/04/2015, 05/11/2015 Zoster Vaccines Completed 06/08/2021, 12/17/2020 Hepatitis A Vaccines Aged Out No long er eligible based on patient's age to complete this topic Meningococcal B Vaccine Aged Out No l onger eligible based on patient's age to complete this topic Meningococcal Vaccine Aged Out No mc sandy eligible based on patient's age to complete this topic RSV Immunizations Under 20 Months Aged Out No longer eligible based on patient's age to complete this topic Insurance MEDICAID DEPT OF [employer] [address] Advance Directives Documents on File Type Date Recorded Patient Hat Body Sorter Expl anation Advance Directives and Livin g Will 05/15/2024 8:57 AM DNR Order Care Teams Survey Worker Relationship Specialty Start Date End Date Viet Zayas MD [address] [place] [address] PCP - General FAMILY PRACTICE 08/17/21
--- OUTSIDE RECORDS SUMMARY | 2025-04-10 08:02 | XMS_ITS | Encounter Summary ---
Author Organization [facility] [employer] [facility] Address [facility] [place] [address] [address] Phone Care Team Providers Care Community Service Aide Name Role Phone Viet Zayas MD Primary Care Provider [phone] Encounter Details Date Type Department Care Team (Late st Contact Info) Description 04/03/2025 Treatment [employer] [place] [address] [place] [address] [address] Ahsan Maria MD [address] [place] [address] End stage renal disease; Dependence on renal [...] Dialysis Note - Ahsan Maria MD - 04/03/2025 12:00 AM CDT Patient: Elsie Osorio : 1940 Note Type: Dialysis Rounds-Comp Service Date: 04/03/2025 Appropriate patient consent obtained. This patient was personally seen [id number] for a complete visit as part of routine monthly dialysis care for end stage renal disease. Attending E Learning Developer: AHSAN MARIA Dialysis Location: [facility] Schedule: Shift: 2 OVERVIEW Patient is stable. 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 Current [facility] Outpatient Medications acetaminophen 325 mg [...] by mouth every four hours as needed. Sevelamer Carbonate Tablet 800 mg tablet Take 2 Tablet By Mouth Three times a day With Meals. simvastatin 40 mg tablet Take 1 tablet by mouth every evening. Current [facility] Allergies Allergen: ASPIRIN Reaction: Unknown Allergen: CODEINE Reaction: Unknown Allergen: PENICILLINS Reaction: Breathing Problems Allergen: tetracycline Reaction: Breathing Problems Allergen: Tetracyclines Reaction: Breathing Problems Allergen: TRAMADOL Reaction: Breathing Problems DIALYSIS PRESCRIPTION Treatment Data Treatment Date: 04/03/2025 started at: 11:50 AM Dialysate / Machine Temp (prescribed): 37.0*C Dialysate / Machine Temp (actual): 37.0*C BFR (prescribed): 400 BFR (average delivered): 400 DFR (prescribed): Manual 500 DFR (average delivered): 800 Prescribed Time: 03:00 Actual Time: 02:56 EDW (kg): 77.0 Dialyzer: FX CorAL 80 Dialysate: 2.0 K, 2.5 Ca, 1.0 Mg, 100 Dextrose (G2251) Sodium: 137 Bicarb: 35 Pre Dialysis Vitals Pre BP Sit: 144/52 Pre Wt (kg): 77.6 EDW Deviation (kg): 0.6 Temp: 96.5*F Post Dialysis Vitals Post BP Sit: 135/60 Post Wt (kg): 77.0 TREATMENT MEDICATIONS ORDERS Heparin Sodium (Porcine) 1,000 Units/mL Systemic 500 units IVP Every Treatment 02/16/2025 - 02/15/2026 Heparin Sodium (Porcine) 1,000 Units/mL Systemic 1000 units IVP Every Treatment 02/16/2025 - 02/15/2026 Iron Sucrose (Venofer) 100 mg IVP 1X Week 03/25/2025 - 03/24/2026 Vitamin D (Calcitriol) Oral 0.25 mcg ORAL 3X Week 02/16/2025 - 02/15/2026 BP AND FLUID ASSESSMENT Acceptable blood pressure. Fluid status acceptable. Post BP Sit 135/60 - 04/03/2025 133/61 - 04/01/2025 156/72 - 03/30/2025 Post Wt (kg) 77.0 - 04/03/2025 77.1 - 04/01/2025 77.0 - 03/30/2025 EDW (kg) 77.0 - 04/03/2025 77.0 - 04/01/2025 77.0 - 03/30/2025 Deviation (kg) 0.0 - 04/03/2025 0.1 - 04/01/2025 0.0 - 03/30/2025 ADEQUACY ASSESSMENT spKt/V (Daugirdas II) 1.51 (03/16/25) 1.89 (02/10/25) 1.66 (01/13/25) eKdrt/V 1.22 (03/16/25) 1.55 (02/10/25) 1.37 (01/13/25) % Urea Reduction 75 (03/16/25) 82 (02/10/25) 78 (01/13/25) BUN 32 (03/16/25) 38 (02/10/25) 36 (01/13/25) BUN Post Dialysis 8 (03/16/25) 7 (02/10/25) 8 (01/13/25) Creatinine 3.17 (03/16/25) 3.18 (02/10/25) 2.87 (01/13/25) Bicarbonate (CO2) 26 (03/16/25) 27 (02/10/25) 25 (01/13/25) Sodium 137 (03/16/25) 139 (02/10/25) 136 (01/13/25) Target met. Prescription compliance acceptable. Continue with greater than 3x more frequent dialysis prescription. Missed Treatments 1 - Last 30 days 4 - Last 60 days Most recently missed on 03/09/2025 ACCESS ASSESSMENT Current access is permanent and functioning well. AVFistula Standard Right Upper Arm Active (In Use) - 12/01/2021 Placed - Unknown Access Flow ? 1999 (03/25/25) ? 1999 (02/18/25) ? 1999 (12/25/24) ANEMIA ASSESSMENT Hemoglobin 10.1 (03/30/25) 9.4 (03/23/25) 11.1 (03/16/25) Iron Saturation (TSat) 24 (03/16/25) 26 (02/10/25) 18 (01/13/25) Ferritin 641 (01/13/25) 482 (10/14/24) 589 (07/15/24) Iron 75 (03/16/25) 80 (02/10/25) 55 (01/13/25) TIBC 311 (03/16/25) 306 (02/10/25) 302 (01/13/25) MCV 97 (03/16/25) 96 (02/10/25) 98 (01/13/25) Folate 8.6 (04/15/24) Platelets 195 (03/16/25) 159 (02/10/25) 173 (01/13/25) Anemia targets met. PARRISH adjusted per protocol. Iron adjusted per protocol. BMM ASSESSMENT Calcium 8.5 03/16/25 8.9 02/10/25 8.8 01/13/25 Corrected Calcium 8.4 03/16/25 9.1 02/10/25 8.8 01/13/25 Phosphorus 5.0 03/16/25 4.6 02/10/25 3.5 01/13/25 Calcium Phosphorus Product 43 03/16/25 41 02/10/25 31 01/13/25 PTH 247 01/13/25 325 10/14/24 205 07/15/24 Vitamin D, 25-OH, Total 23.3 04/15/24 Magnesium 2.3 01/13/25 2.3 10/14/24 2.2 07/15/24 Alkaline Phosphatase 129 01/13/25 86 10/14/24 71 07/15/24 Aluminum ?5 10/14/24 ?5 04/15/24 PTH within target. Phosphorus controlled. Calcium controlled. Bone and mineral metabolism parameters reviewed. NUTRITION ASSESSMENT Albumin 4.1 03/16/25 3.8 02/10/25 4.0 01/13/25 Potassium 4.5 03/16/25 4.5 02/10/25 4.7 01/13/25 eNPCR 0.49 03/16/25 0.60 02/10/25 0.55 01/13/25 Glucose 122 03/16/25 111 02/10/25 141 01/13/25 Albumin at goal. TRANSPLANT STATUS COMMENT COMMENTS: Not a candidate PHYSICAL EXAM Exam performed. Vital Signs Reviewed. Lungs - Clear. CV - Blood pressure noted. CV - RRR. No edema. EXT - No ulcers. ADDITIONAL LABS WBC 6.13 (03/16/25) 6.41 (02/10/25) 6.25 (01/13/25) Cholesterol 120 (04/15/24) HDL 46 (04/15/24) LDL Calculated 35 (04/15/24) Triglycerides 194 (04/15/24) Hepatitis B Surface Ab ?1,000 (10/14/24) ?10 (04/15/24) Signed by: AHSAN MARIA MD on 04/03/2025 at 03:41:58 PM Transcribed by: AHSAN MRAIA MD on 04/03/2025 at 03:41:58 PM documented in this encounter Plan of Treatment Not on file documented as of this encounter Visit Diagnoses Diagnosis End stage renal disease Dependence on renal dialysis documented in this encounter Care Teams Community Service Aide Relationship Specialty Start Date End Date Viet Zayas MD [address] [place], [place] [id number] PCP - General Family Medicine 12/27/20 documented as of this encounter
--- OUTSIDE RECORDS SUMMARY | 2025-04-10 08:02 | XMS_ITS | Clinical Summary ---
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 Gender Identity Not on file Sexual Orientation [...] Visit 65+ 2006 Covid-19 Vaccine (4 - 2024-2 6 season) 2025 06/02/2021, 08/12/2020, 07/23/2020 Influenza Vaccine (#1) 2025 , 02/10/2019, 02/27/2018, Additional history exists DTaP/Tdap/Td Vaccine (2 - Td or Tdap) 12/03/2033 12/04/2023 Pneumococcal vaccine 65+ Completed 020, 06/04/2015, 05/11/2015 Zoster Vaccine Completed 06/08/2021, 12/17/2020 Hepatitis B Screening Completed 08/15/2022 , 04/18/2022, 03/14/2022, Additional history exists Insurance ([place]) [address] [facility] Care Teams Loader Malt House Relationship Specialty Start Date End Date No, Physician PCP - General 12/04/23
--- OUTSIDE RECORDS SUMMARY | 2025-04-10 08:02 | XMS_ITS | Encounter Summary ---
Author Organization [facility] [employer] [facility] Address [facility] [place] [address] [address] Phone Care Team Providers Care Remote Ruby On Rails Developer Name Role Phone Viet Zayas MD Primary Care Provider [phone] Encounter Details Date Type Department Care Team (Late st Contact Info) Description 07/22/2024 Treatment [place] [address] [place] [address] [address] Ahsan Maria MD [address] [place] [address] Social History Tobacco Use Types Packs/Day Years [...] care for end stage renal disease. Attending Electronic Assembler Group Leader: AHSAN MARIA Dialysis Location: [facility] Schedule: Shift: 2 OVERVIEW Patient is stable. 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 Current [facility] Outpatient Medications acetaminophen 325 mg [...] 1 tablet by mouth every evening. Current [facility] Allergies Allergen: ASPIRIN Reaction: Unknown [...] 96.5*F Current Dialysis Vitals BP Sit: 143/64 AP/DIVISIONAL STOREKEEPER: 226/190 Pulse: 73 TREATMENT MEDICATIONS ORDERS Heparin [...] on filedocumented in this encounter Care Teams Remote Ruby On Rails Developer Relationship Specialty Start Date End Date Viet Zayas MD [address] [place] [address] PCP - General Family Medicine 12/27/20 documented as of this encounter
--- OUTSIDE RECORDS SUMMARY | 2025-04-10 08:02 | XMS_ITS | Encounter Summary ---
Author Organization [facility] Address [address] [place] [address] Phone Care Team Providers Care Shaker Operator Name Role Phone Viet Zayas MD Primary Care Provider [phone] Encounter Details Date Type Department Care Team (Late st Contact Info) Description 02/18/2019 Orders Only [facility] [place] [address] [address] Gerber Chan MD [address] [place] [address] Chronic kidney disease stage 3 [...] (HCC) documented in this encounter Care Teams Shaker Operator Relationship Specialty Start Date End Date Viet Zayas MD [address] [place] [address] PCP - General Family Medicine 12/27/20 documented as of this encounter
--- OUTSIDE RECORDS SUMMARY | 2025-04-10 08:02 | XMS_ITS | Encounter Summary ---
Author Organization [facility] Address [address] [place] [address] Phone Care Team Providers Care Energy Consultant Name Role Phone Viet Zayas MD Primary Care Provider [phone] Encounter Details Date Type Department Care Team (Late st Contact Info) Description 12/25/2017 Orders Only [facility] [place] [address] [address] Gerber Chan MD [address] [place] [address] Anemia in chronic kidney disease [...] disease documented in this encounter Care Teams Energy Consultant Relationship Specialty Start Date End Date Viet Zayas MD [address] [place] [address] PCP - General Family Medicine 12/27/20 documented as of this encounter
--- OUTSIDE RECORDS SUMMARY | 2025-04-10 08:02 | XMS_ITS | Patient Health Record ---
Author Organization [facility] [employer] Address [address] [facility] [address] [place] [address] Care Team Providers Care Asphalt Dauber Name Role Phone Megan Marin Unavailable [phone] Reason For Referral No Information Medications Medication SIG (Take, Route, Frequency, Duration) Notes Start Date End Date Status PriLOSEC OTC 20 MG Tablet Delayed Release Oral 06/30/2022 Activ e Furosemide 40 MG Tablet Oral 06/30/2022 Active Metoprolol Tartrate 25 MG Tablet Oral 06/30/2022 Active DULoxetine HCl 60 MG Capsule Delayed Release Particles Oral 06/30/2022 Active Mirtazapine 15 MG Tablet Oral 06/30/2022 Active Tolterodine Tartrate ER 4 MG Capsule Extended Release 24 Hour Oral 06/30/2022 Active Calcitriol 0.5 MCG Capsule Oral 06/30/2022 Active Advair Diskus 250-50 MCG/DOSE Aerosol Powder Breath Activated Inhalation 06/30/2022 Active Magnesium Oxide (Elemental) 400 MG Tablet Oral *Reorder from [email or web address] for eRx and Interaction Alerts* 06/30/2022 Active Stomach Relief 262 mg/15 mL Suspension Oral 06/30/2022 Active Levothyroxine Sodium 100 MCG Tablet Oral 06/30/2022 Active Allopurinol 100 MG Tablet Oral 06/30/2022 Active Melatonin 3 MG Tablet Oral 06/30/2022 Active Docusate Sodium 100 MG Capsule Oral 06/30/2022 Active Ergocalciferol 1.25 MG (33658 UT) Capsule Oral 06/30/2022 Active Ziprasidone HCl 20 MG Capsule Oral 06/30/2022 Active Simvastatin 40 MG Tablet Oral 06/30/2022 Active Sevelamer Carbonate 800 MG Tablet Oral 06/30/2022 Active Omeprazole 20 MG Capsule Delayed Release Oral 06/30/2022 Active Acetaminophen 325 MG Tablet Oral 06/30/2022 Active Restasis 0.05 % Emulsion Ophthalmic 06/30/2022 Active Robafen 100 mg/5 mL Syrup Oral 06/30/2022 Active Fluticasone Propionate Diskus 50 MCG/ACT Aerosol Powder Breath Activated Inhalation *Reorder from [email or web address] for eRx and Interaction Alerts* 06/30/2022 Active Levothyroxine Sodium 88 MCG Tablet Oral 06/30/2022 Active Meclizine HCl 25 MG Tablet Oral 06/30/2022 Active Social History Social History Additional Details Category Social Info Options Details Migrated Social History Migrated Social History Alcohol Intake: None 03/16/2020,Tobacco Years: Never smoker 03/16/2020 Plan Of Treatment No Information Insurance Providers Payer Name Payer Address Payer Phone Subscriber Number Group Number Insured Name Patient Relationship to Insured Coverage Start Date Coverage End Date [facility] Plan Of [place] - On Or After 2020 [address] [place] [address] [id number] WAGES, CONCEPCION Self - patient is the insured
--- OUTSIDE RECORDS SUMMARY | 2025-04-10 08:02 | XMS_ITS | Encounter Summary ---
Author Organization [facility] Address [address] [place] [address] Phone Care Team Providers Care Machine Shop Helper Name Role Phone Viet Zayas MD Primary Care Provider [phone] Encounter Details Date Type Department Care Team (Late st Contact Info) Description 01/06/2019 Orders Only [facility] [place] [address] [address] Gerber Chan MD [address] [place] [address] Chronic kidney disease stage 4 [...] (HCC) documented in this encounter Care Teams Machine Shop Helper Relationship Specialty Start Date End Date Viet Zayas MD [address] [place] [address] PCP - General Family Medicine 12/27/20 documented as of this encounter
--- OUTSIDE RECORDS SUMMARY | 2025-04-10 08:02 | XMS_ITS | Encounter Summary ---
Author Organization [facility] [employer] [facility] [employer] [facility] Address [facility] [place] [address] [address] Phone Care Team Providers Care Fusing Machine Tender Name Role Phone Viet Zayas MD Primary Care Provider [phone] Encounter Details Date Type Department Care Team (Late st Contact Info) Description 01/20/2025 Treatment [place] [facility] [address] [place] [address] [place] [address] [address] [address] Ahsan Maria MD [address] [place] [address] End stage renal disease; Dependence on renal [...] Dialysis Note - Ahsan Maria MD - 01/20/2025 12:00 AM CDT Patient: Elsie Osorio : 1940 Note Type: Dialysis Rounds-Comp Service Date: 01/20/2025 Appropriate patient consent obtained. This patient was personally seen [id number] for a complete visit as part of routine monthly dialysis care for end stage renal disease. Attending Fabric Machine Operator: AHSAN MARIA Dialysis Location: [facility] Schedule: Shift: 2 OVERVIEW Patient is stable. 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 Current [facility] Outpatient Medications acetaminophen 325 mg tablet [...] 1 tablet by mouth every evening. Current [facility] Allergies Allergen: ASPIRIN Reaction: Unknown Allergen: CODEINE Reaction: Unknown Allergen: PENICILLINS Reaction: Breathing Problems Allergen: tetracycline Reaction: Breathing Problems Allergen: Tetracyclines Reaction: Breathing Problems Allergen: TRAMADOL Reaction: Breathing Problems DIALYSIS PRESCRIPTION Treatment Data Treatment Date: 01/20/2025 started at: 11:40 AM Dialysate / Machine Temp (prescribed): 37.0*C Dialysate / Machine Temp (actual): 36.8*C BFR (prescribed): 400 BFR (average delivered): 410 DFR (prescribed): Manual 500 DFR (average delivered): 500 Prescribed Time: 03:00 Actual Time: 03:08 EDW (kg): 77.6 Dialyzer: 180NRe Optiflux Dialysate: 2.0 K, 2.5 Ca, 1.0 Mg, 100 Dextrose (G2251) Sodium: 138 Bicarb: 38 Pre Dialysis Vitals Pre BP Sit: 145/59 Pre Wt (kg): 78.2 EDW Deviation (kg): 0.6 Temp: 97.4*F Post Dialysis Vitals Post BP Sit: 139/60 Post Wt (kg): 77.2 TREATMENT MEDICATIONS ORDERS Heparin Sodium (Porcine) 1,000 Units/mL Systemic 1000 units IVP Every Treatment 12/23/2024 - 12/22/2025 Heparin Sodium (Porcine) 1,000 Units/mL Systemic 500 units IVP Every Treatment 12/23/2024 - 12/22/2025 Vitamin D (Calcitriol) Oral 0.25 mcg ORAL 3X Week 11/06/2024 - 11/05/2025 BP AND FLUID ASSESSMENT Acceptable blood pressure. Fluid status acceptable. Post BP Sit 139/60 - 01/20/2025 143/62 - 01/17/2025 127/53 - 01/15/2025 Post Wt (kg) 77.2 - 01/20/2025 77.4 - 01/17/2025 77.6 - 01/15/2025 EDW (kg) 77.6 - 01/20/2025 77.6 - 01/17/2025 78.0 - 01/15/2025 Deviation (kg) -0.4 - 01/20/2025 -0.2 - 01/17/2025 -0.4 - 01/15/2025 ADEQUACY ASSESSMENT spKt/V (Daugirdas II) 1.66 (01/13/25) 1.67 (12/16/24) 1.80 (11/11/24) eKdrt/V 1.37 (01/13/25) 1.35 (12/16/24) 1.46 (11/11/24) % Urea Reduction 78 (01/13/25) 79 (12/16/24) 80 (11/11/24) BUN 36 (01/13/25) 28 (12/16/24) 35 (11/11/24) BUN Post Dialysis 8 (01/13/25) 6 (12/16/24) 7 (11/11/24) Creatinine 2.87 (01/13/25) 2.95 (12/16/24) 3.11 (11/11/24) Bicarbonate (CO2) 25 (01/13/25) 28 (12/16/24) 27 (11/11/24) Sodium 136 (01/13/25) 139 (12/16/24) 138 (11/11/24) Target met. Prescription compliance acceptable. Continue with greater than 3x more frequent dialysis prescription. Missed Treatments 0 - Last 30 days 0 - Last 60 days ACCESS ASSESSMENT Current access is permanent and functioning well. AVFistula Standard Right Upper Arm Active (In Use) - 12/01/2021 Placed - Unknown Access Flow ? 1999 (12/25/24) ? 1999 (11/20/24) ? 1999 (10/23/24) ANEMIA ASSESSMENT Hemoglobin 11.3 (01/20/25) 11.3 (01/13/25) 10.5 (01/06/25) Iron Saturation (TSat) 18 (01/13/25) 28 (12/16/24) 24 (11/11/24) Ferritin 641 (01/13/25) 482 (10/14/24) 589 (07/15/24) Iron 55 (01/13/25) 89 (12/16/24) 71 (11/11/24) TIBC 302 (01/13/25) 313 (12/16/24) 294 (11/11/24) MCV 98 (01/13/25) 96 (12/16/24) 97 (11/11/24) Folate 8.6 (04/15/24) Platelets 173 (01/13/25) 175 (12/16/24) 176 (11/11/24) Anemia targets met. PARRISH adjusted per protocol. Iron adjusted per protocol. BMM ASSESSMENT Calcium 8.8 01/13/25 8.9 12/16/24 8.7 11/11/24 Corrected Calcium 8.8 01/13/25 8.9 12/16/24 8.5 11/11/24 Phosphorus 3.5 01/13/25 4.3 12/16/24 3.6 11/11/24 Calcium Phosphorus Product 31 01/13/25 38 12/16/24 31 11/11/24 PTH 247 01/13/25 325 10/14/24 205 07/15/24 Vitamin D, 25-OH, Total 23.3 04/15/24 Magnesium 2.3 01/13/25 2.3 10/14/24 2.2 07/15/24 Alkaline Phosphatase 129 01/13/25 86 10/14/24 71 07/15/24 Aluminum ?5 10/14/24 ?5 04/15/24 PTH within target. Phosphorus controlled. Calcium controlled. Bone and mineral metabolism parameters reviewed. NUTRITION ASSESSMENT Albumin 4.0 01/13/25 4.0 12/16/24 4.2 11/11/24 Potassium 4.7 01/13/25 4.6 12/16/24 3.7 11/11/24 eNPCR 0.55 01/13/25 0.46 12/16/24 0.56 11/11/24 Albumin at goal. TRANSPLANT STATUS COMMENT COMMENTS: Not a candidate PHYSICAL EXAM Exam performed. Vital Signs Reviewed. Lungs - Clear. CV - Blood pressure noted. CV - RRR. No edema. EXT - No ulcers. ADDITIONAL LABS WBC 6.25 (01/13/25) 6.00 (12/16/24) 7.06 (11/11/24) Cholesterol 120 (04/15/24) HDL 46 (04/15/24) LDL Calculated 35 (04/15/24) Triglycerides 194 (04/15/24) Hepatitis B Surface Ab ?1,000 (10/14/24) ?10 (04/15/24) Signed by: AHSAN MARIA MD on 01/21/2025 at 04:12:38 PM Transcribed by: AHSAN MARIA MD on 01/21/2025 at 04:12:38 PM documented in this encounter Plan of Treatment Not on file documented as of this encounter Visit Diagnoses Diagnosis End stage renal disease Dependence on renal dialysis documented in this encounter Care Teams Fusing Machine Tender Relationship Specialty Start Date End Date Viet Zayas MD [address] [place], [place] [id number] PCP - General Family Medicine 12/27/20 documented as of this encounter
--- OUTSIDE RECORDS SUMMARY | 2025-04-10 08:02 | XMS_ITS | Encounter Summary ---
Author Organization [facility] [employer] [facility] [employer] [facility] Address [facility] [place] [address] [address] Phone Care Team Providers Care Industrial Health And Safety Professor Name Role Phone Viet Zayas MD Primary Care Provider [phone] Encounter Details Date Type Department Care Team (Late st Contact Info) Description 08/19/2024 Treatment [place] [employer] [place] [address] [address] [address] Ahsan Maria MD [address] [place] [address] End stage renal disease; Dependence on renal [...] care for end stage renal disease. Attending Web Press Operator: AHSAN MARIA Dialysis [facility]: [facility] Schedule: Shift: 2 OVERVIEW Patient is stable. 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 Current [facility] Outpatient Medications acetaminophen 325 mg tablet [...] 1 tablet by mouth every evening[facility] Allergen: ASPIRIN Reaction: Unknown Allergen: [...] dialysis documented in this encounter Care Teams Industrial Health And Safety Professor Relationship Specialty Start Date End Date Viet Zayas MD [address] [place] [address] PCP - General Family Medicine 12/27/20 documented as of this encounter
--- OUTSIDE RECORDS SUMMARY | 2025-04-10 08:02 | XMS_ITS | Encounter Summary ---
Author Organization [facility] Address [address] [place] [address] Phone Care Team Providers Care Pedorthist Name Role Phone Viet Zayas MD Primary Care Provider [phone] Encounter Details Date Type Department Care Team (Late st Contact Info) Description 11/04/2018 Orders Only [facility] [place] [address] [place] [address] Kiana Masterson, RN [address] [place] [address] Stage 5 chronic kidney disease (HCC) [...] (HCC) documented in this encounter Care Teams Pedorthist Relationship Specialty Start Date End Date Viet Zayas MD [address] [place] [address] PCP - General Family Medicine 12/27/20 documented as of this encounter
--- OUTSIDE RECORDS SUMMARY | 2025-04-10 08:02 | XMS_ITS | Encounter Summary ---
Author Organization [facility] [employer] [facility] [employer] [facility] Address [facility] [address] [address] [address] [address] Phone Care Team Providers Care Cpc Name Role Phone Viet Zayas MD Primary Care Provider [phone] Encounter Details Date Type Department Care Team (Late st Contact Info) Description 12/16/2024 Treatment [place] [facility] [place] [address] [address] [address] Ahsan Maria MD [address] [place] [address] End stage renal disease; Dependence on renal [...] Dialysis Note - Ahsan Maria MD - 12/16/2024 12:00 AM CDT Patient: Elsie Osorio : 1940 Note Type: Dialysis Rounds-Comp Service Date: 12/16/2024 Appropriate patient consent obtained. This patient was personally seen for a complete visit as part of routine monthly dialysis care for end stage renal disease. Attending Cruise Coordinator: AHSAN MARIA Dialysis Location: [facility] Schedule: Shift: 2 OVERVIEW Patient is stable. 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 Current [facility] Outpatient Medications acetaminophen 325 mg tablet [...] 1 tablet by mouth every evening. Current [facility] Allergies Allergen: ASPIRIN Reaction: Unknown Allergen: CODEINE Reaction: Unknown Allergen: PENICILLINS Reaction: Breathing Problems Allergen: tetracycline Reaction: Breathing Problems Allergen: Tetracyclines Reaction: Breathing Problems Allergen: TRAMADOL Reaction: Breathing Problems DIALYSIS PRESCRIPTION Treatment Data Treatment Date: 12/16/2024 started at: 11:40 AM Dialysate / Machine Temp (prescribed): 37.0*C Dialysate / Machine Temp (actual): 37.1*C BFR (prescribed): 400 BFR (average delivered): 400 DFR (prescribed): Manual 500 DFR (average delivered): 800 Prescribed Time: 03:00 Actual Time: 03:01 EDW (kg): 78.0 Dialyzer: 180NRe Optiflux Dialysate: 2.0 K, 2.5 Ca, 1.0 Mg, 100 Dextrose (G2251) Sodium: 138 Bicarb: 38 Pre Dialysis Vitals Pre BP Sit: 140/59 Pre Wt (kg): 78.3 EDW Deviation (kg): 0.3 Temp: 97.8*F Post Dialysis Vitals Post BP Sit: 135/59 Post Wt (kg): 78.1 TREATMENT MEDICATIONS ORDERS Heparin Sodium (Porcine) 1,000 Units/mL Systemic 500 units IVP Every Treatment 12/22/2023 - 12/20/2024 Heparin Sodium (Porcine) 1,000 Units/mL Systemic 1000 units IVP Every Treatment 12/22/2023 - 12/20/2024 Vitamin D (Calcitriol) Oral 0.25 mcg ORAL 3X Week 11/06/2024 - 11/05/2025 BP AND FLUID ASSESSMENT Acceptable blood pressure. Fluid status acceptable. EDW appropriate. Post BP Sit 135/59 - 12/16/2024 135/68 - 12/13/2024 134/60 - 12/11/2024 Post Wt (kg) 78.1 - 12/16/2024 77.9 - 12/13/2024 77.7 - 12/11/2024 EDW (kg) 78.0 - 12/16/2024 78.0 - 12/13/2024 78.0 - 12/11/2024 Deviation (kg) 0.1 - 12/16/2024 -0.1 - 12/13/2024 -0.3 - 12/11/2024 ADEQUACY ASSESSMENT spKt/V (Daugirdas II) 1.80 (11/11/24) 1.63 (10/14/24) 1.44 (09/16/24) eKdrt/V 1.46 (11/11/24) 1.32 (10/14/24) 1.15 (09/16/24) % Urea Reduction 80 (11/11/24) 77 (10/14/24) 73 (09/16/24) BUN 35 (11/11/24) 35 (10/14/24) 45 (09/16/24) BUN Post Dialysis 7 (11/11/24) 8 (10/14/24) 12 (09/16/24) Creatinine 3.11 (11/11/24) 2.80 (10/14/24) 2.96 (09/16/24) Bicarbonate (CO2) 27 (11/11/24) 27 (10/14/24) 23 (09/16/24) Sodium 138 (11/11/24) 137 (10/14/24) 138 (09/16/24) Target met. Prescription compliance acceptable. Continue with greater than 3x more frequent dialysis prescription. Missed Treatments 0 - Last 30 days 0 - Last 60 days ACCESS ASSESSMENT Current access is permanent and functioning well. AVFistula Standard Right Upper Arm Active (In Use) - 12/01/2021 Placed - Unknown Access Flow > 2000 (11/20/24) > 2000 (10/23/24) > 1999 (09/25/24) ANEMIA ASSESSMENT Hemoglobin 10.8 (12/09/24) 11.0 (12/02/24) 11.0 (11/29/24) Iron Saturation (TSat) 24 (11/11/24) 19 (10/14/24) 18 (09/16/24) Ferritin 482 (10/14/24) 589 (07/15/24) 851 (04/15/24) Iron 71 (11/11/24) 54 (10/14/24) 58 (09/16/24) TIBC 294 (11/11/24) 289 (10/14/24) 329 (09/16/24) MCV 97 (11/11/24) 97 (10/14/24) 98 (09/16/24) Folate 8.6 (04/15/24) 12.6 (01/15/24) Platelets 176 (11/11/24) 145 (10/14/24) 151 (09/16/24) Anemia targets met. PARRISH adjusted per protocol. Iron adjusted per protocol. BMM ASSESSMENT Calcium 8.7 11/11/24 8.5 10/14/24 8.9 09/16/24 Corrected Calcium 8.5 11/11/24 8.7 10/14/24 8.9 09/16/24 Phosphorus 3.6 11/11/24 4.1 10/14/24 4.5 09/16/24 Calcium Phosphorus Product 31 11/11/24 35 10/14/24 40 09/16/24 PTH 325 10/14/24 205 07/15/24 171 04/15/24 Vitamin D, 25-OH, Total 23.3 04/15/24 21.7 01/15/24 Magnesium 2.3 10/14/24 2.2 07/15/24 2.2 04/15/24 Alkaline Phosphatase 86 10/14/24 71 07/15/24 71 04/15/24 Aluminum <5 10/14/24 <5 04/15/24 6 01/15/24 PTH within target. Phosphorus controlled. Calcium controlled. Bone and mineral metabolism parameters reviewed. NUTRITION ASSESSMENT Albumin 4.2 11/11/24 3.8 10/14/24 4.0 09/16/24 Potassium 3.7 11/11/24 4.5 10/14/24 4.6 09/16/24 eNPCR 0.56 11/11/24 0.54 10/14/24 0.62 09/16/24 Albumin at goal. TRANSPLANT STATUS COMMENT COMMENTS: Not a candidate PHYSICAL EXAM Exam performed. Vital Signs Reviewed. Lungs - Clear. CV - Blood pressure noted. CV - RRR. No edema. EXT - No ulcers. ADDITIONAL LABS WBC 7.06 (11/11/24) 6.10 (10/14/24) 6.36 (09/16/24) Cholesterol 120 (04/15/24) 137 (01/15/24) HDL 46 (04/15/24) 43 (01/15/24) LDL Calculated 35 (04/15/24) 56 (01/15/24) Triglycerides 194 (04/15/24) 189 (01/15/24) Hepatitis B Surface Ab >1,000 (10/14/24) <10 (04/15/24) Signed by: AHSAN MARIA MD on 12/16/2024 at 03:16:19 PM Transcribed by: AHSAN MARIA MD on 12/16/2024 at 03:16:19 PM documented in this encounter Plan of Treatment Not on file documented as of this encounter Visit Diagnoses Diagnosis End stage renal disease Dependence on renal dialysis documented in this encounter Care Teams Cpc Relationship Specialty Start Date End Date Viet Zayas MD [address] [place] [address] PCP - General Family Medicine 12/27/20 documented as of this encounter
--- OUTSIDE RECORDS SUMMARY | 2025-04-10 08:02 | XMS_ITS | Encounter Summary ---
Author Organization [facility] Address [address] [place] [address] Phone Care Team Providers Care Supervisor Publications Production Name Role Phone Viet Zayas MD Primary Care Provider [phone] Encounter Details Date Type Department Care Team (Late st Contact Info) Description 07/02/2017 Orders Only [facility] [place] [address] [address] Gerber Chan MD [address] [place] [address] Chronic kidney disease stage 3 [...] (HCC) documented in this encounter Care Teams Supervisor Publications Production Relationship Specialty Start Date End Date Viet Zayas MD [address] [place] [address] PCP - General Family Medicine 12/27/20 documented as of this encounter
--- OUTSIDE RECORDS SUMMARY | 2025-04-10 08:02 | XMS_ITS | Encounter Summary ---
Author Organization [facility] [employer] [facility] [email or web address] [facility] Address [facility] [address] [address] [address] Phone Care Team Providers Care Terminal Operations Manager Name Role Phone Viet Zayas MD Primary Care Provider [phone] Encounter Details Date Type Department Care Team (Late st Contact Info) Description 04/22/2024 Treatment [place] [employer] [place] [address] [address] [address] Ahsan Maria MD [address] [place] [address] Social History Tobacco Use Types Packs/Day Years [...] care for end stage renal disease. Attending Commutator V Ring Assembler: AHSAN MARIA Dialysis Location: [facility] Schedule: Shift: 2 OVERVIEW Patient is stable. 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 Current [facility] Outpatient Medications acetaminophen 325 mg tablet Take [...] by mouth every evening. Current [facility] Allergies Allergen: ASPIRIN Reaction: Unknown Allergen: CODEINE [...] Placed - Unknown Access Flow > 2000 (03/29/24) > 1999 (02/21/24) > 1999 (01/26/24) [...] on filedocumented in this encounter Care Teams Terminal Operations Manager Relationship Specialty Start Date End Date Viet Zayas MD [address] [place] [address] PCP - General Family Medicine 12/27/20 documented as of this encounter
--- OUTSIDE RECORDS SUMMARY | 2025-04-10 08:02 | XMS_ITS | Encounter Summary ---
Author Organization [facility] Address [address] [place] [address] Phone Care Team Providers Care Assistant Head Cashier Name Role Phone Viet Zayas MD Primary Care Provider Encounter Details Date Type Department Care Team (Late st Contact Info) Description 06/27/2018 Orders Only [facility] [place] [address] [address] Gerber Chan MD [address] [place] [address] Chronic kidney disease stage 3; [...] 1 documented in this encounter Care Teams Assistant Head Cashier Relationship Specialty Start Date End Date Viet Zayas MD [address] [place] [address] PCP - General Family Medicine 12/27/20 documented as of this encounter
--- OUTSIDE RECORDS SUMMARY | 2025-04-10 08:02 | XMS_ITS | Encounter Summary ---
Author Organization [facility] [employer] [facility] [employer] [facility] Address [facility] [address] [address] [address] Phone Care Team Providers Care Contract Runner Name Role Phone Viet Zayas MD Primary Care Provider [phone] Encounter Details Date Type Department Care Team (Late st Contact Info) Description 09/25/[address] [place] [employer] [place] [address] [address] [address] Ahsan Maria MD [address] [place] [address] End stage renal disease; Dependence on renal [...] care for end stage renal disease. Attending Monitoring Coordinator: AHSAN MARIA Dialysis Location: [facility] Schedule: Shift: 2 OVERVIEW Patient is stable. 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 Current [facility] Outpatient Medications acetaminophen 325 mg [...] 1 tablet by mouth every evening. Current [facility] Allergies Allergen: ASPIRIN Reaction: Unknown [...] dialysis documented in this encounter Care Teams Contract Runner Relationship Specialty Start Date End Date Viet Zayas MD [address] [place] [address] PCP - General Family Medicine 12/27/20 documented as of this encounter
--- OUTSIDE RECORDS SUMMARY | 2025-04-10 08:02 | XMS_ITS | Encounter Summary ---
Author Organization [facility] [employer] [facility] [employer] [facility] Address [facility] [address] [address] [address] Phone Care Team Providers Care Nailhead Puncher Name Role Phone Viet Zayas MD Primary Care Provider [phone] Encounter Details Date Type Department Care Team (Late st Contact Info) Description 02/19/2024 Treatment [place] [employer] [place] [address] [address] [address] Ahsan Maria MD [address] [place] [address] Social History Tobacco Use Types Packs/Day Years [...] care for end stage renal disease. Attending Clerk Travel Reservations: AHSAN MARIA Dialysis Location: [facility] Schedule: Shift: 2 OVERVIEW Patient is stable. 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 Current [facility] Outpatient Medications acetaminophen 325 mg tablet [...] by mouth every evening. Current [facility] Allergies Allergen: ASPIRIN Reaction: Unknown Allergen: [...] on filedocumented in this encounter Care Teams Nailhead Puncher Relationship Specialty Start Date End Date Viet Zayas MD [address] [place] [address] PCP - General Family Medicine 12/27/20 documented as of this encounter
--- OUTSIDE RECORDS SUMMARY | 2025-04-10 08:02 | XMS_ITS | Encounter Summary ---
Author Organization [facility] Address [address] [place] [address] Phone Care Team Providers Care Mechanic Driver Name Role Phone Viet Zayas MD Primary Care Provider [phone] Encounter Details Date Type Department Care Team (Late st Contact Info) Description 10/06/2018 Orders Only [facility] [place] [address] [address] Gerber Chan MD [address] [place] [address] Chronic kidney disease stage 4 [...] (HCC) documented in this encounter Care Teams Mechanic Driver Relationship Specialty Start Date End Date Viet Zayas MD [address] [place] [address] PCP - General Family Medicine 12/27/20 documented as of this encounter
--- OUTSIDE RECORDS SUMMARY | 2025-04-10 08:02 | XMS_ITS | Encounter Summary ---
Author Organization [facility] [employer] [facility] [employer] [facility] Address [facility] [address] [address] [address] Phone Care Team Providers Care Dehydrating Press Operator Name Role Phone Viet Zayas MD Primary Care Provider [phone] Encounter Details Date Type Department Care Team (Late st Contact Info) Description 03/18/2024 Treatment [place] [employer] [place] [address] [address] [address] Ahsan Maria MD [address] [place] [address] Social History Tobacco Use Types Packs/Day Years [...] care for end stage renal disease. Attending Case Resolution Specialist: AHSAN MARIA Dialysis Location: [facility] Schedule: Shift: 2 OVERVIEW Patient is stable. 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 Current [facility] Outpatient Medications acetaminophen 325 mg tablet Take [...] 1 tablet by mouth every evening. Current [facility] Allergies Allergen: ASPIRIN Reaction: Unknown Allergen: CODEINE [...] on filedocumented in this encounter Care Teams Dehydrating Press Operator Relationship Specialty Start Date End Date Viet Zayas MD [address] [place] [address] PCP - General Family Medicine 12/27/20 documented as of this encounter
--- OUTSIDE RECORDS SUMMARY | 2025-04-10 08:02 | XMS_ITS | Encounter Summary ---
Author Organization [facility] [employer] [facility] [employer] [facility] Address [facility] [address] [address] Phone Care Team Providers Care Drawing In Machine Tender Helper Name Role Phone Viet Zayas MD Primary Care Provider Encounter Details Date Type Department Care Team (Late st Contact Info) Description 05/20/2024 Treatment [place] [employer] [place] [address] [address] [address] Ahsan Maria MD [address] [place] [address] Social History Tobacco Use Types Packs/Day Years [...] care for end stage renal disease. Attending Boiler Water Tester: AHSAN MARIA Dialysis Location: [facility] Schedule: Shift: 2 OVERVIEW [...] 97.3*F Current Dialysis Vitals BP Sit: 140/62 AP/NETWORK SYSTEMS ADMINISTRATOR: 222/194 Pulse: 72 TREATMENT MEDICATIONS ORDERS Heparin [...] on filedocumented in this encounter Care Teams Drawing In Machine Tender Helper Relationship Specialty Start Date End Date Viet Zayas MD [address] [place], [place] [address] PCP - General Family Medicine 12/27/20 documented as of this encounter
--- OUTSIDE RECORDS SUMMARY | 2025-04-10 08:02 | XMS_ITS | Encounter Summary ---
Author Organization [facility] [employer] [facility] [employer] [facility] Address [facility] [address] [address] Phone Care Team Providers Care Automotive Sales Professional Name Role Phone Viet Zayas MD Primary Care Provider [phone] Encounter Details Date Type Department Care Team (Late st Contact Info) Description 02/26/2025 Treatment [place] [employer] [place] [address] [address] [address] Ahsan Maria MD [address] [place] [address] End stage renal disease; Dependence on renal [...] Dialysis Note - Ahsan Maria MD - 02/26/2025 12:00 AM CDT Patient: Elsie Osorio : 1940 Note Type: Dialysis Rounds-Comp Service Date: 02/26/2025 Appropriate patient consent obtained. This patient was personally seen [id number] for a complete visit as part of routine monthly dialysis care for end stage renal disease. Attending [place] Guide: AHSAN MARIA Dialysis Location: [facility] Schedule: Shift: 2 OVERVIEW Patient is stable. 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 Current [facility] Outpatient Medications acetaminophen 325 mg [...] 1 tablet by mouth every evening. Current [facility] Allergies Allergen: ASPIRIN Reaction: Unknown Allergen: CODEINE Reaction: Unknown Allergen: PENICILLINS Reaction: Breathing Problems Allergen: tetracycline Reaction: Breathing Problems Allergen: Tetracyclines Reaction: Breathing Problems Allergen: TRAMADOL Reaction: Breathing Problems DIALYSIS PRESCRIPTION Treatment Data Treatment Date: 02/27/2025 started at: 11:54 AM Dialysate / Machine Temp (prescribed): 37.0*C Dialysate / Machine Temp (actual): 36.0*C BFR (prescribed): 400 BFR (average delivered): 400 DFR (prescribed): Manual 500 DFR (average delivered): 800 Prescribed Time: 03:00 Actual Time: 03:02 EDW (kg): 77.0 Dialyzer: 180NRe Optiflux Dialysate: 2.0 K, 2.5 Ca, 1.0 Mg, 100 Dextrose (G2251) Sodium: 138 Bicarb: 38 Pre Dialysis Vitals Pre BP Sit: 126/58 Pre Wt (kg): 77.4 EDW Deviation (kg): 0.4 Temp: 97.2*F Post Dialysis Vitals Post BP Sit: 110/54 Post Wt (kg): 76.7 TREATMENT MEDICATIONS ORDERS Heparin Sodium (Porcine) 1,000 Units/mL Systemic 500 units IVP Every Treatment 02/16/2025 - 02/15/2026 Heparin Sodium (Porcine) 1,000 Units/mL Systemic 1000 units IVP Every Treatment 02/16/2025 - 02/15/2026 Vitamin D (Calcitriol) Oral 0.25 mcg ORAL 3X Week 02/16/2025 - 02/15/2026 BP AND FLUID ASSESSMENT Acceptable blood pressure. Fluid status acceptable. Post BP Sit 110/54 - 02/27/2025 121/50 - 02/25/2025 135/65 - 02/23/2025 Post Wt (kg) 76.7 - 02/27/2025 77.1 - 02/25/2025 76.9 - 02/23/2025 EDW (kg) 77.0 - 02/27/2025 77.0 - 02/25/2025 77.0 - 02/23/2025 Deviation (kg) -0.3 - 02/27/2025 0.1 - 02/25/2025 -0.1 - 02/23/2025 ADEQUACY ASSESSMENT spKt/V (Daugirdas II) 1.89 (02/10/25) 1.66 (01/13/25) 1.67 (12/16/24) eKdrt/V 1.55 (02/10/25) 1.37 (01/13/25) 1.35 (12/16/24) % Urea Reduction 82 (02/10/25) 78 (01/13/25) 79 (12/16/24) BUN 38 (02/10/25) 36 (01/13/25) 28 (12/16/24) BUN Post Dialysis 7 (02/10/25) 8 (01/13/25) 6 (12/16/24) Creatinine 3.18 (02/10/25) 2.87 (01/13/25) 2.95 (12/16/24) Bicarbonate (CO2) 27 (02/10/25) 25 (01/13/25) 28 (12/16/24) Sodium 139 (02/10/25) 136 (01/13/25) 139 (12/16/24) Target met. Prescription compliance acceptable. Continue with greater than 3x more frequent dialysis prescription. Missed Treatments 2 - Last 30 days 2 - Last 60 days Most recently missed on 02/12/2025 ACCESS ASSESSMENT Current access is permanent and functioning well. AVFistula Standard Right Upper Arm Active (In Use) - 12/01/2021 Placed - Unknown Access Flow ? 1999 (02/18/25) ? 1999 (12/25/24) ? 1999 (11/20/24) ANEMIA ASSESSMENT Hemoglobin 11.2 (02/23/25) 11.0 (02/16/25) 11.0 (02/10/25) Iron Saturation (TSat) 26 (02/10/25) 18 (01/13/25) 28 (12/16/24) Ferritin 641 (01/13/25) 482 (10/14/24) 589 (07/15/24) Iron 80 (02/10/25) 55 (01/13/25) 89 (12/16/24) TIBC 306 (02/10/25) 302 (01/13/25) 313 (12/16/24) MCV 96 (02/10/25) 98 (01/13/25) 96 (12/16/24) Folate 8.6 (04/15/24) Platelets 159 (02/10/25) 173 (01/13/25) 175 (12/16/24) Anemia targets met. PARRISH adjusted per protocol. Iron adjusted per protocol. BMM ASSESSMENT Calcium 8.9 02/10/25 8.8 01/13/25 8.9 12/16/24 Corrected Calcium 9.1 02/10/25 8.8 01/13/25 8.9 12/16/24 Phosphorus 4.6 02/10/25 3.5 01/13/25 4.3 12/16/24 Calcium Phosphorus Product 41 02/10/25 31 01/13/25 38 12/16/24 PTH 247 01/13/25 325 10/14/24 205 07/15/24 Vitamin D, 25-OH, Total 23.3 04/15/24 Magnesium 2.3 01/13/25 2.3 10/14/24 2.2 07/15/24 Alkaline Phosphatase 129 01/13/25 86 10/14/24 71 07/15/24 Aluminum ?5 10/14/24 ?5 04/15/24 PTH within target. Phosphorus controlled. Calcium controlled. Bone and mineral metabolism parameters reviewed. NUTRITION ASSESSMENT Albumin 3.8 02/10/25 4.0 01/13/25 4.0 12/16/24 Potassium 4.5 02/10/25 4.7 01/13/25 4.6 12/16/24 eNPCR 0.60 02/10/25 0.55 01/13/25 0.46 12/16/24 Albumin at goal. TRANSPLANT STATUS COMMENT COMMENTS: Not a candidate PHYSICAL EXAM Exam performed. Vital Signs Reviewed. Lungs - Clear. CV - Blood pressure noted. CV - RRR. No edema. EXT - No ulcers. ADDITIONAL LABS WBC 6.41 (02/10/25) 6.25 (01/13/25) 6.00 (12/16/24) Cholesterol 120 (04/15/24) HDL 46 (04/15/24) LDL Calculated 35 (04/15/24) Triglycerides 194 (04/15/24) Hepatitis B Surface Ab ?1,000 (10/14/24) ?10 (04/15/24) Signed by: AHSAN MARIA MD on 03/01/2025 at 07:02:19 PM Transcribed by: AHSAN MARIA MD on 03/01/2025 at 07:02:19 PM documented in this encounter Plan of Treatment Not on file documented as of this encounter Visit Diagnoses Diagnosis End stage renal disease Dependence on renal dialysis documented in this encounter Care Teams Automotive Sales Professional Relationship Specialty Start Date End Date Viet Zayas MD [address] [place] [address] PCP - General Family Medicine 12/27/20 documented as of this encounter
--- OUTSIDE RECORDS SUMMARY | 2025-04-10 08:02 | XMS_ITS | Encounter Summary ---
Author Organization [facility] Address [address] [place] [address] Phone Care Team Providers Care Project Architect Name Role Phone Viet Zayas MD Primary Care Provider Reason for Visit * Reason Comments Med Refill Encounter Details Date Type Department Care Team (Late st Contact Info) Description 01/24/2020 Refill [facility] [place] [address] [facility] [address] [place] [address] Gerber Chan MD [address] [facility] [address] [address] [place] [address] Social History Tobacco Use Types [...] filedocumented in this encounter Care Teams Project Architect Relationship Specialty Start Date End Date Viet Zayas MD [address] [place] [address] PCP - General Family Medicine 12/27/20 documented as of this encounter
--- OUTSIDE RECORDS SUMMARY | 2025-04-10 08:02 | XMS_ITS | Encounter Summary ---
Author Organization [facility] Address [address] [place] [address] Phone Care Team Providers Care Transportation Consultant Name Role Phone Viet Zayas MD Primary Care Provider Encounter Details Date Type Department Care Team (Late st Contact Info) Description 12/24/2018 Orders Only [facility] [employer] [address] [place] [address] Jeannette Graham, RN [address] [place] [address] Pre op labs; Chronic kidney disease [...] (HCC) documented in this encounter Care Teams Transportation Consultant Relationship Specialty Start Date End Date Viet Zayas MD [address] [place] [address] PCP - General Family Medicine 12/27/20 documented as of this encounter
--- OUTSIDE RECORDS SUMMARY | 2025-04-10 08:02 | XMS_ITS | Encounter Summary ---
Author Organization [facility] [employer] [facility] [employer] [facility] Address [facility] [place] [address] [address] [address] Phone Care Team Providers Care Platform Worker Name Role Phone Viet Zayas MD Primary Care Provider [phone] Encounter Details Date Type Department Care Team (Late st Contact Info) Description 11/18/2024 Treatment [facility] [place] [place] [address] [address] [address] Ahsan Maria MD [address] [place] [address] End stage renal disease; Dependence on renal [...] Dialysis Note - Ahsan Maria MD - 11/18/2024 12:00 AM CDT Patient: Elsie Osorio : 1940 Note Type: Dialysis Rounds-Comp Service Date: 11/18/2024 Appropriate patient consent obtained. This patient was personally seen for a complete visit as part of routine monthly dialysis care for end stage renal disease. Attending Engineering Geologist: AHSAN MARIA Dialysis Location: [facility] Schedule: Shift: 2 OVERVIEW Patient is stable. 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 Current [facility] Outpatient Medications acetaminophen 325 mg [...] 1 tablet by mouth every evening. Current [facility] Allergies Allergen: ASPIRIN Reaction: Unknown Allergen: CODEINE Reaction: Unknown Allergen: PENICILLINS Reaction: Breathing Problems Allergen: tetracycline Reaction: Breathing Problems Allergen: Tetracyclines Reaction: Breathing Problems Allergen: TRAMADOL Reaction: Breathing Problems DIALYSIS PRESCRIPTION Treatment Data Treatment Date: 11/29/2024 started at: 11:53 AM Dialysate / Machine Temp (prescribed): 37.0*C Dialysate / Machine Temp (actual): 36.5*C BFR (prescribed): 400 BFR (average delivered): 400 DFR (prescribed): Manual 500 DFR (average delivered): 800 Prescribed Time: 03:00 Actual Time: 02:46 EDW (kg): 78.0 Dialyzer: 180NRe Optiflux Dialysate: 2.0 K, 2.5 Ca, 1.0 Mg, 100 Dextrose (G2251) Sodium: 138 Bicarb: 38 Pre Dialysis Vitals Pre BP Sit: 162/73 Pre Wt (kg): 78.6 EDW Deviation (kg): 0.6 Temp: 98.1*F Post Dialysis Vitals Post BP Sit: 149/56 Post Wt (kg): 77.9 TREATMENT MEDICATIONS ORDERS Heparin Sodium (Porcine) 1,000 Units/mL Systemic 500 units IVP Every Treatment 12/22/2023 - 12/20/2024 Heparin Sodium (Porcine) 1,000 Units/mL Systemic 1000 units IVP Every Treatment 12/22/2023 - 12/20/2024 Vitamin D (Calcitriol) Oral 0.25 mcg ORAL 3X Week 11/06/2024 - 11/05/2025 BP AND FLUID ASSESSMENT Acceptable blood pressure. Fluid status acceptable. Post BP Sit 149/56 - 11/29/2024 130/77 - 11/27/2024 134/60 - 11/25/2024 Post Wt (kg) 77.9 - 11/29/2024 77.7 - 11/27/2024 78.2 - 11/25/2024 EDW (kg) 78.0 - 11/29/2024 78.0 - 11/27/2024 78.0 - 11/25/2024 Deviation (kg) -0.1 - 11/29/2024 -0.3 - 11/27/2024 0.2 - 11/25/2024 ADEQUACY ASSESSMENT spKt/V (Daugirdas II) 1.80 (11/11/24) [...] > 2000 (11/20/24) > 2000 (10/23/24) > 2000 (09/25/24) ANEMIA ASSESSMENT Hemoglobin 10.9 (11/25/24) 11.4 (11/18/24) 11.5 (11/11/24) Iron Saturation (TSat) 24 (11/11/24) 19 (10/14/24) [...] (04/15/24) Signed by: AHSAN MARIA MD on 11/30/2024 at 12:37:40 PM Transcribed by: AHSAN MARIA MD on 11/30/2024 at 12:37:40 PM documented in this encounter Plan of Treatment Not on file documented as of this encounter Visit Diagnoses Diagnosis End stage renal disease Dependence on renal dialysis documented in this encounter Care Teams Platform Worker Relationship Specialty Start Date End Date Viet Zayas MD [address] [place], [place] [id number] PCP - General Family Medicine 12/27/20 documented as of this encounter
--- OUTSIDE RECORDS SUMMARY | 2025-04-10 08:02 | XMS_ITS | Encounter Summary ---
Author Organization [facility] Address [address] [place] [address] Phone Care Team Providers Care Vba Programmer Name Role Phone Viet Zayas MD Primary Care Provider [phone] Encounter Details Date Type Department Care Team (Late st Contact Info) Description 11/18/2018 Orders Only [facility] [place] [address] [place] [address] Kiana Masterson, RN [address] [place] [address] Stage 5 chronic kidney disease (HCC); [...] (HCC) documented in this encounter Care Teams Vba Programmer Relationship Specialty Start Date End Date Viet Zayas MD [address] [place] [address] PCP - General Family Medicine 12/27/20 documented as of this encounter
--- OUTSIDE RECORDS SUMMARY | 2025-04-10 08:02 | XMS_ITS | Encounter Summary ---
Author Organization [facility] [employer] [facility] [employer] [facility] Address [facility] [address] [address] [address] [address] Phone Care Team Providers Care Machine Setup Operator Name Role Phone Viet Zayas MD Primary Care Provider Encounter Details Date Type Department Care Team (Late st Contact Info) Description 07/03/2024 Treatment [place] [id number] [place] [address] [address] [address] Ahsan Maria MD [address] [place] [address] Social History Tobacco Use Types Packs/Day Years [...] - 07/03/2024 12:00 AM CST Patient: Elsie Osoroi : 1940 Note Type: Dialysis Rounds-Comp Service Date: 07/03/2024 Appropriate patient consent obtained. This patient was personally seen for a complete visit as part of routine monthly dialysis care for end stage renal disease. Attending Silk Screen Cutter: AHSAN MARIA Dialysis Location: [facility] Schedule: Shift: 2 OVERVIEW Patient is stable. 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 Current [facility] Outpatient Medications acetaminophen 325 mg [...] 1 tablet by mouth every evening. Current [facility] Allergies Allergen: ASPIRIN Reaction: Unknown [...] on filedocumented in this encounter Care Teams Machine Setup Operator Relationship Specialty Start Date End Date Viet Zayas MD [address] [place] [address] PCP - General Family Medicine 12/27/20 documented as of this encounter
--- OUTSIDE RECORDS SUMMARY | 2025-04-10 08:02 | XMS_ITS | Encounter Summary ---
Author Organization [facility] [employer] [facility] [employer] [facility] Address [facility] [place] [address] [address] [address] Phone Care Team Providers Care Data Collection Interviewer Name Role Phone Viet Zayas MD Primary Care Provider [phone] Encounter Details Date Type Department Care Team (Late st Contact Info) Description 10/21/2024 Treatment [place] [employer] [place] [address] [address] [address] Ahsan Maria MD [address] [place] [address] End stage renal disease; Dependence on renal [...] care for end stage renal disease. Attending Automotive Sales Specialist: AHSAN MARIA Dialysis Location: [facility] Schedule: Shift: 2 OVERVIEW Patient is stable. 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 Current [facility] Outpatient Medications acetaminophen 325 mg tablet [...] tablet by mouth every evening. Current [facility] Allergies Allergen: ASPIRIN Reaction: Unknown Allergen: [...] dialysis documented in this encounter Care Teams Data Collection Interviewer Relationship Specialty Start Date End Date Viet Zayas MD [address] [place] [address] PCP - General Family Medicine 12/27/20 documented as of this encounter
--- OUTSIDE RECORDS SUMMARY | 2025-04-10 08:02 | XMS_ITS | Encounter Summary ---
Author Organization [facility] Address [address] [place] [address] Phone Care Team Providers Care Letter Sorting Machine Operator Name Role Phone Viet Zayas MD Primary Care Provider [phone] Encounter Details Date Type Department Care Team (Late st Contact Info) Description 05/20/2019 Orders Only [facility] [place] [address] [address] Gerber Chan MD [address] [place] [address] Chronic kidney disease stage 3 [...] (HCC) documented in this encounter Care Teams Letter Sorting Machine Operator Relationship Specialty Start Date End Date Viet Zayas MD [address] [place] [address] PCP - General Family Medicine 12/27/20 documented as of this encounter
--- OUTSIDE RECORDS SUMMARY | 2025-04-10 08:02 | XMS_ITS | Clinical Summary ---
Author Organization [facility] [place] Address [address] [address] Phone Care Team Providers Care Field Auto Appraiser Name Role Phone Viet Zayas MD Primary Care Provider [phone] Allergies Active Allergy Reactions Criticality Noted Date Comments Aspirin Other (see comments) 11/17/2013 Upsets her chest and gives her heartburn Codeine Other (see comments) 11/17/2013 Gives her heartburn Calvin Pollen 07/29/2009 Penicillin V 07/29/2009 Penicillins Other [...] capsule 11 0 Active ergocalciferol 1.25 MG (77887 UT) capsule Take 50,000 Units by mouth [...] Encounters Date Type Department Care Team Description 04/06/2025 Orders Only [facility], [place] [phone] Ahsna Maria MD 04/03/2025 Treatment [facility], [address] [address] Ahsan Maria MD End stage renal disease; Dependence on renal dialysis 03/30/2025 Orders Only [facility], [address] [address] Ahsan Maria MD 03/23/2025 Orders Only [facility], [address] [address] Ahsan Maria MD 03/16/2025 Orders Only [facility], [address] [address] Ahsan Maria MD 03/09/2025 Orders Only [facility], [address] [address] Ahsan Maria MD 02/26/2025 Treatment [facility], [address] [address] Ahsan Maria MD End stage renal disease; Dependence on renal dialysis 02/23/2025 Orders Only [facility], [address] [address] Ahsan Maria MD 02/16/2025 Orders Only [facility], [address] [address] Ahsan Maria MD 02/10/2025 Orders Only [facility], [address] [address] Ahsan Maria MD 02/05/2025 Orders Only [facility], [address] [phone] Ahsan Maria MD 01/29/2025 Orders Only [facility], [address] [address] Ahsan Maria MD 01/27/2025 Orders Only [facility], [address] [address] Ahsan Maria MD 01/20/2025 Treatment [facility], [address] [address] Ahsan Maria MD End stage renal disease; Dependence on renal dialysis 01/20/2025 Orders Only [facility], [address] [address] Ahsan Maria MD 01/13/2025 Orders Only [facility], [address] [address] Ahsan Maria MD from Last [...] Dialysis 4-dose series) 1960 Influenza Vaccine (#1) 2025 , 02/10/2019, 02/27/2018 Procedures Procedure Name Priority Date/Time Associated Diagnosis Comments HEMATOLOGY Routine 04/06/2025 HEMATOLOGY Routine 03/30/2025 HEMATOLOGY Routine 03/23/2025 [facility] RESULTS Routine 03/16/2025 HD KINETICS Routine 03/16/2025 POST CHEMISTRY Routine 03/16/2025 CHEMISTRY Routine 03/16/2025 HEMATOLOGY Routine 03/16/2025 HEMATOLOGY Routine 03/09/2025 HEMATOLOGY Routine 02/23/2025 HEMATOLOGY Routine 02/16/2025 [facility] RES[facility] Routine 02/10/2025 HD KINETICS Routine 02/10/2025 CHEMISTRY Routine 02/10/2025 POST CHEMISTRY Routine 02/10/2025 HEMATOLOGY Routine 02/10/2025 HEMATOLOGY Routine 02/05/2025 HEMATOLOGY Routine 01/29/2025 HEMATOLOGY Routine 01/27/2025 HEMATOLOGY Routine 01/20/2025 [facility] RESULTS Routine 01/13/2025 HD KINETICS Routine 01/13/2025 POST CHEMISTRY Routine 01/13/2025 HEMATOLOGY Routine 01/13/2025 CHEMISTRY Routine 01/13/2025 CHEMISTRY Routine 01/13/2025 from Last 3 Months Results * (ABNORMAL) HEMATOLOGY (04/06/2025) Only the most recent of13 resultswithin the time period is included. Hemoglobin 10.4(L) 12.0 - 16.0 g/dL [facility] Hemoglobin x 3 31.2(L) 36.0 - 48.0 % [facility] 04/06/2025 04/07/2025 11: 00 AM SCOOP DRIVER Narrative [facility] - 04/07/2025 Unless otherwise specified, test(s) performed at: [facility], [address] [place] [address] ZIGZAGGER: Juan Jose Rogers M.D. For any questions, please call customer service at FREQUENCY:OTHER Resulting Agency Comment Specimen source: Blood us Ahsan Maria MD LAB BLOOD ORDERABLES Ronda l Result [facility] See order comments or contact performing lab Unknown, [place] * HD KINETICS (03/16/2025) Only the most recent of3 resultswithin the time period is included. % Urea Reduction 75 65 - 80 % [facility] 03/16/2025 03/17/2025 10: 27 AM CDT Narrative Resulting Agency Comment Specimen source: Plasma Ahsan Maria MD LAB BLOOD ORDERABLES Ronda l Result Performing Organization Address [facility] Co de Phone Number [facility] See order comments or contact performing lab Unknown, [place] * POST CHEMISTRY (03/16/2025) Only the most recent of3 resultswithin the time period is included. BUN Post Dialysis 8 6 - 19 mg/dL [facility] 03/16/2025 03/17/2025 10: 27 AM CDT Narrative [facility] - 03/17/2025 Unless otherwise specified, test(s) performed at: [facility], [address] [place] [address] ZIGZAGGER: Juan Jose Rogers M.D. For any questions, please call customer service at FREQUENCY:MONTHLY Resulting Agency Comment Specimen source: Plasma Ahsan Maria MD LAB BLOOD ORDERABLES Ronda l Result Performing Organization Address [facility] de Phone Number [facility] See order comments or contact performing lab Unknown, [place] * (ABNORMAL) [facility] Chemistry (03/16/2025) Only the most recent of4 resultswithin the time period is included. BUN 32(H) 6 - 19 mg/dL [facility] Creatinine 3.17(H) 0.60 - 1.30 mg/dL [facility] BUN/Creatinine Ratio 10.1 10.0 - 20.0 [facility] Sodium 137 136 - 145 mEq/L [facility] Potassium 4.5 3.5 - 5.1 mEq/L [facility] Chloride 101 96 - 108 mEq/L [facility] Bicarbonate (CO2) 26 22 - 29 mEq/L [facility] Calcium 8.5 8.4 - 10.2 mg/dL [facility] Corrected Calcium 8.4 8.4 - 10.2 mg/dL [facility] Comment: Corrected Calcium is not equivalent to measured Ionized Calcium. Phosphorus 5.0(H) 2.6 - 4.5 mg/dL [facility] Calcium Phosphorus Product 43 0 - 54 [facility] Calcium Phosporus Product, Cor 42 0 - 54 [facility] Total Protein 6.5 6.0 - 8.5 g/dL [facility] Albumin 4.1 3.5 - 5.2 g/dL [facility] Globulin, Total 2.4 2.0 - 4.0 g/dL [facility] A/G Ratio 1.7 1.0 - 2.0 [facility] Glucose 122(H) 70 - 100 mg/dL [facility] Iron 75 30 - 160 mcg/dL [facility] UIBC 236 155 - 355 mcg/dL [facility] TIBC 311 185 - 515 mcg/dL [facility] Iron Saturation (TSat) 24 20 - 55 % [facility] 03/16/2025 03/17/2025 10: 52 AM CDT Narrative [facility] - 03/17/2025 Unless otherwise specified, test(s) performed at: [facility], [address] [place] [address] ZIGZAGGER: Juan Jose Rogers M.D. For any questions, please call customer service at FREQUENCY:MONTHLY Resulting Agency Comment Specimen source: Serum Ashan Maria MD LAB BLOOD ORDERABLES Ronda smith Result [facility] See order comments or contact performing lab Unknown, [place] * [facility] Results (03/16/2025) Only the most recent of3 resultswithin the time period is included. spKt/V (Daugirdas II) 1.51 [facility] spKt/V Gotch 1.51 [facility] PCR 24.83 [facility] eKt/V Gotch 1.22 [facility] nPCR_HD 0.53 [facility] eKt/V (Tatluis eduardo) 1.26 [facility] eKdrt/V 1.22 [facility] [place] eNPCR 0.49 [facility] WSTDKT/V 2.4 [facility] 03/16/2025 03/16/2025 us Kannan Ordering Provider LAB BLOOD ORDERABLES Final Result [facility] Contact Performing lab Unknown, [place] from Last 3 Months Insurance [place] Medicare [facility]) Care Teams Field Auto Appraiser Relationship Specialty Start Date End Date Chana, Viet, MD [address] [place] [id number] PCP - General Family Medicine 12/27/20
--- OUTSIDE RECORDS SUMMARY | 2025-04-10 08:02 | XMS_ITS | Encounter Summary ---
Author Organization [facility] Address [address] [place] [address] Phone Care Team Providers Care Land Surveyor Name Role Phone Viet Zayas MD Primary Care Provider Encounter Details Date Type Department Care Team (Late st Contact Info) Description 03/27/2018 Orders Only [facility] [place] [address] [address] Gerber Chan MD [address] [place] [address] Chronic kidney disease stage 3; [...] 1 documented in this encounter Care Teams Land Surveyor Relationship Specialty Start Date End Date Viet Zayas MD [address] [place] [address] PCP - General Family Medicine 12/27/20 documented as of this encounter
--- NOTE | 2025-04-10 08:07 | ED.FALL ---
HPI - Fall General Chief Complaint: Head Injury Stated Complaint: fall Source: patient and EMS Mode of arrival: ambulatory Limitations: no limitations History of Present Illness HPI Narrative: Patient is an 84-year-old female who lives at the nursing facility and tripped and slipped while not using her walker yesterday. She fell and hit her head. She is having some head pain at this time. No other injuries according to EMS or the jail. complaint: fall Onset (ago): day(s) (Two) Fall from: standing Fall witnessed: yes, by living facility staff Place fall occurred: home Loss of consciousness: none Prolonged down time: no Symptoms prior to fall: none Context: tripped/slipped Location of injury: head Severity: mild Severity scale (1-10): 2 Quality: dull Associated symptoms (after fall): headache Related Data Home Medications ?Medication ?Instructions ?Recorded ?Confirmed ?Last Taken ?Type allopurinol 100 mg tablet 100 mg PO BID 05/20/20 01/29/24 05/20/20 History cyclosporine 0.05 % eye drops in a 1 drp ophthalmic (eye) Q12H 05/20/20 01/29/24 05/20/20 History dropperette (Restasis) metoprolol tartrate 25 mg tablet 25 mg PO BID 05/20/20 01/29/24 05/20/20 History mirtazapine 15 mg tablet 15 mg PO HS 05/20/20 01/29/24 05/20/20 History simvastatin 40 mg tablet 40 mg PO HS 05/20/20 01/29/24 05/19/20 History tolterodine 4 mg capsule,extended 4 mg PO DAILY 05/20/20 01/29/24 05/20/20 History release 24 hr dicyclomine 20 mg tablet 20 mg PO TID PRN Abdominal 02/13/21 01/29/24 Unknown History Discomfort polyethylene glycol 3350 17 1 g PO DAILY PRN Constipation 02/13/21 01/29/24 Unknown History gram/dose oral powder (Miralax) docusate sodium 100 mg capsule 100 mg PO BID 10/27/22 01/29/24 Unknown History levothyroxine 100 mcg tablet 125 mcg PO DAILY 10/27/22 01/29/24 Unknown History melatonin 3 mg tablet See Rx Instructions PO HS 10/27/22 10/27/24 Unknown History sevelamer carbonate 800 mg tablet 1,600 mg PO TID 10/27/22 01/29/24 Unknown History acetaminophen 325 mg capsule 650 mg PO BID pain 10/27/24 Unknown History duloxetine 60 mg capsule,delayed 60 mg PO DAILY 10/27/24 Unknown History release fluticasone 250 mcg-salmeterol 50 1 inh inhalation DAILY 10/27/24 Unknown History mcg/dose blistr powdr for inhalation magnesium oxide 400 mg (241.3 mg 400 mg PO DAILY 10/27/24 Unknown History magnesium) tablet Allergies Allergy/AdvReac Type Severity Reaction Status Date / Time aspirin Allergy Other Verified 04/10/25 08:24 codeine Allergy Other Verified 04/10/25 08:24 tetracycline Allergy Other Verified 04/10/25 08:24 Review of Systems Review of Systems: All systems reviewed & are unremarkable except as noted in HPI and below Constitutional: Constitutional: Reports no additional constitutional complaints Eyes: Eyes: Reports no additional eye complaints ENT: Reports system reviewed and no additional complaints, except as documented Cardiovascular: Cardiovascular: Reports no additional cardiovascular complaints Respiratory: Respiratory: Reports no additional respiratory complaints Gastrointestinal: Gastrointestinal: Reports no additional gastrointestinal complaints Genitourinary: Genitourinary: Reports no additional female genitourinary complaints Musculoskeletal: Musculoskeletal: Reports no additional musculoskeletal complaints Integumentary/Breasts: Skin/Breast: Reports system reviewed and no additional complaints, except as docu Neurologic: Reports system reviewed and no additional complaints, except as documented Psychiatric: Psychiatric: Reports no additional psychiatric complaints Endocrine: Endocrine: Reports no additional endocrine complaints Hematologic/Lymphatic: Hematologic/Lymphatic: Reports no additional hematologic/lymphatic complaints Allergic/Immunologic: Allergic/Immunologic: Reports no additional allergic/immunologic complaints [facility] Past Medical History Medical History GERD (gastroesophageal reflux disease) Hypothyroidism Dyslipidemia Hypertension Bipolar 1 disorder, mixed Chronic renal failure Surgical History Surgical History History of cholecystectomy History of appendectomy History of hysterectomy Social History Social History Alcohol intake: never Substance use: never Gender identity (if verbalized by the patient): Female Sexual Orientation (if Verbalized by the Patient): Straight or Heterosexual Spiritual care concerns: No Exam Const: General: healthy appearing, no acute distress and alert Nutritional Appearance: well nourished HENMT: Head: normal to inspection Ears: external ears normal Face/Nose/Sinus: Normal external nose present Eyes: Conjunctivae: conjunctivae normal Pupils: Equal, round and reactive pupils present EOM: EOMs intact bilaterally Neck: Neck: normal visual inspection Chest: Chest palpation & inspection: normal inspection of the chest Resp: Effort & Inspection: normal respiratory effort and not labored Auscultation: clear to auscultation bilaterally and no crackles Cardio: Rate: regular rate Rhythm: regular rhythm Heart sounds: no murmurs GI: Inspection: non-distended GI Palp: Yes Soft to palpation, No Tenderness to palpation present (GI) and No Guarding due to palpation present (GI) Auscultation: normal bowel sounds : General: Yes bladder normal to palpation Back/Spine/Pelvis: Back: no CVA tenderness Skin: General skin exam: normal color Rashes: no rashes Wounds: no wounds Neuro: General: patient oriented x3, moves all extremities and no meningeal signs Extrem: General: normal to inspection, no clubbing, cyanosis or edema and no pedal edema Psych: Mental Status: mental status grossly normal Affect: normal affect Attitude: cooperative Other: Baseline Course Vital Signs Vital signs: Vital Signs Temperature 36.6 C 04/10/25 07:55 Pulse Rate 70 04/10/25 07:55 Respiratory Rate 18 04/10/25 07:55 Blood Pressure 150/58 H 04/10/25 07:55 Pulse Oximetry 97 04/10/25 07:55 Oxygen Delivery Room Air 04/10/25 07:55 Temperature 36.6 C 04/10/25 07:55 Pulse Rate 70 04/10/25 07:55 Respiratory Rate 18 04/10/25 07:55 Blood Pressure 150/58 H 04/10/25 07:55 Pulse Oximetry 97 04/10/25 07:55 Oxygen Delivery Room Air 04/10/25 07:55 MDM - Fall MDM Narrative Medical decision making narrative: Patient is an 84-year-old [facility] jail who tripped and slipped yesterday and landed on her head. CT scan head and neck. Imaging Data Attestation: I personally reviewed and interpreted this imaging study as follows: Radiologist's impression: CT scan of the head is negative for acute process CT scan of the cervical spine is negative for acute process (thyroid outpatient workup) Discharge Plan Discharge Clinical Impression: Fall, Head injury Patient Disposition: Home Condition: Stable Instructions: Fall Prevention for Older Adults (ED), Head Injury (ED) Additional Instructions: Please follow-up with primary doctor in the next week. There a thyroid abnormality seen on the CT scan of the neck that require primary doctor further workup and opinion. Patient Language: Lithuanian Prescriptions: No Action simvastatin 40 mg Tablet 40 mg PO HS tolterodine 4 mg Capsule,Extended Release 24hr 4 mg PO DAILY allopurinol 100 mg Tablet 100 mg PO BID mirtazapine 15 mg Tablet 15 mg PO HS cyclosporine [Restasis] 0.05 % Dropperette 1 drp OPHTHALMIC (EYE) Q12H metoprolol tartrate 25 mg Tablet 25 mg PO BID melatonin 3 mg tablet See Rx Instructions PO HS Rx Instructions: 5MG orally bedtime; levothyroxine 100 mcg tablet 125 mcg PO DAILY docusate sodium 100 mg capsule 100 mg PO BID sevelamer carbonate 800 mg tablet 1,600 mg PO TID duloxetine 60 mg capsule,delayed release(DR/EC) 60 mg PO DAILY fluticasone propion-salmeterol 250-50 mcg/dose blister with device 1 inh INHALATION DAILY magnesium oxide 400 mg (241.3 mg magnesium) tablet 400 mg PO DAILY acetaminophen [Tylenol] 325 mg capsule 650 mg PO BID dicyclomine 20 mg Tablet 20 mg PO TID PRN (Reason: Abdominal Discomfort) polyethylene glycol 3350 [Miralax] 17 gram/dose Powder 1 g PO DAILY PRN (Reason: Constipation) hydrocortisone acetate [Anusol-HC] 25 mg suppository 25 mg RECTAL BID Qty: 12 0RF Follow-up/Referrals: Viet Zayas MD [Primary Care Provider, Internal Medicine] Time of Disposition: 08:47
[2025-04-10 08:32] VITALS: O2SAT 96
[2025-04-10 08:45] VITALS: BP 120/74; PULSE 78; RESP 20; O2SAT 93
--- OUTSIDE RECORDS SUMMARY | 2025-04-10 08:51 | XMS_ITS | Clinical Summary ---
Author Organization [facility] Address [address] [place] [address] Care Team Providers Care Civil Engineering Drafter Name Role Phone No, Physician Primary Care Provider [phone] Allergies No known active allergies Immunizations Immunization [...] on file Legal Sex Female 10:16 AM REFRACTIVE SURGEON Gender Identity Not on file Sexual Orientation [...] , 04/18/2022, 03/14/2022, Additional history exists Insurance (Grethel) [address] [facility] Care Teams Civil Engineering Drafter Relationship Specialty Start Date End Date No, Physician PCP - General 12/04/23
--- OUTSIDE RECORDS SUMMARY | 2025-04-10 08:51 | XMS_ITS | Encounter Summary ---
Author Organization [facility] [employer] [facility] [employer] [facility] Address [facility] [place] [address] [address] Phone Care Team Providers Care Dope Heater Name Role Phone Viet Zayas MD Primary Care Provider [phone] Encounter Details Date Type Department Care Team (Late st Contact Info) Description 07/03/2024 Treatment [place] [facility] [place] [address] [address] [address] [address] [address] Ahsan Maria MD [address] [place] [address] Social History Tobacco Use Types Packs/Day Years [...] care for end stage renal disease. Attending Graduate Intern: AHSAN MARIA Dialysis Location: [facility] Schedule: Shift: 2 OVERVIEW Patient is stable. 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 Current [facility] Outpatient Medications acetaminophen 325 mg tablet Take [...] 1 tablet by mouth every evening. Current [facility] Allergies Allergen: ASPIRIN Reaction: Unknown Allergen: CODEINE [...] on filedocumented in this encounter Care Teams Dope Heater Relationship Specialty Start Date End Date Viet Zayas MD [address] [place] [address] PCP - General Family Medicine 12/27/20 documented as of this encounter
--- OUTSIDE RECORDS SUMMARY | 2025-04-10 08:51 | XMS_ITS | Encounter Summary ---
Author Organization [facility] [employer] [facility] [employer] [facility] Address [facility] [place] [address] [address] Phone Care Team Providers Care Locomotive Oiler Name Role Phone Viet Zayas MD Primary Care Provider [phone] Encounter Details Date Type Department Care Team (Late st Contact Info) Description 10/21/2024 Treatment [place] [employer] [place] [address] [address] [address] [address] Ahsan Maria MD [address] [place] [address] End stage renal disease; Dependence on renal [...] for end stage renal disease. Attending Manager Call: AHSAN MARIA Dialysis Location: [facility] Schedule: Shift: 2 OVERVIEW Patient is stable. 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 Current [facility] Outpatient Medications acetaminophen 325 mg [...] 1 tablet by mouth every evening. Current [facility] Allergies Allergen: ASPIRIN Reaction: Unknown [...] on 11/01/2024 at 11:07:56 AM Transcribed by: AHSNA MARIA MD on 11/01/2024 at 11:07:56 AM documented in this encounter Plan of Treatment Not on file documented as of this encounter Visit Diagnoses Diagnosis End stage renal disease Dependence on renal dialysis documented in this encounter Care Teams Locomotive Oiler Relationship Specialty Start Date End Date Viet Zayas MD [address] [place] [address] PCP - General Family Medicine 12/27/20 documented as of this encounter
--- OUTSIDE RECORDS SUMMARY | 2025-04-10 08:51 | XMS_ITS | Encounter Summary ---
Author Organization [facility] [employer] [facility] [employer] [facility] Address [facility] [place] [address] [address] Phone Care Team Providers Care Painter Helper Sign Name Role Phone Viet Zayas MD Primary Care Provider [phone] Encounter Details Date Type Department Care Team (Late st Contact Info) Description 03/18/2024 Treatment [place] [employer] [place] [address] [address] [address] [address] [address] Ahsan Maria MD [address] [place] [address] Social History Tobacco Use Types Packs/Day Years [...] care for end stage renal disease. Attending Puppet Engineer: AHSAN MARIA Dialysis Location: [facility] Schedule: Shift: 2 OVERVIEW Patient is stable. 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 Current [facility] Outpatient Medications acetaminophen 325 mg tablet [...] 1 tablet by mouth every evening. Current [facility] Allergies Allergen: ASPIRIN Reaction: Unknown Allergen: [...] on filedocumented in this encounter Care Teams Painter Helper Sign Relationship Specialty Start Date End Date Viet Zayas MD [address] [place] [address] PCP - General Family Medicine 12/27/20 documented as of this encounter
--- OUTSIDE RECORDS SUMMARY | 2025-04-10 08:51 | XMS_ITS | Encounter Summary ---
Author Organization [facility] [employer] [facility] [employer] [facility] Address [facility] [place] [address] [address] Phone Care Team Providers Care Project Management Consultant Name Role Phone Viet Zayas MD Primary Care Provider [phone] Encounter Details Date Type Department Care Team (Late st Contact Info) Description 02/19/2024 Treatment [place] [employer] [place] [address] [address] [address] [address] Ahsan Maria MD [address] [place] [address] Social History Tobacco Use Types Packs/Day Years [...] care for end stage renal disease. Attending Division Toll Wire Chief: AHSAN MARIA Dialysis Location: [facility] Schedule: Shift: 2 OVERVIEW Patient [...] in this encounter Care Teams Project Management Consultant Relationship Specialty Start Date End Date Viet Zayas MD [address] [place] [address] PCP - General Family Medicine 12/27/20 documented as of this encounter
--- OUTSIDE RECORDS SUMMARY | 2025-04-10 08:52 | XMS_ITS | Encounter Summary ---
Author Organization [facility] Address [address] [place] [address] Phone Care Team Providers Care Soldering Technician Name Role Phone Viet Zayas MD Primary Care Provider [phone] Encounter Details Date Type Department Care Team (Late st Contact Info) Description 07/02/2017 Orders Only [facility] [place] [address] [address] Gerber Chan MD [address] [place] [address] Chronic kidney disease stage 3 [...] (HCC) documented in this encounter Care Teams Soldering Technician Relationship Specialty Start Date End Date Viet Zayas MD [address] [place] [address] PCP - General Family Medicine 12/27/20 documented as of this encounter
--- OUTSIDE RECORDS SUMMARY | 2025-04-10 08:52 | XMS_ITS | Encounter Summary ---
Author Organization [facility] [employer] [facility] [employer] [facility] Address [facility] [place] [address] [address] Phone Care Team Providers Care Assistant Director Of Residence Life Name Role Phone Viet Zayas MD Primary Care Provider [phone] Encounter Details Date Type Department Care Team (Late st Contact Info) Description 04/03/2025 Treatment [place] [employer] [place] [address] [address] [address] Ahsan Maria MD [address] [place] [address] End stage renal disease; Dependence on renal [...] consent obtained. This patient was personally seen [id number] for a complete visit as part of routine monthly dialysis care for end stage renal disease. Attending Freight Receiver: AHSAN MARIA Dialysis Location: [facility] Schedule: Shift: 2 OVERVIEW Patient is stable. 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 Current [facility] Outpatient Medications acetaminophen 325 mg [...] 1 tablet by mouth every evening. Current [facility] Allergies Allergen: ASPIRIN Reaction: Unknown [...] 04/03/2025 at 03:41:58 PM Transcribed by: AHSAN MARIA MD on 04/03/2025 at 03:41:58 PM documented in this encounter Plan of Treatment Not on file documented as of this encounter Visit Diagnoses Diagnosis End stage renal disease Dependence on renal dialysis documented in this encounter Care Teams Assistant Director Of Residence Life Relationship Specialty Start Date End Date Viet Zayas MD [address] [place], [place] [id number] PCP - General Family Medicine 12/27/20 documented as of this encounter
--- OUTSIDE RECORDS SUMMARY | 2025-04-10 08:52 | XMS_ITS | Encounter Summary ---
Author Organization [facility] Address [address] [place] [address] Phone Care Team Providers Care Quality Reviewer Name Role Phone Viet Zayas MD Primary Care Provider [phone] Encounter Details Date Type Department Care Team (Late st Contact Info) Description 01/06/2019 Orders Only [facility] [place] [address] [address] Gerber Chan MD [address] [place] [address] Chronic kidney disease stage 4 [...] (HCC) documented in this encounter Care Teams Quality Reviewer Relationship Specialty Start Date End Date Viet Zayas MD [address] [place] [address] PCP - General Family Medicine 12/27/20 documented as of this encounter
--- OUTSIDE RECORDS SUMMARY | 2025-04-10 08:52 | XMS_ITS | Encounter Summary ---
Author Organization [facility] [employer] [facility] [employer] [facility] Address [facility] [place] [address] [address] Phone Care Team Providers Care Piecer Name Role Phone Viet Zayas MD Primary Care Provider [phone] Encounter Details Date Type Department Care Team (Late st Contact Info) Description 12/16/2024 Treatment [place] [email or web address] [place] [address] [place] [address] [address] [address] Ahsan Maria MD [address] [place] [address] End stage renal disease; Dependence on renal [...] care for end stage renal disease. Attending Creasing And Cutting Press Feeder: AHSAN MARIA Dialysis Location: [facility] Schedule: Shift: 2 OVERVIEW Patient is stable. 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 Current [facility] Outpatient Medications acetaminophen 325 mg tablet [...] tablet by mouth every evening. Current [facility] Allergies Allergen: ASPIRIN Reaction: Unknown Allergen: [...] dialysis documented in this encounter Care Teams Piecer Relationship Specialty Start Date End Date Viet Zayas MD [address] [place] [address] PCP - General Family Medicine 12/27/20 documented as of this encounter
--- OUTSIDE RECORDS SUMMARY | 2025-04-10 08:52 | XMS_ITS | Encounter Summary ---
Author Organization [facility] Address [address] [place] [address] Phone Care Team Providers Care Trademark Attorney Name Role Phone Viet Zaysa MD Primary Care Provider [phone] Encounter Details Date Type Department Care Team (Late st Contact Info) Description 12/24/2018 Orders Only [facility] [place] [address] [place] [address] Jeannette Graham, RN [address] [place] [address] Pre op labs; Chronic kidney disease [...] (HCC) documented in this encounter Care Teams Trademark Attorney Relationship Specialty Start Date End Date Viet Zayas MD [address] [place] [address] PCP - General Family Medicine 12/27/20 documented as of this encounter
--- OUTSIDE RECORDS SUMMARY | 2025-04-10 08:52 | XMS_ITS | Encounter Summary ---
Author Organization [facility] Address [address] [place] [address] Phone Care Team Providers Care Repairer Sash And Door Name Role Phone Viet Zayas MD Primary Care Provider Encounter Details Date Type Department Care Team (Late st Contact Info) Description 11/18/2018 Orders Only [facility] [place] [address] [place] [address] Kiana Masterson, RN [address] [place] [address] Stage 5 chronic kidney disease (HCC); [...] (HCC) documented in this encounter Care Teams Repairer Sash And Door Relationship Specialty Start Date End Date Viet Zayas MD [address] [place] [address] PCP - General Family Medicine 12/27/20 documented as of this encounter
--- OUTSIDE RECORDS SUMMARY | 2025-04-10 08:52 | XMS_ITS | Encounter Summary ---
Author Organization [facility] [employer] [facility] [address] [facility] Address [facility] [place] [address] [address] Phone Care Team Providers Care Chute Worker Name Role Phone Viet Zayas MD Primary Care Provider [phone] Encounter Details Date Type Department Care Team (Late st Contact Info) Description 07/22/2024 Treatment [place] [employer] [place] [address] [address] [address] [address] Ahsan Maria MD [address] [place] [address] Social History Tobacco Use Types Packs/Day Years [...] care for end stage renal disease. Attending Screen Operator: AHSAN MARIA Dialysis Location: [facility] Schedule: Shift: 2 OVERVIEW Patient is stable. 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 Current [facility] Outpatient Medications acetaminophen 325 mg tablet [...] 1 tablet by mouth every evening. Current [facility] Allergies Allergen: ASPIRIN Reaction: Unknown Allergen: [...] 96.5*F Current Dialysis Vitals BP Sit: 143/64 AP/PATIENT BILLER: 226/190 Pulse: 73 TREATMENT MEDICATIONS ORDERS Heparin [...] on filedocumented in this encounter Care Teams Chute Worker Relationship Specialty Start Date End Date Viet Zayas MD [address] [place] [address] PCP - General Family Medicine 12/27/20 documented as of this encounter
--- OUTSIDE RECORDS SUMMARY | 2025-04-10 08:52 | XMS_ITS | Encounter Summary ---
Author Organization [facility] Address [address] [place] [address] Phone Care Team Providers Care Web Master Name Role Phone Viet Zayas MD Primary Care Provider [phone] Encounter Details Date Type Department Care Team (Late st Contact Info) Description 05/20/2019 Orders Only [facility] [place] [address] [address] Gerber Chan MD [address] [place] [address] Chronic kidney disease stage 3 [...] (HCC) documented in this encounter Care Teams Web Master Relationship Specialty Start Date End Date Viet Zayas MD [address] [place] [address] PCP - General Family Medicine 12/27/20 documented as of this encounter
--- OUTSIDE RECORDS SUMMARY | 2025-04-10 08:52 | XMS_ITS | Encounter Summary ---
Author Organization [facility] Address [address] [place] [address] Phone Care Team Providers Care Electric Organ Assembler And Checker Name Role Phone Viet Zayas MD Primary Care Provider [phone] Encounter Details Date Type Department Care Team (Late st Contact Info) Description 02/18/2019 Orders Only [facility] [place] [address] [address] Gerber Chan MD [address] [place] [address] Chronic kidney disease stage 3 [...] (HCC) documented in this encounter Care Teams Electric Organ Assembler And Checker Relationship Specialty Start Date End Date Viet Zayas MD [address] [place] [address] PCP - General Family Medicine 12/27/20 documented as of this encounter
--- OUTSIDE RECORDS SUMMARY | 2025-04-10 08:52 | XMS_ITS | Encounter Summary ---
Author Organization [facility] Address [address] [place] [address] Phone Care Team Providers Care Supervisor Specialty Plant Name Role Phone Viet Zayas MD Primary Care Provider [phone] Encounter Details Date Type Department Care Team (Late st Contact Info) Description 12/25/2017 Orders Only [facility] [place] [address] [address] Gerber Chan MD [address] [place] [address] Anemia in chronic kidney disease [...] disease documented in this encounter Care Teams Supervisor Specialty Plant Relationship Specialty Start Date End Date Viet Zayas MD [address] [place] [address] PCP - General Family Medicine 12/27/20 documented as of this encounter
--- OUTSIDE RECORDS SUMMARY | 2025-04-10 08:52 | XMS_ITS | Clinical Summary ---
Author Organization [facility] Address [address] [address] Phone Care Team Providers Care Miller Apprentice Name Role Phone Viet Zayas MD Primary Care Provider [phone] Allergies Active Allergy Reactions Criticality Noted Date Comments Aspirin Other (see comments) 11/17/2013 Upsets her chest and gives her heartburn Codeine Other (see comments) 11/17/2013 Gives her heartburn Condon Pollen 07/29/2009 Penicillin V 07/29/2009 Penicillins Other [...] capsule 11 0 Active ergocalciferol 1.25 MG (20003 UT) capsule Take 50,000 Units by mouth [...] Department Care Team Description 04/06/2025 Orders Only [facility], [place] [id number] Ahsan Maria MD 04/03/2025 Treatment [facility], [address] [address] Ahsan Maria MD End stage renal disease; Dependence on renal dialysis 03/30/2025 Orders Only [facility], [address] [address] Ahsan Maria MD 03/23/2025 Orders Only [facility], [address] [address] Ahsan Maria MD 03/16/2025 Orders Only [facility], [address] [address] Ahsan Maria MD 03/09/2025 Orders Only [facility], [address] [address] Ahsan Maria MD 02/26/2025 Treatment [facility], [address] [address] Ahsan Maria MD End stage renal disease; Dependence on renal dialysis 02/23/2025 Orders Only [facility], [address] [address] Ahsan Maria MD 02/16/2025 Orders Only [facility], [address] [address] Ahsan Maria MD 02/10/2025 Orders Only [facility], [address] [address] Ahsan Maria MD 02/05/2025 Orders Only [facility], [address] [phone] Ahsan Maria MD 01/29/2025 Orders Only [facility], [address] [address] Ahsan Maria MD 01/27/2025 Orders Only [facility], [address] [address] Ahsan Maria MD 01/20/2025 Treatment [facility], [address] [address] Ahsan Maria MD End stage renal disease; Dependence on renal dialysis 01/20/2025 Orders Only [facility], [address] [address] Ahsan Maria MD 01/13/2025 Orders Only [facility], [address] [address] Ahsan Maria MD from Last [...] included. Hemoglobin 10.4(L) 12.0 - 16.0 g/dL [facility] Hemoglobin x 3 31.2(L) 36.0 - 48.0 % [facility] 04/06/2025 04/07/2025 11: 00 AM ESCROW MANAGER Narrative [facility] - 04/07/2025 Unless otherwise specified, test(s) performed at: [facility], [address] [place] [address] ACID PATROLLER: Juan Jose Rogers M.D. For any questions, please call customer service at FREQUENCY:OTHER Resulting Agency Comment Specimen source: Blood us Ahsan Maria MD LAB BLOOD ORDERABLES Ronda l Result [employer] [facility] See order comments or contact performing lab Unknown, [place] * HD KINETICS (03/16/2025) Only the most recent of3 resultswithin the time period is included. % Urea Reduction 75 65 - 80 % [facility] 03/16/2025 03/17/2025 10: 27 AM CDT Narrative Resulting Agency Comment Specimen source: Plasma Ahsan Maria MD LAB BLOOD ORDERABLES Ronda l Result Performing Organization Address [facility] Co de Phone Number [facility] See order comments or contact performing lab Unknown, [place] * POST CHEMISTRY (03/16/2025) Only the most recent of3 resultswithin the time period is included. BUN Post Dialysis 8 6 - 19 mg/dL [facility] 03/16/2025 03/17/2025 10: 27 AM CDT Narrative [facility] - 03/17/2025 Unless otherwise specified, test(s) performed at: [facility], [address] [place] [address] ACID PATROLLER: Juan Jose Rogers M.D. For any questions, please call customer service at FREQUENCY:MONTHLY Resulting Agency Comment Specimen source: Plasma Ahsan Maria MD LAB BLOOD ORDERABLES Ronda l Result Performing Organization Address [facility] de Phone Number [facility] See order comments or contact performing [...] 03/17/2025 Unless otherwise specified, test(s) performed at: [facility], [address] [place] [address] ACID PATROLLER: Juan Jose Rogers M.D. For any questions, please call customer service at FREQUENCY:MONTHLY Resulting Agency Comment Specimen source: Serum Ahsan Maria MD LAB BLOOD ORDERABLES Ronda smith Result [facility] See order comments or contact performing lab Unknown, [place] * [facility] Results (03/16/2025) Only the most recent of3 resultswithin the time period is included. spKt/V (Daugirdas II) 1.51 [facility] spKt/V Gotch 1.51 [facility] ge Center PCR 24.83 [facility] eKt/V Gotch 1.22 [facility] nPCR_HD 0.53 [facility] eKt/V (Tatluis eduardo) 1.26 [facility] eKdrt/V 1.22 [facility] eNPCR 0.49 Knowledge [facility] WSTDKT/V 2.4 [facility] 03/16/2025 03/16/2025 us Kannan Ordering Provider LAB BLOOD ORDERABLES Final Result [facility] Contact Performing lab Unknown, [place] from Last 3 Months Insurance Medicare Medicaid [place] [facility] ([facility]) Care Teams Miller Apprentice Relationship Specialty Start Date End Date Chana, Viet, MD [address] [place] [id number] PCP - General Family Medicine 12/27/20
--- OUTSIDE RECORDS SUMMARY | 2025-04-10 08:52 | XMS_ITS | Clinical Summary ---
Author Organization [facility] Address [address] [place] [address] Care Team Providers Care Bead Wire Insulator Name Role Phone Viet Zayas MD Primary Care Provider [phone] Allergies Active Allergy Reactions Criticality Noted Date [...] on file Legal Sex Female 7:07 PM AREA FIELD PERSON Gender Identity Not on file Sexual Orientation Not on file Last Filed Vital Signs Vital Sign Reading Time Taken Comments Blood Pressure 127/80 05/15/2024 7:00 AM AREA FIELD PERSON Pulse 64 05/15/2024 4:22 AM AREA FIELD PERSON Temperature 36.7 C (98 F) 05/15/2024 4:22 AM AREA FIELD PERSON Respiratory Rate 16 05/15/2024 4:22 AM AREA FIELD PERSON Oxygen Saturation 93% 05/15/2024 7:00 AM AREA FIELD PERSON Inhaled Oxygen Concentration - - Weight 81.6 kg (180 lb) 05/15/2024 4:22 AM AREA FIELD PERSON Height 154.9 cm (5' 1) 05/15/2024 4:22 AM AREA FIELD PERSON Body Mass Index 34.01 05/15/2024 4:22 AM AREA FIELD PERSON Plan of Treatment Health Maintenance Due Date [...] topic Insurance MEDICAID [employer] [address] Advance Directives Documents on File Type Date Recorded Patient Greenhouse Laborer Expl anation Advance Directives and Livin g Will 05/15/2024 8:57 AM DNR Order Care Teams Bead Wire Insulator Relationship Specialty Start Date End Date Viet Zayas MD [address] [place] [address] PCP - General FAMILY PRACTICE 08/17/21
--- OUTSIDE RECORDS SUMMARY | 2025-04-10 08:52 | XMS_ITS | Encounter Summary ---
Author Organization [facility] [employer] [facility] [email or web address] [facility] Address [facility] [address] [address] [address] Phone Care Team Providers Care Crossbar Switch Adjuster Name Role Phone Viet Zayas MD Primary Care Provider [phone] Encounter Details Date Type Department Care Team (Late st Contact Info) Description 02/26/2025 Treatment [place] [address] [address] [address] Ahsan Maria MD [address] [place] [address] End stage renal disease; Dependence on renal [...] consent obtained. This patient was personally seen [id number] for a complete visit as part of routine monthly dialysis care for end stage renal disease. Attending Business Office Director: AHSAN MARIA Dialysis Location: [facility] Schedule: Shift: 2 OVERVIEW Patient is stable. 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 Current [facility] Outpatient Medications acetaminophen 325 mg tablet [...] tablet by mouth every evening. Current [facility] Allergies Allergen: ASPIRIN Reaction: Unknown Allergen: [...] dialysis documented in this encounter Care Teams Crossbar Switch Adjuster Relationship Specialty Start Date End Date Viet Zayas MD [address] [place] [address] PCP - General Family Medicine 12/27/20 documented as of this encounter
--- OUTSIDE RECORDS SUMMARY | 2025-04-10 08:52 | XMS_ITS | Encounter Summary ---
Author Organization [facility] Address [address] [place] [address] Phone Care Team Providers Care Appliance Tester Name Role Phone Viet Zayas MD Primary Care Provider [phone] Encounter Details Date Type Department Care Team (Late st Contact Info) Description 03/27/2018 Orders Only [facility] [place] [address] [address] Gerber Chan MD [address] [place] [address] Chronic kidney disease stage 3; [...] 1 documented in this encounter Care Teams Appliance Tester Relationship Specialty Start Date End Date Viet Zayas MD [address] [place] [address] PCP - General Family Medicine 12/27/20 documented as of this encounter
--- OUTSIDE RECORDS SUMMARY | 2025-04-10 08:52 | XMS_ITS | Encounter Summary ---
Author Organization [facility] Address [address] [place] [address] Phone Care Team Providers Care Electric Truck Driver Name Role Phone Viet Zayas MD Primary Care Provider Reason for Visit * Reason Comments Med Refill Encounter Details Date Type Department Care Team (Late st Contact Info) Description 01/24/2020 Refill [facility] [place] [address] [place] [address] Gerber Chan MD [address] [facility] [address] [facility] [address] [place] [address] Social History Tobacco Use Types [...] on filedocumented in this encounter Care Teams Electric Truck Driver Relationship Specialty Start Date End Date Viet Zayas MD [address] [place] [address] PCP - General Family Medicine 12/27/20 documented as of this encounter
--- OUTSIDE RECORDS SUMMARY | 2025-04-10 08:52 | XMS_ITS | Encounter Summary ---
Author Organization [facility] Address [address] [place] [address] Phone Care Team Providers Care Chemical Plant Technical Director Name Role Phone Viet Zayas MD Primary Care Provider Encounter Details Date Type Department Care Team (Late st Contact Info) Description 06/27/2018 Orders Only [facility] [place] [address] [address] Gerber Chan MD [address] [place] [address] Chronic kidney disease stage 3; [...] 1 documented in this encounter Care Teams Chemical Plant Technical Director Relationship Specialty Start Date End Date Viet Zayas MD [address] [place] [address] PCP - General Family Medicine 12/27/20 documented as of this encounter
--- OUTSIDE RECORDS SUMMARY | 2025-04-10 08:52 | XMS_ITS | Encounter Summary ---
Author Organization [facility] [employer] [facility] [employer] [facility] Address [facility] [address] [address] Phone Care Team Providers Care Cellular Tower Climber Name Role Phone Viet Zayas MD Primary Care Provider [phone] Encounter Details Date Type Department Care Team (Late st Contact Info) Description 04/22/2024 Treatment [place] [facility] [place] [address] [address] [address] Ahsan Maria MD [address] [place] [address] Social History Tobacco Use Types Packs/Day Years [...] for end stage renal disease. Attending Marine Diesel Technician: AHSAN MARIA Dialysis Location: [facility] Schedule: Shift: 2 OVERVIEW Patient is stable. 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 Current [facility] Outpatient Medications acetaminophen 325 mg tablet Take [...] every evening. Current [facility] Allergies Allergen: ASPIRIN Reaction: Unknown Allergen: CODEINE [...] on filedocumented in this encounter Care Teams Cellular Tower Climber Relationship Specialty Start Date End Date Viet Zayas MD [address] [place] [address] PCP - General Family Medicine 12/27/20 documented as of this encounter
--- OUTSIDE RECORDS SUMMARY | 2025-04-10 08:52 | XMS_ITS | Encounter Summary ---
Author Organization [facility] Address [address] [place] [address] Phone Care Team Providers Care Head Of Advertising Name Role Phone Viet Zayas MD Primary Care Provider [phone] Encounter Details Date Type Department Care Team (Late st Contact Info) Description 11/04/2018 Orders Only [facility] [address] [place] [address] Kiana Masterson, RN [address] [place] [address] Stage 5 chronic kidney disease (HCC) [...] (HCC) documented in this encounter Care Teams Head Of Advertising Relationship Specialty Start Date End Date Viet Zayas MD [address] [place] [address] PCP - General Family Medicine 12/27/20 documented as of this encounter
--- OUTSIDE RECORDS SUMMARY | 2025-04-10 08:52 | XMS_ITS | Encounter Summary ---
Author Organization [facility] [employer] [facility] Address [facility] [address] [address] Phone Care Team Providers Care Product Safety Expert Name Role Phone Viet Zayas MD Primary Care Provider [phone] Encounter Details Date Type Department Care Team (Late st Contact Info) Description 08/19/2024 Treatment [place] [facility] [place] [address] [address] [address] Ahsan Maria MD [address] [place] [address] End stage renal disease; Dependence on renal [...] care for end stage renal disease. Attending Ultrasound Technologist Sonographer: AHSAN MARIA Dialysis Location: [facility] Schedule: Shift: 2 OVERVIEW Patient is stable. 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 Current [facility] Outpatient Medications acetaminophen 325 mg tablet [...] 1 tablet by mouth every evening. [facility] Allergies Allergen: ASPIRIN Reaction: Unknown Allergen: CODEINE [...] dialysis documented in this encounter Care Teams Product Safety Expert Relationship Specialty Start Date End Date Viet Zayas MD [address] [place] [address] PCP - General Family Medicine 12/27/20 documented as of this encounter
--- OUTSIDE RECORDS SUMMARY | 2025-04-10 08:52 | XMS_ITS | Encounter Summary ---
Author Organization [facility] [employer] [facility] [employer] [facility] Address [facility] [address] [address] Phone Care Team Providers Care Senior Environmental Technician Name Role Phone Viet Zayas MD Primary Care Provider [phone] Encounter Details Date Type Department Care Team (Late st Contact Info) Description 09/25/2024 Treatment [place] [address] [address] [address] Ahsan Maria MD [address] [place] [address] End stage renal disease; Dependence on renal [...] care for end stage renal disease. Attending Fagoter: AHSAN MARIA Dialysis Location: [facility] Schedule: Shift: 2 OVERVIEW Patient is stable. 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 Current [facility] Outpatient Medications acetaminophen 325 mg tablet [...] 1 tablet by mouth every evening. Current [facility] Allergies Allergen: ASPIRIN Reaction: Unknown Allergen: [...] dialysis documented in this encounter Care Teams Senior Environmental Technician Relationship Specialty Start Date End Date Viet Zayas MD [address] [place] [address] PCP - General Family Medicine 12/27/20 documented as of this encounter
--- OUTSIDE RECORDS SUMMARY | 2025-04-10 08:52 | XMS_ITS | Encounter Summary ---
Author Organization [facility] [employer] [facility] [employer] [facility] Address [facility] [address] [address] Phone Care Team Providers Care Production Underwriter Name Role Phone Viet Zayas MD Primary Care Provider [phone] Encounter Details Date Type Department Care Team (Late st Contact Info) Description 11/18/2024 Treatment [place] [employer] [place] [address] [address] [address] Ahsan Maria MD [address] [place] [address] End stage renal disease; Dependence on renal [...] care for end stage renal disease. Attending Crown Ironer: AHSAN MARIA Dialysis Location: [facility] Schedule: Shift: 2 OVERVIEW Patient is stable. 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 Current [facility] Outpatient Medications acetaminophen 325 mg [...] 1 tablet by mouth every evening. Current [facility] Allergies Allergen: ASPIRIN Reaction: Unknown [...] dialysis documented in this encounter Care Teams Production Underwriter Relationship Specialty Start Date End Date Viet Zayas MD [address] [place], [place] [id number] PCP - General Family Medicine 12/27/20 documented as of this encounter
--- OUTSIDE RECORDS SUMMARY | 2025-04-10 08:52 | XMS_ITS | Encounter Summary ---
Author Organization [facility] [employer] [facility] [employer] [facility] Address [facility] [address] [address] Phone Care Team Providers Care Strip Deburrer Name Role Phone Viet Zayas MD Primary Care Provider Encounter Details Date Type Department Care Team (Late st Contact Info) Description 01/20/2025 Treatment [place] [facility] [place] [address] [address] [address] Ahsan Maria MD [address] [place] [address] End stage renal disease; Dependence on renal [...] consent obtained. This patient was personally seen [id number] for a complete visit as part of routine monthly dialysis care for end stage renal disease. Attending Linux Programmer: AHSAN MARIA Dialysis Location: [facility] Schedule: Shift: 2 OVERVIEW Patient is stable. 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 Current [facility] Outpatient Medications acetaminophen 325 mg tablet [...] mouth every evening. Current [facility] Allergies Allergen: ASPIRIN Reaction: Unknown Allergen: [...] dialysis documented in this encounter Care Teams Strip Deburrer Relationship Specialty Start Date End Date Viet Zayas MD [address] [place], [place] [id number] PCP - General Family Medicine 12/27/20 documented as of this encounter
--- OUTSIDE RECORDS SUMMARY | 2025-04-10 08:52 | XMS_ITS | Encounter Summary ---
Author Organization [facility] Address [address] [place] [address] Phone Care Team Providers Care Echocardiograph Tech Name Role Phone Viet Zayas MD Primary Care Provider [phone] Encounter Details Date Type Department Care Team (Late st Contact Info) Description 10/06/2018 Orders Only [facility] [place] [address] [address] Gerber Chan MD [address] [place] [address] Chronic kidney disease stage 4 [...] (HCC) documented in this encounter Care Teams Echocardiograph Tech Relationship Specialty Start Date End Date Viet Zayas MD [address] [place] [address] PCP - General Family Medicine 12/27/20 documented as of this encounter
--- OUTSIDE RECORDS SUMMARY | 2025-04-10 08:52 | XMS_ITS | Encounter Summary ---
Author Organization [facility] [employer] [facility] [email or web address] [facility] Address [facility] [place] [address] [address] Phone Care Team Providers Care Die Baker Name Role Phone Viet Zayas MD Primary Care Provider [phone] Encounter Details Date Type Department Care Team (Late st Contact Info) Description 05/20/2024 Treatment [place] [facility] [place] [address] [address] [address] Ahsan Maria MD [address] [place] [address] Social History Tobacco Use Types Packs/Day Years [...] care for end stage renal disease. Attending Clinical Services Consultant: AHSAN MARIA Dialysis Location: [facility] Schedule: Shift: 2 OVERVIEW Patient [...] 97.3*F Current Dialysis Vitals BP Sit: 140/62 AP/CHIP MIXING MACHINE OPERATOR: 222/194 Pulse: 72 TREATMENT MEDICATIONS ORDERS Heparin [...] on filedocumented in this encounter Care Teams Die Baker Relationship Specialty Start Date End Date Viet Zayas MD [address] [place], [place] [id number] PCP - General Family Medicine 12/27/20 documented as of this encounter
== END 2025-04-10 08:54 | disposition home or self-care (01) ==
PROVIDERS: Emergency Provider Emergency Medicine; PCP Family Medicine
DX: S09.90XA Unspecified injury of head, initial encounter (principal); E03.9 Hypothyroidism, unspecified; I12.9 Hypertensive chronic kidney disease with stage 1 through stage 4 chronic kidney disease, or unspecified chronic kidney disease; N18.9 Chronic kidney disease, unspecified; W01.0XXA Fall on same level from slipping, tripping and stumbling without subsequent striking against object, initial encounter; Y92.009 Unspecified place in unspecified non-institutional (private) residence as the place of occurrence of the external cause
CPT/HCPCS: 70450; 72125; 99284

== ENCOUNTER 2025-04-29 08:48 | Outpatient (CLI) | payer OTHER, SELFPAY ==
--- NOTE | ~2025-04-29 | US_ITS ---
US thyroid INDICATION: Nontoxic thyroid nodule TECHNIQUE: Real-time sonographic images of the thyroid gland were obtained. COMPARISON: No prior studies for comparison. FINDINGS: The right thyroid lobe measures 2.3 x 1 x 1.4 cm. The left thyroid lobe measures 1.7 x 0.7 x 0.8 cm. Thyroid gland is atrophic and heterogeneous without discrete mass. Normal vascularity. IMPRESSION: 1. Echogenic atrophic thyroid gland without discrete mass. Reviewed, dictated and finalized at location O. NO ENFORCEMENT AGENT
--- OUTSIDE RECORDS SUMMARY | 2025-04-29 09:09 | XMS_ITS | Encounter Summary ---
Author Organization [facility] [employer] [facility] [employer] [facility] Address [facility] [address] [address] [address] Phone Care Team Providers Care Special Machine Operator Name Role Phone Viet Zayas MD Primary Care Provider [phone] Encounter Details Date Type Department Care Team (Late st Contact Info) Description 02/19/2024 Treatment [place] [employer] [place] [address] [address] [address] Ahsan Maria MD [address] [place] [address] Social History Tobacco Use Types Packs/Day Years [...] care for end stage renal disease. Attending Stripping And Booking Machine Operator: AHSAN MARIA Dialysis Location: [facility] Schedule: Shift: 2 OVERVIEW Patient is stable. 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 Current [facility] Outpatient Medications acetaminophen 325 mg tablet Take [...] evening. Current [facility] Allergies Allergen: ASPIRIN Reaction: Unknown Allergen: CODEINE [...] on filedocumented in this encounter Care Teams Special Machine Operator Relationship Specialty Start Date End Date Viet Zayas MD [address] [place] [address] PCP - General Family Medicine 12/27/20 documented as of this encounter
--- OUTSIDE RECORDS SUMMARY | 2025-04-29 09:09 | XMS_ITS | Clinical Summary ---
Author Organization [facility] Address [address] [place] [address] Care Team Providers Care Preparation Department Supervisor Name Role Phone No, Physician Primary Care Provider [phone] Allergies No known active allergies Immunizations Immunization [...] on file Legal Sex Female 10:16 AM REGIONAL SALES MANAGER Gender Identity Not on file Sexual Orientation [...] , 04/18/2022, 03/14/2022, Additional history exists Insurance ([employer]) [address] [facility] Care Teams Preparation Department Supervisor Relationship Specialty Start Date End Date No, Physician PCP - General 12/04/23
--- OUTSIDE RECORDS SUMMARY | 2025-04-29 09:09 | XMS_ITS | Encounter Summary ---
Author Organization [facility] [employer] [facility] [employer] [facility] Address [facility] [place] [address] [address] [address] Phone Care Team Providers Care Manager Gaming Name Role Phone Viet Zayas MD Primary Care Provider [phone] Encounter Details Date Type Department Care Team (Late st Contact Info) Description 10/21/2024 Treatment [place] [employer] [place] [address] [address] [address] Ahsan Maria MD [address] [place] [address] End stage renal disease; Dependence on renal [...] care for end stage renal disease. Attending Public Housing Manager: AHSAN MARIA Dialysis [facility] Schedule: Shift: 2 OVERVIEW Patient is stable. 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 Current [facility] Outpatient Medications acetaminophen 325 mg [...] 1 tablet by mouth every evening. Current [facility] Allergies Allergen: ASPIRIN Reaction: Unknown [...] dialysis documented in this encounter Care Teams Manager Gaming Relationship Specialty Start Date End Date Viet Zayas MD [address] [place] [address] PCP - General Family Medicine 12/27/20 documented as of this encounter
--- OUTSIDE RECORDS SUMMARY | 2025-04-29 09:09 | XMS_ITS | Encounter Summary ---
Author Organization [facility] [employer] [facility] [employer] [facility] Address [facility] [place] [address] [address] [address] Phone Care Team Providers Care Rides Attendant Name Role Phone Viet Zayas MD Primary Care Provider [phone] Encounter Details Date Type Department Care Team (Late st Contact Info) Description 03/18/2024 Treatment [place] [employer] [place] [address] [address] [address] Ahsan Maria MD [address] [place] [phone] Social History Tobacco Use Types Packs/Day Years [...] care for end stage renal disease. Attending Metal Sash Setter: AHSAN MARIA Dialysis Location: [facility] Schedule: Shift: 2 OVERVIEW Patient is stable. 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 Current [facility] Outpatient Medications acetaminophen 325 mg tablet [...] by mouth every evening. Current [facility] Allergies Allergen: ASPIRIN Reaction: Unknown Allergen: [...] on filedocumented in this encounter Care Teams Rides Attendant Relationship Specialty Start Date End Date Viet Zayas MD [address] [place] [address] PCP - General Family Medicine 12/27/20 documented as of this encounter
--- OUTSIDE RECORDS SUMMARY | 2025-04-29 09:10 | XMS_ITS | Encounter Summary ---
Author Organization [facility] [employer] [facility] [employer] [facility] Address [facility] [place] [address] [address] [address] Phone Care Team Providers Care Weir Fisher Name Role Phone Viet Zayas MD Primary Care Provider [phone] Encounter Details Date Type Department Care Team (Late st Contact Info) Description 07/03/2024 Treatment [place] [employer] [place] [address] [address] [address] Ahsan Maria MD [address] [place] [address] Social History Tobacco Use Types Packs/Day Years [...] care for end stage renal disease. Attending Solid Propellant Processor: AHSAN MARIA Dialysis Location: [facility] Schedule: Shift: 2 OVERVIEW Patient is stable. 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 Current [facility] Outpatient Medications acetaminophen 325 mg tablet [...] by mouth every evening. Current [facility] Allergies Allergen: ASPIRIN Reaction: Unknown Allergen: [...] on filedocumented in this encounter Care Teams Weir Fisher Relationship Specialty Start Date End Date Viet Zayas MD [address] [place] [address] PCP - General Family Medicine 12/27/20 documented as of this encounter
--- OUTSIDE RECORDS SUMMARY | 2025-04-29 09:10 | XMS_ITS ---
Author Organization Unknown Address [address] [place] [id number] Phone Care Team Providers Care Vehicle Leasing And Rental Manager Name Role Phone LAURIE OLIVO Attending Unavailable SHAHZAD SALINAS Primary Unavailable Immunization Immunization Date Status Additional Notes Code Code System pneumococcal polysaccharide PPV23 06/04/2015 Completed 33 CVX pneumococcal polysaccharide PPV23 03/02/2020 Completed 33 CVX Pneumococcal conjugate PCV 13 05/11/2015 Completed 133 CVX Influenza, high-dose, trivalent, PF 02/15/2015 Completed 135 CVX Influenza, high-dose, trivalent, PF 03/14/2016 Completed 135 CVX Influenza, high-dose, trivalent, PF 03/11/2017 Completed 135 CVX Influenza, high-dose, trivalent, PF 02/26/2018 Completed 135 CVX Influenza, split virus, trivalent, preservative 05/13/2013 Completed 141 CVX Influenza, split virus, trivalent, preservative 06/11/2013 Completed 141 CVX Influenza, split virus, trivalent, preservative 03/18/2014 Completed 141 CVX Influenza, split virus, trivalent, preservative 04/05/2014 Completed 141 CVX Influenza, split virus, trivalent, preservative 03/04/2015 Completed 141 CVX Influenza, split virus, quadrivalent, PF 03/02/2020 Completed 150 CVX Influenza, split virus, quadrivalent, PF 03/30/2023 Completed 150 CVX Influenza, adjuvanted, trivalent, PF 02/10/2019 Completed 168 CVX zoster recombinant 12/17/2020 Completed 187 CVX zoster recombinant 06/08/2021 Completed 187 CVX COVID-19, mRNA, LNP-S, PF, 3 0 mcg/0.3 mL dose 07/23/2020 Completed 208 CVX COVID-19, mRNA, LNP-S, PF, 3 0 mcg/0.3 mL dose 08/12/2020 Completed 208 CVX COVID-19, mRNA, LNP-S, PF, 3 0 mcg/0.3 mL dose 06/02/2021 Completed 208 CVX Social History Type Status Start Date End Date Code Code Syst em Sex Female Hospital Discharge Instructions Should you have any questions prior to discharge, please contact a member of your healthcare team. If you have left the hospital and have any questions, please contact your primary care physician. Reason For Referral No Data Found Procedures Procedure Name Date Status Code Code Syste m Injection(s); Single Tendon Sheath, Ligament, Aponeurosis 09/28/2023 completed CPT Plan of Treatment No Data Found Encounters Encounter Diagnosis Start Date Code Code Sys tem Trigger finger, right middle finger 09/28/2023 SNOMED-CT Personal Care Team Section Performer Name Performer Role Active Date Inactive RITA Fernandez PCP - Primary care physician
--- OUTSIDE RECORDS SUMMARY | 2025-04-29 09:10 | XMS_ITS | Encounter Summary ---
Author Organization [facility] [employer] [facility] [employer] [facility] Address [facility] [place] [address] [address] [address] Phone Care Team Providers Care Backend Developer Name Role Phone Viet Zayas MD Primary Care Provider [phone] Encounter Details Date Type Department Care Team (Late st Contact Info) Description 12/16/2024 Treatment [place] [address] [address] [address] Ahsan Maria MD [address] [place] [address] End stage renal disease; Dependence on renal [...] care for end stage renal disease. Attending Small Arms Artillery Repairer: AHSAN MARIA Dialysis Location: [facility] Schedule: Shift: 2 OVERVIEW Patient is stable. 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 Current [facility] Outpatient Medications acetaminophen 325 mg [...] 1 tablet by mouth every evening. Current [facility] Allergies Allergen: ASPIRIN Reaction: Unknown [...] dialysis documented in this encounter Care Teams Backend Developer Relationship Specialty Start Date End Date Viet Zayas MD [address] [place] [address] PCP - General Family Medicine 12/27/20 documented as of this encounter
--- OUTSIDE RECORDS SUMMARY | 2025-04-29 09:10 | XMS_ITS | Patient Health Record ---
Author Organization [facility] [employer] Address [address] [facility] [address] [place] [address] Care Team Providers Care Tool Maintenance Technician Name Role Phone Megan Marin Unavailable [phone] Reason For Referral No Information Medications Medication [...] (Elemental) 400 MG Tablet Oral *Reorder from [employer] for eRx and Interaction Alerts* 06/30/2022 Active Stomach Relief 262 mg/15 mL Suspension Oral 06/30/2022 Active Levothyroxine Sodium 100 MCG Tablet Oral 06/30/2022 Active Allopurinol 100 MG Tablet Oral 06/30/2022 Active Melatonin 3 MG Tablet Oral 06/30/2022 Active Docusate Sodium 100 MG Capsule Oral 06/30/2022 Active Ergocalciferol 1.25 MG (65541 UT) Capsule Oral 06/30/2022 Active Ziprasidone HCl [...] Aerosol Powder Breath Activated Inhalation *Reorder from [employer] for eRx and Interaction Alerts* 06/30/2022 Active [...] Insured Coverage Start Date Coverage End Date [employer] [place] - On Or After 2020 [address] [place] [address] [id number] WAGES, [employer]CE[employer] Self - patient is the insured
--- OUTSIDE RECORDS SUMMARY | 2025-04-29 09:10 | XMS_ITS | Encounter Summary ---
Author Organization [facility] [employer] [facility] [employer] [facility] Address [facility] [place] [address] [address] Phone Care Team Providers Care Bulk Pigment Reducer Name Role Phone Viet Zayas MD Primary Care Provider [phone] Encounter Details Date Type Department Care Team (Late st Contact Info) Description 08/19/2024 Treatment [place] [employer] [place] [address] [address] [address] Ahsan Maria MD [address] [place] [address] End stage renal disease; Dependence on renal [...] care for end stage renal disease. Attending Leak Operator Paraffin Plant: AHSAN MARIA Dialysis Location: [facility] Schedule: Shift: 2 OVERVIEW Patient is stable. 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 Current [facility] Outpatient Medications acetaminophen 325 mg [...] 1 tablet by mouth every evening. [facility]erg[facility] Allergen: ASPIRIN Reaction: Unknown Allergen: [...] dialysis documented in this encounter Care Teams Bulk Pigment Reducer Relationship Specialty Start Date End Date Viet Zayas MD [address] [place] [address] PCP - General Family Medicine 12/27/20 documented as of this encounter
--- OUTSIDE RECORDS SUMMARY | 2025-04-29 09:10 | XMS_ITS | Clinical Summary ---
Author Organization [facility] Address [address] [place] [address] Care Team Providers Care Weight Reducing Technician Name Role Phone Viet Zayas MD Primary Care Provider [phone] Allergies Active Allergy Reactions Criticality Noted Date [...] on file Legal Sex Female 7:07 PM VOCATIONAL EXAMINER Gender Identity Not on file Sexual Orientation Not on file Last Filed Vital Signs Vital Sign Reading Time Taken Comments Blood Pressure 127/80 05/15/2024 7:00 AM VOCATIONAL EXAMINER Pulse 64 05/15/2024 4:22 AM VOCATIONAL EXAMINER Temperature 36.7 C (98 F) 05/15/2024 4:22 AM VOCATIONAL EXAMINER Respiratory Rate 16 05/15/2024 4:22 AM VOCATIONAL EXAMINER Oxygen Saturation 93% 05/15/2024 7:00 AM VOCATIONAL EXAMINER Inhaled Oxygen Concentration - - Weight 81.6 kg (180 lb) 05/15/2024 4:22 AM VOCATIONAL EXAMINER Height 154.9 cm (5' 1) 05/15/2024 4:22 AM VOCATIONAL EXAMINER Body Mass Index 34.01 05/15/2024 4:22 AM VOCATIONAL EXAMINER Plan of Treatment Health Maintenance Due Date [...] this topic Insurance MEDICAID [employer] [address] Advance Directives Documents on File Type Date Recorded Patient Care Management Associate Expl anation Advance Directives and Livin g Will 05/15/2024 8:57 AM DNR Order Care Teams Weight Reducing Technician Relationship Specialty Start Date End Date Viet Zayas MD [address] [place] [address] PCP - General FAMILY PRACTICE 08/17/21
--- OUTSIDE RECORDS SUMMARY | 2025-04-29 09:10 | XMS_ITS | Clinical Summary ---
Author Organization [facility] [place] Address [address] [address] Phone Care Team Providers Care Oyster Bed Worker Name Role Phone Viet Zayas MD Primary Care Provider [phone] Allergies Active Allergy Reactions Criticality Noted Date Comments Aspirin Other (see comments) 11/17/2013 Upsets her chest and gives her heartburn Codeine Other (see comments) 11/17/2013 Gives her heartburn Norphlet Pollen 07/29/2009 Penicillin V 07/29/2009 Penicillins Other [...] capsule 11 0 Active ergocalciferol 1.25 MG (35261 UT) capsule Take 50,000 Units by mouth [...] Encounters Date Type Department Care Team Description 04/26/2025 Orders Only [facility], [place] [phone] Ahsan Maria MD 04/20/2025 Orders Only [facility], [address] [address] Ahsan Maria MD 04/13/2025 Orders Only [facility], [address] [address] Ahsan Maria MD 04/06/2025 Orders Only [facility], [address] [address] Ahsan Maria MD 04/03/2025 Treatment [facility], [address] [address] Ahsan Maria MD End stage renal disease; Dependence on renal dialysis 03/30/2025 Orders Only [facility], [address] [address] Ahsan Maria MD 03/23/2025 Orders Only [facility], [address] [address] Ahsan Maria MD 03/16/2025 Orders Only [facility], [address] [address] Ahsan Maria MD 03/09/2025 Orders Only [facility], [address] [address] Ahsan Maria MD 02/26/2025 Treatment [facility], [address] [address] Ahsan Maria MD End stage renal disease; Dependence on renal dialysis 02/23/2025 Orders Only [facility], [address] [address] Ahsan Maria MD 02/16/2025 Orders Only [facility], [address] [address] Ahsan Maria MD 02/10/2025 Orders Only [facility], [address] [phone] Ahsan Maria MD 02/05/2025 Orders Only [facility], [address] [address] Ahsan Maria MD 01/29/2025 Orders Only [facility], [address] [address] Ahsan Maria MD 01/27/2025 Orders Only [facility], [address] [address] Ahsan Maria MD from Last 3 Months [...] 4-dose series) 1960 Influenza Vaccine (#1) 2025 4, 02/10/2019, 02/27/2018 Procedures Procedure Name Priority Date/Time Associated Diagnosis Comments HEMATOLOGY Routine 04/26/2025 HEMATOLOGY Routine 04/20/2025 [facility] RESULTS Routine 04/13/2025 TRACE ELEMENTS Routine 04/13/2025 HD KINETICS Routine 04/13/2025 IMMUNO CHEMISTRY Routine 04/13/2025 SPECIAL CHEMISTRY Routine 04/13/2025 CHEMISTRY Routine 04/13/2025 HEMATOLOGY Routine 04/13/2025 CHEMISTRY Routine 04/13/2025 POST CHEMISTRY Routine 04/13/2025 HEMATOLOGY Routine 04/06/2025 HEMATOLOGY Routine 03/30/2025 HEMATOLOGY Routine 03/23/2025 [facility] RESULTS Routine 03/16/2025 HD KINETICS Routine 03/16/2025 POST CHEMISTRY Routine 03/16/2025 CHEMISTRY Routine 03/16/2025 HEMATOLOGY Routine 03/16/2025 HEMATOLOGY Routine 03/09/2025 HEMATOLOGY Routine 02/23/2025 HEMATOLOGY Routine 02/16/2025 [facility] LAB RESULTS Routine 02/10/2025 HD KINETICS Routine 02/10/2025 CHEMISTRY Routine 02/10/2025 POST CHEMISTRY Routine 02/10/2025 HEMATOLOGY Routine 02/10/2025 HEMATOLOGY Routine 02/05/2025 HEMATOLOGY Routine 01/29/2025 HEMATOLOGY Routine 01/27/2025 from Last 3 Months Results * (ABNORMAL) HEMATOLOGY (04/26/2025) Only the most recent of14 resultswithin the time period is included. Hemoglobin 11.0(L) 12.0 - 16.0 g/dL [facility] Hemoglobin x 3 33(L) 36.0 - 48.0 % [facility] 04/26/2025 04/28/2025 11: 07 AM ORACLE DATABASE MANAGER Narrative [facility] - 04/28/2025 Unless otherwise specified, test(s) performed at: [facility], [address] [place] [address] BINDER ROLLER: Juan Jose Rogers M.D. For any questions, please call customer service at FREQUENCY:OTHER Resulting Agency Comment Specimen source: Blood Ahsan Maria MD LAB BLOOD ORDERABLES Ronda l Result Performing Organization Address [facility] de Phone Number [facility] See order comments or contact performing lab Unknown, [place] * HD KINETICS (04/13/2025) Only the most recent of3 resultswithin the time period is included. Pathologist [facility] % Urea Reduction 80 65 - 80 % [facility] 04/13/2025 04/15/2025 9:2 0 AM ORACLE DATABASE MANAGER Narrative [facility] - 04/15/2025 Unless otherwise specified, test(s) performed at: [facility], [address] [place] [address] BINDER ROLLER: Juan Jose Rogers M.D. For any questions, please call customer service at FREQUENCY:MONTHLY Resulting Agency Comment Specimen source: Plasma Ahsan Maria MD LAB BLOOD ORDERABLES Ronda l Result Performing Organization Address [facility] de Phone Number [facility] See order comments or contact performing lab Unknown, [place] * (ABNORMAL) SPECIAL CHEMISTRY (04/13/2025) [facility] Folate 3.3 ng/mL [facility] Comment: Reference Range: Deficient: <3.4 ng/mL Indeterminate: 3.4-5.4 ng/mL Normal: >5.4 ng/mL Vitamin D, 25-OH, Total 23.8(L) 30.0 - 100.0 ng/mL [facility] Comment: Please Note: Effective April 02, 2023, the methodology for this test has changed to the [facility]. 04/13/2025 04/15/2025 9:5 4 AM ORACLE DATABASE MANAGER Narrative Resulting Agency Comment Specimen source: Serum Ahsan Maria MD LAB BLOOD BANK TEST ORDER SARA Final Result Performing Organization Address City/[facility]/ZIP Co de Phone Number [facility] See order comments or contact performing lab Unknown, [place] * POST CHEMISTRY (04/13/2025) Only the most recent of3 resultswithin the time period is included. BUN Post Dialysis 6 6 - 19 mg/dL [facility] 04/13/2025 04/15/2025 9:2 0 AM ORACLE DATABASE MANAGER Narrative [facility] - 04/15/2025 Unless otherwise specified, test(s) performed at: [facility], [address] [place] [address] BINDER ROLLER: Juan Jose Rogers M.D. For any questions, please call customer service at FREQUENCY:MONTHLY Resulting Agency Comment Specimen source: Plasma Ahsan Maria MD LAB BLOOD ORDERABLES Ronda l Result Performing Organization Address [facility] Co de Phone Number [facility] See order comments or contact performing lab Unknown, [place] * IMMUNO CHEMISTRY (04/13/2025) Pathologist [facility] Hep B Surface Ag Negative Negative [facility] Hepatitis B Surface Ab >1,000 mIU/mL [facility] Comment: The anti-HBs (Hepatitis B surface [...] of the total amount of antibody present. 04/13/2025 04/15/2025 9:5 4 AM ORACLE DATABASE MANAGER Narrative Resulting Agency Comment Specimen source: Serum Ahsan Maria MD LAB BLOOD ORDERABLES Ronda l Result Performing Organization Address City/[facility]/ZIP Co de Phone Number [facility] See order comments or contact performing lab Unknown, [place] * TRACE ELEMENTS (04/13/2025) Pathologist [facility] Aluminum <5 0 - 10 mcg/L [facility] Comment: This test was developed and its performance characteristics determined by [facility]. It has not been cleared or approved by the FDA. The laboratory is regulated under CLIA as qualified to perform high complexity testing. This test is used for clinical purposes. It should not be regarded as investigational or for research. 04/13/2025 04/15/2025 9:3 4 AM ORACLE DATABASE MANAGER Narrative [facility] - 04/15/2025 Unless otherwise specified, test(s) performed at: [facility], [address] [place] [address] BINDER ROLLER: Juan Jose Rogers M.D. For any questions, please call customer service at FREQUENCY:MONTHLY Resulting Agency Comment Specimen source: Serum Ahsan Maria MD LAB BLOOD ORDERABLES Ronda l Result [facility] See order comments or contact performing lab Unknown, [place] * (ABNORMAL) [facility] Chemistry (04/13/2025) Only the most recent of4 resultswithin the time period is included. Pathologist [facility] BUN 30(H) 6 - 19 mg/dL [facility] Creatinine 3.31(H) 0.60 - 1.30 mg/dL [facility] BUN/Creatinine Ratio 9.1(L) 10.0 - 20.0 [facility] Sodium 140 136 - 145 mEq/L [facility] Potassium 4.5 3.5 - 5.1 mEq/L [facility] Chloride 104 96 - 108 mEq/L [facility] Bicarbonate (CO2) 27 22 - 29 mEq/L [facility] Calcium 8.7 8.4 - 10.2 mg/dL [facility] Corrected Calcium 8.8 8.4 - 10.2 mg/dL [facility] Comment: Corrected Calcium is not equivalent to measured Ionized Calcium. Phosphorus 4.3 2.6 - 4.5 mg/dL [facility] Calcium Phosphorus Product 37 0 - 54 [facility] Calcium Phosporus Product, Cor 38 0 - 54 [facility] Alkaline Phosphatase 117(H) 35 - 104 U/L [facility] Total Protein 6.2 6.0 - 8.5 g/dL [facility] Albumin 3.9 3.5 - 5.2 g/dL [facility] Globulin, Total 2.3 2.0 - 4.0 g/dL [facility] A/G Ratio 1.7 1.0 - 2.0 [facility] Glucose 98 70 - 100 mg/dL [facility] Magnesium 2.3 1.6 - 2.6 mg/dL [facility] Ferritin 579(H) 10 - 291 ng/mL [facility] Iron 56 30 - 160 mcg/dL [facility] UIBC 238 155 - 355 mcg/dL [facility] TIBC 294 185 - 515 mcg/dL [facility] Iron Saturation (TSat) 19(L) 20 - 55 % [facility] 04/13/2025 04/15/2025 9:5 4 AM ORACLE DATABASE MANAGER Narrative [facility] - 04/15/2025 Unless otherwise specified, test(s) performed at: [facility], [address] [place] [address] BINDER ROLLER: Juan Jose Rogers M.D. For any questions, please call customer service at FREQUENCY:MONTHLY Resulting Agency Comment Specimen source: Serum Ahsan Maria MD LAB BLOOD ORDERABLES Ronda l Result [facility] [employer] See order comments or contact performing lab Unknown, [place] * [facility] Lab Results (04/13/2025) Only the most recent of3 resultswithin the time period is included. eKdrt/V 1.50 [facility] nPCR_HD 0.53 [facility] eKt/V Gotch 1.50 [facility] PCR 24.23 [facility] WSTDKT/V 2.6 [facility] eKt/V ([place]) 1.52 [facility] eNPCR 0.51 Knowledge Center spKt/V (Daugirdas II) 1.82 [facility] spKt/V Gotch 1.84 [facility] 04/13/2025 04/13/2025 us Rhonda Ordering Provider LAB BLOOD ORDERABLES Final Result [facility] Contact Performing lab Unknown, [place] from Last 3 Months Insurance Medicaid [place] Member Subscriber Plan / Payer (Ef fective 2019-Present) Name:Elsie Osorio Relation to Subscriber:Self Name:Carlos Albertosanto Elsie A Payer ID:Not on file Group ID:Not on file Type:Not on file Address: [place] [id number] Medicaid [place] Member Subscriber Plan / Payer (Ef fective 2019-Present) Name:Elsie Osorio Relation to Subscriber:Self Name:Carlos Albertosanto Elsie A Payer ID:Not on file Group ID:Not on file Type:Not on file Address: [place] [id number] [place] Care Teams Oyster Bed Worker Relationship Specialty Start Date End Date Viet Zayas MD [address] [place] [address] PCP - General Family Medicine 12/27/20
--- OUTSIDE RECORDS SUMMARY | 2025-04-29 09:10 | XMS_ITS | Encounter Summary ---
Author Organization [facility] [employer] [facility] Address [facility] [place] [address] [address] Phone Care Team Providers Care General Production Laborer Name Role Phone Viet Zayas MD Primary Care Provider [phone] Encounter Details Date Type Department Care Team (Late st Contact Info) Description 01/20/2025 Treatment [place] [employer] [place] [address] [address] [address] [address] [address] Ahsan Maria MD [address] [place] [address] End stage renal disease; Dependence on renal [...] consent obtained. This patient was personally seen [id number] for a complete visit as part of routine monthly dialysis care for end stage renal disease. Attending Electrical Engineering Manager: AHSAN MARIA Dialysis Location: [facility] Schedule: Shift: 2 OVERVIEW Patient is stable. 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 Current [facility] Outpatient Medications acetaminophen 325 mg tablet Take [...] evening. Current [facility] Allergies Allergen: ASPIRIN Reaction: Unknown Allergen: CODEINE [...] dialysis documented in this encounter Care Teams General Production Laborer Relationship Specialty Start Date End Date Viet Zayas MD [address] [place], [place] [id number] PCP - General Family Medicine 12/27/20 documented as of this encounter
--- OUTSIDE RECORDS SUMMARY | 2025-04-29 09:10 | XMS_ITS | Encounter Summary ---
Author Organization [facility] [employer] [facility] [employer] [facility] Address [facility] [place] [address] [address] Phone Care Team Providers Care Lift Truck Operator Name Role Phone Viet Zayas MD Primary Care Provider [phone] Encounter Details Date Type Department Care Team (Late st Contact Info) Description 04/03/2025 Treatment [place] [employer] [place] [address] [address] [address] Ahsan Maria MD [address] [place] [address] End stage renal disease; Dependence on renal [...] consent obtained. This patient was personally seen [id number] for a complete visit as part of routine monthly dialysis care for end stage renal disease. Attending Cash Checker: AHSAN MARIA Dialysis Location: [facility] Schedule: Shift: 2 OVERVIEW Patient is stable. 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 Current [facility] Outpatient Medications acetaminophen 325 mg [...] 1 tablet by mouth every evening. Current [facility] Allergies Allergen: ASPIRIN Reaction: Unknown [...] dialysis documented in this encounter Care Teams Lift Truck Operator Relationship Specialty Start Date End Date Viet Zayas MD [address] [place], [place] [id number] PCP - General Family Medicine 12/27/20 documented as of this encounter
--- OUTSIDE RECORDS SUMMARY | 2025-04-29 09:10 | XMS_ITS | Encounter Summary ---
Author Organization [facility] [employer] [facility] [employer] [facility] Address [facility] [place] [address] [address] Phone Care Team Providers Care Urban Anthropologist Name Role Phone Viet Zayas MD Primary Care Provider [phone] Encounter Details Date Type Department Care Team (Late st Contact Info) Description 02/26/2025 Treatment [place] [employer] [place] [address] [address] [address] Ahsan Maria MD [address] [place] [address] End stage renal disease; Dependence on renal [...] consent obtained. This patient was personally seen [id number] for a complete visit as part of routine monthly dialysis care for end stage renal disease. Attending Drosser: AHSAN MARIA Dialysis Location: [facility] Schedule: Shift: 2 OVERVIEW Patient is stable. 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 Current [facility] Outpatient Medications acetaminophen 325 mg [...] 1 tablet by mouth every evening. Current [facility] Allergies Allergen: ASPIRIN Reaction: Unknown [...] dialysis documented in this encounter Care Teams Urban Anthropologist Relationship Specialty Start Date End Date Viet Zayas MD [address] [place] [address] PCP - General Family Medicine 12/27/20 documented as of this encounter
--- OUTSIDE RECORDS SUMMARY | 2025-04-29 09:10 | XMS_ITS | Encounter Summary ---
Author Organization [facility] [employer] [facility] [employer] [facility] Address [facility] [place] [address] [address] Phone Care Team Providers Care Senior Microstrategy Developer Name Role Phone Viet Zayas MD Primary Care Provider [phone] Encounter Details Date Type Department Care Team (Late st Contact Info) Description 11/18/2024 Treatment [place] [employer] [place] [address] [address] [address] [address] Ahsan Maria MD [address] [place] [address] End stage renal disease; Dependence on renal [...] care for end stage renal disease. Attending Sharepoint Consultant: AHSAN MARIA Dialysis Location: [facility] Schedule: Shift: 2 OVERVIEW Patient is stable. 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 Current [facility] Outpatient Medications acetaminophen 325 mg [...] 1 tablet by mouth every evening. Current [facility] Allergies Allergen: ASPIRIN Reaction: Unknown [...] documented in this encounter Care Teams Senior Microstrategy Developer Relationship Specialty Start Date End Date Viet Zayas MD [address] [place], [place] [id number] PCP - General Family Medicine 12/27/20 documented as of this encounter
--- OUTSIDE RECORDS SUMMARY | 2025-04-29 09:10 | XMS_ITS | Encounter Summary ---
Author Organization [facility] [employer] [facility] [employer]ub[employer]ar A[employer] [facility] Address [facility] [place] [address] [address] Phone Care Team Providers Care Batch Attendant Name Role Phone Viet Zayas MD Primary Care Provider [phone] Encounter Details Date Type Department Care Team (Late st Contact Info) Description 07/22/2024 Treatment [place] [employer] [place] [address] [address] [address] Ahsan Maria MD [address] [place] [address] Social History Tobacco Use Types Packs/Day Years [...] care for end stage renal disease. Attending Relationship Consultant: AHSAN MARIA Dialysis Location: [facility] Schedule: Shift: 2 OVERVIEW Patient is stable. 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 Current [facility] Outpatient Medications acetaminophen 325 mg [...] tablet by mouth every evening. Current [facility] Allergies Allergen: ASPIRIN Reaction: Unknown [...] 96.5*F Current Dialysis Vitals BP Sit: 143/64 AP/FILM EXAMINER: 226/190 Pulse: 73 TREATMENT MEDICATIONS ORDERS Heparin [...] on filedocumented in this encounter Care Teams Batch Attendant Relationship Specialty Start Date End Date Viet Zayas MD [address] [place] [address] PCP - General Family Medicine 12/27/20 documented as of this encounter
--- OUTSIDE RECORDS SUMMARY | 2025-04-29 09:11 | XMS_ITS | Encounter Summary ---
Author Organization [facility] Address [address] [place] [address] Phone Care Team Providers Care Product Development Name Role Phone Viet Zayas MD Primary Care Provider [phone] Encounter Details Date Type Department Care Team (Late st Contact Info) Description 01/06/2019 Orders Only [facility] [place] [address] [address] Gerber Chan MD [address] [place] [address] Chronic kidney disease stage 4 [...] (HCC) documented in this encounter Care Teams Product Development Relationship Specialty Start Date End Date Viet Zayas MD [address] [place] [address] PCP - General Family Medicine 12/27/20 documented as of this encounter
--- OUTSIDE RECORDS SUMMARY | 2025-04-29 09:11 | XMS_ITS ---
Author Organization Unknown Address [address] [place] [id number] Phone Care Team Providers Care Superintendent Landfill Operations Name Role Phone LAURIE OLIVO Attending Unavailable [...] physician. Reason For Referral No Data Found Plan of Treatment No Data Found Encounters Encounter Diagnosis Start Date Code Code Sys tem Trigger finger, right middle finger 11/09/2023 SNOMED-CT Personal Care Team Section Performer Name Performer Role Active Date Inactive RITA Fernandez PCP - Primary care physician
--- OUTSIDE RECORDS SUMMARY | 2025-04-29 09:11 | XMS_ITS | Encounter Summary ---
Author Organization [facility] Address [address] [place] [address] Phone Care Team Providers Care Oracle Pl Sql Developer Name Role Phone Viet Zayas MD Primary Care Provider Encounter Details Date Type Department Care Team (Late st Contact Info) Description 12/24/2018 Orders Only [facility] [place] [address] [place] [address] Jeannette Graham, RN [address] [place] [address] Pre op labs; Chronic kidney disease [...] (HCC) documented in this encounter Care Teams Oracle Pl Sql Developer Relationship Specialty Start Date End Date Viet Zayas MD [address] [place] [address] PCP - General Family Medicine 12/27/20 documented as of this encounter
--- OUTSIDE RECORDS SUMMARY | 2025-04-29 09:11 | XMS_ITS | Encounter Summary ---
Author Organization [facility] Address [address] [facility] [address] [place] [address] Phone Care Team Providers Care Channel Process Supervisor Name Role Phone Viet Zayas MD Primary Care Provider [phone] Reason for Visit * Reason Comments Med Refill Encounter Details Date Type Department Care Team (Late st Contact Info) Description 01/24/2020 Refill [facility] [place] [address] [facility] [address] [place] [address] Gerber Chan MD [address] [facility] [address] [place] [address] Social History Tobacco Use Types [...] on filedocumented in this encounter Care Teams Channel Process Supervisor Relationship Specialty Start Date End Date Viet Zayas MD [address] [place] [address] PCP - General Family Medicine 12/27/20 documented as of this encounter
--- OUTSIDE RECORDS SUMMARY | 2025-04-29 09:11 | XMS_ITS | Encounter Summary ---
Author Organization [facility] Address [address] [place] [address] Phone Care Team Providers Care Retail Event Coordinator Name Role Phone Viet Zayas MD Primary Care Provider [phone] Encounter Details Date Type Department Care Team (Late st Contact Info) Description 05/20/2019 Orders Only [facility] [place] [address] [address] Gerber Chan MD [address] [place] [address] Chronic kidney disease stage 3 [...] (HCC) documented in this encounter Care Teams Retail Event Coordinator Relationship Specialty Start Date End Date Viet Zayas MD [address] [place] [address] PCP - General Family Medicine 12/27/20 documented as of this encounter
--- OUTSIDE RECORDS SUMMARY | 2025-04-29 09:11 | XMS_ITS | Encounter Summary ---
Author Organization [facility] [employer] [facility] [employer] [facility] Address [facility] [address] [address] [address] Phone Care Team Providers Care Telegrapher Agent Name Role Phone Viet Zayas MD Primary Care Provider [phone] Encounter Details Date Type Department Care Team (Late st Contact Info) Description 05/20/2024 Treatment [place] [address] [address] [address] Ahsan Maria MD [address] [place] [address] Social History Tobacco Use Types Packs/Day Years [...] care for end stage renal disease. Attending Nuclear Operator: AHSAN MARIA Dialysis Location: [facility] Schedule: Shift: 2 OVERVIEW Patient is stable. 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 Current [facility] Outpatient Medications acetaminophen 325 mg tablet [...] 1 tablet by mouth every evening. Current [facility] Allergies Allergen: ASPIRIN Reaction: Unknown Allergen: [...] 97.3*F Current Dialysis Vitals BP Sit: 140/62 AP/CASE HARDENER: 222/194 Pulse: 72 TREATMENT MEDICATIONS ORDERS Heparin [...] on filedocumented in this encounter Care Teams Telegrapher Agent Relationship Specialty Start Date End Date Viet Zayas MD [address] [place], [place] [id number] PCP - General Family Medicine 12/27/20 documented as of this encounter
--- OUTSIDE RECORDS SUMMARY | 2025-04-29 09:11 | XMS_ITS | Encounter Summary ---
Author Organization [facility] [place] , [facility] Address [address] [place] [address] Phone Care Team Providers Care Independent Freight Agent Name Role Phone Viet Zayas MD Primary Care Provider [phone] Encounter Details Date Type Department Care Team (Late st Contact Info) Description 04/26/2025 Orders Only [place] [employer] [facility] [address] [address] Ahsan Maria MD [address] [place] [address] Social History Tobacco Use Types Packs/Day Years [...] on file documented as of this encounter Procedures Procedure Name Priority Date/Time Associated Diagnosis Comments HEMATOLOGY Routine 04/26/2025 documented in this encounter Results * (ABNORMAL) HEMATOLOGY (04/26/2025) Hemoglobin 11.0(L) 12.0 - 16.0 g/dL [facility] Hemoglobin x 3 33(L) 36.0 - 48.0 % [facility] 04/26/2025 04/28/2025 11: 07 AM COMMERCIAL LOAN OFFICER Narrative ROLAND - 04/28/2025 Unless otherwise specified, test(s) performed at: [facility], [address] [place], [place] [id number] COOK CASHIER FOOD PREP: Juan Jose Rogers M.D. For any questions, please call customer service at FREQUENCY:OTHER Resulting Agency Comment Specimen source: Blood us Ahsan Maria MD LAB BLOOD ORDERABLES Ronda smith Result [facility] See order comments or contact performing lab Unknown, [place] documented in this encounter Visit Diagnoses Not on filedocumented in this encounter Care Teams Independent Freight Agent Relationship Specialty Start Date End Date Viet Zayas MD [address] [place], [place] [id number] PCP - General Family Medicine 12/27/20 documented as of this encounter
--- OUTSIDE RECORDS SUMMARY | 2025-04-29 09:11 | XMS_ITS | Encounter Summary ---
Author Organization [facility] Address [address] [place] [address] Phone Care Team Providers Care Risk Adjustment Specialist Name Role Phone Viet Zayas MD Primary Care Provider [phone] Encounter Details Date Type Department Care Team (Late st Contact Info) Description 06/27/2018 Orders Only [facility] [place] [address] [address] Gerber Chan MD [address] [place] [address] Chronic kidney disease stage 3; [...] 1 documented in this encounter Care Teams Risk Adjustment Specialist Relationship Specialty Start Date End Date Viet Zayas MD [address] [place] [address] PCP - General Family Medicine 12/27/20 documented as of this encounter
--- OUTSIDE RECORDS SUMMARY | 2025-04-29 09:11 | XMS_ITS | Encounter Summary ---
Author Organization [facility] Address [address] [place] [address] Phone Care Team Providers Care Quality Control Tester Name Role Phone Viet Zayas MD Primary Care Provider [phone] Encounter Details Date Type Department Care Team (Late st Contact Info) Description 03/27/2018 Orders Only [facility] [place] [address] [address] Gerber Chan MD [address] [place] [address] Chronic kidney disease stage 3; [...] 1 documented in this encounter Care Teams Quality Control Tester Relationship Specialty Start Date End Date Viet Zayas MD [address] [place] [address] PCP - General Family Medicine 12/27/20 documented as of this encounter
--- OUTSIDE RECORDS SUMMARY | 2025-04-29 09:11 | XMS_ITS | Encounter Summary ---
Author Organization [facility] Address [address] [place] [address] Phone Care Team Providers Care Merchandise Coordinator Name Role Phone Viet Zayas MD Primary Care Provider [phone] Encounter Details Date Type Department Care Team (Late st Contact Info) Description 12/25/2017 Orders Only [facility] [place] [address] [address] Gerber Chan MD [address] [place] [address] Anemia in chronic kidney disease Social History Tobacco Use Types Packs/Day Years Used Date Smoking Tobacco: Never Smokeless Tobacco: Never Comments Unknown Sex and Gender Information Value Date Recorded Sex Assigned at Not on file Legal Sex Female 9:40 PM EDT Gender Identity Not on file Sexual Orientation Not on file documented as of this encounter Functional Status * Question Answer Date of Assessment Author BP 122/68 12/25/2017 9:29 AM EDT Reina Nguyen rn, CMA Pulse 80 12/25/2017 9:29 AM EDT Reina Nguyen rn, CMA Height 61.500 12/25/2017 9:29 AM EDT Reina Nguyen rn, CMA Weight 2880 12/25/2017 9:29 AM EDT Reina Nguyen rn, CMA * BMI (Calculated) Answer Date of Assessment Author 33.5 12/25/2017 9:29 AM Reina Escobar CMA * BP Location Answer Date of Assessment Author Left arm 12/25/2017 9:29 AM EDT Reina Mcconnell CMA * Question Answer Date of Assessment Author BP 122/68 12/25/2017 9:29 AM EDT Reina Nguyen rn, CMA Height 61.500 12/25/2017 9:29 AM EDT Reina Nguyen rn, CMA Weight 2880 12/25/2017 9:29 AM EDT Reina Nguyen rn, CMA * BMI (Calculated) Answer Date of Assessment Author 33.5 12/25/2017 9:29 AM EDT Reina Mcconnell CMA * BP Location Answer Date of Assessment Author Left arm 12/25/2017 9:29 AM EDT Reina Mcconnell CMA documented as of this encounter Plan of Treatment Not on file documented as of this encounter Visit Diagnoses Diagnosis Anemia in chronic kidney disease documented in this encounter Care Teams Merchandise Coordinator Relationship Specialty Start Date End Date Viet Zayas MD [address] [place] [address] PCP - General Family Medicine 12/27/20 documented as of this encounter
--- OUTSIDE RECORDS SUMMARY | 2025-04-29 09:11 | XMS_ITS | Encounter Summary ---
Author Organization [facility] [employer] [facility] [employer] [facility] Address [facility] [place] [address] [address] Phone Care Team Providers Care Crew Car Driver Name Role Phone Viet Zayas MD Primary Care Provider [phone] Encounter Details Date Type Department Care Team (Late st Contact Info) Description 04/22/2024 Treatment [place] [address] [address] [address] Ahsan Maria MD [address] [place] [address] Social History Tobacco Use Types Packs/Day Years [...] care for end stage renal disease. Attending Auto Painter Helper: AHSAN MARIA Dialysis Location: [facility] [...] on filedocumented in this encounter Care Teams Crew Car Driver Relationship Specialty Start Date End Date Viet Zayas MD [address] [place] [address] PCP - General Family Medicine 12/27/20 documented as of this encounter
--- OUTSIDE RECORDS SUMMARY | 2025-04-29 09:11 | XMS_ITS | Encounter Summary ---
Author Organization [facility] Address [address] [facility] [address] [place] [address] Phone Care Team Providers Care Operations Research Manager Name Role Phone Viet Zayas MD Primary Care Provider [phone] Encounter Details Date Type Department Care Team (Late st Contact Info) Description 07/02/2017 Orders Only [facility] [place] [address] [address] Gerber Chan MD [address] [place] [address] Chronic kidney disease stage 3 [...] Question Answer Date of Assessment Author BP 114/68 07/02/2017 10:21 AM Reina Dickens CMA Pulse 84 07/02/2017 10:21 AM Reina Dickens CMA Height 61.500 07/02/2017 10:21 AM Reina Dickens CMA Weight 2812.8 07/02/2017 10:21 AM Reina Dickens CMA * BMI (Calculated) Answer Date of Assessment Author 32.7 07/02/2017 10:21 AM Reina Beard CMA * BP Location Answer Date of Assessment Author Left arm 07/02/2017 10:21 AM EST Reina Mcconnell CMA * Question Answer Date of Assessment Author BP 114/68 07/02/2017 10:[address] CMA Height 61.500 07/02/2017 10:[address] CMA Weight 2812.8 07/02/2017 10:[address] CMA * BMI (Calculated) Answer Date of Assessment Author 32.7 07/02/2017 10:21 AM EST Reina Mcconnell CMA * BP Location Answer Date of Assessment Author Left arm 07/02/2017 10:21 AM Reina Beard CMA documented as of this encounter Plan of Treatment Not on file documented as of this encounter Visit Diagnoses Diagnosis Chronic kidney disease stage 3 (HCC) documented in this encounter Care Teams Operations Research Manager Relationship Specialty Start Date End Date Viet Zayas MD [address] [place] [id number] PCP - General Family Medicine 12/27/20 documented as of this encounter
--- OUTSIDE RECORDS SUMMARY | 2025-04-29 09:11 | XMS_ITS | Encounter Summary ---
Author Organization [facility] Address [address] [place] [address] Phone Care Team Providers Care Application Support Engineer Name Role Phone Viet Zayas MD Primary Care Provider [phone] Encounter Details Date Type Department Care Team (Late st Contact Info) Description 11/04/2018 Orders Only [facility] [place] [address] [place] [address] Kiana Masterson, RN [address] [place] [address] Stage 5 chronic kidney disease (HCC) [...] (HCC) documented in this encounter Care Teams Application Support Engineer Relationship Specialty Start Date End Date Viet Zayas MD [address] [place] [address] PCP - General Family Medicine 12/27/20 documented as of this encounter
--- OUTSIDE RECORDS SUMMARY | 2025-04-29 09:11 | XMS_ITS | Encounter Summary ---
Author Organization [facility] Address [address] [place] [address] Phone Care Team Providers Care Scientific Editor Name Role Phone Viet Zayas MD Primary Care Provider [phone] Encounter Details Date Type Department Care Team (Late st Contact Info) Description 02/18/2019 Orders Only [facility] [place] [address] [address] Gerber Chan MD [address] [place] [address] Chronic kidney disease stage 3 [...] (HCC) documented in this encounter Care Teams Scientific Editor Relationship Specialty Start Date End Date Viet Zayas MD [address] [place] [address] PCP - General Family Medicine 12/27/20 documented as of this encounter
--- OUTSIDE RECORDS SUMMARY | 2025-04-29 09:11 | XMS_ITS | Encounter Summary ---
Author Organization [facility] Address [address] [place] [address] Phone Care Team Providers Care Inside Upholsterer Name Role Phone Viet Zayas MD Primary Care Provider Encounter Details Date Type Department Care Team (Late st Contact Info) Description 10/06/2018 Orders Only [facility] [place] [address] [address] Gerber Chan MD [address] [place] [address] Chronic kidney disease stage 4 [...] (HCC) documented in this encounter Care Teams Inside Upholsterer Relationship Specialty Start Date End Date Viet Zayas MD [address] [place] [address] PCP - General Family Medicine 12/27/20 documented as of this encounter
--- OUTSIDE RECORDS SUMMARY | 2025-04-29 09:11 | XMS_ITS | Encounter Summary ---
Author Organization [facility] Address [facility] [place] [address] [address] Phone Care Team Providers Care Core Checker Name Role Phone Viet Zayas MD Primary Care Provider [phone] Encounter Details Date Type Department Care Team (Late st Contact Info) Description 09/25/2024 Treatment [place] [facility] [address] [address] [address] Ahsan Maria MD [address] [place] [address] End stage renal disease; Dependence on renal [...] care for end stage renal disease. Attending Draw Operator: AHSAN MARIA Dialysis Location: [facility] Schedule: Shift: 2 OVERVIEW Patient is stable. 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 Current [facility] Outpatient Medications acetaminophen 325 mg tablet Take [...] by mouth every evening. Current [facility] Allergies Allergen: ASPIRIN Reaction: Unknown Allergen: CODEINE [...] dialysis documented in this encounter Care Teams Core Checker Relationship Specialty Start Date End Date Viet Zayas MD [address] [place] [address] PCP - General Family Medicine 12/27/20 documented as of this encounter
--- OUTSIDE RECORDS SUMMARY | 2025-04-29 09:11 | XMS_ITS | Encounter Summary ---
Author Organization [facility] Address [address] [place] [address] Phone Care Team Providers Care Heavy Repairer Name Role Phone Viet Zayas MD Primary Care Provider Encounter Details Date Type Department Care Team (Late st Contact Info) Description 11/18/2018 Orders Only [facility] [place] [address] [facility] [place] [address] Kiana Masterson, RN [address] [facility] [place] [address] Stage 5 chronic kidney disease (HCC); [...] Question Answer Date of Assessment Author BP 126/70 11/18/2018 1:10 PM EDT Reina Nguyen rn, CMA Pulse 80 11/18/2018 1:10 PM EDT Reina Nguyen rn, CMA Height 61.500 11/18/2018 1:10 PM EDT Reina Nguyen rn, CMA Weight 2838.4 11/18/2018 1:10 PM EDT Reina Nguyen rn, CMA * BMI (Calculated) Answer Date of Assessment Author 33 11/18/2018 1:10 PM EDT Reina Mcconnell CMA * BP Location Answer Date of Assessment Author Left arm 11/18/2018 1:10 PM EDT Reina Mcconnell CMA * Question Answer Date of Assessment Author BP 126/70 11/18/2018 1:10 PM EDT Reina Nguyen rn, CMA Height 61.500 11/18/2018 1:10 PM EDT Reina Nguyen rn, CMA Weight 2838.4 11/18/2018 1:10 PM EDT Reina Nguyen rn, CMA * BMI (Calculated) Answer Date of Assessment Author 33 11/18/2018 1:10 PM EDT Reina Mcconnell CMA * BP Location Answer Date of Assessment Author Left arm 11/18/2018 1:10 PM EDT Reina Mcconnell CMA documented as of this encounter Plan of Treatment Not on file documented as of this encounter Visit Diagnoses Diagnosis Stage 5 chronic kidney disease (HCC) 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
== END 2025-04-29 08:49 | disposition home or self-care (01) ==
LOC: CHSIMG 08:50
PROVIDERS: PCP Family Medicine; Visit Provider Family Medicine
DX: E04.1 Nontoxic single thyroid nodule (principal)
CPT/HCPCS: 76536

== ENCOUNTER 2025-05-14 10:01 | Outpatient (CLI) | payer OTHER, SELFPAY ==
[2025-05-14 10:56] LABS: Cholesterol 134 mg/dL (0-200); HDL Direct 64 mg/dL; Triglycerides 184 mg/dL (<150)
== END 2025-05-14 10:02 | disposition home or self-care (01) ==
LOC: CHSLAB 10:04
PROVIDERS: PCP Family Medicine; Visit Provider Family Medicine
DX: E78.2 Mixed hyperlipidemia (principal)
CPT/HCPCS: 36415; 80061